=== PATIENT | female | born 1985 | race Caucasian/White ===

== ENCOUNTER 2016-09-14 08:56 | Emergency (ER) | payer MEDICAID, OTHER ==
[2016-09-14 09:07] VITALS: BP 114/68
--- NOTE | 2016-09-14 09:59 | ED ---
Throat Pain/Nasal Congestion - HPI Summary HPI Summary: 31yo female presents with left lower dental pain and facial swelling that started a few days ago. About a week ago her tooth broke, and the pain and swelling started after that. No fever or chills. + nausea and vomited twice yesterday. Able to take and retain fluids now without difficulty. Patient took ibuprofen 800mg at 0400. LMP last week, not sexually active. - History of Current Complaint Chief Complaint: EDDentalPain - Allergies/Home Medications Allergies/Adverse Reactions: Allergies Allergy/AdvReac Type Severity Reaction Status Date / Time No Known Allergies Allergy Verified 05/01/15 19:44 PMH/Surg Hx/FS Hx/Imm Hx Endocrine/Hematology History: Denies: Hx Diabetes Cardiovascular History: Denies: Hx Congestive Heart Failure, Hx Hypertension GI History: Reports: Other GI Disorders - dysphagia occasional History: Denies: Hx Dialysis, Hx Renal Disease - Surgical History Surgery Procedure, Year, and Place: [facility]/APPY/RT OVARY AND RT F[place] TUBE REMOVED/TUBAL LIGATION Infectious Disease History: No Infectious Disease History: Denies: Traveled Outside the [place] in Last 30 Days - Family History Known Family History: Positive: Diabetes - Social History Lives: Alone Alcohol Use: Rare Hx Substance Use: Yes Substance Use Type: Reports: Marijuana Hx Tobacco Use: Yes Smoking Status (MU): Heavy Every Day Tobacco Smoker Review of Systems Positive: Dental Pain All Other Systems Reviewed And Are Negative: Yes Physical Exam - Summary Physical Exam Summary: GENERAL: Well appearing, Moderate acute pain distress, well nourished. HEENT: Head atraumatic/normocephalic, EOMI/RENO, conjunctiva clear, TMs appear without erythema/bulging, Nose appears without congestion or drainage, Throat uvula midline without exudates, erythema, or tonsillar edema. Some left lower facial edema. No sub mental edema or tenderness. No sublingual tenderness/firmness. Multiple decayed teeth with fracture of 20, tenderness and surrounding gingival edema and erythema. No fluctuant pocket. No active drainage. No trismus. NECK: Supple with normal range of motion during conversation. No lymphadenopathy. CARDIAC: RRR without murmur, rub or gallop LUNGS: Clear to auscultation without wheezing, rales or rhonchi. Normal respiratory effort. Breath sounds are symmetrical and equal. MUSCULOSKELETAL: Moves all extremities well. There is no peripheral edema. SKIN: Warm and dry, skin color reflects adequate perfusion. NEUROLOGICAL: Patient is alert and appropriate. Cranial nerves are grossly intact. PSYCHIATRIC: Appropriate affect. Vital Signs On Initial Exam: Initial Vitals Temp Pulse Resp BP Pulse Ox 97.8 F 78 15 114/68 100 09/14/16 09:02 09/14/16 09:02 09/14/16 09:02 09/14/16 09:02 09/14/16 09:02 Diagnostics - Vital Signs Vital Signs Temp Pulse Resp BP Pulse Ox 09/14/16 09:02 97.8 F 78 15 114/68 100 - Laboratory Lab Statement: Any lab studies that have been ordered have been reviewed, and results considered in the medical decision making process. EENT Course/Dx - Course Assessment/Plan: 31yo female presents with left lower dental pain that started a few days after her tooth broke. Multiple sites of dental decay. No fever/ chills. No fluctuant mass. Will treat with antibiotics and pain medication. Warm compresses recommended. Discussed the importance of dental care, as this is only a temporary treatment. Discussed risk/benefit of narcotic pain medication. Patient to return with any problems, concerns, new/worsening symptoms. Patient voiced understanding. - Diagnoses Provider Diagnoses: CLINDAMYCIN,DENTAL ABSCESS Discharge - Discharge Plan Condition: Good Disposition: HOME Prescriptions: Clindamycin Cap(NF) [Cleocin 300 mg Cap(NF)] 300 mg PO QID #40 cap HYDROcodone/ACETAMIN 5-325 MG* [Schleswig 5-325 TAB*] 1 tab PO Q6H PRN #18 tab MDD 4 PRN Reason: Pain Patient Education Materials: Clindamycin (By mouth), Hydrocodone/Acetaminophen (By mouth), Ibuprofen (By mouth), Dental Abscess (ED) Referrals: [facility]ERR[facility] [Outside] Additional Instructions: Please see your dentist as discussed. You need to see a dentist for definitive care. Narcotics were prescribed for pain. As discussed there are risks for GI upset, addiction and constipation to name some of the adverse reactions. Please take ibuprofen primarily and the narcotic for break through pain. Please return if you have fever, chills, worsening swelling or with any problems/ concerns.
[2016-09-14] MEDS ORDERED: Clindamycin CAP* 150 MG PO ONE ×2 (10:00)
[2016-09-14] MEDS ORDERED: HYDROcodone/ACETAMIN 5-325 MG* 1 TAB PO ONE ×2 (10:00)
== END 2016-09-14 10:39 | disposition home or self-care (01) ==
LOC: ED 08:56
DX: K08.89 Other specified disorders of teeth and supporting structures (principal); Z72.0 Tobacco use
CPT/HCPCS: 99283; A9270-GY

== ENCOUNTER 2016-11-24 10:53 | Inpatient (IN) | payer MEDICAID ==
[2016-11-24] MEDS ORDERED: LORazepam TAB(*) 1 MG PO ONE (11:58)
--- NOTE | 2016-11-24 12:08 | ED ---
Psychiatric Complaint - HPI Summary HPI Summary: Patient presents with "hearing voices" that have increased over the last few weeks. She stopped taking her usual medications approximately 3 weeks ago, and since then she has not been functioning as well. She has not showered in 7 weeks , hasn't gone to work or school. She has not slept in 4 days. The voices have been telling her to harm herself by hanging herself. She denies HI. She has several counselors she has been in touch with but has not confessed that the voices are getting worse. She has prior attempts. - History Of Current Complaint Chief Complaint: EDMentalHealth Time Seen by Provider: 11/24/16 11:00 Hx Obtained From: Patient ?: No Onset/Duration: Gradual Onset Timing: Constant Severity Initially: Mild Severity Currently: Severe Character: Manic Aggravating Factor(s): Medication Non-compliance Alleviating Factor(s): Nothing Associated Signs And Symptoms: Positive: Hallucinating, Sleep Disturbance, Appetite Change Related History: Positive For: Prior Psychiatric Issues Has Suicidal: Reports: Thoughts, With A Plan, Demonstrates Gesture, Has Prior Attempt(s) - Allergies/Home Medications Allergies/Adverse Reactions: Allergies Allergy/AdvReac Type Severity Reaction Status Date / Time No Known Allergies Allergy Verified 11/24/16 17:59 Home Medications: Home Medications NK [No Home Medications Reported] 11/24/16 [History Confirmed 11/24/16] PMH/Surg Hx/FS Hx/Imm Hx Endocrine/Hematology History: Denies: Hx Diabetes Cardiovascular History: Denies: Hx Congestive Heart Failure, Hx Hypertension GI History: Reports: Other GI Disorders - dysphagia occasional History: Denies: Hx Dialysis, Hx Renal Disease Psychiatric History: Reports: Hx Post Traumatic Stress Disorder, Hx Bipolar Disorder - Surgical History Surgery Procedure, Year, and Place: [facility]/APPY/RT OVARY AND RT [place] TUBE REMOVED/TUBAL LIGATION Infectious Disease History: No Infectious Disease History: Denies: Traveled Outside the [place] in Last 30 Days - Family History Known Family History: Positive: Diabetes - Social History Occupation: Employed Part-time Lives: With Family Alcohol Use: Rare Hx Substance Use: Yes Substance Use Type: Reports: Marijuana Hx Tobacco Use: Yes Smoking Status (MU): Heavy Every Day Tobacco Smoker Cessation Counseling: Patient Advised to Stop Review of Systems Positive: Anxious All Other Systems Reviewed And Are Negative: Yes Physical Exam Triage Information Reviewed: Yes Vital Signs On Initial Exam: Initial Vitals Temp Pulse Resp BP Pulse Ox 98.0 F 81 16 103/69 98 11/24/16 10:55 11/24/16 10:55 11/24/16 10:55 11/24/16 10:55 11/24/16 10:55 Vital Signs Reviewed: Yes Appearance: Positive: Well-Appearing, No Pain Distress, Obese Skin: Positive: Warm, Skin Color Reflects Adequate Perfusion, Dry, Soft Head/Face: Positive: Normal Head/Face Inspection Eyes: Positive: EOMI, ÓSCAR, Conjunctiva Clear ENT: Positive: Hearing grossly normal Neck: Positive: Supple, Nontender Respiratory/Lung Sounds: Positive: Clear to Auscultation, Breath Sounds Present Cardiovascular: Positive: RRR Abdomen Description: Positive: Nontender, Soft Bowel Sounds: Positive: Present Musculoskeletal: Negative: Edema Left, Edema Right Neurological: Positive: Sensory/Motor Intact, Alert, Oriented to Person Place, Time, NV Bundle Intact Distally, Normal Gait Psychiatric: Positive: Anxious AVPU Assessment: Alert Diagnostics - Vital Signs Vital Signs Temp Pulse Resp BP Pulse Ox 11/24/16 10:55 98.0 F 81 16 103/69 98 - Laboratory Result Diagrams: 11/24/16 11:55 11/24/16 11:55 Lab Statement: Any lab studies that have been ordered have been reviewed, and results considered in the medical decision making process. Course/Dx - Differential Dx/Clinical Impression Differential Diagnosis/HQI/PQRI: Positive: Acute Psychosis, Anxiety, Depression Provider Diagnosis: Persistent mood [affective] disorder, unspecified - Physician Notifications Patient Is Medically Stable For: Psych Evaluation Discharge - Discharge Plan Condition: Stable Disposition: ADMITTED TO [facility]
[2016-11-24 12:13] LABS: Hematocrit 40 % (35-47); Hemoglobin 13.3 g/dl (12.0-16.0); Mean Corpuscular HGB Conc 33 g/dl (31-36); Mean Corpuscular Hemoglobin 29 pg (27-31); Mean Corpuscular Volume 88 fL (80-97); Red Blood Count 4.56 10^6/ul (4.0-5.4); Red Cell Distribution Width 14 % (10.5-15); White Blood Count 9.2 10^3/ul (3.5-10.8)
[2016-11-24 12:14] LABS: Add Diff/Slide Review? Slide Review Added; Comments Flag Yes
[2016-11-24 12:21] LABS: ALT 19 U/L (7-52); Albumin 3.9 g/dL (3.2-5.2); Alkaline Phosphatase 52 U/L (34-104); BUN/Creatinine Ratio 15.6 (8-20); Blood Urea Nitrogen 12 mg/dL (6-24); CO2 Carbon Dioxide 26 mmol/L (22-32); Calcium 9.2 mg/dL (8.6-10.3); Chloride 103 mmol/L (101-111); EGFR Non-African American 88.6 (>60); Globulin 3.2 g/dL (2-4); Glucose 73 mg/dL (70-100); Sodium 134 mmol/L (133-145); Total Protein 7.1 g/dL (6.4-8.9)
[2016-11-24 13:16] LABS: Acetaminophen < 15 mcg/mL; Alcohol < 10 mg/dL (<10); Salicylate < 2.50 mg/dL (<30)
[2016-11-24 13:19] LABS: TSH (Thyroid Stimulating Horm) 1.66 mcIU/mL (0.34-5.60)
[2016-11-24 13:30] LABS: AST 16 U/L (13-39); Anion Gap 5 mmol/L (2-11); Potassium 4.3 mmol/L (3.5-5.0)
[2016-11-24] MEDS ORDERED: Acetaminophen TAB* 325 MG PO PRN (14:32)
[2016-11-24] MEDS ORDERED: Al Hydrox/Mg Hydrox/Simet LIQ* 30 ML UDC PO PRN (14:32)
[2016-11-24] MEDS ORDERED: hydrOXYzine HCL TAB* 25 MG PO PRN (14:38)
[2016-11-24] MEDS ORDERED: Mouth Piece, Nicotine* 1 EACH CARTRIDGE INH ONE (15:00)
[2016-11-24] MEDS: Nicotine Inhaler* 10 MG AMP INH PRN (16:56)
[2016-11-24] MEDS ORDERED: Gabapentin CAP(*) 100 MG PO ONE (19:00)
[2016-11-24] MEDS: hydrOXYzine HCL TAB* 25 MG PO PRN (19:47)
[2016-11-24] MEDS ORDERED: OLANzapine TAB*ODT* 10 MG TAB PO SCH (21:00)
[2016-11-24] MEDS: Gabapentin CAP(*) 100 MG PO SCH (21:26)
[2016-11-25] MEDS: Gabapentin CAP(*) 100 MG PO SCH ×3 (07:59→21:08)
[2016-11-25] MEDS: Vitamin THERAPEUTIC TAB PO SCH (07:59)
[2016-11-25] MEDS: hydrOXYzine HCL TAB* 25 MG PO PRN (08:00)
[2016-11-25] MEDS: Nicotine Inhaler* 10 MG AMP INH PRN ×2 (08:01→17:47)
[2016-11-25] MEDS: QUEtiapine TAB* 25 MG PO PRN ×2 (13:09→17:38)
[2016-11-25 13:57] LABS: Urine Bilirubin Negative (Negative); Urine Glucose Negative (Negative); Urine Nitrite Negative (Negative)
[2016-11-25 14:18] LABS: Benzodiazepine Urine Screen None Detected (None Detect)
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
[2016-11-25] MEDS: OLANzapine TAB*ODT* 5 MG PO SCH (21:07)
[2016-11-26] MEDS: Vitamin THERAPEUTIC TAB PO SCH (08:24)
[2016-11-26] MEDS: Gabapentin CAP(*) 100 MG PO SCH ×3 (08:25→20:43)
[2016-11-26] MEDS: Nicotine Inhaler* 10 MG AMP INH PRN ×2 (08:26→14:50)
--- NOTE | 2016-11-26 11:16 | PN ---
[facility]: Group Therapy Note - Service Type Service Type: 13245 Group Psychotherapy - Cognitive Behavioral Group Therapy ( CBT):Patient was attentive and participatory in CBT programming this morning, and remained in good behavioral control. Patient expressed positive insights regarding relevant treatment interventions and goals.
[2016-11-26] MEDS: QUEtiapine TAB* 25 MG PO PRN ×4 (11:53→20:44)
--- NOTE | 2016-11-26 13:45 | PN ---
Subjective - Subjective Service Type: 97249 Hosp care 15 min low complexity Subjective: Kvng reports her mood as 'still anxious', with continued paranoia that staff are laughing at her for example. She reports some benefit against the anxiety from 25 mg Seroquel prn doses. AH of the male voice she reports is continuing, though less of it, and VH of menacing sheep/lambs with big dark eyes she reports has remitted. She reports still feeling hopeless/worthless, but without thoughts to hang herself now, nor any other specific plan to kill herself. She reports stress of her mother being released from [facility]16 and concern that she will essentially 'kidnap' her if she agrees to help her move. She is concerned about having missed an appointment on Thursday morning with social media project manager. She agrees to allow us to get a discharge summary from [facility] psychiatric unit in [place]. She requests medication in AM to help her with anxiety, mood. Requested Abilify, Topamax or Prozac, then suggested Wellbutrin. Objective - Appearance Appearance: Obese Dysmorphic Features: No Hygiene: Normal Grooming: Fairly Well Kept - Behavior Psychomotor Activities: Normal Exhibits Abnormal Movement: No - Attitude and Relatedness Attitude and Relatedness: Cooperative Eye Contact: Good - Speech Quality: Unpressured Latencies: Normal Quantity: Appropriate - Mood Patient's Decription of Mood: "Anxious" - Affect Observed Affect: Good Affect Consistent with: Euthymia - Thought Process Patient's Thought Process: Coherent, Goal Directed Thought Content: Yes Passive Wish, Yes Paranoid Ideation, No Suicidal Planning, No Homicidal Ideation - Sensorium Experiencing Hallucinations: Yes Type of Hallucinations: Visual: No, Auditory: Yes, Command: No - Level of Consciousness Level of Consciousness: Alert Orientation: Yes Intact, Yes Orientated to Time, Yes Orientated to Place, Yes Orientated to Person - Impulse Control Impulse Control: Intact - Insight and Judgement Insight and Judgement: Poor - Group Participation Particating in Group Activities: Yes - Medication Management Medication Management Adherence: Yes Assessment - Assessment Merits Inpatient Hospitalization: For Immediate Safety, For Stabilization, To Initiate Treatment, For Ongoing Evaluation, For Discharge Planning, Pending Safe DC Plan Inpatient DSM-IV Dx: Schizoaffective Disorder, Bipolar Type. Alcohol use disorder reported in [facility]. Cannabis use disorder. Rule out Borderline Personality Disorder Clinical Impression: Admission note A/P 11.25.16: Ms. Ryan is a 31-year-old woman who comes to us with report of onset of auditory and visual hallucinations about 6 months ago, worsened of late with lapse from medications. She reports poor followup with outpatient care since 2012 when she was in outpatient care with [facility], filling the gap with prescriptions received while inpatient at [facility] in [place] for the most part. She is seeking care for resolution of her psychosis and suicidality. She does require locked inpatient setting for this given her report of thoughts to harm herself or others due to these command auditory hallucinations of a male voice. We have started Zyprexa 10 mg last night, 15 mg to be given tonight, against these hallucinations as primary target symptoms. Also with suicidality as a primary symptom, it will be with remission of these symptoms that she will be considered to be ready for discharge. She has been encouraged to make use of the therapeutic milieu and groups. We have instead of giving Klonopin as requested offered a Seroquel 25 mg dosage every two hours as needed for agitation/anxiety. Aftercare is likely to be continued intake into the [facility]. Day 2, 11.26.16: Kvng reports some improvements, with remitted VH, but continued AH/PI, reports benefit from prn Seroquel, likely benefit from Zyprexa in remission of VH. She agrees to addition of 75 mg Wellbutrin in the AM to promote improved mood. No physical complaint. Asking about rescheduling for interview at social media project manager for food stamps and other aid after missing Thursday appointment, also asked me about signing form supporting disability, to which I suggested this might be better managed by outpatient providers after she has reestablished care at [facility]. Some concern here for possible indications of malingering, but impossible to ascertain either way. Plan - Plan Treatment Plan: Name: KVNG RYAN Birthdate: 1985 [id number] Add Wellbutrin 75 mg daily against depressive symptoms. Continue Zyprexa 15 mg nightly against psychotic symptoms, gabapentin 200 mg tid against anxiety, Seroquel 25 mg q2H prn agitation/anxiety. Ms Aguilar has stepped in to help obtain d/c summary from last Dr Valdez hospitalization at [facility] in [place]. Monitor MS toward discharge criteria of remitted report of YANG RICHARDS, PI. Plan toward resumed intake into [facility]. Continued Medication Management: Different Medication Medications: Current Medications Acetaminophen (Tylenol Tab*) 650 mg PO Q4H PRN PRN Reason: for pain; or Temp >101 F Al Hydrox/Mg Hydrox/Simethicone (Maalox Plus*) 30 ml PO Q4H PRN PRN Reason: INDIGESTION Gabapentin (Neurontin Cap(*)) 200 mg PO TID [facility] Last Admin: 11/26/16 08:25 Dose: 200 mg Multivitamins (Theragran Tab*) 1 tab PO DAILY [facility] Last Admin: 11/26/16 08:24 Dose: 1 tab Nicotine (Nicotine Inhaler*) 10 mg INH Q2H PRN PRN Reason: CRAVING Last Admin: 11/26/16 08:26 Dose: 10 mg Olanzapine (Zyprexa * Tab Odt) 15 mg PO BEDTIME [facility] Last Admin: 11/25/16 21:07 Dose: 15 mg Quetiapine Fumarate (Seroquel Tab*) 25 mg PO Q2H PRN PRN Reason: AGITATION/ANXIETY Last Admin: 11/26/16 11:53 Dose: 25 mg - Discharge Plan Discharge Plan: Outpatient Follow Up Outpatient Program: [facility]
[2016-11-26] MEDS: OLANzapine TAB*ODT* 5 MG PO SCH (20:45)
[2016-11-27] MEDS: Gabapentin CAP(*) 100 MG PO SCH (08:44)
[2016-11-27] MEDS: Nicotine Inhaler* 10 MG AMP INH PRN ×3 (08:44→21:26)
[2016-11-27] MEDS: Vitamin THERAPEUTIC TAB PO SCH (08:45)
[2016-11-27] MEDS ORDERED: BuPROPion XL* 150 MG TAB.XL PO SCH (12:00)
--- NOTE | 2016-11-27 12:05 | PN ---
Subjective - Subjective Service Type: 19918 Hosp care 15 min low complexity Subjective: The patient is seen today in coverage for Dr. Jasso. She continues to endorse AH and VH and inquires how soon the olanzapine might be expected to improve these symptoms. The patient is requesting initiation of bupropion therapy and would also like her gabapentin increased. She voices no other acute complaints and denies SI. Objective - Appearance Appearance: Well Developed/Nourished Dysmorphic Features: No Hygiene: Normal Grooming: Well Kept - Behavior Psychomotor Activities: Normal Exhibits Abnormal Movement: No - Attitude and Relatedness Attitude and Relatedness: Cooperative Eye Contact: Good - Speech Quality: Unpressured Latencies: Normal Quantity: Appropriate - Mood Patient's Decription of Mood: "Anxious" - Affect Observed Affect: Fair Affect Consistent with: Euthymia - Thought Process Patient's Thought Process: Coherent Thought Content: No Passive Wish, No Suicidal Planning, No Homicidal Ideation, No Paranoid Ideation - Sensorium Experiencing Hallucinations: Yes Type of Hallucinations: Visual: Yes, Auditory: Yes, Command: No - Level of Consciousness Level of Consciousness: Alert Orientation: Yes Intact, Yes Orientated to Time, Yes Orientated to Place, Yes Orientated to Person - Impulse Control Impulse Control: Tenuous - Insight and Judgement Insight and Judgement: Fair - Group Participation Particating in Group Activities: Yes - Medication Management Medication Management Adherence: Yes Assessment - Assessment Merits Inpatient Hospitalization: For Immediate Safety, For Stabilization Inpatient DSM-IV Dx: Schizoaffective Disorder, Bipolar Type. 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 Cannabis use disorder. Rule out Borderline Personality Disorder Clinical Impression: 31 y.o. white female with a history of putative bipolar disorder arrived at the hospital seeking voluntary admission due to AH, VH and SI. Plan - Plan Treatment Plan: Name: KVNG RYAN Birthdate: 1985 [id number] The patient is on olanzapine 15mg PO qhs and we await efficacy. As per patient' s request we will initiate bupropion XL 150mg PO qday and increase gabapentin to 300mg PO TID. Patient will resume care with Dr. Jasso, effective November 29. Continued Medication Management: Start Medication Medications: Current Medications Acetaminophen (Tylenol Tab*) 650 mg PO Q4H PRN PRN Reason: for pain; or Temp >101 F Al Hydrox/Mg Hydrox/Simethicone (Maalox Plus*) 30 ml PO Q4H PRN PRN Reason: INDIGESTION Bupropion HCl (Wellbutrin Xl *) 150 mg PO DAILY [facility] PRN Reason: Protocol Gabapentin (Neurontin Cap(*)) 300 mg PO TID [facility] Multivitamins (Theragran Tab*) 1 tab PO DAILY [facility] Last Admin: 11/27/16 08:45 Dose: 1 tab Nicotine (Nicotine Inhaler*) 10 mg INH Q2H PRN PRN Reason: CRAVING Last Admin: 11/27/16 08:44 Dose: 10 mg Olanzapine (Zyprexa * Tab Odt) 15 mg PO BEDTIME [facility] Last Admin: 11/26/16 20:45 Dose: 15 mg Quetiapine Fumarate (Seroquel Tab*) 25 mg PO Q2H PRN PRN Reason: AGITATION/ANXIETY Last Admin: 11/26/16 20:44 Dose: 25 mg - Discharge Plan Discharge Plan: Inpatient Hospitalization
[2016-11-27] MEDS: QUEtiapine TAB* 25 MG PO PRN ×4 (12:08→21:19)
[2016-11-27] MEDS: BuPROPion XL* 150 MG TAB.XL PO SCH (12:11)
[2016-11-27] MEDS: Gabapentin CAP(*) 300 MG PO SCH ×2 (15:53→20:33)
[2016-11-27] MEDS: OLANzapine TAB*ODT* 5 MG PO SCH (21:26)
[2016-11-28] MEDS: QUEtiapine TAB* 25 MG PO PRN ×3 (07:30→16:00)
[2016-11-28] MEDS: BuPROPion XL* 150 MG TAB.XL PO SCH (09:25)
[2016-11-28] MEDS: Nicotine Inhaler* 10 MG AMP INH PRN ×3 (09:25→20:41)
[2016-11-28] MEDS: Vitamin THERAPEUTIC TAB PO SCH (09:25)
[2016-11-28] MEDS: Gabapentin CAP(*) 300 MG PO SCH ×2 (09:25→12:55)
--- NOTE | 2016-11-28 14:23 | PN ---
Subjective - Subjective Service Type: 17096 Hosp care 15 min low complexity Subjective: The patient states that she's feeling better and would like to discuss being discharged on Thursday or Thursday with Dr. Jasos. She complained about command AH to staff but denies this currently. She is requesting an increase in gabapentin in order to help her manage anxiety better. She denies SI or HI. Objective - Appearance Appearance: Well Developed/Nourished, Obese Dysmorphic Features: No Hygiene: Normal Grooming: Well Kept - Behavior Psychomotor Activities: Normal Exhibits Abnormal Movement: No - Attitude and Relatedness Attitude and Relatedness: Cooperative Eye Contact: Good - Speech Quality: Unpressured Latencies: Normal Quantity: Appropriate - Mood Patient's Decription of Mood: "Okay" - Affect Observed Affect: Fair Affect Consistent with: Euthymia - Thought Process Patient's Thought Process: Coherent Thought Content: No Passive Wish, No Suicidal Planning, No Homicidal Ideation, No Paranoid Ideation - Sensorium Experiencing Hallucinations: No, Sensorium is Clear Type of Hallucinations: Visual: No, Auditory: No, Command: No - Level of Consciousness Level of Consciousness: Alert Orientation: Yes Intact, Yes Orientated to Time, Yes Orientated to Place, Yes Orientated to Person - Impulse Control Impulse Control: Tenuous - Insight and Judgement Insight and Judgement: Fair - Group Participation Particating in Group Activities: Yes - Medication Management Medication Management Adherence: Yes Assessment - Assessment Merits Inpatient Hospitalization: For Immediate Safety, For Stabilization Inpatient DSM-IV Dx: Schizoaffective Disorder, Bipolar Type. 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 Cannabis use disorder. Rule out Borderline Personality Disorder Clinical Impression: 31 y.o. white female with a history of putative bipolar disorder arrived at the hospital seeking voluntary admission due to AH, VH and SI. Plan - Plan Treatment Plan: Name: KVNG RYAN Birthdate: 1985 [id number] The patient is on olanzapine 15mg PO qhs, bupropion XL 150mg PO qday and gabapentin 300mg PO TID. We will increase gabapentin to 400mg PO TID per her request. Patient will resume care with Dr. Jasso, effective November 29. Continued Medication Management: Different Medication Medications: Current Medications Acetaminophen (Tylenol Tab*) 650 mg PO Q4H PRN PRN Reason: for pain; or Temp >101 F Al Hydrox/Mg Hydrox/Simethicone (Maalox Plus*) 30 ml PO Q4H PRN PRN Reason: INDIGESTION Bupropion HCl (Wellbutrin Xl *) 150 mg PO 0900 IRINA PRN Reason: Protocol Last Admin: 11/28/16 09:25 Dose: 150 mg Gabapentin (Neurontin Cap(*)) 300 mg PO TID [facility] Last Admin: 11/28/16 12:55 Dose: 300 mg Multivitamins (Theragran Tab*) 1 tab PO DAILY [facility] Last Admin: 11/28/16 09:25 Dose: 1 tab Nicotine (Nicotine Inhaler*) 10 mg INH Q2H PRN PRN Reason: CRAVING Last Admin: 11/28/16 09:25 Dose: 10 mg Olanzapine (Zyprexa * Tab Odt) 15 mg PO BEDTIME [facility] Last Admin: 11/27/16 21:26 Dose: 15 mg Quetiapine Fumarate (Seroquel Tab*) 25 mg PO Q2H PRN PRN Reason: AGITATION/ANXIETY Last Admin: 11/28/16 12:55 Dose: 25 mg - Discharge Plan Discharge Plan: Inpatient Hospitalization
[2016-11-28] MEDS ORDERED: QUEtiapine TAB* 25 MG ONE (18:23)
[2016-11-28] MEDS: Gabapentin CAP(*) 400 MG PO SCH (20:41)
[2016-11-28] MEDS: OLANzapine TAB*ODT* 5 MG PO SCH (20:42)
[2016-11-29] MEDS: Vitamin THERAPEUTIC TAB PO SCH (08:51)
[2016-11-29] MEDS: Gabapentin CAP(*) 400 MG PO SCH ×3 (08:51→20:47)
[2016-11-29] MEDS: Nicotine Inhaler* 10 MG AMP INH PRN ×3 (08:51→20:48)
[2016-11-29] MEDS: BuPROPion XL* 150 MG TAB.XL PO SCH (08:51)
[2016-11-29] MEDS ORDERED: chlorproMAZINE TAB* 50 MG PO ONE (16:49)
--- NOTE | 2016-11-29 16:51 | PN ---
Subjective - Subjective Service Type: 78935 Hosp care 15 min low complexity Subjective: Kvng reports remission of hallucinations, but continued paranoia that others are laughing at her. vKng asked for Klonopin 0.5 mg bid for anxiety, but ultimately agreed with my thought to avoid benzodiazepines due to her history of alcohol use disorder and her plan to enter care with [facility], agreeing instead to a switch to chlorpromazine from quetiapine as a prn against agitation/anxiety. Objective - Appearance Appearance: Obese Dysmorphic Features: No Hygiene: Normal Grooming: Fairly Well Kept - Behavior Psychomotor Activities: Normal Exhibits Abnormal Movement: No - Attitude and Relatedness Attitude and Relatedness: Cooperative Eye Contact: Good - Speech Quality: Unpressured Latencies: Normal Quantity: Appropriate - Mood Patient's Decription of Mood: "Not good: I have terrible anxiety." - Affect Observed Affect: Tense Affect Consistent with: Dysphoria - Thought Process Patient's Thought Process: Coherent, Goal Directed Thought Content: Yes Paranoid Ideation, No Passive Wish, No Suicidal Planning, No Homicidal Ideation - Sensorium Experiencing Hallucinations: No, Sensorium is Clear Type of Hallucinations: Visual: No, Auditory: No, Command: No - Level of Consciousness Level of Consciousness: Alert Orientation: Yes Intact, Yes Orientated to Time, Yes Orientated to Place, Yes Orientated to Person - Impulse Control Impulse Control: Intact - Insight and Judgement Insight and Judgement: Poor - Group Participation Particating in Group Activities: Yes - Medication Management Medication Management Adherence: Yes Assessment - Assessment Merits Inpatient Hospitalization: For Stabilization, Consolidate Improvements, For Discharge Planning Inpatient DSM-IV Dx: Schizoaffective Disorder, Bipolar Type. Alcohol use disorder reported in [facility] remission. Cannabis use disorder. Rule out Borderline Personality Disorder Clinical Impression: Admission note A/P 3.14.17: Ms. Ryan is a 31-year-old woman who comes to us with report of onset of auditory and visual hallucinations about 6 months ago, worsened of late with lapse from medications. She reports poor followup with outpatient care since 2012 when she was in outpatient care with [facility], filling the gap with prescriptions received while inpatient at [facility] in [place] for the most part. She is seeking care for resolution of her psychosis and suicidality. She does require locked inpatient setting for this given her report of thoughts to harm herself or others due to these command auditory hallucinations of a male voice. We have started Zyprexa 10 mg last night, 15 mg to be given tonight, against these hallucinations as primary target symptoms. Also with suicidality as a primary symptom, it will be with remission of these symptoms that she will be considered to be ready for discharge. She has been encouraged to make use of the therapeutic milieu and groups. We have instead of giving Klonopin as requested offered a Seroquel 25 mg dosage every two hours as needed for agitation/anxiety. Aftercare is likely to be continued intake into the [facility]. Day 2, 15.17: Kvng reports some improvements, with remitted VH, but continued AH/PI, reports benefit from prn Seroquel, likely benefit from Zyprexa in remission of VH. She agrees to addition of 75 mg Wellbutrin in the AM to promote improved mood. No physical complaint. Asking about rescheduling for interview at social science teacher for food stamps and other aid after missing Thursday appointment, also asked me about signing form supporting disability, to which I suggested this might be better managed by outpatient providers after she has reestablished care at [facility]. Some concern here for possible indications of malingering, but impossible to ascertain either way. Day 11.29.17: Kvng today reports sustained remission of dangerous intent or plan and of hallucinations, but with persistent paranoia. She reports anxiety contributing to irritable and low mood. She agrees to trial of alternative to initially requested benzodiazepines. She reports having from Ms Yfn that she is likely to discharge Thursday, and is agreeable to that plan. Plan - Plan Treatment Plan: Name: KVNG RYAN Birthdate: 1985 [id number] Continue Zyprexa 15 mg nightly against psychotic symptoms, gabapentin 400 mg tid against anxiety, Wellbutrin XL 150 mg daily against depressive symptoms; replace Seroquel with low dose (25 mg to start) Thorazine against agitation/ anxiety, avoiding benzodiazepines. Monitor MS toward discharge criteria, with report of established remission of SI/HI/AH, only remaining symptom reported as PI. Plan toward resumed intake into [facility]. Medications: Current Medications Acetaminophen (Tylenol Tab*) 650 mg PO Q4H PRN PRN Reason: for pain; or Temp >101 F Al Hydrox/Mg Hydrox/Simethicone (Maalox Plus*) 30 ml PO Q4H PRN PRN Reason: INDIGESTION Bupropion HCl (Wellbutrin Xl *) 150 mg PO 0900 IRINA PRN Reason: Protocol Last Admin: 11/29/16 08:51 Dose: 150 mg Gabapentin (Neurontin Cap(*)) 400 mg PO TID [facility] Last Admin: 11/29/16 14:31 Dose: 400 mg Multivitamins (Theragran Tab*) 1 tab PO DAILY [facility] Last Admin: 11/29/16 08:51 Dose: 1 tab Nicotine (Nicotine Inhaler*) 10 mg INH Q2H PRN PRN Reason: CRAVING Last Admin: 11/29/16 08:51 Dose: 10 mg Olanzapine (Zyprexa * Tab Odt) 15 mg PO BEDTIME [facility] Last Admin: 11/28/16 20:42 Dose: 15 mg Quetiapine Fumarate (Seroquel Tab*) 25 mg PO Q2H PRN PRN Reason: AGITATION/ANXIETY Last Admin: 11/28/16 16:00 Dose: 25 mg - Discharge Plan Discharge Plan: Outpatient Follow Up Outpatient Program: [facility]
[2016-11-29] MEDS: chlorproMAZINE TAB* 25 MG PO PRN (20:47)
[2016-11-29] MEDS: OLANzapine TAB*ODT* 5 MG PO SCH (20:48)
[2016-11-30] MEDS: Nicotine Inhaler* 10 MG AMP INH PRN ×3 (08:33→20:29)
[2016-11-30] MEDS: chlorproMAZINE TAB* 25 MG PO PRN ×4 (08:33→22:11)
[2016-11-30] MEDS: Vitamin THERAPEUTIC TAB PO SCH (08:34)
[2016-11-30] MEDS: BuPROPion XL* 150 MG TAB.XL PO SCH (08:34)
[2016-11-30] MEDS: Gabapentin CAP(*) 400 MG PO SCH ×3 (08:34→20:29)
[2016-11-30] MEDS: OLANzapine TAB*ODT* 5 MG PO SCH (20:29)
[2016-12-01] MEDS: BuPROPion XL* 150 MG TAB.XL PO SCH (08:19)
[2016-12-01] MEDS: Nicotine Inhaler* 10 MG AMP INH PRN (08:19)
[2016-12-01] MEDS: chlorproMAZINE TAB* 25 MG PO PRN ×2 (08:19→12:19)
[2016-12-01] MEDS: Vitamin THERAPEUTIC TAB PO SCH (08:20)
[2016-12-01] MEDS: Gabapentin CAP(*) 400 MG PO SCH (08:20)
--- NOTE | 2016-12-01 11:07 | DS ---
Subjective - Subjective Service Types: [id number] [facility] Day Mgmt simple under 30 min Discharge Date: 12/01/16 Subjective: Sejal requests discharge today. She denies any voices, visions, or dangerous intent or plan of any sort. She reports only "very, very, very small paranoia", but with improved coping strategy with asking staff if they were laughing at her yesterday, and accepting their answer when they said no they weren't. Objective - Appearance Appearance: Obese Dysmorphic Features: No Hygiene: Normal Grooming: Fairly Well Kept - Behavior Psychomotor Activities: Normal Exhibits Abnormal Movement: No - Attitude and Relatedness Attitude and Relatedness: Well Related Eye Contact: Good - Speech Quality: Unpressured Latencies: Normal Quantity: Appropriate - Mood Patient's Decription of Mood: "Good" - Affect Observed Affect: Good Affect Consistent with: Euthymia - Thought Process Patient's Thought Process: Coherent, Goal Directed Thought Content: Yes Paranoid Ideation - "very very very small", No Passive Wish, No Suicidal Planning, No Homicidal Ideation - Sensorium Experiencing Hallucinations: No, Sensorium is Clear Type of Hallucinations: Visual: No, Auditory: No, Command: No - Level of Consciousness Level of Consciousness: Alert Orientation: Yes Intact, Yes Orientated to Time, Yes Orientated to Place, Yes Orientated to Person - Impulse Control Impulse Control: Intact - Insight and Judgement Insight and Judgement: Fair - Group Participation Particating in Group Activities: Yes - Medication Management Medication Management Adherence: Yes Treatment Course & Assessment Clinical Course & Impression: Admission note A/P 3.14.17: Ms. Maharaj is a 31-year-old woman who comes to us with report of onset of auditory and visual hallucinations about 6 months ago, worsened of late with lapse from medications. She reports poor followup with outpatient care since 2012 when she was in outpatient care with [facility], filling the gap with prescriptions received while inpatient at [facility] in [place] for the most part. She is seeking care for resolution of her psychosis and suicidality. She does require locked inpatient setting for this given her report of thoughts to harm herself or others due to these command auditory hallucinations of a male voice. We have started Zyprexa 10 mg last night, 15 mg to be given tonight, against these hallucinations as primary target symptoms. Also with suicidality as a primary symptom, it will be with remission of these symptoms that she will be considered to be ready for discharge. She has been encouraged to make use of the therapeutic milieu and groups. We have instead of giving Klonopin as requested offered a Seroquel 25 mg dosage every two hours as needed for agitation/anxiety. Aftercare is likely to be continued intake into the [facility]. Day 2, 15.17: Sejal reports some improvements, with remitted VH, but continued AH/PI, reports benefit from prn Seroquel, likely benefit from Zyprexa in remission of VH. She agrees to addition of 75 mg Wellbutrin in the AM to promote improved mood. No physical complaint. Asking about rescheduling for interview at social studies department chair for food stamps and other aid after missing Thursday appointment, also asked me about signing form supporting disability, to which I suggested this might be better managed by outpatient providers after she has reestablished care at [facility]. Some concern here for possible indications of malingering, but impossible to ascertain either way. Day 5, 18.17: Sejal today reports sustained remission of dangerous intent or plan and of hallucinations, but with persistent paranoia. She reports anxiety contributing to irritable and low mood. She agrees to trial of alternative to initially requested benzodiazepines. She reports having from Ms Yfn that she is likely to discharge Thursday, and is agreeable to that plan. Discharge on day 7, 20.17: Sejal continues to report sustained remission of dangerous intent or plan and remission of hallucinations, with markedly reduced paranoia. She requests discharged. She is cleared for discharge. She is assessed as at no acutely increased risk of harm to self or others, and capable of adequate self-care to avoid harm. Sejal has made good use of group programming resources. She has been med compliant. She has been in good behavioral control. She voices firm commitment to arranged aftercare at [facility] and [facility]. She remains at elevated chronic risks due to her history of mental illness and substance abuse. Through adherence to aftercare, she can reduce these chronic risks. Merits Inpatient Hospitalization: No Clear for Discharge: Adequate Clinical Respons, Acceptable Safety Profile, Low Utility of Inpt Care Inpatient DSM-IV Dx: Schizoaffective Disorder, Bipolar Type. Alcohol use disorder reported in senior care remission. Cannabis use disorder. 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: Borderline traits - [place]wood III Medical Illness: No active issues - [place] IV Stressors: finances, transportation, substance abuse Family: not close Primary Support Group: Boyfriend Jenaro - [place] V PUG-[id number]-Aworn: 65 Estimate of Highest-Past Year: 65 Discharge Planning - Discharge Planning Discharge Plan: Outpatient Follow Up Outpatient Program: [facility] with [facility] Recommendations for Continuing Care: Medication Management, Psychotherapy, Substance Abuse Counseling Medications: Bupropion HCl (Wellbutrin Xl *) 150 mg PO 0900 IRINA PRN Reason: Protocol Last Admin: 12/01/16 08:19 Dose: 150 mg Chlorpromazine HCl (Thorazine Tab*) 25 mg PO Q4H PRN PRN Reason: AGITATION/ANXIETY Last Admin: 12/01/16 08:19 Dose: 25 mg Gabapentin (Neurontin Cap(*)) 400 mg PO TID IRINA Last Admin: 12/01/16 08:20 Dose: 400 mg Multivitamins (Theragran Tab*) 1 tab PO DAILY IRINA Last Admin: 12/01/16 08:20 Dose: 1 tab Nicotine 21 mg/24 hrs patch New at discharge Olanzapine (Zyprexa * Tab Odt) 15 mg PO BEDTIME IRINA Last Admin: 11/30/16 20:29 Dose: 15 mg, Replace with non-ODT form at discharge. Discharge Planning: Prescriptions provided for discharge [x] Yes [] No Follow up care details as per social work arrangements. Patient response to discharge plan: [x] eager for discharge [x] agreeable with discharge plan [] ambivalent about discharge [] disagrees with discharge today
[2016-12-01 11:08] VITALS: BP 114/53
== END 2016-12-01 13:00 | disposition home or self-care (01) | DRG 750 ==
LOC: ED 10:53 → BSU 16:00
PROVIDERS: ADMIT Psychiatry & Neurology Psychiatry; ATTEND Psychiatry & Neurology Psychiatry
PROC: GZHZZZZ Group Psychotherapy (ICD-10-PCS; principal; 2016-11-26)
DX: F25.0 Schizoaffective disorder, bipolar type (principal); Z68.41 Body mass index [BMI] 40.0-44.9, adult; F12.90 Cannabis use, unspecified, uncomplicated; F60.3 Borderline personality disorder; E66.9 Obesity, unspecified; F31.9 Bipolar disorder, unspecified; F43.10 Post-traumatic stress disorder, unspecified; F17.210 Nicotine dependence, cigarettes, uncomplicated; D71 Functional disorders of polymorphonuclear neutrophils; F41.9 Anxiety disorder, unspecified; R13.10 Dysphagia, unspecified; Z90.49 Acquired absence of other specified parts of digestive tract; Z72.89 Other problems related to lifestyle; Z91.5 Personal history of self-harm; Z88.8 Allergy status to other drugs, medicaments and biological substances; Z81.8 Family history of other mental and behavioral disorders; Z98.51 Tubal ligation status; Z90.721 Acquired absence of ovaries, unilateral; Z83.3 Family history of diabetes mellitus
CPT/HCPCS: 36415; 80053; 80307; 80320; 80329; 81003; 84443; 84702; 85025; 90853; 99222; 99231; 99238; A9270-GY; G0480

== ENCOUNTER 2017-01-23 16:40 | Emergency (ER) | payer MEDICAID ==
[2017-01-23 16:59] VITALS: BP 105/63
[2017-01-23] MEDS ORDERED: NS 0.9% 1000 ML* 1,000 ML IV ONE (19:32)
[2017-01-23] MEDS ORDERED: Ketorolac INJ* 30 MG/ML 1 ML VIAL IV ONE (19:32)
[2017-01-23 20:09] LABS: Urine Bacteria Absent (Absent); Urine Bilirubin Negative (Negative); Urine Glucose Negative (Negative); Urine Nitrite Negative (Negative)
[2017-01-23 20:09] LABS: Hematocrit 40 % (35-47); Hemoglobin 13.1 g/dl (12.0-16.0); Mean Corpuscular HGB Conc 33 g/dl (31-36); Mean Corpuscular Hemoglobin 29 pg (27-31); Mean Corpuscular Volume 88 fL (80-97); Mean Platelet Volume 9 um3 (7.4-10.4); Red Cell Distribution Width 14 % (10.5-15); White Blood Count 7.1 10^3/ul (3.5-10.8)
[2017-01-23 20:30] LABS: Albumin 4.1 g/dL (3.2-5.2); C Reactive Protein 2.31 mg/L (< 5.00); Calcium 9.3 mg/dL (8.6-10.3); EGFR African American 77.4 (>60); EGFR Non-African American 60.2 (>60); Globulin 3.1 g/dL (2-4); Magnesium 2.1 mg/dL (1.9-2.7); Potassium 3.7 mmol/L (3.5-5.0); Total Bilirubin 0.3 mg/dL (0.2-1.0); Total Protein 7.2 g/dL (6.4-8.9)
--- NOTE | 2017-01-23 21:21 | ED ---
Farhad Arce Billy, scribed for Gen Irby MD on 01/23/17 at 1932 . GI/ HPI - HPI Summary HPI Summary: Patient is a 32 year-old female coming to [facility] for evaluation of several days of lower abdominal/pelvic pain. She states that the last time she had a similar episode of this pain, she had a partial salpingo-oopherectomy. She describes "razor blades" burning with urination and throbbing pain for the last 2-3 days. She also feels lightheaded, dizzy, and nauseated, and she had vomited yesterday (none today). She denies any fever. Her symptoms began gradually. Took ibuprofen without improvement. - History of Current Complaint Chief Complaint: EDUrogenitalProblems Time Seen by Provider: 01/23/17 19:21 Stated Complaint: VOMITING,PELVIC PAIN,DIZZINESS Hx Obtained From: Patient Onset/Duration: Started Days Ago Timing: Constant Severity: Moderate Current Severity: Moderate Pain Intensity: 7 Location of Pain: Suprapubic Pain Characteristics: Burning Associated Signs and Symptoms: Positive: Dizziness, Nausea, Dysuria. Negative: Vomiting - None today, Fever - Additional Pertinent History Primary Care Physician: [id number] - Allergy/Home Medications Allergies/Adverse Reactions: Allergies Allergy/AdvReac Type Severity Reaction Status Date / Time No Known Allergies Allergy Verified 01/23/17 19:03 PMH/Surg Hx/FS Hx/Imm Hx Endocrine/Hematology History: Reports: Hx Unexplained Bleeding - reports uncontrollable bleeding one month ago and taking "orange" pill Denies: Hx Diabetes Cardiovascular History: Denies: Hx Congestive Heart Failure, Hx Deep Vein Thrombosis, Hx Embolism, Hx Hypotension, Hx Hypertension, Hx Pacemaker/ICD Respiratory History: Denies: Hx Asthma, Hx Chronic Bronchitis, Hx Pneumonia GI History: Reports: Hx Gall Bladder Disease - Gall bladder removed "couple of years ago", Other GI Disorders - dysphagia occasional Denies: Hx Crohn's Disease, Hx Gastroesophageal Reflux Disease, Hx Irritable Bowel, Hx Ulcer History: Denies: Hx Acute Renal Failure, Hx Dialysis, Hx Kidney Stones, Hx Renal Disease Musculoskeletal History: Denies: Hx Arthritis, Hx Fibromyalgia, Hx Orthopedic Injury Sensory History: Denies: Hx Contacts or Glasses, Hx Vision Problem, Hx Hearing Aid Opthamlomology History: Denies: Hx Contacts or Glasses, Hx Vision Problem Neurological History: Reports: Hx Headaches Denies: Hx Migraine, Hx Seizures Psychiatric History: Reports: Hx Anxiety, Hx Post Traumatic Stress Disorder, Hx Bipolar Disorder Denies: Hx Eating Disorder, Hx of Violent Episodes Against Others - Surgical History Surgery Procedure, Year, and Place: [facility]/APPY/RT OVARY AND RT [place] TUBE REMOVED/TUBAL LIGATION Infectious Disease History: No Infectious Disease History: Denies: Traveled Outside the [place] in Last 30 Days - Family History Known Family History: Positive: Diabetes - Social History Alcohol Use: Rare Hx Substance Use: Yes Substance Use Type: Reports: Marijuana Hx Tobacco Use: Yes Smoking Status (MU): Light Every Day Tobacco Smoker Type: Cigarettes Length of Time of Smoking/Using Tobacco: 2 years Have You Smoked in the Last Year: Yes Review of Systems Negative: Fever Positive: Abdominal Pain, Nausea. Negative: Vomiting Positive: dysuria Neurological: Other - Lightheaded and dizzy All Other Systems Reviewed And Are Negative: Yes Physical Exam Triage Information Reviewed: Yes Vital Signs On Initial Exam: Initial Vitals Temp Pulse Resp BP Pulse Ox 97.9 F 61 18 105/63 99 01/23/17 16:57 01/23/17 16:57 01/23/17 16:57 01/23/17 16:57 01/23/17 16:57 Vital Signs Reviewed: Yes Appearance: Positive: Well-Appearing, No Pain Distress Skin: Positive: Warm Head/Face: Positive: Normal Head/Face Inspection Eyes: Positive: ÓSCAR ENT: Positive: Hearing grossly normal Neck: Positive: Supple Respiratory/Lung Sounds: Positive: Clear to Auscultation, Breath Sounds Present Cardiovascular: Positive: RRR Abdomen Description: Positive: Nontender, No Organomegaly, Soft. Negative: CVA Tenderness (R), CVA Tenderness (L), Distended Bowel Sounds: Positive: Present Musculoskeletal: Positive: Strength/ROM Intact Neurological: Positive: Alert, Oriented to Person Place, Time, Normal Gait Psychiatric: Positive: Affect/Mood Appropriate Diagnostics - Vital Signs Vital Signs Temp Pulse Resp BP Pulse Ox 01/23/17 18:37 97.9 F 61 18 105/63 100 01/23/17 16:57 97.9 F 61 18 105/63 99 - Laboratory Lab Results: Lab Results 01/23/17 01/23/17 01/23/17 Range/Units 18:15 20:01 20:01 WBC 7.1 (3.5-10.8) 10^3/ul RBC 4.50 (4.0-5.4) 10^6/ul Hgb 13.1 (12.0-16.0) g/dl Hct 40 (35-47) % MCV 88 (80-97) fL MCH 29 (27-31) pg MCHC 33 (31-36) g/dl RDW 14 (10.5-15) % Plt Count 171 (150-450) 10^3/ul MPV 9 (7.4-10.4) um3 Neut % (Auto) 52.7 (38-83) % Lymph % (Auto) 35.1 (25-47) % Eagle % (Auto) 6.9 (1-9) % Eos % (Auto) 4.4 (0-6) % Baso % (Auto) 0.9 (0-2) % Absolute Neuts (auto) 3.7 (1.5-7.7) 10^3/ul Absolute Lymphs (auto) 2.5 (1.0-4.8) 10^3/ul Absolute Monos (auto) 0.5 (0-0.8) 10^3/ul Absolute Eos (auto) 0.3 (0-0.6) 10^3/ul Absolute Basos (auto) 0.1 (0-0.2) 10^3/ul Absolute Nucleated RBC 0 10^3/ul Nucleated RBC % 0.1 Sodium 134 (133-145) mmol/L Potassium 3.7 (3.5-5.0) mmol/L Chloride 107 (101-111) mmol/L Carbon Dioxide 22 (22-32) mmol/L Anion Gap 5 (2-11) mmol/L BUN 16 (6-24) mg/dL Creatinine 1.07 H (0.51-0.95) mg/dL Est GFR ( Amer) 77.4 (>60) Est GFR (Non-Af Amer) 60.2 (>60) BUN/Creatinine Ratio 15.0 (8-20) Glucose 75 (70-100) mg/dL Calcium 9.3 (8.6-10.3) mg/dL Magnesium 2.1 (1.9-2.7) mg/dL Total Bilirubin 0.30 (0.2-1.0) mg/dL AST 16 (13-39) U/L ALT 14 (7-52) U/L Alkaline Phosphatase 63 (34-104) U/L C-Reactive Protein 2.31 (< 5.00) mg/L Total Protein 7.2 (6.4-8.9) g/dL Albumin 4.1 (3.2-5.2) g/dL Globulin 3.1 (2-4) g/dL Albumin/Globulin Ratio 1.3 (1-3) Lipase 17 (11.0-82.0) U/L Beta HCG, Quant 0.93 mIU/mL Urine Color Yellow Urine Appearance Clear Urine pH 7.0 (5-9) Ur Specific [place] 1.012 (1.010-1.030) Urine Protein Negative (Negative) Urine Ketones Negative (Negative) Urine Blood Negative (Negative) Urine Nitrate Negative (Negative) Urine Bilirubin Negative (Negative) Urine Urobilinogen Negative (Negative) Ur Leukocyte Esterase Trace H (Negative) Urine WBC (Auto) Trace(0-5/hpf) (Absent) Urine RBC (Auto) Trace(0-2/hpf) (Absent) Ur Squamous Epith Cells Present H (Absent) Urine Bacteria Absent (Absent) Urine Glucose Negative (Negative) Result Diagrams: 01/23/17 20:01 01/23/17 20:01 Lab Statement: Any lab studies that have been ordered have been reviewed, and results considered in the medical decision making process. - Ultrasound No standard instances Ultrasound Interpretation Completed By: Radiologist - Pelvic ultrasound: 1. Limited conspicuity of the uterus due to incomplete bladder distention without gross abnormality. 2. Unremarkable bilateral ovaries and adnexal regions. Re-Evaluation - Re-Evaluation First Eval Change: Improved - results d/w pt GIGU Course/Dx - Diagnoses Provider Diagnoses: Pelvic pain Discharge - Discharge Plan Condition: Stable Disposition: HOME Prescriptions: Naproxen TAB* [Naprosyn 250 mg TAB*] 500 mg PO BID #20 tab Patient Education Materials: Pelvic Pain in Women (ED) Referrals: Efrain Jimenez MD [Primary Care Provider] - The documentation as recorded by the Farhad candelaria Billy accurately reflects the service I personally performed and the decisions made by me, Gen Irby MD.
--- NOTE | 2017-01-23 21:49 | RAD ---
Indication: LEFT lower quadrant pain. History of RIGHT ovary and fallopian tube resection and tubal ligation. Comparison: May 02, 2015 CT scan. Technique: Transabdominal pelvic ultrasound. Report: Incomplete distention of the urinary bladder limits acoustic window. Anteverted uterus measures 6.3 cm in length. Conspicuity of the uterus is limited due to incomplete bladder distention. The endometrium is not well visualized however there is no suggestion of thickening of the endometrium. 3.8 x 2.4 x 2.8 cm RIGHT ovary with documented vascular flow is remarkable for small follicles only. The identified RIGHT ovary corresponds in size with the May 02, 2015 CT. 3.7 x 2.7 x 3.6 cm LEFT ovary with documented vascular flow is remarkable for small follicles only. No extra ovarian adnexal region lesions or free fluid evident. IMPRESSION: 1. Limited conspicuity of the uterus due to incomplete bladder distention without gross abnormality. 2. Unremarkable bilateral ovaries and adnexal regions.
== END 2017-01-23 23:07 | disposition home or self-care (01) ==
LOC: ED 16:40
DX: R10.2 Pelvic and perineal pain (principal); F17.210 Nicotine dependence, cigarettes, uncomplicated
CPT/HCPCS: 36415; 76856; 80053; 81003; 81015; 83690; 83735; 84702; 85025; 86140; 87086; 96360; 96374; 99283; J1885

== ENCOUNTER 2017-01-29 09:32 | Emergency (ER) | payer MEDICAID ==
[2017-01-29 09:45] VITALS: BP 145/91
[2017-01-29] MEDS ORDERED: HYDROcodone/ACETAMIN 5-325 MG* 1 TAB PO ONE ×2 (10:09→12:50)
--- NOTE | 2017-01-29 11:21 | RAD ---
INDICATION: Left knee injury. TECHNIQUE: 4 views of the left knee were obtained. FINDINGS: The bones are normal alignment. There is a small joint effusion present. In addition there is a small bony density and area of irregularity present in the medial tibial plateau suspicious for a nondisplaced fracture. No other fractures are seen. Joint spaces appear maintained. IMPRESSION: PROBABLE NONDISPLACED FRACTURE OF THE MEDIAL TIBIAL PLATEAU THIS CAN BE FURTHER EVALUATED WITH A CT STUDY OF THE KNEE IF CLINICALLY NEEDED.
--- NOTE | 2017-01-29 11:22 | RAD ---
Indication: Lateral and medial malleolus pain post fall one day ago. Swelling. Unable to bear weight. Comparison: No relevant prior exams available on the [facility] for comparison. Technique: AP, mortise, and lateral views LEFT ankle. REPORT AND IMPRESSION: No cortical disruption or suspicious trabecular irregularity to suggest fracture. Congruent ankle mortise. No suggestion of talocrural joint effusion. Mild soft tissue swelling about the ankle without focality.
--- NOTE | 2017-01-29 13:23 | RAD ---
EDITED FOR CHARGES Indication: Pain post fall with osseous irregularity at the medial margin of the tibial plateau on radiographs. Comparison: January 29, 2017 radiographs. Technique: Noncontrast CT LEFT knee. Multiplanar reformation. Report: Normal articular alignment. Small osteochondral fracture at the medial margin of the tibial plateau without significant displacement. Overlying soft tissue edema. Negative for additional fracture. Normal articular alignment. Small joint effusion. IMPRESSION: Reverse Segond fracture at the medial margin of the tibial plateau likely secondary to avulsion of the deep capsular component of the medial collateral ligament. Small joint effusion MTDD
== END 2017-01-29 13:28 | disposition home or self-care (01) ==
LOC: UCEAST 09:32
DX: S82.145A Nondisplaced bicondylar fracture of left tibia, initial encounter for closed fracture (principal); W10.9XXA Fall (on) (from) unspecified stairs and steps, initial encounter; Y93.9 Activity, unspecified; Y92.9 Unspecified place or not applicable; Z90.49 Acquired absence of other specified parts of digestive tract; Z87.891 Personal history of nicotine dependence
CPT/HCPCS: 99213; G0463

== ENCOUNTER 2017-01-31 17:40 | Emergency (ER) | payer MEDICAID ==
--- NOTE | 2017-01-31 19:12 | ED ---
Lower Extremity - HPI Summary HPI Summary: Patient presents with uncontrolled pain from a tibial plateau fracture she sustained 2 days ago. She was evaluated at [facility] and sent home with four 5 mg oxycodone daily. She is wearing her knee immobilizer but is struggling with the crutches and is not elevating much. She denies new pain, calf swelling, redness or SOB. She has an appointment with orthopedics in 5 days. - History of Current Complaint Chief Complaint: EDExtremityLower Stated Complaint: DX LEFT LEG FX/FOOT AND ANKLE SWELLING Time Seen by Provider: 01/31/17 18:05 Hx Obtained From: Patient Hx Last Menstrual Period: 01/16/17 Mechanism Of Injury: Fall From A Standing Position Onset of Pain: Immediate Onset/Duration: Worse Since - two days ago Severity Initially: Severe Severity Currently: Severe Pain Intensity: 8 Timing: Constant Location: Is Discrete @ - left lower extremity- knee, calf and ankle Character Of Pain: Sharp, Aching Associated Signs And Symptoms: Positive: Swelling, Knee Pain Aggravating Factor(s): Movement Alleviating Factor(s): Nothing Able to Bear Weight: Yes - Allergies/Home Medications Allergies/Adverse Reactions: Allergies Allergy/AdvReac Type Severity Reaction Status Date / Time No Known Allergies Allergy Verified 01/29/17 09:45 PMH/Surg Hx/FS Hx/Imm Hx Endocrine/Hematology History: Reports: Hx Unexplained Bleeding - reports uncontrollable bleeding one month ago and taking "orange" pill Denies: Hx Diabetes Cardiovascular History: Denies: Hx Congestive Heart Failure, Hx Deep Vein Thrombosis, Hx Embolism, Hx Hypotension, Hx Hypertension, Hx Pacemaker/ICD Respiratory History: Denies: Hx Asthma, Hx Chronic Bronchitis, Hx Pneumonia GI History: Reports: Hx Gall Bladder Disease - Gall bladder removed "couple of years ago", Other GI Disorders - dysphagia occasional Denies: Hx Crohn's Disease, Hx Gastroesophageal Reflux Disease, Hx Irritable Bowel, Hx Ulcer History: Denies: Hx Acute Renal Failure, Hx Dialysis, Hx Kidney Stones, Hx Renal Disease Musculoskeletal History: Denies: Hx Arthritis, Hx Fibromyalgia, Hx Orthopedic Injury Sensory History: Denies: Hx Contacts or Glasses, Hx Vision Problem, Hx Hearing Aid Opthamlomology History: Denies: Hx Contacts or Glasses, Hx Vision Problem Neurological History: Reports: Hx Headaches Denies: Hx Migraine, Hx Seizures Psychiatric History: Reports: Hx Anxiety, Hx Post Traumatic Stress Disorder, Hx Bipolar Disorder Denies: Hx Eating Disorder, Hx of Violent Episodes Against Others - Surgical History Surgery Procedure, Year, and Place: [facility]/APPY/RT OVARY AND RT [place] TUBE REMOVED/TUBAL LIGATION Infectious Disease History: No Infectious Disease History: Denies: Traveled Outside the [place] in Last 30 Days - Family History Known Family History: Positive: Diabetes - Social History Occupation: Employed Full-time Lives: Alone Alcohol Use: None Hx Substance Use: Yes Substance Use Type: Reports: Marijuana Substance Use Comment - Amount & Last Used: Last time 11/2016 Hx Tobacco Use: Yes Smoking Status (MU): Current Some Day Smoker Type: Cigarettes Length of Time of Smoking/Using Tobacco: 2 years Have You Smoked in the Last Year: Yes Cessation Counseling: Patient Advised to Stop Review of Systems Negative: Fever, Chills Positive: Arthralgia, Myalgia, Decreased ROM, Edema All Other Systems Reviewed And Are Negative: Yes Physical Exam Triage Information Reviewed: Yes Vital Signs On Initial Exam: Initial Vitals Temp Pulse Resp BP Pulse Ox 98.3 F 123 20 119/68 98 01/31/17 17:44 01/31/17 17:44 01/31/17 17:44 01/31/17 17:44 01/31/17 17:44 Vital Signs Reviewed: Yes Appearance: Positive: Well-Appearing, Pain Distress, Obese Skin: Positive: Warm, Skin Color Reflects Adequate Perfusion, Dry, Soft Head/Face: Positive: Normal Head/Face Inspection Eyes: Positive: EOMI, ÓSCAR, Conjunctiva Clear ENT: Positive: Hearing grossly normal Respiratory/Lung Sounds: Positive: Clear to Auscultation, Breath Sounds Present Cardiovascular: Positive: RRR Musculoskeletal: Positive: Limited @ - any movement in the knee is limited by pain, Pain @ - TTP left knee and calf, Edema Left - LE Neurological: Positive: Sensory/Motor Intact, Alert, Oriented to Person Place, Time, NV Bundle Intact Distally, Unable to Assess Gait Psychiatric: Positive: Affect/Mood Appropriate AVPU Assessment: Alert - Darin Coma Scale Coma Scale Total: 15 Diagnostics - Vital Signs Vital Signs Temp Pulse Resp BP Pulse Ox 01/31/17 17:44 98.3 F 123 20 119/68 98 - Laboratory Lab Statement: Any lab studies that have been ordered have been reviewed, and results considered in the medical decision making process. - Ultrasound No standard instances Ultrasound Interpretation: No Acute Changes Ultrasound Interpretation Completed By: Radiologist Lower Extremity Course/Dx - Course Course Of Treatment: Patient has social needs. She is unable to get to a pharmacy until Thursday since she does not have a car and does not have social support in this area. Her mother lives in [place] and can not drive. She can not use the crutches and does not know how to bath with this injury. I called the [facility] pharmacy and they are able to dispense medication for the patient with a written prescription that I will provide. I will give her a walker instead of crutches. She has a shower chair, so I recommended using this for the shower to support her weight. We will arrange for a medicaid cab to get her home. - Diagnoses Differential Diagnosis/HQI/PQRI: Positive: Arthritis, Bursitis, Cellulitis, Contusion, DVT, Fracture (Closed), Infection, Sprain, Strain Provider Diagnoses: Fracture of left tibial plateau Discharge - Discharge Plan Condition: Stable Disposition: HOME Patient Education Materials: Leg Fracture (ED) Referrals: Junior Page MD [Medical Doctor] - Efrain Jimenez MD [Primary Care Provider] - Additional Instructions: Please begin using 600mg of ibuprofen three times daily with meals. Take a pain pill for uncontrolled pain. Elevate your foot above your heart and wear your immobilizer at all times, except to shower. Follow-up with orthopedics as scheduled on . 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 Return to the emergency department if symptoms worsen.
[2017-01-31] MEDS ORDERED: oxyCODONE/Acetamin 5/325 MG* TAB PO ONE (19:46)
--- NOTE | 2017-01-31 20:27 | RAD ---
HISTORY: Left calf pain and swelling COMPARISONS: None relevant TECHNIQUE: Multiple transverse and longitudinal ultrasound images were obtained of the left lower extremity from the level of the common femoral vein inferiorly through to the infrapopliteal veins using grayscale, color Doppler, and spectral Doppler imaging with and without compression and with augmentation. Comparison images were obtained of the contralateral common femoral vein. FINDINGS: VEINS: The venous system of the left lower extremity is compressible throughout its course, with normal flow on color Doppler imaging and normal response to augmentation on spectral Doppler imaging. SOFT TISSUES: Unremarkable. OTHER FINDINGS: None. IMPRESSION: NO LEFT LOWER EXTREMITY DEEP VEIN THROMBOSIS
[2017-01-31 21:10] VITALS: BP 115/93
== END 2017-01-31 21:09 | disposition home or self-care (01) ==
LOC: ED 17:40
DX: S82.142D Displaced bicondylar fracture of left tibia, subsequent encounter for closed fracture with routine healing (principal); F17.210 Nicotine dependence, cigarettes, uncomplicated
CPT/HCPCS: 99283; A9270-GY

== ENCOUNTER 2017-02-16 10:57 | Inpatient (IN) | payer MEDICAID ==
[2017-02-16] MEDS ORDERED: diPHENhydraMINE PO* 25 MG PO ONE (12:06)
[2017-02-16] MEDS ORDERED: LORazepam TAB(*) 1 MG PO ONE (13:10)
[2017-02-16] MEDS ORDERED: Ibuprofen TAB* 800 MG PO ONE (13:10)
[2017-02-16 13:25] LABS: Urine Bacteria Absent (Absent); Urine Bilirubin Negative (Negative); Urine Glucose Negative (Negative); Urine Nitrite Negative (Negative)
[2017-02-16 13:28] LABS: Benzodiazepine Urine Screen None Detected (None Detect)
[2017-02-16 13:51] LABS: Hematocrit 43 % (35-47); Hemoglobin 14.3 g/dl (12.0-16.0); Mean Corpuscular HGB Conc 33 g/dl (31-36); Mean Corpuscular Hemoglobin 29 pg (27-31); Mean Corpuscular Volume 88 fL (80-97); Mean Platelet Volume 10 um3 (7.4-10.4); Red Blood Count 4.87 10^6/ul (4.0-5.4); Red Cell Distribution Width 15 % (10.5-15); White Blood Count 8.5 10^3/ul (3.5-10.8)
[2017-02-16 14:15] LABS: ALT 21 U/L (7-52); AST 17 U/L (13-39); Albumin 4.3 g/dL (3.2-5.2); Alkaline Phosphatase 60 U/L (34-104); Anion Gap 8 mmol/L (2-11); Blood Urea Nitrogen 8 mg/dL (6-24); CO2 Carbon Dioxide 25 mmol/L (22-32); Calcium 9.6 mg/dL (8.6-10.3); Chloride 102 mmol/L (101-111); EGFR African American 108.3 (>60); EGFR Non-African American 84.2 (>60); Globulin 3.1 g/dL (2-4); Glucose 82 mg/dL (70-100); Potassium 3.7 mmol/L (3.5-5.0); Sodium 135 mmol/L (133-145); Total Protein 7.4 g/dL (6.4-8.9)
[2017-02-16 14:31] LABS: Acetaminophen < 15 mcg/mL; Alcohol < 10 mg/dL (<10); Salicylate < 2.50 mg/dL (<30)
[2017-02-16 14:38] LABS: TSH (Thyroid Stimulating Horm) 0.73 mcIU/mL (0.34-5.60)
[2017-02-16] MEDS ORDERED: HYDROcodone/ACETAMIN 5-325 MG* 1 TAB PO ONE (16:04)
[2017-02-16] MEDS ORDERED: Al Hydrox/Mg Hydrox/Simet LIQ* 30 ML UDC PO PRN (18:26)
--- NOTE | 2017-02-16 18:30 | ED ---
Psychiatric Complaint - HPI Summary HPI Summary: 32 yo female presenting to [facility] with SI since 02/15/17 and for MHE. She is in 5 pain due to her recent left knee injury. States she tore her MCL. In room Pt states she is suicidal and has been having severe anxiety over the past couple of days. She had a plan to overdose on her medication this morning however she instead went to talk to her field nurse case manager, who told her to come to the ED. She admits to sometimes hearing voices however is not at this time. Denies any other complaints or injuries. Has no attempt at self harm and denies homicidal ideations at this time. States she stopped taking her [place] about 5 days ago because she did not want to have her blood tested any longer. She also has been dealing with increased amounts of stress with home life and really would like to talk to someone. Her PMHx includes cholecystectomy, PTSD, bipolar disorder, anxiety, substance use, tobacco use. - History Of Current Complaint Chief Complaint: EDMentalHealth Time Seen by Provider: 02/16/17 11:32 Hx Obtained From: Patient Hx Last Menstrual Period: 01/16/17 ?: No Onset/Duration: Sudden Onset, Gradual Onset, Lasting Days Timing: Constant Severity Initially: Mild Severity Currently: Moderate Character: Depressed, Anxious Aggravating Factor(s): Recent Stress, Medication Non-compliance Alleviating Factor(s): Counseling Associated Signs And Symptoms: Positive: Negative Related History: Positive For: Prior Psychiatric Issues Has Suicidal: Reports: Thoughts, With A Plan. Denies: Demonstrates Gesture Has Homicidal: Denies: Thoughts Recent Stressor(s): relationships, family, job related - Allergies/Home Medications Allergies/Adverse Reactions: Allergies Allergy/AdvReac Type Severity Reaction Status Date / Time No Known Allergies Allergy Verified 02/16/17 21:55 PMH/Surg Hx/FS Hx/Imm Hx Endocrine/Hematology History: Reports: Hx Unexplained Bleeding - reports uncontrollable bleeding one month ago and taking "orange" pill Denies: Hx Diabetes Cardiovascular History: Denies: Hx Congestive Heart Failure, Hx Deep Vein Thrombosis, Hx Embolism, Hx Hypotension, Hx Hypertension, Hx Pacemaker/ICD Respiratory History: Denies: Hx Asthma, Hx Chronic Bronchitis, Hx Pneumonia GI History: Reports: Hx Gall Bladder Disease - Gall bladder removed "couple of years ago", Other GI Disorders - dysphagia occasional Denies: Hx Crohn's Disease, Hx Gastroesophageal Reflux Disease, Hx Irritable Bowel, Hx Ulcer History: Denies: Hx Acute Renal Failure, Hx Dialysis, Hx Kidney Stones, Hx Renal Disease Musculoskeletal History: Denies: Hx Arthritis, Hx Fibromyalgia, Hx Orthopedic Injury Sensory History: Denies: Hx Contacts or Glasses, Hx Vision Problem, Hx Hearing Aid Opthamlomology History: Denies: Hx Contacts or Glasses, Hx Vision Problem Neurological History: Reports: Hx Headaches Denies: Hx Migraine, Hx Seizures Psychiatric History: Reports: Hx Anxiety, Hx Post Traumatic Stress Disorder, Hx Bipolar Disorder Denies: Hx Eating Disorder, Hx of Violent Episodes Against Others - Surgical History Surgery Procedure, Year, and Place: [facility]/APPY/RT OVARY AND RT [place] TUBE REMOVED/TUBAL LIGATION - Immunization History Immunizations Up to Date: Yes Infectious Disease History: Yes Infectious Disease History: Denies: Traveled Outside the [place] in Last 30 Days - Family History Known Family History: Positive: Diabetes - Social History Alcohol Use: None Hx Substance Use: Yes Substance Use Type: Reports: Marijuana Substance Use Comment - Amount & Last Used: Last time 11/2016 Hx Tobacco Use: Yes Smoking Status (MU): Current Some Day Smoker Type: Cigarettes Length of Time of Smoking/Using Tobacco: 2 years Have You Smoked in the Last Year: Yes Review of Systems Constitutional: Negative Cardiovascular: Negative Respiratory: Negative Positive: Arthralgia, Myalgia - left knee due to recent injury previously diagnosed Positive: Anxious All Other Systems Reviewed And Are Negative: Yes Physical Exam - Summary Physical Exam Summary: Constitutional: Well-developed, Well-nourished, Alert. (-) Distressed Skin: Warm, Dry HENT: Normocephalic; Atraumatic Eyes: Conjunctiva normal Neck: Musculoskeletal ROM normal neck. (-) JVD, (-) Stridor, (-) Tracheal deviation Cardio: Rhythm regular, rate normal, Heart sounds normal; Intact distal pulses; The pedal pulses are 2+ and symmetric. Radial pulses are 2+ and symmetric. (-) Murmur Pulmonary/Chest wall: Effort normal. (-) Respiratory distress, (-) Wheezes, (-) Rales Abd: Soft, (-) Tenderness, (-) Distension, (-) Guarding, (-) Rebound Musculoskeletal: (-) Edema Lymph: (-) Cervical adenopathy Neuro: Alert, Oriented x3 Psych: Pt is depressed. Triage Information Reviewed: Yes Vital Signs On Initial Exam: Initial Vitals Temp Pulse Resp BP Pulse Ox 98.2 F 95 16 133/69 100 02/16/17 10:59 02/16/17 10:59 02/16/17 10:59 02/16/17 10:59 02/16/17 10:59 Vital Signs Reviewed: Yes Appearance: Positive: Well-Appearing - appears depressed and very anxious, Well- Nourished, Pain Distress - mild, complaining about her left knee pain Skin: Positive: Warm, Skin Color Reflects Adequate Perfusion, Dry Head/Face: Positive: Normal Head/Face Inspection Eyes: Positive: Normal, EOMI, ÓSCAR, Conjunctiva Clear ENT: Positive: Normal ENT inspection, Hearing grossly normal Neck: Positive: Supple, Nontender Respiratory/Lung Sounds: Positive: Clear to Auscultation, Breath Sounds Present. Negative: Rales, Rhonchi, Wheezes Cardiovascular: Positive: Normal, RRR, Pulses are Symmetrical in both Upper and Lower Extremities - 2+. Negative: Murmur, Rub Abdomen Description: Positive: Nontender, Soft Bowel Sounds: Positive: Present Musculoskeletal: Positive: Normal, Limited @ - at left knee due to recent injury , previously diagnosed as what patient states "MCL tear" in knee immobilzer brace. Neurological: Positive: Normal, Sensory/Motor Intact, Alert, Oriented to Person Place, Time, CN Intact II-III, Normal Gait Psychiatric: Positive: Anxious AVPU Assessment: Alert - [place] Coma Scale Coma Scale Total: 15 Diagnostics - Vital Signs Vital Signs Temp Pulse Resp BP Pulse Ox 02/16/17 14:39 99.6 F 91 16 123/69 99 02/16/17 13:21 16 02/16/17 11:38 98.4 F 88 16 103/61 98 02/16/17 10:59 98.2 F 95 16 133/69 100 - Laboratory Lab Results: Lab Results 02/16/17 02/16/17 02/16/17 Range/Units 12:57 12:57 13:40 WBC 8.5 (3.5-10.8) 10^3/ul RBC 4.87 (4.0-5.4) 10^6/ul Hgb 14.3 (12.0-16.0) g/dl Hct 43 (35-47) % MCV 88 (80-97) fL MCH 29 (27-31) pg MCHC 33 (31-36) g/dl RDW 15 (10.5-15) % Plt Count 158 (150-450) 10^3/ul MPV 10 (7.4-10.4) um3 Neut % (Auto) 75.2 (38-83) % Lymph % (Auto) 15.5 L (25-47) % [place] % (Auto) 7.0 (1-9) % Eos % (Auto) 1.7 (0-6) % Baso % (Auto) 0.6 (0-2) % Absolute Neuts (auto) 6.4 (1.5-7.7) 10^3/ul Absolute Lymphs (auto) 1.3 (1.0-4.8) 10^3/ul Absolute Monos (auto) 0.6 (0-0.8) 10^3/ul Absolute Eos (auto) 0.1 (0-0.6) 10^3/ul Absolute Basos (auto) 0.1 (0-0.2) 10^3/ul Absolute Nucleated RBC 0 10^3/ul Nucleated RBC % 0 Sodium (133-145) mmol/L Potassium (3.5-5.0) mmol/L Chloride (101-111) mmol/L Carbon Dioxide (22-32) mmol/L Anion Gap (2-11) mmol/L BUN (6-24) mg/dL Creatinine (0.51-0.95) mg/dL Est GFR ( Amer) (>60) Est GFR (Non-Af Amer) (>60) BUN/Creatinine Ratio (8-20) Glucose (70-100) mg/dL Calcium (8.6-10.3) mg/dL Total Bilirubin (0.2-1.0) mg/dL AST (13-39) U/L ALT (7-52) U/L Alkaline Phosphatase (34-104) U/L Total Protein (6.4-8.9) g/dL Albumin (3.2-5.2) g/dL Globulin (2-4) g/dL Albumin/Globulin Ratio (1-3) TSH (0.34-5.60) mcIU/mL Urine Color Yellow Urine Appearance Clear Urine pH 6.0 (5-9) Ur Specific [place] 1.013 (1.010-1.030) Urine Protein Negative (Negative) Urine Ketones Trace H (Negative) Urine Blood Negative (Negative) Urine Nitrate Negative (Negative) Urine Bilirubin Negative (Negative) Urine Urobilinogen Negative (Negative) Ur Leukocyte Esterase Trace H (Negative) Urine WBC (Auto) Trace(0-5/hpf) (Absent) Urine RBC (Auto) Absent (Absent) Ur Squamous Epith Cells Present H (Absent) Urine Bacteria Absent (Absent) Urine Glucose Negative (Negative) Salicylates (<30) mg/dL Urine Opiates Screen None detected (None Detect) Acetaminophen mcg/mL Ur Barbiturates Screen None detected (None Detect) Ur Phencyclidine Scrn None detected (None Detect) Ur Amphetamines Screen None detected (None Detect) U Benzodiazepines Scrn None detected (None Detect) Urine Cocaine Screen Presumptive positive H (None Detect) U Cannabinoids Screen Presumptive positive H (None Detect) Serum Alcohol (<10) mg/dL 02/16/17 Range/Units 13:40 WBC (3.5-10.8) 10^3/ul RBC (4.0-5.4) 10^6/ul Hgb (12.0-16.0) g/dl Hct (35-47) % MCV (80-97) fL MCH (27-31) pg MCHC (31-36) g/dl RDW (10.5-15) % Plt Count (150-450) 10^3/ul MPV (7.4-10.4) um3 Neut % (Auto) (38-83) % Lymph % (Auto) (25-47) % [place] % (Auto) (1-9) % Eos % (Auto) (0-6) % Baso % (Auto) (0-2) % Absolute Neuts (auto) (1.5-7.7) 10^3/ul Absolute Lymphs (auto) (1.0-4.8) 10^3/ul Absolute Monos (auto) (0-0.8) 10^3/ul Absolute Eos (auto) (0-0.6) 10^3/ul Absolute Basos (auto) (0-0.2) 10^3/ul Absolute Nucleated RBC 10^3/ul Nucleated RBC % Sodium 135 (133-145) mmol/L Potassium 3.7 (3.5-5.0) mmol/L Chloride 102 (101-111) mmol/L Carbon Dioxide 25 (22-32) mmol/L Anion Gap 8 (2-11) mmol/L BUN 8 (6-24) mg/dL Creatinine 0.80 (0.51-0.95) mg/dL Est GFR ( Amer) 108.3 (>60) Est GFR (Non-Af Amer) 84.2 (>60) BUN/Creatinine Ratio 10.0 (8-20) Glucose 82 (70-100) mg/dL Calcium 9.6 (8.6-10.3) mg/dL Total Bilirubin 0.40 (0.2-1.0) mg/dL AST 17 (13-39) U/L ALT 21 (7-52) U/L Alkaline Phosphatase 60 (34-104) U/L Total Protein 7.4 (6.4-8.9) g/dL Albumin 4.3 (3.2-5.2) g/dL Globulin 3.1 (2-4) g/dL Albumin/Globulin Ratio 1.4 (1-3) TSH 0.73 (0.34-5.60) mcIU/mL Urine Color Urine Appearance Urine pH (5-9) Ur Specific [place] (1.010-1.030) Urine Protein (Negative) Urine Ketones (Negative) Urine Blood (Negative) Urine Nitrate (Negative) Urine Bilirubin (Negative) Urine Urobilinogen (Negative) Ur Leukocyte Esterase (Negative) Urine WBC (Auto) (Absent) Urine RBC (Auto) (Absent) Ur Squamous Epith Cells (Absent) Urine Bacteria (Absent) Urine Glucose (Negative) Salicylates < 2.50 (<30) mg/dL Urine Opiates Screen (None Detect) Acetaminophen < 15 mcg/mL Ur Barbiturates Screen (None Detect) Ur Phencyclidine Scrn (None Detect) Ur Amphetamines Screen (None Detect) U Benzodiazepines Scrn (None Detect) Urine Cocaine Screen (None Detect) U Cannabinoids Screen (None Detect) Serum Alcohol < 10 (<10) mg/dL Result Diagrams: 02/16/17 13:40 02/16/17 13:40 Lab Statement: Any lab studies that have been ordered have been reviewed, and results considered in the medical decision making process. Course/Dx - Course Course Of Treatment: patient was medically cleared for MHE. given ativan for anxiety and ibuprofen for knee pain. after MHE, was decided patient will be admitted due to her strong SI, which was also strongly encouraged by me. - Differential Dx/Clinical Impression Differential Diagnosis/HQI/PQRI: Positive: Acute Psychosis, Anxiety, Depression , Suicidal Ideation Provider Diagnosis: Suicidal ideation, Anxiety - Physician Notifications Discussed Care Of Patient With: MHE Instructed by Provider To: Admit As Inpatient Patient Is Medically Stable For: Psych Evaluation Discharge - Discharge Plan Condition: Stable Disposition: PSYCHIATRIC FACILITY-[facility]
[2017-02-16] MEDS ORDERED: oxyCODONE/Acetamin 5/325 MG* TAB PO PRN (18:31)
[2017-02-16] MEDS: Lithium Carbonate TAB* 300 MG PO SCH (20:14)
[2017-02-16] MEDS: Nicotine Patch Removal NOTE PATCH OFF SCH (20:15)
[2017-02-16] MEDS: Propranolol TAB* 10 MG PO SCH (20:15)
[2017-02-16] MEDS: Naproxen TAB* 250 MG PO SCH (20:15)
[2017-02-16] MEDS ORDERED: Mouth Piece, Nicotine* 1 EACH CARTRIDGE ONE (21:05)
[2017-02-16] MEDS ORDERED: Nicotine Inhaler* 10 MG AMP ONE (21:05)
[2017-02-16] MEDS: Nicotine Inhaler* 10 MG AMP Q2H PRN CRAVING INH (21:06)
[2017-02-16] MEDS: Gabapentin CAP(*) 300 MG PO SCH (21:07)
[2017-02-16] MEDS: OLANzapine TAB* 5 MG PO SCH (21:08)
[2017-02-16] MEDS: Acetaminophen TAB* 325 MG PO PRN (21:08)
[2017-02-16] MEDS: Prazosin CAP* 1 MG PO SCH (21:08)
[2017-02-16 21:33] LABS: Lithium < 0.10 mmol/L (0.6-1.2)
[2017-02-16] MEDS ORDERED: Mouth Piece, Nicotine* 1 EACH CARTRIDGE INH ONE (22:00)
[2017-02-17] MEDS: Nicotine PATCH 21 MG/24 HR* PATCH TRANSDERM SCH (08:22)
[2017-02-17] MEDS: Gabapentin CAP(*) 300 MG PO SCH ×3 (08:23→21:04)
[2017-02-17] MEDS: Naproxen TAB* 250 MG PO SCH ×2 (08:24→21:05)
[2017-02-17] MEDS: Lithium Carbonate TAB* 300 MG PO SCH ×3 (08:24→21:06)
[2017-02-17] MEDS: Nicotine Inhaler* 10 MG AMP Q2H PRN CRAVING INH ×2 (08:25→14:02)
[2017-02-17] MEDS: Propranolol TAB* 10 MG PO SCH ×3 (08:25→21:06)
[2017-02-17] MEDS: Vitamin THERAPEUTIC TAB PO SCH (08:25)
--- NOTE | 2017-02-17 10:22 | ED ---
tomi Arce Timothy, scribed for Mohit Beard MD on 02/16/17 at 1136 . Psychiatric Complaint - HPI Summary HPI Summary: Sejal Maharaj is a 32 yo female presenting to [facility] with SI since 02/15/17 for MHUE. She is in 5/10 pain. In room Pt states she is suicidal and would prefer a female provider. Her MHx includes cholecystectomy, PTSD, bipolar disorder, anxiety, substance use, tobacco use. - History Of Current Complaint Chief Complaint: EDMentalHealth Time Seen by Provider: 02/16/17 11:32 Hx Obtained From: Patient Hx Last Menstrual Period: 01/16/17 Onset/Duration: Sudden Onset, Lasting Hours, Still Present Timing: Constant Severity Initially: Moderate Severity Currently: Moderate Character: Depressed Has Suicidal: Reports: Thoughts - Allergies/Home Medications Allergies/Adverse Reactions: Allergies Allergy/AdvReac Type Severity Reaction Status Date / Time No Known Allergies Allergy Verified 02/16/17 21:55 PMH/Surg Hx/FS Hx/Imm Hx Endocrine/Hematology History: Reports: Hx Unexplained Bleeding - reports uncontrollable bleeding one month ago and taking "orange" pill Denies: Hx Diabetes Cardiovascular History: Denies: Hx Congestive Heart Failure, Hx Deep Vein Thrombosis, Hx Embolism, Hx Hypotension, Hx Hypertension, Hx Pacemaker/ICD Respiratory History: Denies: Hx Asthma, Hx Chronic Bronchitis, Hx Pneumonia GI History: Reports: Hx Gall Bladder Disease - Gall bladder removed "couple of years ago", Other GI Disorders - dysphagia occasional Denies: Hx Crohn's Disease, Hx Gastroesophageal Reflux Disease, Hx Irritable Bowel, Hx Ulcer History: Denies: Hx Acute Renal Failure, Hx Dialysis, Hx Kidney Stones, Hx Renal Disease Musculoskeletal History: Denies: Hx Arthritis, Hx Fibromyalgia, Hx Orthopedic Injury Sensory History: Denies: Hx Contacts or Glasses, Hx Vision Problem, Hx Hearing Aid Opthamlomology History: Denies: Hx Contacts or Glasses, Hx Vision Problem Neurological History: Reports: Hx Headaches Denies: Hx Migraine, Hx Seizures Psychiatric History: Reports: Hx Anxiety, Hx Post Traumatic Stress Disorder, Hx Bipolar Disorder Denies: Hx Eating Disorder, Hx of Violent Episodes Against Others - Surgical History Surgery Procedure, Year, and Place: [facility]/APPY/RT OVARY AND RT [place] TUBE REMOVED/TUBAL LIGATION Infectious Disease History: Denies: Traveled Outside the [place] in Last 30 Days - Family History Known Family History: Positive: Diabetes, Other - scizophrenia, anxiety, alcohol abuse - Social History Alcohol Use: None Hx Substance Use: Yes Substance Use Type: Reports: Marijuana Substance Use Comment - Amount & Last Used: Last time 11/2016 Hx Tobacco Use: Yes Smoking Status (MU): Current Some Day Smoker Type: Cigarettes Length of Time of Smoking/Using Tobacco: 2 years Have You Smoked in the Last Year: Yes Review of Systems Constitutional: Negative Negative: Fever, Chills Eyes: Negative Negative: Erythema ENT: Negative Negative: Sore Throat Cardiovascular: Negative Negative: Chest Pain Respiratory: Negative Negative: Shortness Of Breath, Cough Gastrointestinal: Negative Negative: Abdominal Pain, Vomiting, Nausea Genitourinary: Negative Negative: dysuria, hematuria Musculoskeletal: Negative Negative: Myalgia, Edema - legs Skin: Negative Negative: Rash Neurological: Negative - no dizzinesss Positive: Depressed All Other Systems Reviewed And Are Negative: Yes Physical Exam - Summary Physical Exam Summary: Constitutional: Well-developed, Well-nourished, Alert. (-) Distressed Skin: Warm, Dry HENT: Normocephalic; Atraumatic Eyes: Conjunctiva normal Neck: Musculoskeletal ROM normal neck. (-) JVD, (-) Stridor, (-) Tracheal deviation Cardio: Rhythm regular, rate normal, Heart sounds normal; Intact distal pulses; The pedal pulses are 2+ and symmetric. Radial pulses are 2+ and symmetric. (-) Murmur Pulmonary/Chest wall: Effort normal. (-) Respiratory distress, (-) Wheezes, (-) Rales Abd: Soft, (-) Tenderness, (-) Distension, (-) Guarding, (-) Rebound Musculoskeletal: (-) Edema Lymph: (-) Cervical adenopathy Neuro: Alert, Oriented x3 Psych: Pt is depressed. Triage Information Reviewed: Yes Vital Signs On Initial Exam: Initial Vitals Temp Pulse Resp BP Pulse Ox 98.2 F 95 16 133/69 100 02/16/17 10:59 02/16/17 10:59 02/16/17 10:59 02/16/17 10:59 02/16/17 10:59 Vital Signs Reviewed: Yes Diagnostics - Vital Signs Vital Signs Temp Pulse Resp BP Pulse Ox 02/16/17 10:59 98.2 F 95 16 133/69 100 - Laboratory Lab Results: Lab Results 02/16/17 02/16/17 02/16/17 Range/Units 12:57 12:57 13:40 WBC 8.5 (3.5-10.8) 10^3/ul RBC 4.87 (4.0-5.4) 10^6/ul Hgb 14.3 (12.0-16.0) g/dl Hct 43 (35-47) % MCV 88 (80-97) fL MCH 29 (27-31) pg MCHC 33 (31-36) g/dl RDW 15 (10.5-15) % Plt Count 158 (150-450) 10^3/ul MPV 10 (7.4-10.4) um3 Neut % (Auto) 75.2 (38-83) % Lymph % (Auto) 15.5 L (25-47) % [place] % (Auto) 7.0 (1-9) % Eos % (Auto) 1.7 (0-6) % Baso % (Auto) 0.6 (0-2) % Absolute Neuts (auto) 6.4 (1.5-7.7) 10^3/ul Absolute Lymphs (auto) 1.3 (1.0-4.8) 10^3/ul Absolute Monos (auto) 0.6 (0-0.8) 10^3/ul Absolute Eos (auto) 0.1 (0-0.6) 10^3/ul Absolute Basos (auto) 0.1 (0-0.2) 10^3/ul Absolute Nucleated RBC 0 10^3/ul Nucleated RBC % 0 Sodium (133-145) mmol/L Potassium (3.5-5.0) mmol/L Chloride (101-111) mmol/L Carbon Dioxide (22-32) mmol/L Anion Gap (2-11) mmol/L BUN (6-24) mg/dL Creatinine (0.51-0.95) mg/dL Est GFR ( Amer) (>60) Est GFR (Non-Af Amer) (>60) BUN/Creatinine Ratio (8-20) Glucose (70-100) mg/dL Calcium (8.6-10.3) mg/dL Total Bilirubin (0.2-1.0) mg/dL AST (13-39) U/L ALT (7-52) U/L Alkaline Phosphatase (34-104) U/L Total Protein (6.4-8.9) g/dL Albumin (3.2-5.2) g/dL Globulin (2-4) g/dL Albumin/Globulin Ratio (1-3) TSH (0.34-5.60) mcIU/mL Urine Color Yellow Urine Appearance Clear Urine pH 6.0 (5-9) Ur Specific [place] 1.013 (1.010-1.030) Urine Protein Negative (Negative) Urine Ketones Trace H (Negative) Urine Blood Negative (Negative) Urine Nitrate Negative (Negative) Urine Bilirubin Negative (Negative) Urine Urobilinogen Negative (Negative) Ur Leukocyte Esterase Trace H (Negative) Urine WBC (Auto) Trace(0-5/hpf) (Absent) Urine RBC (Auto) Absent (Absent) Ur Squamous Epith Cells Present H (Absent) Urine Bacteria Absent (Absent) Urine Glucose Negative (Negative) Salicylates (<30) mg/dL Urine Opiates Screen None detected (None Detect) Acetaminophen mcg/mL Ur Barbiturates Screen None detected (None Detect) Ur Phencyclidine Scrn None detected (None Detect) Ur Amphetamines Screen None detected (None Detect) U Benzodiazepines Scrn None detected (None Detect) [place] (0.6-1.2) mmol/L Urine Cocaine Screen Presumptive positive H (None Detect) U Cannabinoids Screen Presumptive positive H (None Detect) Serum Alcohol (<10) mg/dL 02/16/17 Range/Units 13:40 WBC (3.5-10.8) 10^3/ul RBC (4.0-5.4) 10^6/ul Hgb (12.0-16.0) g/dl Hct (35-47) % MCV (80-97) fL MCH (27-31) pg MCHC (31-36) g/dl RDW (10.5-15) % Plt Count (150-450) 10^3/ul MPV (7.4-10.4) um3 Neut % (Auto) (38-83) % Lymph % (Auto) (25-47) % [place] % (Auto) (1-9) % Eos % (Auto) (0-6) % Baso % (Auto) (0-2) % Absolute Neuts (auto) (1.5-7.7) 10^3/ul Absolute Lymphs (auto) (1.0-4.8) 10^3/ul Absolute Monos (auto) (0-0.8) 10^3/ul Absolute Eos (auto) (0-0.6) 10^3/ul Absolute Basos (auto) (0-0.2) 10^3/ul Absolute Nucleated RBC 10^3/ul Nucleated RBC % Sodium 135 (133-145) mmol/L Potassium 3.7 (3.5-5.0) mmol/L Chloride 102 (101-111) mmol/L Carbon Dioxide 25 (22-32) mmol/L Anion Gap 8 (2-11) mmol/L BUN 8 (6-24) mg/dL Creatinine 0.80 (0.51-0.95) mg/dL Est GFR ( Amer) 108.3 (>60) Est GFR (Non-Af Amer) 84.2 (>60) BUN/Creatinine Ratio 10.0 (8-20) Glucose 82 (70-100) mg/dL Calcium 9.6 (8.6-10.3) mg/dL Total Bilirubin 0.40 (0.2-1.0) mg/dL AST 17 (13-39) U/L ALT 21 (7-52) U/L Alkaline Phosphatase 60 (34-104) U/L Total Protein 7.4 (6.4-8.9) g/dL Albumin 4.3 (3.2-5.2) g/dL Globulin 3.1 (2-4) g/dL Albumin/Globulin Ratio 1.4 (1-3) TSH 0.73 (0.34-5.60) mcIU/mL Urine Color Urine Appearance Urine pH (5-9) Ur Specific [place] (1.010-1.030) Urine Protein (Negative) Urine Ketones (Negative) Urine Blood (Negative) Urine Nitrate (Negative) Urine Bilirubin (Negative) Urine Urobilinogen (Negative) Ur Leukocyte Esterase (Negative) Urine WBC (Auto) (Absent) Urine RBC (Auto) (Absent) Ur Squamous Epith Cells (Absent) Urine Bacteria (Absent) Urine Glucose (Negative) Salicylates < 2.50 (<30) mg/dL Urine Opiates Screen (None Detect) Acetaminophen < 15 mcg/mL Ur Barbiturates Screen (None Detect) Ur Phencyclidine Scrn (None Detect) Ur Amphetamines Screen (None Detect) U Benzodiazepines Scrn (None Detect) [place] < 0.10 L (0.6-1.2) mmol/L Urine Cocaine Screen (None Detect) U Cannabinoids Screen (None Detect) Serum Alcohol < 10 (<10) mg/dL Result Diagrams: 02/16/17 13:40 02/16/17 13:40 Lab Statement: Any lab studies that have been ordered have been reviewed, and results considered in the medical decision making process. Course/Dx - Course Assessment/Plan: Sejal Maharaj is a 32 yo female presenting to [facility] with SI since 02/15/17 for MHUE. In room she expresses a desire to be seen by a female provider. She will be signed out to Kelle Jeong due to her preference of gender of provider. - Differential Dx/Clinical Impression Differential Diagnosis/HQI/PQRI: Positive: Suicidal Ideation Provider Diagnosis: Suicidal ideation Discharge - Discharge Plan Condition: Stable Disposition: OTHER Discharge Disposition Comment: signed out to Adenike PICKENS due to Pt preference The documentation as recorded by the tomi candelaria Timothy accurately reflects the service I personally performed and the decisions made by me, Mohit Beard MD.
--- NOTE | 2017-02-17 11:41 | PN ---
[facility]: Group Therapy Note - Service Type Service Type: 61261 Group Psychotherapy - Cognitive Behavioral Group Therapy ( CBT):Patient was attentive and participatory in CBT programming this morning, and remained in good behavioral control. Patient expressed positive insights regarding relevant treatment interventions and goals.
[2017-02-17] MEDS: HYDROcodone/ACETAMIN 5-325 MG* 1 TAB PO PRN ×2 (15:31→19:36)
--- NOTE | 2017-02-17 15:34 | ADMNOTE ---
Identification - Identify Employment Status: Unemployed Hx Psychiatric Hospitalization: Yes - Last admitted to [facility] [place] 12/29/16 Schizoaffectived/o Bipolar type MRE depressed Prior Psychiatric Diagnosis: Schizoaffective d/o Bipolar type, PTSD Arrived to Hospital Via: Car History - Objective HPI: PSYCHIATRIC HISTORY HPI: ----- 32yo female with PPHx significant for Schizoaffective d/o, bipolar type and PTSD presented, driven by her director of casework Judy to the ED for psych. eval. Patient reported approx 5 days of worsening depressive symptoms and recurrence of AHs commanding her to cut herself. Patient described these AHs as 2 male voices which sound evil/demonic. Patient reports these voices make derogatory comments and command her to cut herself. Patient also reports SI with plan to overdose on her medications. Patient identifies her stopping her Severy 5 days ago as triggering her decompensation. Today patient reports awareness of importance of med compliance, but reports last week reading on the internet that Severy causes kidney damage with chronic use and reports she stopped the med due to learning this and due to no longer wanting to have blood draws for Severy levels. Patient also reports stressors including recent arguments with her live in boyfriend over his hoarding behaviors. Patient reports their apartment is filled from floor to ceiling with what she feels is trash. Patient reports any attempt to throw things out triggers a verbal altercation. Patient reports poor sleep, she denies NMs. She reports med compliance with Prazosin and Zyprexa, only stopping Severy. Patient reports fair appetite. Patient reports getting some good news since admission. She called to view an apartment at the [facility]. She reported being on the section 8 waiting list for 4 years. Patient reports she expects to move within a month. Patient is future oriented to live alone in her own environment. Patient reports the stress of her relationship will end as she will end the relationship once her apartment is ready. Patient also reports having a good relationship with her director of casework, who patient reports is currently looking for furniture for patient's new apartment. Patient reports she has been compliant with Severy and her home psychotropic regimen since admission. She denies med s/e's. Patient reports ongoing SI and AHs, but reports they are less intense. Patient educated on the need to be compliant with Severy and blood draws as it is these blood draws which allow the physician to monitor her kidney function and look for issues which may prompt d/c. Patient amenable to being med and compliant. Patient denies HI and VH. Of note, patient had UDS (+) for cocaine and cannabis. Patient has had recent knee damage and is in a brace. She reports Ortho prescribed percocet yet UDS is not (+) for opiates. To maintain public assistance, patient must enroll in outpt alcohol and drug rehab. PPHX: ------ Inpt - >11 psych hospitalizations([facility] 8-9 times / [facility] x1) Outpt - [facility] Psychotropic med hx - Depakote(wt gain), Abilify(rash), Severy, Topamax, Propranolol, Klonopin, Zyprexa Suicide Attempt Hx: Attempts x 4 all by hanging(2002, 2010, and twice in 2013) Substance Hx: Patient reports cannabis use d/o, cocaine use d/o, and alcohol use d/o hx. UDS on admission (+) cocaine and cannabis Patient reports to be Rx'd Percocet, yet UDS (-) opioids Family Hx: mom with dx of schizophrenia Soc Hx: ------- -Recently granted section 8 housing -Expects to move in 30days -Currently living with BF, but reports the relationship will be ending once she moves -Reports being 30 credits short of a Bachelors degree PHYSICAL EXAM Patient declines physical exam reporting she had a physical exam done 24hrs ago in the ED. Please see the ED Provider Note signed on 02/16/17. Past Medical History: 1. knee arthalgia 2/2 ligament tear Lab Results: Sodium 135 mmol/L (133-145) 02/16/17 13:40 Potassium 3.7 mmol/L (3.5-5.0) 02/16/17 13:40 BUN 8 mg/dL (6-24) 02/16/17 13:40 Creatinine 0.80 mg/dL (0.51-0.95) 02/16/17 13:40 Calcium 9.6 mg/dL (8.6-10.3) 02/16/17 13:40 AST 17 U/L (13-39) 02/16/17 13:40 ALT 21 U/L (7-52) 02/16/17 13:40 Laboratory Tests 02/16/17 02/16/17 02/16/17 12:57 12:57 13:40 WBC 8.5 RBC 4.87 Hgb 14.3 Hct 43 MCV 88 MCH 29 MCHC 33 RDW 15 Plt Count 158 MPV 10 Neut % (Auto) 75.2 Lymph % (Auto) 15.5 L [place] % (Auto) 7.0 Eos % (Auto) 1.7 Baso % (Auto) 0.6 Absolute Neuts (auto) 6.4 Absolute Lymphs (auto) 1.3 Absolute Monos (auto) 0.6 Absolute Eos (auto) 0.1 Absolute Basos (auto) 0.1 Absolute Nucleated RBC 0 Nucleated RBC % 0 Sodium Potassium Chloride Carbon Dioxide Anion Gap BUN Creatinine Est GFR ( Amer) Est GFR (Non-Af Amer) BUN/Creatinine Ratio Glucose Calcium Total Bilirubin AST ALT Alkaline Phosphatase Total Protein Albumin Globulin Albumin/Globulin Ratio TSH Urine Color Yellow Urine Appearance Clear Urine pH 6.0 Ur Specific [place] 1.013 Urine Protein Negative Urine Ketones Trace H Urine Blood Negative Urine Nitrate Negative Urine Bilirubin Negative Urine Urobilinogen Negative Ur Leukocyte Esterase Trace H Urine WBC (Auto) Trace(0-5/hpf) Urine RBC (Auto) Absent Ur Squamous Epith Cells Present H Urine Bacteria Absent Urine Glucose Negative Salicylates Urine Opiates Screen None detected Acetaminophen Ur Barbiturates Screen None detected Ur Phencyclidine Scrn None detected Ur Amphetamines Screen None detected U Benzodiazepines Scrn None detected Severy Urine Cocaine Screen Presumptive positive H U Cannabinoids Screen Presumptive positive H Serum Alcohol 02/16/17 13:40 WBC RBC Hgb Hct MCV MCH MCHC RDW Plt Count MPV Neut % (Auto) Lymph % (Auto) [place] % (Auto) Eos % (Auto) Baso % (Auto) Absolute Neuts (auto) Absolute Lymphs (auto) Absolute Monos (auto) Absolute Eos (auto) Absolute Basos (auto) Absolute Nucleated RBC Nucleated RBC % Sodium 135 Potassium 3.7 Chloride 102 Carbon Dioxide 25 Anion Gap 8 BUN 8 Creatinine 0.80 Est GFR ( Amer) 108.3 Est GFR (Non-Af Amer) 84.2 BUN/Creatinine Ratio 10.0 Glucose 82 Calcium 9.6 Total Bilirubin 0.40 AST 17 ALT 21 Alkaline Phosphatase 60 Total Protein 7.4 Albumin 4.3 Globulin 3.1 Albumin/Globulin Ratio 1.4 TSH 0.73 Urine Color Urine Appearance Urine pH Ur Specific [place] Urine Protein Urine Ketones Urine Blood Urine Nitrate Urine Bilirubin Urine Urobilinogen Ur Leukocyte Esterase Urine WBC (Auto) Urine RBC (Auto) Ur Squamous Epith Cells Urine Bacteria Urine Glucose Salicylates < 2.50 Urine Opiates Screen Acetaminophen < 15 Ur Barbiturates Screen Ur Phencyclidine Scrn Ur Amphetamines Screen U Benzodiazepines Scrn Severy < 0.10 L Urine Cocaine Screen U Cannabinoids Screen Serum Alcohol < 10 Exam Appearance: Well Developed/Nourished Grooming: Well Kept Psychomotor Activities: Normal Exhibits Abnormal Movement: No Attitude and Relatedness: Cooperative Eye Contact: Good - Speech Quality: Unpressured Latencies: Normal Quantity: Appropriate Patient's Decription of Mood: "depressed" Observed Affect: Constricted Affect Consistent with: Dysphoria Patient's Thought Process: Coherent Thought Content: Yes Passive Wish, Yes Suicidal Planning - plan to OD on meds, Yes Paranoid Ideation - mild-mod intensity thoughts of being experimented on, No Homicidal Ideation Experiencing Hallucinations: Yes Type of Hallucinations: Visual: No, Auditory: Yes - demonic voices which are derrogatory and commanding of her to cut herself Level of Consciousness: Alert Orientation: Yes Intact, Yes Orientated to Time, Yes Orientated to Place, Yes Orientated to Person Impulse Control: Intact Insight and Judgement: Fair Impression - Impression Clinical Impression: 32yo female with hx of Schizoaffective d/o, Bipolar type brought in for psych eval by her director of casework for worsening depressive symptoms, a recurrence of AHs, and SI with plan. Patient able to identify her stopping Severy 5 days ago as the ppt'ing event. Patient continues to be symptomatic, but reports improvement since being med compliant from admission. Pt. reporting new positives in her life and is future oriented. Inpatient DSM-IV Dx: 1. Schizoaffective d/o, Bipolar type MRE depressed. 2. PTSD Merits Inpatient Hospitalization: Yes Plan - Treatment Plan Treatment Plan: 1. Re-start outpt regimen which had been beneficial in maintaining symptoms. 2. Medication compliance encouraged as well as compliance with outpt f/u appts and labs. 3. D/W director of casework patient's outpt. alcohol and drug rehab program options. Continued Medication Management: Continue Outpt Medication Medications: Current Medications Acetaminophen (Tylenol Tab*) 650 mg PO Q4H PRN PRN Reason: PAIN or TEMP > 101 F Last Admin: 02/16/17 21:08 Dose: 650 mg Hydrocodone Bitart/Acetaminophen ([place] 5-325 Tab*) 1 tab PO Q4H PRN PRN Reason: PAIN Al Hydrox/Mg Hydrox/Simethicone (Maalox Plus*) 30 ml PO Q4H PRN PRN Reason: INDIGESTION Gabapentin (Neurontin Cap(*)) 600 mg PO TID [facility] Last Admin: 02/17/17 14:01 Dose: 600 mg Hydroxyzine HCl (Atarax Tab*) 50 mg PO Q4H PRN PRN Reason: ANXIETY Severy Carbonate (Severy Carbonate Tab*) 300 mg PO TID [facility] Last Admin: 02/17/17 14:01 Dose: 300 mg Multivitamins (Theragran Tab*) 1 tab PO DAILY [facility] Last Admin: 02/17/17 08:25 Dose: 1 tab Naproxen (Naprosyn Tab*) 500 mg PO BID [facility] Last Admin: 02/17/17 08:24 Dose: 500 mg Nicotine (Nicotine Patch 21 Mg/24 Hr*) 1 patch TRANSDERM DAILY [facility] Last Admin: 02/17/17 08:22 Dose: Not Given Nicotine (Nicotine Inhaler*) 10 mg INH Q2H PRN PRN Reason: CRAVING Last Admin: 02/17/17 14:02 Dose: 10 mg Olanzapine (Zyprexa Tab*) 15 mg PO BEDTIME [facility] Last Admin: 02/16/17 21:08 Dose: 15 mg Pharmacy Profile Note (Nicotine Patch Removal Note*) 1 note PATCH OFF 2100 [facility] Last Admin: 02/16/17 20:15 Dose: Not Given Prazosin HCl (Minipress Cap*) 2 mg PO BEDTIME [facility] Last Admin: 02/16/17 21:08 Dose: 2 mg Propranolol HCl (Inderal Tab*) 10 mg PO TID [facility] Last Admin: 02/17/17 14:01 Dose: 10 mg - Discharge Plan Discharge Plan: Drug/Alcohol Rehab
[2017-02-17] MEDS: Prazosin CAP* 1 MG PO SCH (21:05)
[2017-02-17] MEDS: OLANzapine TAB* 5 MG PO SCH (21:06)
[2017-02-17] MEDS: Nicotine Patch Removal NOTE PATCH OFF SCH (21:39)
[2017-02-18] MEDS: HYDROcodone/ACETAMIN 5-325 MG* 1 TAB PO PRN ×4 (06:35→20:17)
[2017-02-18] MEDS: Propranolol TAB* 10 MG PO SCH ×3 (08:26→20:17)
[2017-02-18] MEDS: Gabapentin CAP(*) 300 MG PO SCH ×3 (08:27→20:15)
[2017-02-18] MEDS: Vitamin THERAPEUTIC TAB PO SCH (08:27)
[2017-02-18] MEDS: Naproxen TAB* 250 MG PO SCH ×2 (08:28→20:16)
[2017-02-18] MEDS: Lithium Carbonate TAB* 300 MG PO SCH ×3 (08:28→20:16)
[2017-02-18] MEDS: Nicotine Inhaler* 10 MG AMP Q2H PRN CRAVING INH (08:28)
[2017-02-18] MEDS: Nicotine PATCH 21 MG/24 HR* PATCH TRANSDERM SCH (10:15)
--- NOTE | 2017-02-18 14:20 | PN ---
Subjective - Subjective Service Type: 92993 Hosp care 15 min low complexity Subjective: Patient reports ongoing depressed mood but reports her depression intensity has decreased. Patient also reports a decrease in the intensity of AHs she's experiencing. Patient reports the voices continue to make derrogatory comments and command her to cut herself. Patient expresses ongoing SI but reports she feels safe on the unit and has no plans to hurt herself. Patient reports med compliance and denies med s/e's. Patient reports sleep and appetite are wnl. Patient reports her primary worry is discharging back to her apartment and getting into another verbal altercation with her boyfriend over the mess he's made of their home. Patient again reports she is not continuing their relationship once she is able to move into her apartment. Patient reports all her family is in [place]. She last visited them last month. She reports she will continue to talk to her boyfriend, but as a friend. She reports being involved in AA and reports many friends from AA and social outings. Patient reports she is agreeable with this provider calling Dr. Smith, her psychiatrist at [facility]. Objective - Appearance Appearance: Obese Dysmorphic Features: No Hygiene: Normal Grooming: Fairly Well Kept - Behavior Psychomotor Activities: Normal Exhibits Abnormal Movement: No - Attitude and Relatedness Attitude and Relatedness: Cooperative Eye Contact: Good - Speech Quality: Unpressured Latencies: Normal Quantity: Appropriate - Mood Patient's Decription of Mood: "improved" - Affect Observed Affect: Depressed Affect Consistent with: Dysphoria - Thought Process Patient's Thought Process: Coherent Thought Content: Yes Passive Wish, No Suicidal Planning, No Homicidal Ideation, No Paranoid Ideation - Sensorium Experiencing Hallucinations: Yes Type of Hallucinations: Visual: No, Auditory: Yes, Command: Yes - Level of Consciousness Level of Consciousness: Alert Orientation: Yes Intact, Yes Orientated to Time, Yes Orientated to Place, Yes Orientated to Person - Impulse Control Impulse Control: Intact - Insight and Judgement Insight and Judgement: Impaired - Group Participation Particating in Group Activities: Yes - Medication Management Medication Management Adherence: Yes Assessment - Assessment Inpatient DSM-IV Dx: 1. Schizoaffective d/o, Bipolar type MRE depressed. 2. PTSD Clinical Impression: 32yo female with hx of Schizoaffective d/o, Bipolar type brought in for psych eval by her case work aide for worsening depressive symptoms, a recurrence of AHs, and SI with plan. Patient able to identify her stopping [place] 5 days ago as the ppt'ing event. Patient continues to be symptomatic, but reports improvement since being med compliant from admission. Pt. reporting new positives in her life and is future oriented. Plan - Plan Treatment Plan: 1. Continue current psychotropic regimen. Monitor symptoms. 2. Awaiting input from patient's case work aide. 2. Medication compliance encouraged as well as compliance with outpt f/u appts and labs. 3. Patient currently enrolled in an alcohol and drug rehab program and has f/ u services set. Medications: Current Medications Acetaminophen (Tylenol Tab*) 650 mg PO Q4H PRN PRN Reason: PAIN or TEMP > 101 F Last Admin: 02/16/17 21:08 Dose: 650 mg Hydrocodone Bitart/Acetaminophen ([place] 5-325 Tab*) 1 tab PO Q4H PRN PRN Reason: PAIN Last Admin: 02/18/17 10:28 Dose: 1 tab Al Hydrox/Mg Hydrox/Simethicone (Maalox Plus*) 30 ml PO Q4H PRN PRN Reason: INDIGESTION Gabapentin (Neurontin Cap(*)) 600 mg PO TID [facility] Last Admin: 02/18/17 13:57 Dose: 600 mg Hydroxyzine HCl (Atarax Tab*) 50 mg PO Q4H PRN PRN Reason: ANXIETY [place] Carbonate ([place] Carbonate Tab*) 300 mg PO TID [facility] Last Admin: 02/18/17 13:57 Dose: 300 mg Multivitamins (Theragran Tab*) 1 tab PO DAILY [facility] Last Admin: 02/18/17 08:27 Dose: 1 tab Naproxen (Naprosyn Tab*) 500 mg PO BID [facility] Last Admin: 02/18/17 08:28 Dose: 500 mg Nicotine (Nicotine Patch 21 Mg/24 Hr*) 1 patch TRANSDERM DAILY [facility] Last Admin: 02/18/17 10:15 Dose: Not Given Nicotine (Nicotine Inhaler*) 10 mg INH Q2H PRN PRN Reason: CRAVING Last Admin: 02/18/17 08:28 Dose: 10 mg Olanzapine (Zyprexa Tab*) 15 mg PO BEDTIME [facility] Last Admin: 02/17/17 21:06 Dose: 15 mg Pharmacy Profile Note (Nicotine Patch Removal Note*) 1 note PATCH OFF 2100 [facility] Last Admin: 02/17/17 21:39 Dose: Not Given Prazosin HCl (Minipress Cap*) 2 mg PO BEDTIME [facility] Last Admin: 02/17/17 21:05 Dose: 2 mg Propranolol HCl (Inderal Tab*) 10 mg PO TID [facility] Last Admin: 02/18/17 13:56 Dose: 10 mg - Discharge Plan Discharge Plan: Outpatient Follow Up Outpatient Program: Patient currently enrolled in an outpatient [facility] (substance abuse treatment program)
[2017-02-18] MEDS: Prazosin CAP* 1 MG PO SCH (20:16)
[2017-02-18] MEDS: OLANzapine TAB* 5 MG PO SCH (20:16)
[2017-02-18] MEDS: Nicotine Patch Removal NOTE PATCH OFF SCH (20:34)
[2017-02-19] MEDS: Nicotine Inhaler* 10 MG AMP Q2H PRN CRAVING INH (08:09)
[2017-02-19] MEDS: Vitamin THERAPEUTIC TAB PO SCH (08:09)
[2017-02-19] MEDS: Naproxen TAB* 250 MG PO SCH ×2 (08:09→20:12)
[2017-02-19] MEDS: HYDROcodone/ACETAMIN 5-325 MG* 1 TAB PO PRN ×4 (08:10→20:11)
[2017-02-19] MEDS: Gabapentin CAP(*) 300 MG PO SCH ×3 (08:10→20:12)
[2017-02-19] MEDS: Lithium Carbonate TAB* 300 MG PO SCH ×3 (08:10→20:12)
[2017-02-19] MEDS: Propranolol TAB* 10 MG PO SCH ×3 (08:10→20:13)
[2017-02-19] MEDS: Nicotine PATCH 21 MG/24 HR* PATCH TRANSDERM SCH (08:11)
[2017-02-19] MEDS: Acetaminophen TAB* 325 MG PO PRN (10:47)
[2017-02-19] MEDS ORDERED: Magnesium Hydroxide LIQ* 30 ML UDC PO PRN (11:35)
[2017-02-19] MEDS ORDERED: Docusate CAP* 100 MG PO PRN (11:35)
--- NOTE | 2017-02-19 12:24 | PN ---
Subjective - Subjective Service Type: [id number] Hosp care 15 min low complexity Subjective: Patient brighter in affect this afternoon. Patient is more visible in the dayroom, and initiates today's interview. Patient reports her mood has continued to improve since yesterday. She describes ongoing AH's but reports they are less distressing. They continue to make derogatory comments but are no longer commanding her to kill herself. Patient reports SI last night. Patient is med compliant, reporting no med s/e's. She does express interest in when her Strang level will be drawn. Sleep and appetite are wnl. Patient has reported no BM x 72hrs. PRN Colace and MOM have been ordered. Objective - Appearance Appearance: Obese Dysmorphic Features: No Grooming: Fairly Well Kept - Behavior Psychomotor Activities: Normal Exhibits Abnormal Movement: No - Attitude and Relatedness Attitude and Relatedness: Cooperative Eye Contact: Good - Speech Quality: Unpressured Latencies: Normal Quantity: Appropriate - Mood Patient's Decription of Mood: "better" - Affect Observed Affect: Fair Affect Consistent with: Euthymia - Thought Process Patient's Thought Process: Coherent Thought Content: Yes Passive Wish, No Suicidal Planning, No Homicidal Ideation, No Paranoid Ideation - Sensorium Experiencing Hallucinations: Yes Type of Hallucinations: Visual: No, Auditory: Yes, Command: No - Level of Consciousness Level of Consciousness: Alert Orientation: Yes Intact, Yes Orientated to Time, Yes Orientated to Place, Yes Orientated to Person - Insight and Judgement Insight and Judgement: Fair - Group Participation Particating in Group Activities: Yes - Medication Management Medication Management Adherence: Yes Assessment - Assessment Inpatient DSM-IV Dx: 1. Schizoaffective d/o, Bipolar type MRE depressed. 2. PTSD Clinical Impression: 32yo female with hx of Schizoaffective d/o, Bipolar type brought in for psych eval by her director of casework department for worsening depressive symptoms, a recurrence of AHs, and SI with plan. Patient able to identify her stopping Strang 5 days ago as the ppt'ing event. Patient continues to be symptomatic, but reports improvement since being med compliant from admission. Pt. reporting new positives in her life and is future oriented. Plan - Plan Treatment Plan: 1. Continue current psychotropic regimen. 2. Monitor symptoms over weekend, looking for ongoing mood improvement and a period of no SI. 3. Patient Strang Level to be drawn Thursday morning, 02/23/17 prior to am dose. 4. Patient has reported no BM x 72hrs. PRN Colace and MOM have been ordered 5. Awaiting input from patient's director of casework department. 6. Medication compliance encouraged as well as compliance with outpt f/u appts and labs. 7. Patient currently enrolled in an alcohol and drug rehab program and has f/ u services set. Medications: Current Medications Acetaminophen (Tylenol Tab*) 650 mg PO Q4H PRN PRN Reason: PAIN or TEMP > 101 F Last Admin: 02/19/17 10:47 Dose: 650 mg Hydrocodone Bitart/Acetaminophen ([place] 5-325 Tab*) 1 tab PO Q4H PRN PRN Reason: PAIN Last Admin: 02/19/17 12:15 Dose: 1 tab Al Hydrox/Mg Hydrox/Simethicone (Maalox Plus*) 30 ml PO Q4H PRN PRN Reason: INDIGESTION Docusate Sodium (Colace Cap*) 100 mg PO BID PRN PRN Reason: CONSTIPATION Last Admin: 02/19/17 11:50 Dose: 100 mg Gabapentin (Neurontin Cap(*)) 600 mg PO TID [facility] Last Admin: 02/19/17 08:10 Dose: 600 mg Hydroxyzine HCl (Atarax Tab*) 50 mg PO Q4H PRN PRN Reason: ANXIETY Strang Carbonate (Strang Carbonate Tab*) 300 mg PO TID [facility] Last Admin: 02/19/17 08:10 Dose: 300 mg Magnesium Hydroxide (Milk Of Magnesia Liq*) 30 ml PO DAILY PRN PRN Reason: CONSTIPATION Multivitamins (Theragran Tab*) 1 tab PO DAILY [facility] Last Admin: 02/19/17 08:09 Dose: 1 tab Naproxen (Naprosyn Tab*) 500 mg PO BID [facility] Last Admin: 02/19/17 08:09 Dose: 500 mg Nicotine (Nicotine Patch 21 Mg/24 Hr*) 1 patch TRANSDERM DAILY [facility] Last Admin: 02/19/17 08:11 Dose: Not Given Nicotine (Nicotine Inhaler*) 10 mg INH Q2H PRN PRN Reason: CRAVING Last Admin: 02/19/17 08:09 Dose: 10 mg Olanzapine (Zyprexa Tab*) 15 mg PO BEDTIME [facility] Last Admin: 02/18/17 20:16 Dose: 15 mg Pharmacy Profile Note (Nicotine Patch Removal Note*) 1 note PATCH OFF 2100 [facility] Last Admin: 02/18/17 20:34 Dose: Not Given Prazosin HCl (Minipress Cap*) 2 mg PO BEDTIME [facility] Last Admin: 02/18/17 20:16 Dose: 2 mg Propranolol HCl (Inderal Tab*) 10 mg PO TID [facility] Last Admin: 02/19/17 08:10 Dose: 10 mg
[2017-02-19] MEDS: Nicotine Patch Removal NOTE PATCH OFF SCH (20:12)
[2017-02-19] MEDS: OLANzapine TAB* 5 MG PO SCH (20:13)
[2017-02-19] MEDS: Prazosin CAP* 1 MG PO SCH (20:13)
[2017-02-20] MEDS: HYDROcodone/ACETAMIN 5-325 MG* 1 TAB PO PRN ×4 (08:05→21:42)
[2017-02-20] MEDS: Vitamin THERAPEUTIC TAB PO SCH (08:06)
[2017-02-20] MEDS: Gabapentin CAP(*) 300 MG PO SCH ×3 (08:06→21:46)
[2017-02-20] MEDS: Propranolol TAB* 10 MG PO SCH ×3 (08:06→21:46)
[2017-02-20] MEDS: Naproxen TAB* 250 MG PO SCH ×2 (08:06→21:46)
[2017-02-20] MEDS: Lithium Carbonate TAB* 300 MG PO SCH ×3 (08:06→21:47)
[2017-02-20] MEDS: Nicotine PATCH 21 MG/24 HR* PATCH TRANSDERM SCH (09:39)
[2017-02-20] MEDS: Acetaminophen TAB* 325 MG PO PRN ×3 (10:40→18:51)
[2017-02-20] MEDS: Nicotine Inhaler* 10 MG AMP Q2H PRN CRAVING INH (13:50)
--- NOTE | 2017-02-20 15:12 | PN ---
Subjective - Subjective Service Type: [id number] Hosp care 15 min low complexity Subjective: Patient reporting stable mood today. Patient is more aloof and isolated. She is seen in the milieu. Patient reports increased anxiety and "zoning out" due to her roommate. Patient reports she is a former cutter, she says she hasn't cut in over a year. Patient reports her roommate's frequent episodes of cutting and destructive behaviors are triggering her. She reports intensifying AHs commanding her to cut herself. She reports ongoing SI with no plan and denies VHs and paranoia. Patient informed this provider would ask staff to switch her roommate. Objective - Appearance Appearance: Obese Dysmorphic Features: No Hygiene: Normal Grooming: Fairly Well Kept - Behavior Psychomotor Activities: Normal Exhibits Abnormal Movement: No - Attitude and Relatedness Attitude and Relatedness: Cooperative Eye Contact: Fair - Speech Latencies: Normal Quantity: Appropriate - Mood Patient's Decription of Mood: "Anxious" - Affect Observed Affect: Depressed Affect Consistent with: Dysphoria - Thought Process Patient's Thought Process: Coherent Thought Content: Yes Passive Wish, No Suicidal Planning, No Homicidal Ideation, No Paranoid Ideation - Sensorium Experiencing Hallucinations: Yes Type of Hallucinations: Visual: No, Auditory: Yes, Command: Yes - Level of Consciousness Level of Consciousness: Alert Orientation: Yes Intact, Yes Orientated to Time, Yes Orientated to Place, Yes Orientated to Person - Impulse Control Impulse Control: Intact - Insight and Judgement Insight and Judgement: Fair - Group Participation Particating in Group Activities: Yes - Medication Management Medication Management Adherence: Yes Assessment - Assessment Inpatient DSM-IV Dx: 1. Schizoaffective d/o, Bipolar type MRE depressed. 2. PTSD Clinical Impression: 32yo female with hx of Schizoaffective d/o, Bipolar type brought in for psych eval by her watch caser for worsening depressive symptoms, a recurrence of AHs, and SI with plan. Patient able to identify her stopping [place] 5 days prior to admission as the ppt'ing event for her decompensation. Patient continues to be symptomatic, but reports improvement since being med compliant from admission. Pt.reporting new positives in her life and is future oriented. Plan - Plan Treatment Plan: 1. Continue current psychotropic regimen. 2. Staff able to switch patient's roommate. 3. Monitor symptoms over weekend, looking for ongoing mood improvement and a period of no SI. 4. Patient [place] Level to be drawn Thursday morning, 02/23/17 prior to am dose. 5. PRN Colace and MOM have been ordered for constipation. 6. Appreciate input from patient's watch caser. 7. Medication compliance encouraged as well as compliance with outpt f/u appts and labs. 8. Patient currently enrolled in an alcohol and drug rehab program and has f/ u services set. Medications: Current Medications Acetaminophen (Tylenol Tab*) 650 mg PO Q4H PRN PRN Reason: PAIN or TEMP > 101 F Last Admin: 02/20/17 10:40 Dose: 650 mg Hydrocodone Bitart/Acetaminophen ([place] 5-325 Tab*) 1 tab PO Q4H PRN PRN Reason: PAIN Last Admin: 02/20/17 12:15 Dose: 1 tab Al Hydrox/Mg Hydrox/Simethicone (Maalox Plus*) 30 ml PO Q4H PRN PRN Reason: INDIGESTION Docusate Sodium (Colace Cap*) 100 mg PO BID PRN PRN Reason: CONSTIPATION Last Admin: 02/19/17 11:50 Dose: 100 mg Gabapentin (Neurontin Cap(*)) 600 mg PO TID [facility] Last Admin: 02/20/17 13:51 Dose: 600 mg Hydroxyzine HCl (Atarax Tab*) 50 mg PO Q4H PRN PRN Reason: ANXIETY [place] Carbonate ([place] Carbonate Tab*) 300 mg PO TID [facility] Last Admin: 02/20/17 13:50 Dose: 300 mg Magnesium Hydroxide (Milk Of Magnesia Liq*) 30 ml PO DAILY PRN PRN Reason: CONSTIPATION Multivitamins (Theragran Tab*) 1 tab PO DAILY [facility] Last Admin: 02/20/17 08:06 Dose: 1 tab Naproxen (Naprosyn Tab*) 500 mg PO BID [facility] Last Admin: 02/20/17 08:06 Dose: 500 mg Nicotine (Nicotine Patch 21 Mg/24 Hr*) 1 patch TRANSDERM DAILY [facility] Last Admin: 02/20/17 09:39 Dose: Not Given Nicotine (Nicotine Inhaler*) 10 mg INH Q2H PRN PRN Reason: CRAVING Last Admin: 02/20/17 13:50 Dose: 10 mg Olanzapine (Zyprexa Tab*) 15 mg PO BEDTIME [facility] Last Admin: 02/19/17 20:13 Dose: 15 mg Pharmacy Profile Note (Nicotine Patch Removal Note*) 1 note PATCH OFF 2100 [facility] Last Admin: 02/19/17 20:12 Dose: Not Given Prazosin HCl (Minipress Cap*) 2 mg PO BEDTIME [facility] Last Admin: 02/19/17 20:13 Dose: 2 mg Propranolol HCl (Inderal Tab*) 10 mg PO TID [facility] Last Admin: 02/20/17 13:50 Dose: 10 mg - Discharge Plan Discharge Plan: Drug/Alcohol Rehab Outpatient Program: [facility]
[2017-02-20] MEDS: OLANzapine TAB* 5 MG PO SCH (21:45)
[2017-02-20] MEDS: Prazosin CAP* 1 MG PO SCH (21:46)
[2017-02-20] MEDS: Nicotine Patch Removal NOTE PATCH OFF SCH (23:34)
[2017-02-21] MEDS: Propranolol TAB* 10 MG PO SCH ×3 (07:47→21:23)
[2017-02-21] MEDS: Gabapentin CAP(*) 300 MG PO SCH ×3 (07:47→21:24)
[2017-02-21] MEDS: Lithium Carbonate TAB* 300 MG PO SCH ×3 (07:48→21:24)
[2017-02-21] MEDS: Naproxen TAB* 250 MG PO SCH ×2 (07:48→21:23)
[2017-02-21] MEDS: Nicotine Inhaler* 10 MG AMP Q2H PRN CRAVING INH (07:49)
[2017-02-21] MEDS: HYDROcodone/ACETAMIN 5-325 MG* 1 TAB PO PRN ×4 (07:49→21:24)
[2017-02-21] MEDS: Vitamin THERAPEUTIC TAB PO SCH (07:51)
[2017-02-21] MEDS: Nicotine PATCH 21 MG/24 HR* PATCH TRANSDERM SCH (07:51)
[2017-02-21] MEDS: Acetaminophen TAB* 325 MG PO PRN ×2 (11:02→15:26)
[2017-02-21] MEDS: OLANzapine TAB* 5 MG PO SCH (21:23)
[2017-02-21] MEDS: Prazosin CAP* 1 MG PO SCH (21:24)
[2017-02-21] MEDS: Nicotine Patch Removal NOTE PATCH OFF SCH (21:39)
[2017-02-22] MEDS: Lithium Carbonate TAB* 300 MG PO SCH ×3 (08:25→20:22)
[2017-02-22] MEDS: HYDROcodone/ACETAMIN 5-325 MG* 1 TAB PO PRN ×4 (08:25→21:10)
[2017-02-22] MEDS: Propranolol TAB* 10 MG PO SCH ×3 (08:25→20:21)
[2017-02-22] MEDS: Naproxen TAB* 250 MG PO SCH ×2 (08:25→20:21)
[2017-02-22] MEDS: Gabapentin CAP(*) 300 MG PO SCH ×3 (08:26→20:22)
[2017-02-22] MEDS: Vitamin THERAPEUTIC TAB PO SCH (08:26)
[2017-02-22] MEDS: Nicotine PATCH 21 MG/24 HR* PATCH TRANSDERM SCH (08:28)
[2017-02-22] MEDS: Acetaminophen TAB* 325 MG PO PRN ×2 (10:58→15:37)
--- NOTE | 2017-02-22 15:31 | PN ---
Subjective - Subjective Service Type: 59515 Hosp care 15 min low complexity Subjective: Kina reports that her anxiety and command auditory hallucinations has worsened. She feels suicidal but safe here. No active plans. Nursing was made aware to keep q15 mins check. Objective - Appearance Appearance: Obese Dysmorphic Features: No Hygiene: Normal Grooming: Fairly Well Kept - Behavior Psychomotor Activities: Normal Exhibits Abnormal Movement: No - Attitude and Relatedness Attitude and Relatedness: Appropriate Eye Contact: Good - Speech Quality: Unpressured Latencies: Normal Quantity: Appropriate - Mood Patient's Decription of Mood: "Anxious" - Affect Observed Affect: Constricted Affect Consistent with: Dysphoria - Thought Process Patient's Thought Process: Coherent, Goal Directed Thought Content: Yes Passive Wish, No Suicidal Planning, No Homicidal Ideation, No Paranoid Ideation - Sensorium Type of Hallucinations: Visual: No, Auditory: Yes, Command: Yes - To harm self - Level of Consciousness Level of Consciousness: Alert Orientation: Yes Intact, Yes Orientated to Time, Yes Orientated to Place, Yes Orientated to Person - Impulse Control Impulse Control: Tenuous - Insight and Judgement Insight and Judgement: Fair - Group Participation Particating in Group Activities: Yes - Medication Management Medication Management Adherence: Yes Assessment - Assessment Merits Inpatient Hospitalization: For Stabilization, Pending Safe DC Plan Inpatient DSM-IV Dx: 1. Schizoaffective d/o, Bipolar type MRE depressed. 2. PTSD Plan - Plan Treatment Plan: Name: KVNG RYAN Birthdate: 1985 [id number] Continued Medication Management: Continue Outpt Medication Medications: Current Medications Acetaminophen (Tylenol Tab*) 650 mg PO Q4H PRN PRN Reason: PAIN or TEMP > 101 F Last Admin: 02/22/17 10:58 Dose: 650 mg Hydrocodone Bitart/Acetaminophen ([place] 5-325 Tab*) 1 tab PO Q4H PRN PRN Reason: PAIN Last Admin: 02/22/17 12:46 Dose: 1 tab Al Hydrox/Mg Hydrox/Simethicone (Maalox Plus*) 30 ml PO Q4H PRN PRN Reason: INDIGESTION Docusate Sodium (Colace Cap*) 100 mg PO BID PRN PRN Reason: CONSTIPATION Last Admin: 02/19/17 11:50 Dose: 100 mg Gabapentin (Neurontin Cap(*)) 600 mg PO TID [facility] Last Admin: 02/22/17 13:39 Dose: 600 mg Hydroxyzine HCl (Atarax Tab*) 50 mg PO Q4H PRN PRN Reason: ANXIETY [place] Carbonate ([place] Carbonate Tab*) 300 mg PO TID [facility] Last Admin: 02/22/17 13:39 Dose: 300 mg Magnesium Hydroxide (Milk Of Magnesia Liq*) 30 ml PO DAILY PRN PRN Reason: CONSTIPATION Multivitamins (Theragran Tab*) 1 tab PO DAILY [facility] Last Admin: 02/22/17 08:26 Dose: 1 tab Naproxen (Naprosyn Tab*) 500 mg PO BID [facility] Last Admin: 02/22/17 08:25 Dose: 500 mg Nicotine (Nicotine Patch 21 Mg/24 Hr*) 1 patch TRANSDERM DAILY [facility] Last Admin: 02/22/17 08:28 Dose: 1 patch Nicotine (Nicotine Inhaler*) 10 mg INH Q2H PRN PRN Reason: CRAVING Last Admin: 02/21/17 07:49 Dose: 10 mg Olanzapine (Zyprexa Tab*) 15 mg PO BEDTIME [facility] Last Admin: 02/21/17 21:23 Dose: 15 mg Pharmacy Profile Note (Nicotine Patch Removal Note*) 1 note PATCH OFF 2100 [facility] Last Admin: 02/21/17 21:39 Dose: Not Given Prazosin HCl (Minipress Cap*) 2 mg PO BEDTIME [facility] Last Admin: 02/21/17 21:24 Dose: 2 mg Propranolol HCl (Inderal Tab*) 10 mg PO TID [facility] Last Admin: 02/22/17 13:39 Dose: 10 mg - Discharge Plan Discharge Plan: Outpatient Follow Up Outpatient Program: [facility]
[2017-02-22] MEDS: hydrOXYzine HCL TAB* 50 MG PO PRN ×2 (15:37→20:24)
[2017-02-22] MEDS: OLANzapine TAB* 10 MG PO SCH (20:22)
[2017-02-22] MEDS: Prazosin CAP* 1 MG PO SCH (20:22)
[2017-02-22] MEDS: Nicotine Patch Removal NOTE PATCH OFF SCH (22:06)
[2017-02-23 07:44] VITALS: BP 123/69
[2017-02-23] MEDS: HYDROcodone/ACETAMIN 5-325 MG* 1 TAB PO PRN ×4 (08:18→21:17)
[2017-02-23] MEDS: Propranolol TAB* 10 MG PO SCH ×3 (08:18→21:17)
[2017-02-23] MEDS: Naproxen TAB* 250 MG PO SCH ×2 (08:19→21:16)
[2017-02-23] MEDS: Gabapentin CAP(*) 300 MG PO SCH ×3 (08:19→21:16)
[2017-02-23] MEDS: Vitamin THERAPEUTIC TAB PO SCH (08:20)
[2017-02-23] MEDS: Lithium Carbonate TAB* 300 MG PO SCH ×3 (08:20→22:11)
[2017-02-23] MEDS: Nicotine PATCH 21 MG/24 HR* PATCH TRANSDERM SCH (08:34)
[2017-02-23] MEDS: hydrOXYzine HCL TAB* 50 MG PO PRN ×2 (10:42→14:57)
--- NOTE | 2017-02-23 13:10 | PN ---
MHU: Group Therapy Note - Service Type Service Type: [id number] Group Psychotherapy - Cognitive Behavioral Group Therapy ( CBT):Patient was attentive and participatory in CBT programming this morning, and remained in good behavioral control. Patient expressed positive insights regarding relevant treatment interventions and goals.
--- NOTE | 2017-02-23 16:01 | PN ---
Subjective - Subjective Service Type: 89103 Hosp care 15 min low complexity Subjective: Patient reports increased stress from triggers to self-injure over the weekend. Patient reports ongoing distress from witnessing the SIB of a peer this weekend. She also reports having an upsetting conversation with her mother. She reports her mother is controlling and has recently been more of a trigger for patient's SIB. Patient reports mother after years of criticizing her teeth recently offered to pay for patient to have decayed teeth pulled and dentures made. Patient reported mother withdrew this offer after patient refused to severe ties with her current BF. She reports mother has attempted multiple times to sabotage this relationship. Yesterday, patient made multiple superficial cuts to her left forearm. She was ordered Vistaril PRN by covering physician. Zyprexa increased from 15mg to 20mg po qhs over the weekend. Patient reports no thoughts to self-injure this morning. She has been med compliant and reports no med s/e's. Patient's [place] level was not drawn by the lab prior to patient's am dose, but will be drawn this evening prior to her 9pm dose administration. Patient continues to participate in groups and is visible in the milieu. Patient is social and pleasant. Patient reports ongoing SI today, but denies plan. Patient with hx of chronic SI. Patient reports continued derogatory AHs, but reports the voices have been non-commmanding x4 days. She feels safe to discharge home as she has multiple MH appts this week at [facility] and is focused on the work to be done to secure an apartment with her recently received Section 8 voucher. Patient tentatively scheduled for discharge tomorrow morning at 10am. She will be transported by taxi to the [facility] where she has an 11am Drug counseling appt. Patient also has M,W,F Alcohol and Drug [place] meetings. Patient has T,R DBT sessions, and will be starting PROS appts soon. Patient has good community support. Patient herself identifies her BF as a trigger as well as their home which he keeps in intolerable disarray due to his hoarding behaviors. Patient though focused on the work she needs to do to find an apartment in the 60 window given for her Section 8 voucher. She is also focused on her MH appts. She was encouraged to again talk with her community case manager, [facility] providers or to present to the ED if AHs or SIs intensify to the point she feels unsafe. Patient acknowledged understanding. Objective - Appearance Appearance: Obese Dysmorphic Features: No Hygiene: Normal Grooming: Fairly Well Kept - Behavior Psychomotor Activities: Normal Exhibits Abnormal Movement: No - Attitude and Relatedness Attitude and Relatedness: Cooperative Eye Contact: Good - Speech Quality: Unpressured Latencies: Normal Quantity: Appropriate - Mood Patient's Decription of Mood: "Okay" - Affect Observed Affect: Constricted Affect Consistent with: Dysphoria - Thought Process Patient's Thought Process: Coherent Thought Content: No Passive Wish, No Suicidal Planning, No Homicidal Ideation, No Paranoid Ideation - Sensorium Experiencing Hallucinations: Yes Type of Hallucinations: Visual: No, Auditory: Yes, Command: No - Level of Consciousness Level of Consciousness: Alert Orientation: Yes Intact, Yes Orientated to Time, Yes Orientated to Place, Yes Orientated to Person - Impulse Control Impulse Control: Intact - Insight and Judgement Insight and Judgement: Fair - Group Participation Particating in Group Activities: Yes - Medication Management Medication Management Adherence: Yes Assessment - Assessment Inpatient DSM-IV Dx: 1. Schizoaffective d/o, Bipolar type MRE depressed. 2. PTSD Clinical Impression: 32yo female with hx of Schizoaffective d/o, Bipolar type brought in for psych eval by her community case manager for worsening depressive symptoms, a recurrence of AHs, and SI with plan. Patient able to identify her stopping [place] 5 days prior to admission as the ppt'ing event for her decompensation. Patient continues to be symptomatic, but reports on going symptomatic improvement. AHs continue to decrease in intensity and are no longer commanding. Patient with fleeting SI, but no plan. Plan - Plan Treatment Plan: 1. Continue current psychotropic regimen. Zyprexa increased from 15mg to 20mg po qhs over the weekend. 2. Pending [place] Level, to be drawn this evening, 02/23/17 prior to 9pm dose. 3. PRN Colace and MOM have been ordered for constipation. 4. Appreciate input from patient's community case manager. 5. Medication compliance encouraged as well as compliance with outpt f/u appts and labs. 6. Patient currently enrolled in an alcohol and drug rehab program and has [facility] f/u services set including: 11am Drug counseling appt., patient also has M,W,F Alcohol and Drug [place] meetings. Patient has T,R DBT sessions, and will be starting PROS appts soon. Medications: Current Medications Acetaminophen (Tylenol Tab*) 650 mg PO Q4H PRN PRN Reason: PAIN or TEMP > 101 F Last Admin: 02/22/17 15:37 Dose: 650 mg Hydrocodone Bitart/Acetaminophen ([place] 5-325 Tab*) 1 tab PO Q4H PRN PRN Reason: PAIN Last Admin: 02/23/17 12:19 Dose: 1 tab Al Hydrox/Mg Hydrox/Simethicone (Maalox Plus*) 30 ml PO Q4H PRN PRN Reason: INDIGESTION Docusate Sodium (Colace Cap*) 100 mg PO BID PRN PRN Reason: CONSTIPATION Last Admin: 02/19/17 11:50 Dose: 100 mg Gabapentin (Neurontin Cap(*)) 600 mg PO TID [facility] Last Admin: 02/23/17 14:57 Dose: 600 mg Hydroxyzine HCl (Atarax Tab*) 50 mg PO Q4H PRN PRN Reason: ANXIETY Last Admin: 02/23/17 14:57 Dose: 50 mg [place] Carbonate ([place] Carbonate Tab*) 300 mg PO TID [facility] Last Admin: 02/23/17 14:57 Dose: 300 mg Magnesium Hydroxide (Milk Of Magnesia Liq*) 30 ml PO DAILY PRN PRN Reason: CONSTIPATION Multivitamins (Theragran Tab*) 1 tab PO DAILY [facility] Last Admin: 02/23/17 08:20 Dose: 1 tab Naproxen (Naprosyn Tab*) 500 mg PO BID [facility] Last Admin: 02/23/17 08:19 Dose: 500 mg Nicotine (Nicotine Patch 21 Mg/24 Hr*) 1 patch TRANSDERM DAILY [facility] Last Admin: 02/23/17 08:34 Dose: Not Given Nicotine (Nicotine Inhaler*) 10 mg INH Q2H PRN PRN Reason: CRAVING Last Admin: 02/21/17 07:49 Dose: 10 mg Olanzapine (Zyprexa Tab*) 20 mg PO BEDTIME [facility] Last Admin: 02/22/17 20:22 Dose: 20 mg Pharmacy Profile Note (Nicotine Patch Removal Note*) 1 note PATCH OFF 2100 [facility] Last Admin: 02/22/17 22:06 Dose: 1 note Prazosin HCl (Minipress Cap*) 2 mg PO BEDTIME [facility] Last Admin: 02/22/17 20:22 Dose: 2 mg Propranolol HCl (Inderal Tab*) 10 mg PO TID [facility] Last Admin: 02/23/17 14:57 Dose: 10 mg - Discharge Plan Discharge Plan: Drug/Alcohol Rehab Outpatient Program: [facility]
[2017-02-23] MEDS: Nicotine Inhaler* 10 MG AMP Q2H PRN CRAVING INH (16:57)
[2017-02-23] MEDS: Acetaminophen TAB* 325 MG PO PRN (19:48)
[2017-02-23] MEDS: OLANzapine TAB* 10 MG PO SCH (21:17)
[2017-02-23] MEDS: Nicotine Patch Removal NOTE PATCH OFF SCH (21:17)
[2017-02-23] MEDS: Prazosin CAP* 1 MG PO SCH (21:17)
[2017-02-24] MEDS: HYDROcodone/ACETAMIN 5-325 MG* 1 TAB PO PRN (08:16)
[2017-02-24] MEDS: Naproxen TAB* 250 MG PO SCH (08:17)
[2017-02-24] MEDS: Gabapentin CAP(*) 300 MG PO SCH (08:17)
[2017-02-24] MEDS: Propranolol TAB* 10 MG PO SCH (08:17)
[2017-02-24] MEDS: Vitamin THERAPEUTIC TAB PO SCH (08:17)
[2017-02-24] MEDS: Lithium Carbonate TAB* 300 MG PO SCH (08:17)
[2017-02-24] MEDS: Nicotine PATCH 21 MG/24 HR* PATCH TRANSDERM SCH (08:20)
--- NOTE | 2017-02-24 20:01 | DCNOTE ---
Subjective - Subjective Service Types: 71934 Hosp DC Day Mgmt simple under 30 min Subjective: Hospital Course: 32yo female with PPHx significant for Schizoaffective d/o, bipolar type and PTSD presented, driven by her egg caser Judy to the ED for psych. eval. Patient reported approx 5 days of worsening depressive symptoms and recurrence of AHs commanding her to cut herself. Patient described these AHs as 2 male voices which sound evil/demonic. Patient reports these voices make derogatory comments and command her to cut herself. Patient also reports SI with plan to overdose on her medications. Patient identified her stopping her [place] 5 days ago as triggering her decompensation. Patient reported reading on the internet that [place] causes kidney damage with chronic use and reports she stopped the med due to learning this and due to no longer wanting to have blood draws for [place] levels. Patient also reports stressors including recent arguments with her live in boyfriend over his hoarding behaviors. Patient reports their apartment is filled from floor to ceiling with what she feels is trash. Patient reports any attempt to throw things out triggers a verbal altercation. Patient re-started on home psychotropic regimen and patient was med compliant throughout admission. Patient improved symptomatically and reported daily diminished intensity and distress from AHs. Patient with hx of chronic SI. Patient reported SI persisted through admission but planning resolved. Patient experienced an episode of SIB, triggered by peers on the unit who acted out with aggressive, destructive, and SIBs(cutting). Patient was reported on this day increased intensity of AHs. Patient amenable to increasing Zyprexa from 15mg to 20mg po qhs. Patient noted decreased intensity of voices and noted they were no longer commanding. On day of discharge patient was med compliant and reported no med s/e's. She reported fleeting SI, but no planning, no desire or intent to hurt herself. Patient was future oriented to get home to work on moving into her new apartment as patient had recently been granted Section 8 housing and has 60days to complete the process of moving in. Patient reported decreased intensity AHs, and again reported they were no longer commanding her to hurt herself. Patient felt safe to discharge. Patient was discharged to home, transported by taxi to [facility] where she will first go to rock picker Rx's at [facility] pharmacy, then present to her 11am Drug counseling appt. Patient also has M,W,F Alcohol and Drug [place] meetings. Patient has T,R DBT sessions, and will be starting PROS appts soon. Objective - Appearance Appearance: Obese Dysmorphic Features: No Hygiene: Normal Grooming: Fairly Well Kept - Behavior Psychomotor Activities: Normal Exhibits Abnormal Movement: No - Attitude and Relatedness Attitude and Relatedness: Cooperative Eye Contact: Good - Speech Quality: Unpressured Latencies: Normal Quantity: Appropriate - Mood Patient's Decription of Mood: "Good" - Affect Observed Affect: Fair Affect Consistent with: Euthymia - Thought Process Patient's Thought Process: Coherent Thought Content: Yes Passive Wish, No Suicidal Planning, No Homicidal Ideation, No Paranoid Ideation - Sensorium Experiencing Hallucinations: Yes Type of Hallucinations: Visual: No, Auditory: Yes - derogatory comments, Command : No - Level of Consciousness Level of Consciousness: Alert Orientation: Yes Intact, Yes Orientated to Time, Yes Orientated to Place, Yes Orientated to Person - Impulse Control Impulse Control: Intact - Insight and Judgement Insight and Judgement: Fair - Group Participation Particating in Group Activities: Yes - Medication Management Medication Management Adherence: Yes DC Assessment - Assessment Clinical Impression: 32yo female with hx of Schizoaffective d/o, Bipolar type brought in for psych eval by her egg caser for worsening depressive symptoms, a recurrence of AHs, and SI with plan. Patient able to identify her stopping [place] 5 days prior to admission as the ppt'ing event for her decompensation. Patient continues to be symptomatic, but reports on going symptomatic improvement. AHs continue to decrease in intensity and are no longer commanding. Patient with fleeting SI, but no plan and no desire of intent to hurt herself. Inpatient DSM-IV Dx: 1. Schizoaffective d/o, Bipolar type MRE depressed. 2. PTSD Discharge Planning - Discharge Planning Discharge Plan: Outpatient Follow Up Outpatient Program: [facility] Recommendations for Continuing Care: Substance Abuse Counseling Discharge Planning: Prescriptions provided for discharge [x] Yes [] No Follow up care details as per social work arrangements. Patient response to discharge plan: [] eager for discharge [x] agreeable with discharge plan [] ambivalent about discharge [] disagrees with discharge today
== END 2017-02-24 11:40 | disposition home or self-care (01) | DRG 750 ==
LOC: ED 10:57 → BSU 19:54
PROVIDERS: ADMIT Psychiatry & Neurology Psychiatry; ATTEND Psychiatry & Neurology Psychiatry
DX: F25.0 Schizoaffective disorder, bipolar type (principal); R45.851 Suicidal ideations; E66.01 Morbid (severe) obesity due to excess calories; F43.10 Post-traumatic stress disorder, unspecified; F14.10 Cocaine abuse, uncomplicated; F12.10 Cannabis abuse, uncomplicated; Z68.39 Body mass index [BMI] 39.0-39.9, adult; Z79.899 Other long term (current) drug therapy; Z81.8 Family history of other mental and behavioral disorders
CPT/HCPCS: 36415; 80053; 80178; 80307; 80320; 80329; 81003; 81015; 84443; 85025; 87086; 90853; 99222; 99231; 99238; A9270-GY; G0480

== ENCOUNTER 2017-03-17 17:37 | Inpatient (IN) | payer MEDICAID ==
[2017-03-17] MEDS ORDERED: LORazepam TAB(*) 1 MG PO ONE (18:11)
[2017-03-17 18:55] LABS: Hematocrit 37 % (35-47); Hemoglobin 12.3 g/dl (12.0-16.0); Mean Corpuscular HGB Conc 33 g/dl (31-36); Mean Corpuscular Hemoglobin 30 pg (27-31); Mean Corpuscular Volume 90 fL (80-97); Mean Platelet Volume 10 um3 (7.4-10.4); Red Blood Count 4.13 10^6/ul (4.0-5.4); Red Cell Distribution Width 15 % (10.5-15); White Blood Count 5.4 10^3/ul (3.5-10.8)
[2017-03-17 19:09] LABS: ALT 25 U/L (7-52); AST 21 U/L (13-39); Alkaline Phosphatase 61 U/L (34-104); Anion Gap 7 mmol/L (2-11); Blood Urea Nitrogen 5 mg/dL (6-24); CO2 Carbon Dioxide 22 mmol/L (22-32); Calcium 9.1 mg/dL (8.6-10.3); Chloride 108 mmol/L (101-111); Creatine Kinase 82 U/L (10-223); EGFR African American 82.8 (>60); EGFR Non-African American 64.4 (>60); Glucose 80 mg/dL (70-100); Potassium 3.1 mmol/L (3.5-5.0); Sodium 137 mmol/L (133-145)
[2017-03-17 19:26] LABS: Acetaminophen < 15 mcg/mL; Alcohol < 10 mg/dL (<10); Salicylate < 2.50 mg/dL (<30)
[2017-03-17 19:30] LABS: Urine Bilirubin Negative (Negative); Urine Glucose Negative (Negative); Urine Nitrite Negative (Negative)
[2017-03-17 19:37] LABS: TSH (Thyroid Stimulating Horm) 0.75 mcIU/mL (0.34-5.60)
[2017-03-17 19:45] LABS: Benzodiazepine Urine Screen None Detected (None Detect)
--- NOTE | 2017-03-17 19:58 | ED ---
Psychiatric Complaint - HPI Summary HPI Summary: PATIENT PRESENTS TO ED WITH CC OF SUICIDAL IDEATION AND COCAINE INGESTION 1 HOUR AGO. SHE STATES SHE WAS RECENTLY DISCHARGED FROM [place] AND GIVEN 2 DAYS OF ATIVAN FOR HER SEVERE ANXIETY. TODAY SHE STATES HER ANXIETY IS SO SEVERE SHE SAYS HER THROAT IS CLOSING. SHE ADMITS TO TAKING 1G COCAINE NASALLY AND INHALATION 1 HOUR AGO IN ATTEMPT TO COMMIT SUICIDE. SHE CALLED A FRIEND SOON AFTER WHO BROUGHT HER TO THE ED. SX INCLUDES PREVIOUS ATTEMPTS OF SUICIDE INCLUDING HANGING, AND PRESCRIPTION OD. SHE IS SEEN BY A PSYCHIATRIST AND A THERAPIST. DR. CASTILLO IS PSYCHIATRIST. SHE STATES SHE IS NOT PRESCRIBED MEDICATION FOR HER ANXIETY, BUT IS REQUESTING A RX. SHE IS STABLE ON ARRIVAL. PUPILS WITHOUT MYDRIASIS. NON-DIAPHORETIC AND HR AND RR ALL WNL. PMH INCLUDES : R Ovary/Fallopian Tube Removed; Cholecystectomy; Appendectomy, bipolar with schizoaffective disorder. SHE TAKES LITHIUM DAILY BUT DID NOT TAKE THE MEDICATION THIS MORNING. SHE REMAINS DEPRESSED WITH SUICIDAL IDEATIONS BUT DENIES HOMICIDAL IDEATIONS. - History Of Current Complaint Chief Complaint: [facility]entalHealth Time Seen by Provider: 03/17/17 17:53 Hx Obtained From: Patient Hx Last Menstrual Period: 01/16/17 ?: No Onset/Duration: Gradual Onset Timing: Constant Severity Initially: Severe Severity Currently: Moderate Character: Depressed, Anxious, Frustrated Aggravating Factor(s): Medication Non-compliance, Drug Use Alleviating Factor(s): Nothing Associated Signs And Symptoms: Positive: Negative Related History: Positive For: Prior Psychiatric Issues, Drug Abuse Counseling Has Suicidal: Reports: Thoughts, With A Plan, Demonstrates Gesture, Has Prior Attempt(s) Ingestion History: Type/Name Of Drug - COCAINE - 1 GRAM THIS AFTERNOON, Amount Ingested - 1GRAM - Risk Factor(s) Completed Suicide Risk Factors: [place] - Allergies/Home Medications Allergies/Adverse Reactions: Allergies Allergy/AdvReac Type Severity Reaction Status Date / Time No Known Allergies Allergy Verified 03/18/17 07:39 PMH/Surg Hx/FS Hx/Imm Hx Previously Healthy: Yes Endocrine/Hematology History: Reports: Hx Unexplained Bleeding - reports uncontrollable bleeding one month ago and taking "orange" pill Denies: Hx Diabetes Cardiovascular History: Denies: Hx Congestive Heart Failure, Hx Deep Vein Thrombosis, Hx Embolism, Hx Hypotension, Hx Hypertension, Hx Pacemaker/ICD Respiratory History: Denies: Hx Asthma, Hx Chronic Bronchitis, Hx Pneumonia GI History: Reports: Hx Gall Bladder Disease - Gall bladder removed "couple of years ago", Other GI Disorders - dysphagia occasional Denies: Hx Crohn's Disease, Hx Gastroesophageal Reflux Disease, Hx Irritable Bowel, Hx Ulcer History: Denies: Hx Acute Renal Failure, Hx Dialysis, Hx Kidney Stones, Hx Renal Disease Musculoskeletal History: Denies: Hx Arthritis, Hx Fibromyalgia, Hx Orthopedic Injury Sensory History: Denies: Hx Contacts or Glasses, Hx Vision Problem, Hx Hearing Aid Opthamlomology History: Denies: Hx Contacts or Glasses, Hx Vision Problem Neurological History: Reports: Hx Headaches Denies: Hx Migraine, Hx Seizures Psychiatric History: Reports: Hx Anxiety, Hx Post Traumatic Stress Disorder, Hx Bipolar Disorder Denies: Hx Eating Disorder, Hx of Violent Episodes Against Others - Surgical History Surgery Procedure, Year, and Place: [facility]/APPY/RT OVARY AND RT FALLOPIAN TUBE REMOVED/TUBAL LIGATION - Immunization History Hx Pertussis Vaccination: No Immunizations Up to Date: Unable to Obtain/Confirm Infectious Disease History: No Infectious Disease History: Denies: Traveled Outside the [place] in Last 30 Days - Family History Known Family History: Positive: Diabetes, Other - scizophrenia, anxiety, alcohol abuse - Social History Occupation: Unemployed Lives: With Family Alcohol Use: None Hx Substance Use: Yes Substance Use Type: Reports: Marijuana Substance Use Comment - Amount & Last Used: Last time 11/2016 Hx Tobacco Use: Yes Smoking Status (MU): Current Some Day Smoker Type: Cigarettes Amount Used/How Often: 1 PPD Length of Time of Smoking/Using Tobacco: 2 years Have You Smoked in the Last Year: Yes Review of Systems Constitutional: Negative Eyes: Negative Positive: Sore Throat - THROAT CLOSING SXS D/T ANXIETY Cardiovascular: Negative Gastrointestinal: Negative Positive: no symptoms reported, see HPI Musculoskeletal: Negative Positive: Anxious All Other Systems Reviewed And Are Negative: Yes Physical Exam Triage Information Reviewed: Yes Vital Signs On Initial Exam: Initial Vitals Temp Pulse Resp BP Pulse Ox 97.8 F 90 16 119/71 96 03/17/17 17:41 03/17/17 17:41 03/17/17 17:41 03/17/17 17:41 03/17/17 17:41 Completion Of Physical Exam Limited Due To: Dementia Appearance: Positive: Well-Appearing, Well-Nourished Skin: Positive: Warm, Skin Color Reflects Adequate Perfusion Head/Face: Positive: Normal Head/Face Inspection Eyes: Positive: EOMI, ÓSCAR, Conjunctiva Clear ENT: Positive: Pharynx normal Neck: Positive: Supple, No Lymphadenopathy Respiratory/Lung Sounds: Positive: Clear to Auscultation, Breath Sounds Present Cardiovascular: Positive: Normal, RRR Musculoskeletal: Positive: Normal, Limited @ Neurological: Positive: Sensory/Motor Intact, Alert, Oriented to Person Place, Time, Speech Normal Psychiatric: Positive: Anxious, Depressed AVPU Assessment: Alert Diagnostics - Vital Signs Vital Signs Temp Pulse Resp BP Pulse Ox 03/17/17 18:57 20 03/17/17 18:08 67 9 97 03/17/17 18:06 119/81 03/17/17 17:41 97.8 F 90 16 119/71 96 - Laboratory Lab Results: Lab Results 03/17/17 03/17/17 03/17/17 Range/Units 18:46 18:46 18:46 WBC 5.4 (3.5-10.8) 10^3/ul RBC 4.13 (4.0-5.4) 10^6/ul Hgb 12.3 (12.0-16.0) g/dl Hct 37 (35-47) % MCV 90 (80-97) fL MCH 30 (27-31) pg MCHC 33 (31-36) g/dl RDW 15 (10.5-15) % Plt Count 146 L (150-450) 10^3/ul MPV 10 (7.4-10.4) um3 Neut % (Auto) 65.8 (38-83) % Lymph % (Auto) 21.9 L (25-47) % [place] % (Auto) 10.1 H (1-9) % Eos % (Auto) 1.9 (0-6) % Baso % (Auto) 0.3 (0-2) % Absolute Neuts (auto) 3.6 (1.5-7.7) 10^3/ul Absolute Lymphs (auto) 1.2 (1.0-4.8) 10^3/ul Absolute Monos (auto) 0.5 (0-0.8) 10^3/ul Absolute Eos (auto) 0.1 (0-0.6) 10^3/ul Absolute Basos (auto) 0 (0-0.2) 10^3/ul Absolute Nucleated RBC 0 10^3/ul Nucleated RBC % 0 Sodium 137 (133-145) mmol/L Potassium 3.1 L (3.5-5.0) mmol/L Chloride 108 (101-111) mmol/L Carbon Dioxide 22 (22-32) mmol/L Anion Gap 7 (2-11) mmol/L BUN 5 L (6-24) mg/dL Creatinine 1.01 H (0.51-0.95) mg/dL Est GFR ( Amer) 82.8 (>60) Est GFR (Non-Af Amer) 64.4 (>60) BUN/Creatinine Ratio 5.0 L (8-20) Glucose 80 (70-100) mg/dL Lactic Acid 0.4 L (0.5-2.0) mmol/L Calcium 9.1 (8.6-10.3) mg/dL Total Bilirubin 0.50 (0.2-1.0) mg/dL AST 21 (13-39) U/L ALT 25 (7-52) U/L Alkaline Phosphatase 61 (34-104) U/L Total Creatine Kinase 82 (10-223) U/L Troponin I 0.00 (<0.04) ng/mL Total Protein 7.0 (6.4-8.9) g/dL Albumin 4.0 (3.2-5.2) g/dL Globulin 3.0 (2-4) g/dL Albumin/Globulin Ratio 1.3 (1-3) TSH 0.75 (0.34-5.60) mcIU/mL Urine Color Urine Appearance Urine pH (5-9) Ur Specific [place] (1.010-1.030) Urine Protein (Negative) Urine Ketones (Negative) Urine Blood (Negative) Urine Nitrate (Negative) Urine Bilirubin (Negative) Urine Urobilinogen (Negative) Ur Leukocyte Esterase (Negative) Urine Glucose (Negative) Salicylates < 2.50 (<30) mg/dL Urine Opiates Screen (None Detect) Acetaminophen < 15 mcg/mL Ur Barbiturates Screen (None Detect) Ur Phencyclidine Scrn (None Detect) Ur Amphetamines Screen (None Detect) U Benzodiazepines Scrn (None Detect) Urine Cocaine Screen (None Detect) U Cannabinoids Screen (None Detect) Serum Alcohol < 10 (<10) mg/dL 03/17/17 03/17/17 Range/Units 19:21 19:21 WBC (3.5-10.8) 10^3/ul RBC (4.0-5.4) 10^6/ul Hgb (12.0-16.0) g/dl Hct (35-47) % MCV (80-97) fL MCH (27-31) pg MCHC (31-36) g/dl RDW (10.5-15) % Plt Count (150-450) 10^3/ul MPV (7.4-10.4) um3 Neut % (Auto) (38-83) % Lymph % (Auto) (25-47) % [place] % (Auto) (1-9) % Eos % (Auto) (0-6) % Baso % (Auto) (0-2) % Absolute Neuts (auto) (1.5-7.7) 10^3/ul Absolute Lymphs (auto) (1.0-4.8) 10^3/ul Absolute Monos (auto) (0-0.8) 10^3/ul Absolute Eos (auto) (0-0.6) 10^3/ul Absolute Basos (auto) (0-0.2) 10^3/ul Absolute Nucleated RBC 10^3/ul Nucleated RBC % Sodium (133-145) mmol/L Potassium (3.5-5.0) mmol/L Chloride (101-111) mmol/L Carbon Dioxide (22-32) mmol/L Anion Gap (2-11) mmol/L BUN (6-24) mg/dL Creatinine (0.51-0.95) mg/dL Est GFR ( Amer) (>60) Est GFR (Non-Af Amer) (>60) BUN/Creatinine Ratio (8-20) Glucose (70-100) mg/dL Lactic Acid (0.5-2.0) mmol/L Calcium (8.6-10.3) mg/dL Total Bilirubin (0.2-1.0) mg/dL AST (13-39) U/L ALT (7-52) U/L Alkaline Phosphatase (34-104) U/L Total Creatine Kinase (10-223) U/L Troponin I (<0.04) ng/mL Total Protein (6.4-8.9) g/dL Albumin (3.2-5.2) g/dL Globulin (2-4) g/dL Albumin/Globulin Ratio (1-3) TSH (0.34-5.60) mcIU/mL Urine Color Yellow Urine Appearance Cloudy Urine pH 5.0 (5-9) Ur Specific [place] 1.005 L (1.010-1.030) Urine Protein Negative (Negative) Urine Ketones 1+ H (Negative) Urine Blood Negative (Negative) Urine Nitrate Negative (Negative) Urine Bilirubin Negative (Negative) Urine Urobilinogen Negative (Negative) Ur Leukocyte Esterase Negative (Negative) Urine Glucose Negative (Negative) Salicylates (<30) mg/dL Urine Opiates Screen None detected (None Detect) Acetaminophen mcg/mL Ur Barbiturates Screen None detected (None Detect) Ur Phencyclidine Scrn None detected (None Detect) Ur Amphetamines Screen None detected (None Detect) U Benzodiazepines Scrn None detected (None Detect) Urine Cocaine Screen Presumptive positive H (None Detect) U Cannabinoids Screen Presumptive positive H (None Detect) Serum Alcohol (<10) mg/dL Result Diagrams: 03/17/17 18:46 03/17/17 18:46 Lab Statement: Any lab studies that have been ordered have been reviewed, and results considered in the medical decision making process. Course/Dx - Course Course Of Treatment: PATIENT ARRIVES AFTER 1G COCAINE OD IN ATTEMPT TO COMMIT SUICIDE. DENIES HI. STATES SHE IS SEVERELY ANXIOUS AND RAN OUT OF ATIVAN TODAY. DENIES OTHER SXS. SHE REMAINS SUICIDAL WITH A PLAN. ADVISED TO ADMIT [place] [facility] [place] [facility] [place]. CLEARED FOR MHU AT 8PM. COCAINE AND CANNIBUS IN SYSTEM. ATIVAN 1G GIVEN ON ARRIVAL. - Differential Dx/Clinical Impression Differential Diagnosis/HQI/PQRI: Positive: Suicide Attempt, Suicidal Ideation, Suicidal Gesture Provider Diagnosis: Suicide attempt, Schizoaffective disorder, bipolar type Discharge - Discharge Plan Condition: Stable Disposition: OTHER Discharge Disposition Comment: CLEARED FOR MHU
[2017-03-17] MEDS ORDERED: Al Hydrox/Mg Hydrox/Simet LIQ* 30 ML UDC PO PRN (21:24)
[2017-03-17] MEDS ORDERED: chlorproMAZINE TAB* 50 MG Q6H PRN AGITATION PO (21:24)
[2017-03-17] MEDS ORDERED: Acetaminophen TAB* 325 MG PO PRN (21:24)
[2017-03-17] MEDS ORDERED: Mouth Piece, Nicotine* 1 EACH CARTRIDGE INH SCH (21:24)
[2017-03-17] MEDS ORDERED: Nicotine GUM* 2 MG PO PRN (21:24)
[2017-03-17] MEDS: Nicotine Inhaler* 10 MG AMP INH PRN (22:43)
[2017-03-18] MEDS: Vitamin THERAPEUTIC TAB PO SCH (09:20)
--- NOTE | 2017-03-18 14:10 | HP ---
H&P (Free Text) History and Physical: HPI: ----- 32yo female with PPHx significant for Schizoaffective d/o, bipolar type and PTSD presents to [facility] [place] ED, brought in by her friend after reporting to the friend her worsening depressive symptoms and recurrence of AHs commanding of a male voice telling her to cut herself. Patient recently admitted to [facility] [place] [facility] with a similar presentation. Patient reports these voices make derogatory comments and command her to cut herself. Patient also reports SI with plan to overdose on powder cocaine. Patient reported having purchased a gram of cocaine with plans to sniff it all at once. Patient identifies her recent breakup with her BF, who she is living with, as the trigger to her decompensation. Patient has also had a recent psychotropic medication modification. Patient recently has had Prazosin, [place] and Zyprexa discontinued and was started on Rexulti. Patient reports s/e on Rexulti and declines restarting this med. Patient reports poor sleep, she denies NMs. Patient also reports a decreased appetite, but reports this issue is due to difficulty swallowing which started 1 month ago, about the time of her med change, and initiation of Rexulti. Patient is amenable to med modification. Patient denies HI and VH. Of note, patient had UDS (+) for cocaine and cannabis. In the ED, she is documented to have "PUPILS WITHOUT MYDRIASIS. NON-DIAPHORETIC AND HR AND RR ALL WNL." PPHX: ------ Inpt - >11 psych hospitalizations([facility] 8-9 times / [facility] x1) Outpt - [facility] Psychotropic med hx - Depakote(wt gain), Abilify(rash), [place], Topamax, Propranolol, Klonopin, Zyprexa, Seroquel Suicide Attempt Hx: Attempts x 4 all by hanging(2002, 2010, and twice in 2013) Substance Hx: Patient reports cannabis use d/o, cocaine use d/o, and alcohol use d/o hx. UDS on admission (+) cocaine and cannabis Family Hx: mom with dx of schizophrenia Soc Hx: ------- -Recently granted section 8 housing -Expects to move in 30days -Currently living with BF -Reports being 30 credits short of a Bachelors degree VITALS: -------- Vital Signs (72 hours) 03/17/17 03/17/17 03/17/17 17:41 18:06 18:08 Temperature 97.8 F Pulse Rate 90 67 Respiratory 16 9 Rate Blood Pressure 119/71 119/81 (mmHg) O2 Sat by Pulse 96 97 Oximetry 03/17/17 03/17/17 03/17/17 18:57 22:40 22:44 Temperature Pulse Rate Respiratory 20 16 16 Rate Blood Pressure (mmHg) O2 Sat by Pulse Oximetry 03/17/17 03/18/17 03/18/17 22:45 00:44 00:45 Temperature Pulse Rate Respiratory 16 18 18 Rate Blood Pressure (mmHg) O2 Sat by Pulse Oximetry 03/18/17 03/18/17 03/18/17 07:46 11:36 11:38 Temperature 98.4 F Pulse Rate 58 Respiratory 16 16 18 Rate Blood Pressure 106/58 (mmHg) O2 Sat by Pulse 100 Oximetry 03/18/17 03/19/17 03/19/17 13:36 00:04 07:21 Temperature 97.9 F Pulse Rate 56 Respiratory 16 16 16 Rate Blood Pressure 98/53 (mmHg) O2 Sat by Pulse 98 Oximetry 03/19/17 03/19/17 07:23 09:39 Temperature 97.9 F Pulse Rate 61 Respiratory 16 16 Rate Blood Pressure 109/58 (mmHg) O2 Sat by Pulse Oximetry LABS: ------ Laboratory Tests 03/17/17 03/17/17 03/17/17 18:46 18:46 18:46 WBC 5.4 RBC 4.13 Hgb 12.3 Hct 37 MCV 90 MCH 30 MCHC 33 RDW 15 Plt Count 146 L MPV 10 Neut % (Auto) 65.8 Lymph % (Auto) 21.9 L [place] % (Auto) 10.1 H Eos % (Auto) 1.9 Baso % (Auto) 0.3 Absolute Neuts (auto) 3.6 Absolute Lymphs (auto) 1.2 Absolute Monos (auto) 0.5 Absolute Eos (auto) 0.1 Absolute Basos (auto) 0 Absolute Nucleated RBC 0 Nucleated RBC % 0 Sodium 137 Potassium 3.1 L Chloride 108 Carbon Dioxide 22 Anion Gap 7 BUN 5 L Creatinine 1.01 H Est GFR ( Amer) 82.8 Est GFR (Non-Af Amer) 64.4 BUN/Creatinine Ratio 5.0 L Glucose 80 Lactic Acid 0.4 L Calcium 9.1 Total Bilirubin 0.50 AST 21 ALT 25 Alkaline Phosphatase 61 Total Creatine Kinase 82 Troponin I 0.00 Total Protein 7.0 Albumin 4.0 Globulin 3.0 Albumin/Globulin Ratio 1.3 TSH 0.75 Urine Color Urine Appearance Urine pH Ur Specific [place] Urine Protein Urine Ketones Urine Blood Urine Nitrate Urine Bilirubin Urine Urobilinogen Ur Leukocyte Esterase Urine Glucose Salicylates < 2.50 Urine Opiates Screen Acetaminophen < 15 Ur Barbiturates Screen Ur Phencyclidine Scrn Ur Amphetamines Screen U Benzodiazepines Scrn Urine Cocaine Screen U Cannabinoids Screen Serum Alcohol < 10 03/17/17 03/17/17 19:21 19:21 WBC RBC Hgb Hct MCV MCH MCHC RDW Plt Count MPV Neut % (Auto) Lymph % (Auto) [place] % (Auto) Eos % (Auto) Baso % (Auto) Absolute Neuts (auto) Absolute Lymphs (auto) Absolute Monos (auto) Absolute Eos (auto) Absolute Basos (auto) Absolute Nucleated RBC Nucleated RBC % Sodium Potassium Chloride Carbon Dioxide Anion Gap BUN Creatinine Est GFR ( Amer) Est GFR (Non-Af Amer) BUN/Creatinine Ratio Glucose Lactic Acid Calcium Total Bilirubin AST ALT Alkaline Phosphatase Total Creatine Kinase Troponin I Total Protein Albumin Globulin Albumin/Globulin Ratio TSH Urine Color Yellow Urine Appearance Cloudy Urine pH 5.0 Ur Specific [place] 1.005 L Urine Protein Negative Urine Ketones 1+ H Urine Blood Negative Urine Nitrate Negative Urine Bilirubin Negative Urine Urobilinogen Negative Ur Leukocyte Esterase Negative Urine Glucose Negative Salicylates Urine Opiates Screen None detected Acetaminophen Ur Barbiturates Screen None detected Ur Phencyclidine Scrn None detected Ur Amphetamines Screen None detected U Benzodiazepines Scrn None detected Urine Cocaine Screen Presumptive positive H U Cannabinoids Screen Presumptive positive H Serum Alcohol PHYSICAL EXAM Patient declines physical exam reporting she had a physical exam done 24hrs ago in the ED. Please see the [facility] [place]-ED:Psychiatric Complaint note signed on 03/17/17. MSE: ----- Appearance - obese build, fair hygeine, in NAD Behavior - irritated, cooperative Speech - RRR, prosody wnl Eye Contact - good Mood - "upset" Affect - depressed TP - linear and GD TC - concerned with pain on swallowing, ongoing x 1 month Perception - AHs of a male voice commanding her to cut herself Orientation - A&Ox3 Cognition - intact Insight - poor Judgement - poor SI / HI - SI with plan continues, no HI ASSESSMENT: 1. Schizoaffective d/o, Bipolar Type, MRE depressed 2. Cocaine use d/o, severe 3. Unspecified Personality d/o, B-traits 4. Cannabis use d/o, severe PLAN: ------ 1. Continue admission to [facility] [place] [facility] for safety and symptom mx. 2. Patient gives informed consent for Benztropine Mesylate (Cogentin Inj*) 2 mg IM ONCE for r/o EPS etiology for current dysphagia. 3. Continue Gabapentin (Neurontin Cap) 600 mg PO TID for anxiety. 4. Continue Propranolol HCl (Inderal Tab*) 10 mg PO TID for anxiety. 5. Continue Hydroxyzine HCl (Atarax Tab*) 50 mg PO Q6H PRN breakthrough anxiety. 6. Patient recently has had Prazosing, [place] and Zyprexa discontinued and was started on Rexulti. Patient reports s/e on Rexulti and declines restarting this med. 7. Patient gives informed consent to start Quetiapine Fumarate 100 mg PO q1200 and Quetiapine Fumarate 200 mg PO BEDTIME for psychosis/mood stabilization. 8. Patient to participate in milieu activities and groups.
[2017-03-18] MEDS ORDERED: hydrOXYzine HCL TAB* 50 MG PO PRN (15:08)
[2017-03-18] MEDS ORDERED: hydrOXYzine HCL TAB* 50 MG PO ONE (15:09)
[2017-03-18] MEDS ORDERED: QUEtiapine TAB* 100 MG PO ONE (15:15)
[2017-03-18] MEDS: QUEtiapine TAB* 100 MG PO SCH (22:01)
[2017-03-19] MEDS: Gabapentin CAP(*) 300 MG PO SCH ×4 (00:04→20:49)
[2017-03-19] MEDS: Vitamin THERAPEUTIC TAB PO SCH (09:39)
[2017-03-19] MEDS: Propranolol TAB* 10 MG PO SCH ×3 (09:39→20:49)
[2017-03-19] MEDS: QUEtiapine TAB* 100 MG PO SCH ×2 (13:24→20:49)
--- NOTE | 2017-03-19 14:15 | PN ---
Subjective - Subjective Service Type: 93959 Hosp care 15 min low complexity Subjective: Patient reports ongoing but less intense AHs. She has been socially withdrawn in her bedroom since admission. She is med compliant and denies med s/e on Seroquel. Patient reports improved sleep last night. She denied NMs. Patient reports decreased appetite due to ongoing dysphagia, which started 1 month ago around the time of her psychotropic med changes and the start of Rexult. Patient educated on neuroleptic induced dysphagia. She is amenable to 1x IM injection of Cogentin for r/o EPS. Patient reports ongoing SI, now with no planning. She denies HI and VH. Objective - Appearance Appearance: Well Developed/Nourished Dysmorphic Features: No Hygiene: Normal Grooming: Fairly Well Kept - Behavior Psychomotor Activities: Normal Exhibits Abnormal Movement: No - Attitude and Relatedness Attitude and Relatedness: Cooperative Eye Contact: Fair - Speech Quality: Unpressured Latencies: Short Quantity: Terse - Mood Patient's Decription of Mood: "Irritable" - Affect Observed Affect: Depressed Affect Consistent with: Dysphoria - Thought Process Patient's Thought Process: Coherent Thought Content: Yes Passive Wish, No Suicidal Planning, No Homicidal Ideation, No Paranoid Ideation - Sensorium Experiencing Hallucinations: Yes Type of Hallucinations: Visual: No, Auditory: Yes, Command: Yes - Level of Consciousness Level of Consciousness: Alert Orientation: Yes Intact, Yes Orientated to Time, Yes Orientated to Place, Yes Orientated to Person - Impulse Control Impulse Control: Impaired - Insight and Judgement Insight and Judgement: Impaired - Group Participation Particating in Group Activities: Yes - Medication Management Medication Management Adherence: Yes Assessment - Assessment Merits Inpatient Hospitalization: For Immediate Safety, For Stabilization Inpatient DSM-IV Dx: 1. Schizoaffective d/o, Bipolar Type, MRE depressed. 2. Cannabis use d/o, severe. 3. Cocaine use d/o, severe Clinical Impression: 32yo female with hx of Schizoaffective d/o, Bipolar type brought in for psych eval by her friend after reporting worsening depressive symptoms, a recurrence of commanding AHs, and SI with plan to OD on powder cocaine. Patient able to identify her BF breaking up with her as the ppt'ing event. Patient continues to be symptomatic. Patient is amenable to med modification. She is UDS(+) for cocaine and cannabis. Plan - Plan Treatment Plan: Name: KVNG RYAN Birthdate: 1985 [id number] PLAN: ------ 1. Continue admission to [facility] for safety and symptom mx. 2. Patient gives informed consent for Benztropine Mesylate (Cogentin Inj*) 2 mg IM ONCE for r/o EPS etiology for current dysphagia. 3. Continue Gabapentin (Neurontin Cap) 600 mg PO TID for anxiety. 4. Continue Propranolol HCl (Inderal Tab*) 10 mg PO TID for anxiety. 5. Continue Hydroxyzine HCl (Atarax Tab*) 50 mg PO Q6H PRN breakthrough anxiety. 6. Patient recently has had Prazosin, [place] and Zyprexa discontinued and was started on Rexulti. Patient reports s/e on Rexulti and declines restarting this med. 7. Continue Quetiapine Fumarate 100 mg PO q1200 and Quetiapine Fumarate 200 mg PO BEDTIME for psychosis/mood stabilization. 8. Patient to participate in milieu activities and groups. Continued Medication Management: Different Medication Medications: Current Medications Acetaminophen (Tylenol Tab*) 650 mg PO Q4H PRN PRN Reason: PAIN or TEMP > 101 F Al Hydrox/Mg Hydrox/Simethicone (Maalox Plus*) 30 ml PO Q4H PRN PRN Reason: INDIGESTION Device (Nicotine Mouth Piece*) 1 each INH .[facility] Last Admin: 03/17/17 22:43 Dose: 1 each Diphenhydramine HCl (Benadryl Po*) 50 mg PO Q6H PRN PRN Reason: AGITATION/INSOMNIA Last Admin: 03/18/17 11:36 Dose: 50 mg Gabapentin (Neurontin Cap(*)) 600 mg PO TID [facility] Last Admin: 03/19/17 13:30 Dose: Not Given Hydroxyzine HCl (Atarax Tab*) 50 mg PO Q6H PRN PRN Reason: ANXIETY Multivitamins (Theragran Tab*) 1 tab PO DAILY [facility] Last Admin: 03/19/17 09:39 Dose: Not Given Nicotine (Nicotine Inhaler*) 10 mg INH Q2H PRN PRN Reason: CRAVING Last Admin: 03/17/17 22:43 Dose: 10 mg Nicotine Polacrilex (Nicotine Gum*) 2 mg PO Q2H PRN PRN Reason: CRAVING Propranolol HCl (Inderal Tab*) 10 mg PO TID [facility] Last Admin: 03/19/17 13:30 Dose: Not Given Quetiapine Fumarate (Seroquel Tab*) 100 mg PO 1200 [place] Last Admin: 03/19/17 13:24 Dose: 100 mg Quetiapine Fumarate (Seroquel Tab*) 200 mg PO BEDTIME [facility] Last Admin: 03/18/17 22:01 Dose: 200 mg - Discharge Plan Discharge Plan: Outpatient Follow Up Outpatient Program: [facility]
[2017-03-19] MEDS ORDERED: Benztropine INJ* 1 MG/ML 2 ML AMP IM ONE (14:55)
[2017-03-20] MEDS: Gabapentin CAP(*) 300 MG PO SCH ×3 (10:31→20:10)
[2017-03-20] MEDS: Propranolol TAB* 10 MG PO SCH ×3 (10:31→20:10)
[2017-03-20] MEDS: Vitamin THERAPEUTIC TAB PO SCH (10:31)
--- NOTE | 2017-03-20 11:34 | PN ---
MHU: Group Therapy Note - Service Type Service Type: [id number] Group Psychotherapy - Cognitive Behavioral Group Therapy ( CBT):Patient was attentive and participatory in CBT programming this morning, and remained in good behavioral control. Patient expressed positive insights regarding relevant treatment interventions and goals.
[2017-03-20] MEDS: QUEtiapine TAB* 100 MG PO SCH ×2 (12:10→20:05)
--- NOTE | 2017-03-20 16:40 | PN ---
Subjective - Subjective Service Type: 90077 Hosp care 15 min low complexity Subjective: Patient has isolated in her room most of the day. She reports attending a group meeting today. She has been noted to be dysphoric in affect and withdrawn. Patient reports her mood as "depressed". She reports still being upset with her BF and concerned with her housing situation. Patient informed SW did speak with her BF and he is willing to have patient return home. Patient reports she is hoping to be in a section 8 appt soon. Patient reports AHs of derogatory and commanding voices have continued to decrease in intensity. She reports no SI/HI today and she denies VH. Patient is med compliant and denies med s/e. Sleep and appetite are wnl. Objective - Appearance Appearance: Well Developed/Nourished Dysmorphic Features: No Hygiene: Normal Grooming: Fairly Well Kept - Behavior Psychomotor Activities: Normal Exhibits Abnormal Movement: No - Attitude and Relatedness Attitude and Relatedness: Cooperative Eye Contact: Fair - Speech Quality: Unpressured Latencies: Normal Quantity: Terse - Mood Patient's Decription of Mood: "depressed" - Affect Observed Affect: Constricted Affect Consistent with: Dysphoria - Thought Process Patient's Thought Process: Coherent Thought Content: Yes Passive Wish, No Suicidal Planning, No Homicidal Ideation, No Paranoid Ideation - Sensorium Experiencing Hallucinations: No, Sensorium is Clear Type of Hallucinations: Visual: No, Auditory: No, Command: No - Level of Consciousness Level of Consciousness: Alert Orientation: Yes Intact, Yes Orientated to Time, Yes Orientated to Place, Yes Orientated to Person - Impulse Control Impulse Control: Intact - Insight and Judgement Insight and Judgement: Fair - Group Participation Particating in Group Activities: Yes - Medication Management Medication Management Adherence: Yes Assessment - Assessment Merits Inpatient Hospitalization: For Immediate Safety, For Stabilization Inpatient DSM-IV Dx: 1. Schizoaffective d/o, Bipolar Type, MRE depressed. 2. Cannabis use d/o, severe. 3. Cocaine use d/o, severe Clinical Impression: 32yo female with hx of Schizoaffective d/o, Bipolar type brought in for psych eval by her friend after reporting worsening depressive symptoms, a recurrence of commanding AHs, and SI with plan to OD on powder cocaine. Patient able to identify her BF breaking up with her as the ppt'ing event. Patient continues to be symptomatic. Patient is amenable to med modification. She is UDS(+) for cocaine and cannabis. Plan - Plan Treatment Plan: Name: KVNG RYAN Birthdate: 1985 [id number] PLAN: ------ 1. Continue admission to [facility] for safety and symptom mx. 2. Patient gives informed consent for Benztropine Mesylate (Cogentin Inj*) 2 mg IM ONCE for r/o EPS etiology for current dysphagia. 3. Continue Gabapentin (Neurontin Cap) 600 mg PO TID for anxiety. 4. Continue Propranolol HCl (Inderal Tab*) 10 mg PO TID for anxiety. 5. Continue Hydroxyzine HCl (Atarax Tab*) 50 mg PO Q6H PRN breakthrough anxiety. 6. Patient recently has had Prazosin, [place] and Zyprexa discontinued and was started on Rexulti. Patient reports s/e on Rexulti and declines restarting this med. 7. Continue Quetiapine Fumarate 100 mg PO q1200 and Quetiapine Fumarate 200 mg PO BEDTIME for psychosis/mood stabilization. 8. Patient to participate in milieu activities and groups. Continued Medication Management: Different Medication Medications: Current Medications Acetaminophen (Tylenol Tab*) 650 mg PO Q4H PRN PRN Reason: PAIN or TEMP > 101 F Al Hydrox/Mg Hydrox/Simethicone (Maalox Plus*) 30 ml PO Q4H PRN PRN Reason: INDIGESTION Device (Nicotine Mouth Piece*) 1 each INH .CARTRIDGE [facility] Last Admin: 03/17/17 22:43 Dose: 1 each Diphenhydramine HCl (Benadryl Po*) 50 mg PO Q6H PRN PRN Reason: AGITATION/INSOMNIA Last Admin: 03/18/17 11:36 Dose: 50 mg Gabapentin (Neurontin Cap(*)) 600 mg PO TID [facility] Last Admin: 03/20/17 13:52 Dose: Not Given Hydroxyzine HCl (Atarax Tab*) 50 mg PO Q6H PRN PRN Reason: ANXIETY Multivitamins (Theragran Tab*) 1 tab PO DAILY [facility] Last Admin: 03/20/17 10:31 Dose: Not Given Nicotine (Nicotine Inhaler*) 10 mg INH Q2H PRN PRN Reason: CRAVING Last Admin: 03/17/17 22:43 Dose: 10 mg Nicotine Polacrilex (Nicotine Gum*) 2 mg PO Q2H PRN PRN Reason: CRAVING Propranolol HCl (Inderal Tab*) 10 mg PO TID [facility] Last Admin: 03/20/17 13:52 Dose: Not Given Quetiapine Fumarate (Seroquel Tab*) 100 mg PO 1200 [facility] Last Admin: 03/20/17 12:10 Dose: 100 mg Quetiapine Fumarate (Seroquel Tab*) 200 mg PO BEDTIME [facility] Last Admin: 03/19/17 20:49 Dose: 200 mg - Discharge Plan Discharge Plan: Drug/Alcohol Rehab Outpatient Program: [facility]
[2017-03-21] MEDS: Propranolol TAB* 10 MG PO SCH ×3 (09:45→20:12)
[2017-03-21] MEDS: Vitamin THERAPEUTIC TAB PO SCH (09:45)
[2017-03-21] MEDS: Gabapentin CAP(*) 300 MG PO SCH ×3 (09:45→20:11)
[2017-03-21] MEDS: QUEtiapine TAB* 100 MG PO SCH ×2 (12:05→20:12)
[2017-03-21] MEDS ORDERED: diPHENhydraMINE PO* 25 MG ONE (12:50)
[2017-03-21] MEDS ORDERED: diPHENhydraMINE PO* 25 MG PO SCH (13:00)
[2017-03-21] MEDS: diPHENhydraMINE LIQ* 12.5 MG/5 ML UDC PO PRN (17:53)
[2017-03-21] MEDS: diPHENhydraMINE LIQ* 12.5 MG/5 ML UDC PO SCH ×2 (18:39→20:11)
[2017-03-22] MEDS: diPHENhydraMINE LIQ* 12.5 MG/5 ML UDC PO SCH ×3 (08:08→20:05)
[2017-03-22] MEDS: Propranolol TAB* 10 MG PO SCH ×3 (08:57→20:13)
[2017-03-22] MEDS: Gabapentin CAP(*) 300 MG PO SCH ×3 (08:57→20:05)
[2017-03-22] MEDS: Vitamin THERAPEUTIC TAB PO SCH (08:58)
[2017-03-22] MEDS: QUEtiapine TAB* 100 MG PO SCH ×2 (12:43→20:06)
--- NOTE | 2017-03-22 16:35 | PN ---
Subjective - Subjective Service Type: [id number] Hosp care 15 min low complexity Subjective: Sejal is complaining of sore throat from the Cocain use and command auditory hallucinations. The voices continues to tell her to harm self. Taking meds as prescribed. Denies side effects from meds. Says her boyfriend left her because of her drug use. Objective - Appearance Appearance: Obese Dysmorphic Features: No Hygiene: Normal Grooming: Fairly Well Kept - Behavior Psychomotor Activities: Normal Exhibits Abnormal Movement: No - Attitude and Relatedness Attitude and Relatedness: Appropriate Eye Contact: Good - Speech Quality: Unpressured Latencies: Normal Quantity: Appropriate - Mood Patient's Decription of Mood: "Okay" - Affect Observed Affect: Non-labile - Thought Process Patient's Thought Process: Coherent, Goal Directed Thought Content: No Passive Wish, No Suicidal Planning, No Homicidal Ideation, No Paranoid Ideation - Sensorium Experiencing Hallucinations: No, Sensorium is Clear Type of Hallucinations: Visual: No, Auditory: Yes, Command: Yes - Level of Consciousness Level of Consciousness: Alert Orientation: Yes Intact, Yes Orientated to Time, Yes Orientated to Place, Yes Orientated to Person - Impulse Control Impulse Control: Tenuous - Insight and Judgement Insight and Judgement: Poor - Group Participation Particating in Group Activities: Yes - Medication Management Medication Management Adherence: Yes Assessment - Assessment Merits Inpatient Hospitalization: For Immediate Safety, For Stabilization, For Discharge Planning Inpatient DSM-IV Dx: 1. Schizoaffective d/o, Bipolar Type, MRE depressed. 2. Cannabis use d/o, severe. 3. Cocaine use d/o, severe Plan - Plan Treatment Plan: Name: SEJAL RYAN Birthdate: 1985 [id number] Continued Medication Management: Continue Outpt Medication Medications: Current Medications Acetaminophen (Tylenol Tab*) 650 mg PO Q4H PRN PRN Reason: PAIN or TEMP > 101 F Al Hydrox/Mg Hydrox/Simethicone (Maalox Plus*) 30 ml PO Q4H PRN PRN Reason: INDIGESTION Device (Nicotine Mouth Piece*) 1 each INH .CARTRIDGE [facility] Last Admin: 03/17/17 22:43 Dose: 1 each Diphenhydramine HCl (Benadryl Liq*) 25 mg PO TID [facility] Last Admin: 03/22/17 13:05 Dose: 25 mg Diphenhydramine HCl (Benadryl Liq*) 50 mg PO Q6H PRN PRN Reason: AGITATION/INSOMNIA Last Admin: 03/21/17 17:53 Dose: 50 mg Gabapentin (Neurontin Cap(*)) 600 mg PO TID [facility] Last Admin: 03/22/17 13:05 Dose: Not Given Hydroxyzine HCl (Atarax Tab*) 50 mg PO Q6H PRN PRN Reason: ANXIETY Multivitamins (Theragran Tab*) 1 tab PO DAILY [facility] Last Admin: 03/22/17 08:58 Dose: Not Given Nicotine (Nicotine Inhaler*) 10 mg INH Q2H PRN PRN Reason: CRAVING Last Admin: 03/17/17 22:43 Dose: 10 mg Nicotine Polacrilex (Nicotine Gum*) 2 mg PO Q2H PRN PRN Reason: CRAVING Propranolol HCl (Inderal Tab*) 10 mg PO TID [facility] Last Admin: 03/22/17 13:06 Dose: Not Given Quetiapine Fumarate (Seroquel Tab*) 100 mg PO 1200 [facility] Last Admin: 03/22/17 12:43 Dose: 100 mg Quetiapine Fumarate (Seroquel Tab*) 200 mg PO BEDTIME [facility] Last Admin: 03/21/17 20:12 Dose: 200 mg - Discharge Plan Discharge Plan: Drug/Alcohol Rehab
[2017-03-22] MEDS: diPHENhydraMINE LIQ* 12.5 MG/5 ML UDC PO PRN (21:06)
[2017-03-23] MEDS: diPHENhydraMINE LIQ* 12.5 MG/5 ML UDC PO SCH ×3 (08:30→20:04)
[2017-03-23] MEDS: Propranolol TAB* 10 MG PO SCH ×3 (08:52→20:04)
[2017-03-23] MEDS: Vitamin THERAPEUTIC TAB PO SCH (08:53)
[2017-03-23] MEDS: Gabapentin CAP(*) 300 MG PO SCH ×3 (08:53→20:03)
--- NOTE | 2017-03-23 11:27 | PN ---
MHU: Group Therapy Note - Service Type Service Type: [id number] Group Psychotherapy - Cognitive Behavioral Group Therapy ( CBT):Patient was attentive and participatory in CBT programming this morning, and remained in good behavioral control. Patient expressed positive insights regarding relevant treatment interventions and goals.
[2017-03-23] MEDS: QUEtiapine TAB* 100 MG PO SCH ×2 (11:57→20:04)
[2017-03-23] MEDS: buPROPion TAB* 100 MG PO SCH (11:57)
--- NOTE | 2017-03-23 12:12 | PN ---
Subjective - Subjective Service Type: [id number] Hosp care 25 min moderate complexity Subjective: Patient attending group on my approach. She is calm, cooperative, and engages the interview. Patient in the same PJ set since admission. Patient reports she did not shower over the weekend. She reports poor energy and motivation. She is med compliant and denies med s/ e. Patient reports her sleep is improving. Mood continues to be depressed. She reports ongoing AHs of male voices telling her to hurt herself, but patient reports they are not intrusive or distressing. Patient reports today is her anniversary with her BF. She reports she's called and he hasn't picked up the phone. Patient also reports concern about missing her appt with her DSS worker for her food stamp re-certification. Patient reports still experiencing severe dysphagia since snorting what she believes was tainted powder cocaine. She reports constant burning in her throat. She reports poor po intake of food and drink. She reports she's had to have pills crushed. Patient denies YAÑEZ, sinus pain, CP, Abd pain, N/V/C/D. She reports ongoing SI, no HI or VH. Objective - Appearance Appearance: Well Developed/Nourished, Obese Dysmorphic Features: No Hygiene: Dirty Grooming: Disheveled - Behavior Psychomotor Activities: Normal Exhibits Abnormal Movement: No - Attitude and Relatedness Attitude and Relatedness: Cooperative Eye Contact: Fair - Speech Quality: Unpressured Latencies: Normal Quantity: Appropriate - Mood Patient's Decription of Mood: Depressed - Affect Observed Affect: Fair Affect Consistent with: Euthymia - Thought Process Patient's Thought Process: Coherent Thought Content: Yes Passive Wish, No Suicidal Planning, No Homicidal Ideation, No Paranoid Ideation - Sensorium Experiencing Hallucinations: Yes Type of Hallucinations: Visual: No, Auditory: Yes, Command: Yes - Level of Consciousness Level of Consciousness: Alert Orientation: Yes Intact, Yes Orientated to Time, Yes Orientated to Place, Yes Orientated to Person - Impulse Control Impulse Control: Intact - Insight and Judgement Insight and Judgement: Poor - Group Participation Particating in Group Activities: Yes - Medication Management Medication Management Adherence: Yes Assessment - Assessment Merits Inpatient Hospitalization: For Immediate Safety, For Stabilization Inpatient DSM-IV Dx: 1. Schizoaffective d/o, Bipolar Type, MRE depressed. 2. Cannabis use d/o, severe. 3. Cocaine use d/o, severe Clinical Impression: 32yo female with hx of Schizoaffective d/o, Bipolar type brought in for psych eval by her friend after reporting worsening depressive symptoms, a recurrence of commanding AHs, and SI with plan to OD on powder cocaine. Patient able to identify her BF breaking up with her as the ppt'ing event. Patient continues to be symptomatic. Patient is amenable to med modification. She is UDS(+) for cocaine and cannabis. Plan - Plan Treatment Plan: Name: KVNG RYAN Birthdate: 1985 [id number] PLAN: ------ 1. Continue admission to [facility] for safety and symptom mx. 2. Patient given Benztropine Mesylate 2 mg IM ONCE for dysphagia, r/o EPS etiology. No benefit from Cogentin. 3. Patient gives informed consent to start Wellbutrin 100mg po qam for depressive symptoms. 4. Continue Gabapentin (Neurontin Cap) 600 mg PO TID for anxiety. 5. Continue Propranolol HCl (Inderal Tab*) 10 mg PO TID for anxiety. 6. Continue Hydroxyzine HCl (Atarax Tab*) 50 mg PO Q6H PRN breakthrough anxiety. 7. Patient recently has had Prazosin, [place] and Zyprexa discontinued and was started on Rexulti. Patient reports s/e on Rexulti and declines restarting this med. 8. Continue Quetiapine Fumarate 100 mg PO q1200 and Quetiapine Fumarate 200 mg PO BEDTIME for psychosis/mood stabilization. 9. Patient to participate in milieu activities and groups. Medications: Current Medications Acetaminophen (Tylenol Tab*) 650 mg PO Q4H PRN PRN Reason: PAIN or TEMP > 101 F Al Hydrox/Mg Hydrox/Simethicone (Maalox Plus*) 30 ml PO Q4H PRN PRN Reason: INDIGESTION Bupropion HCl (Wellbutrin Tab*) 100 mg PO DAILY [facility] Device (Nicotine Mouth Piece*) 1 each INH .CARTRIDGE [facility] Last Admin: 03/17/17 22:43 Dose: 1 each Diphenhydramine HCl (Benadryl Liq*) 25 mg PO TID [facility] Last Admin: 03/23/17 08:30 Dose: 25 mg Diphenhydramine HCl (Benadryl Liq*) 50 mg PO Q6H PRN PRN Reason: AGITATION/INSOMNIA Last Admin: 03/22/17 21:06 Dose: 50 mg Gabapentin (Neurontin Cap(*)) 600 mg PO TID [facility] Last Admin: 03/23/17 08:53 Dose: Not Given Hydroxyzine HCl (Atarax Tab*) 50 mg PO Q6H PRN PRN Reason: ANXIETY Multivitamins (Theragran Tab*) 1 tab PO DAILY [facility] Last Admin: 03/23/17 08:53 Dose: Not Given Nicotine (Nicotine Inhaler*) 10 mg INH Q2H PRN PRN Reason: CRAVING Last Admin: 03/17/17 22:43 Dose: 10 mg Nicotine Polacrilex (Nicotine Gum*) 2 mg PO Q2H PRN PRN Reason: CRAVING Propranolol HCl (Inderal Tab*) 10 mg PO TID [facility] Last Admin: 03/23/17 08:52 Dose: Not Given Quetiapine Fumarate (Seroquel Tab*) 100 mg PO 1200 [facility] Last Admin: 03/22/17 12:43 Dose: 100 mg Quetiapine Fumarate (Seroquel Tab*) 200 mg PO BEDTIME [facility] Last Admin: 03/22/17 20:06 Dose: 200 mg - Discharge Plan Discharge Plan: Drug/Alcohol Rehab [facility]patient [facility]
[2017-03-23] MEDS: diPHENhydraMINE LIQ* 12.5 MG/5 ML UDC PO PRN (16:54)
[2017-03-24] MEDS: Propranolol TAB* 10 MG PO SCH ×2 (08:13→12:51)
[2017-03-24] MEDS: Nicotine Inhaler* 10 MG AMP INH PRN (08:57)
[2017-03-24] MEDS: Gabapentin CAP(*) 300 MG PO SCH ×2 (08:57→12:57)
[2017-03-24] MEDS: buPROPion TAB* 100 MG PO SCH (08:58)
[2017-03-24] MEDS: diPHENhydraMINE LIQ* 12.5 MG/5 ML UDC PO SCH ×2 (08:58→12:54)
[2017-03-24] MEDS: Vitamin THERAPEUTIC TAB PO SCH (09:00)
--- NOTE | 2017-03-24 11:21 | PN ---
MHU: Group Therapy Note - Service Type Service Type: [id number] Group Psychotherapy - Cognitive Behavioral Group Therapy ( CBT):Patient was attentive and participatory in CBT programming this morning, and remained in good behavioral control. Patient expressed positive insights regarding relevant treatment interventions and goals.
[2017-03-24 12:26] VITALS: BP 100/57
[2017-03-24] MEDS: QUEtiapine TAB* 100 MG PO SCH (12:50)
--- NOTE | 2017-03-24 13:58 | RAD ---
CPT II Codes: 6045F INDICATION: Aspiration. Approximately 0.9 minutes of fluoroscopy time was used. Fluoroscopic examination of the oral and pharyngeal phases of deglutition was performed. This was performed utilizing thin and thickened liquids. No aspiration was noted. Please see speech pathology results for further recommendations. IMPRESSION: Swallowing function study was performed under fluoroscopy.
--- NOTE | 2017-03-24 14:46 | DS ---
Subjective - Subjective Service Types: [id number] [facility] Day Mgmt simple under 30 min Subjective: Patient reports improving throat pain and pain on swallowing. Patient visible in milieu and attended some groups today. She reports her mood is improved and she is happy to know her throat is ok. She reports med compliance and reports resolution of AHs. She denies SI/HI and AH/VH. Patient reports she feels ready for discharge. Patient asked to present to her local ED if SI recurs. She was amenable and acknowledged understanding of her family and community supports. Objective - Appearance Appearance: Obese Dysmorphic Features: No Hygiene: Normal Grooming: Fairly Well Kept - Behavior Psychomotor Activities: Normal Exhibits Abnormal Movement: No - Attitude and Relatedness Attitude and Relatedness: Cooperative Eye Contact: Fair - Speech Quality: Unpressured Latencies: Normal Quantity: Terse - Mood Patient's Decription of Mood: "Okay" - Affect Observed Affect: Fair Affect Consistent with: Dysphoria - Thought Process Patient's Thought Process: Coherent Thought Content: No Passive Wish, No Suicidal Planning, No Homicidal Ideation, No Paranoid Ideation - Sensorium Experiencing Hallucinations: No, Sensorium is Clear Type of Hallucinations: Visual: No, Auditory: No, Command: No - Level of Consciousness Level of Consciousness: Alert Orientation: Yes Intact, Yes Orientated to Time, Yes Orientated to Place, Yes Orientated to Person - Impulse Control Impulse Control: Intact - Insight and Judgement Insight and Judgement: Fair - Group Participation Particating in Group Activities: Yes - Medication Management Medication Management Adherence: Yes Treatment Course & Assessment Clinical Course & Impression: HOSPITAL COURSE: Patient admitted after report to police from patient's that she made suicidal statement and has been displaying worsening depressive symptoms. Patient has significant stressor in that the she has lost custody of her 9yo due to CPS/DSS error. She reports her work to have the case re-evaluated with the information she now has has not been undertaken. She reports the DSS "hoops" have become a burden and CPS has recently decrease patient's visitation with her 9yo because of her not getting proof of counseling in as required. Patient reported again on day of discharge that her statement was made in anger. She has reported no SI/HI since admission Thursday. Patient was med compliant, requesting her home med regimen be continued,which had been beneficial, reporting she wants to discuss recommended modification with her [facility] psychiatrist. On day of discharge patient calm and cooperative. She is psychiatrically stable and future oriented. She is amenable to discharge f/u plan. Patient is future oriented, now re-enrolled for next semester and has set goals to restore her finances and get back into her own apartment. Patient's immediate suicide risk profile has been significantly reduced. While acute risk is low now, patient's overall risk profile is fluid. A new stressor could trigger a suicide attempt at any time. Patient's modifiable symptoms at admission have resolved, AHs, SI with plan. Patient is requesting discharge, and as the therapeutic yield from this admission is notably been maxed, patient's request will be respected. Pateint's acute risk has been reduced significantly. Patient is amenable to f/u and will be discharge home to mother's care. PERTINENT LABS: Discharge Meds: Consultants: none Follow-Up: Appts for within the next 2 weeks scheduled by for PCP and [facility](psychiatry and counseling). 32yo female with hx of Schizoaffective d/o, Bipolar type brought in for psych eval by her friend after reporting worsening depressive symptoms, a recurrence of commanding AHs, and SI with plan to OD on powder cocaine. Patient able to identify her BF breaking up with her as the ppt'ing event. Patient continues to be symptomatic. Patient is amenable to med modification. She is UDS(+) for cocaine and cannabis. Clear for Discharge: Adequate Clinical Respons, Acceptable Safety Profile Inpatient DSM-IV Dx: 1. Schizoaffective d/o, Bipolar Type, MRE depressed. 2. Cannabis use d/o, severe. 3. Cocaine use d/o, severe Discharge Planning - Discharge Planning Discharge Plan: Outpatient Follow Up Outpatient [facility] Recommendations for Continuing Care: Substance Abuse Counseling Medications: Current Medications Acetaminophen (Tylenol Tab*) 650 mg PO Q4H PRN PRN Reason: PAIN or TEMP > 101 F Last Admin: 03/23/17 20:18 Dose: 650 mg Al Hydrox/Mg Hydrox/Simethicone (Maalox Plus*) 30 ml PO Q4H PRN PRN Reason: INDIGESTION Bupropion HCl (Wellbutrin Tab*) 100 mg PO DAILY [facility] Last Admin: 03/24/17 08:58 Dose: 100 mg Device (Nicotine Mouth Piece*) 1 each INH .CARTRIDGE [facility] Last Admin: 03/17/17 22:43 Dose: 1 each Diphenhydramine HCl (Benadryl Liq*) 25 mg PO TID [facility] Last Admin: 03/24/17 12:54 Dose: 25 mg Diphenhydramine HCl (Benadryl Liq*) 50 mg PO Q6H PRN PRN Reason: AGITATION/INSOMNIA Last Admin: 03/23/17 16:54 Dose: 50 mg Gabapentin (Neurontin Cap(*)) 600 mg PO TID [facility] Last Admin: 03/24/17 12:57 Dose: Not Given Hydroxyzine HCl (Atarax Tab*) 50 mg PO Q6H PRN PRN Reason: ANXIETY Multivitamins (Theragran Tab*) 1 tab PO DAILY [facility] Last Admin: 03/24/17 09:00 Dose: Not Given Nicotine (Nicotine Inhaler*) 10 mg INH Q2H PRN PRN Reason: CRAVING Last Admin: 03/24/17 08:57 Dose: 10 mg Nicotine Polacrilex (Nicotine Gum*) 2 mg PO Q2H PRN PRN Reason: CRAVING Propranolol HCl (Inderal Tab*) 10 mg PO TID [facility] Last Admin: 03/24/17 12:51 Dose: 10 mg Quetiapine Fumarate (Seroquel Tab*) 100 mg PO 1200 [facility] Last Admin: 03/24/17 12:50 Dose: 100 mg Quetiapine Fumarate (Seroquel Tab*) 200 mg PO BEDTIME [facility] Last Admin: 03/23/17 20:04 Dose: 200 mg Discharge Planning: Prescriptions provided for discharge [x] Yes [] No Follow up care details as per social work arrangements. Patient response to discharge plan: [] eager for discharge [x] agreeable with discharge plan [] ambivalent about discharge [] disagrees with discharge today
== END 2017-03-24 14:35 | disposition home or self-care (01) | DRG 750 ==
LOC: ED 17:37 → BSU 22:10
PROVIDERS: ADMIT Psychiatry & Neurology Psychiatry; ATTEND Psychiatry & Neurology Psychiatry
DX: F25.0 Schizoaffective disorder, bipolar type (principal); F33.2 Major depressive disorder, recurrent severe without psychotic features; R45.851 Suicidal ideations; F12.10 Cannabis abuse, uncomplicated; F14.10 Cocaine abuse, uncomplicated; F43.10 Post-traumatic stress disorder, unspecified; Z79.899 Other long term (current) drug therapy; Z81.8 Family history of other mental and behavioral disorders
CPT/HCPCS: 36415; 74230; 80053; 80307; 80320; 80329; 81003; 82550; 83605; 84443; 84484; 85025; 90853; 93005; 99222; 99231; 99232; 99406; A9270-GY; G0480; G8996-GN-CK; G8997-GN-CK; G8998-GN-CK; J0515

== ENCOUNTER 2017-03-26 10:37 | Emergency (ER) | payer MEDICAID ==
[2017-03-26] MEDS ORDERED: NS 0.9% 1000 ML* 1,000 ML IV ONE (12:11)
[2017-03-26 12:56] LABS: Hematocrit 38 % (35-47); Hemoglobin 12.3 g/dl (12.0-16.0); Mean Corpuscular HGB Conc 32 g/dl (31-36); Mean Corpuscular Hemoglobin 29 pg (27-31); Mean Corpuscular Volume 91 fL (80-97); Mean Platelet Volume 11 um3 (7.4-10.4); Red Cell Distribution Width 15 % (10.5-15); White Blood Count 5.6 10^3/ul (3.5-10.8)
[2017-03-26 13:12] LABS: Albumin 3.9 g/dL (3.2-5.2); C Reactive Protein 3.19 mg/L (< 5.00); Calcium 9.1 mg/dL (8.6-10.3); EGFR African American 108.3 (>60); EGFR Non-African American 84.2 (>60); Globulin 2.6 g/dL (2-4); Potassium 3.8 mmol/L (3.5-5.0); Total Bilirubin 0.3 mg/dL (0.2-1.0); Total Protein 6.5 g/dL (6.4-8.9)
[2017-03-26 13:29] LABS: Mono Internal Control QC Line Present
[2017-03-26 14:23] VITALS: BP 122/77
--- NOTE | 2017-03-27 09:00 | ED ---
Dinorah Arce Alfonso, scribed for Agusto Martinez MD on 03/26/17 at 1214 . Complex/Multi-Sys Presentation - HPI Summary HPI Summary: This patient is a 32 year old F BIBA to [facility] with a chief complaint of throat tightness since 4 days ago. The CC is described as comparable to an allergic reaction. Pt rates the pain 0/10 in severity. Symptoms aggravated and alleviated by nothing. Pt reports diaphoresis, dry mouth, throat spasms, SOB, lightheaded, dizziness, and near syncope. Pt denies fever and chills. PMHx of asthma. - History Of Current Complaint Chief Complaint: EDShortnessOfBreath Time Seen by Provider: 03/26/17 11:51 Hx Obtained From: Patient Onset/Duration: Sudden Onset, Lasting Days - 4, Still Present Timing: Constant Severity Currently: Moderate Severity Initially: Moderate Aggravating Factor(s): Nothing Alleviating Factor(s): Nothing Associated Signs And Symptoms: Positive: Other - Positive throat tightness, diaphoresis, dry mouth, throat spasms, SOB, lightheaded, dizziness, near syncope , and throat spasms; Negative fever and chills. - Allergies/Home Medications Allergies/Adverse Reactions: Allergies Allergy/AdvReac Type Severity Reaction Status Date / Time No Known Allergies Allergy Verified 03/18/17 07:39 PMH/Surg Hx/FS Hx/Imm Hx Endocrine/Hematology History: Reports: Hx Unexplained Bleeding - reports uncontrollable bleeding one month ago and taking "orange" pill Denies: Hx Diabetes Cardiovascular History: Denies: Hx Congestive Heart Failure, Hx Deep Vein Thrombosis, Hx Embolism, Hx Hypotension, Hx Hypertension, Hx Pacemaker/ICD Respiratory History: Denies: Hx Asthma, Hx Chronic Bronchitis, Hx Pneumonia GI History: Reports: Hx Gall Bladder Disease - Gall bladder removed "couple of years ago", Other GI Disorders - dysphagia occasional Denies: Hx Crohn's Disease, Hx Gastroesophageal Reflux Disease, Hx Irritable Bowel, Hx Ulcer History: Denies: Hx Acute Renal Failure, Hx Dialysis, Hx Kidney Stones, Hx Renal Disease Musculoskeletal History: Reports: Other Musculoskeletal History - fracture in left knee Denies: Hx Arthritis, Hx Fibromyalgia, Hx Orthopedic Injury Sensory History: Denies: Hx Contacts or Glasses, Hx Vision Problem, Hx Hearing Aid Opthamlomology History: Denies: Hx Contacts or Glasses, Hx Vision Problem Neurological History: Reports: Hx Headaches Denies: Hx Migraine, Hx Seizures Psychiatric History: Reports: Hx Anxiety, Hx Post Traumatic Stress Disorder, Hx Bipolar Disorder Denies: Hx Eating Disorder, Hx of Violent Episodes Against Others - Surgical History Surgery Procedure, Year, and Place: [facility]/APPY/RT OVARY AND RT FALLOPIAN TUBE REMOVED/TUBAL LIGATION Infectious Disease History: No Infectious Disease History: Denies: Traveled Outside the [place] in Last 30 Days - Family History Known Family History: Positive: Diabetes, Other - scizophrenia, anxiety, alcohol abuse - Social History Alcohol Use: None Hx Substance Use: Yes Substance Use Type: Reports: Marijuana Substance Use Comment - Amount & Last Used: Last time 11/2016 Hx Tobacco Use: Yes Smoking Status (MU): Current Every Day Smoker Type: Cigarettes Amount Used/How Often: 1 PPD Length of Time of Smoking/Using Tobacco: 2 years Have You Smoked in the Last Year: Yes Review of Systems Positive: Skin Diaphoresis. Negative: Fever, Chills Positive: Other - Positive "throat tightness", throat spasms, dry mouth, Positive: Shortness Of Breath Neurological: Other - Positive lightheaded, dizziness, and near syncope All Other Systems Reviewed And Are Negative: Yes Physical Exam - Summary Physical Exam Summary: VITAL SIGNS: Reviewed. GENERAL: Patient is an obese female who is lying comfortable in the stretcher. Patient is not in any acute respiratory distress. HEAD AND FACE: Normocephalic EYES: PERRLA, EOMI x 2. EARS: Hearing grossly intact. MOUTH: Oropharynx within normal limits. NECK: Supple, trachea is midline, no adenopathy, no JVD, no carotid bruit. CHEST: Symmetric, no tenderness at palpation LUNGS: Clear to auscultation bilaterally. No wheezing or crackles. CVS: Regular rate and rhythm, S1 and S2 present, no murmurs or gallops appreciated. ABDOMEN: Soft, non-tender. Bowel sounds are normal. No abdominal abnormal pulsations. EXTREMITIES: Full ROM in all major joints, no edema, no cyanosis or clubbing. NEURO: Alert and oriented x 3. No acute neurological deficits. Speech is normal and follows commands. SKIN: Dry and warm Triage Information Reviewed: Yes Vital Signs On Initial Exam: Initial Vitals Temp Pulse Resp BP Pulse Ox 98.9 F 114 18 95/80 100 03/26/17 10:51 07/13/17 10:51 03/26/17 10:51 03/26/17 10:51 03/26/17 10:51 Vital Signs Reviewed: Yes - [place] Coma Scale Coma Scale Total: 15 Diagnostics - Vital Signs Vital Signs Temp Pulse Resp BP Pulse Ox 03/26/17 10:51 98.9 F 114 18 95/80 100 - Laboratory Lab Results: Lab Results 03/26/17 03/26/17 03/26/17 Range/Units 12:36 12:36 12:36 WBC 5.6 (3.5-10.8) 10^3/ul RBC 4.20 (4.0-5.4) 10^6/ul Hgb 12.3 (12.0-16.0) g/dl Hct 38 (35-47) % MCV 91 (80-97) fL MCH 29 (27-31) pg MCHC 32 (31-36) g/dl RDW 15 (10.5-15) % Plt Count 119 L (150-450) 10^3/ul MPV 11 H (7.4-10.4) um3 Neut % (Auto) 67.2 (38-83) % Lymph % (Auto) 22.2 L (25-47) % Kimble % (Auto) 8.5 (1-9) % Eos % (Auto) 1.6 (0-6) % Baso % (Auto) 0.5 (0-2) % Absolute Neuts (auto) 3.8 (1.5-7.7) 10^3/ul Absolute Lymphs (auto) 1.2 (1.0-4.8) 10^3/ul Absolute Monos (auto) 0.5 (0-0.8) 10^3/ul Absolute Eos (auto) 0.1 (0-0.6) 10^3/ul Absolute Basos (auto) 0 (0-0.2) 10^3/ul Absolute Nucleated RBC 0 10^3/ul Nucleated RBC % 0 Sodium 136 (133-145) mmol/L Potassium 3.8 (3.5-5.0) mmol/L Chloride 107 (101-111) mmol/L Carbon Dioxide 24 (22-32) mmol/L Anion Gap 5 (2-11) mmol/L BUN 8 (6-24) mg/dL Creatinine 0.80 (0.51-0.95) mg/dL Est GFR ( Amer) 108.3 (>60) Est GFR (Non-Af Amer) 84.2 (>60) BUN/Creatinine Ratio 10.0 (8-20) Glucose 95 (70-100) mg/dL Lactic Acid 1.3 (0.5-2.0) mmol/L Calcium 9.1 (8.6-10.3) mg/dL Total Bilirubin 0.30 (0.2-1.0) mg/dL AST 19 (13-39) U/L ALT 36 (7-52) U/L Alkaline Phosphatase 57 (34-104) U/L C-Reactive Protein 3.19 (< 5.00) mg/L Total Protein 6.5 (6.4-8.9) g/dL Albumin 3.9 (3.2-5.2) g/dL Globulin 2.6 (2-4) g/dL Albumin/Globulin Ratio 1.5 (1-3) Monoscreen Negative (Negative) Group A Strep Rapid (Negative) 03/26/17 Range/Units 12:36 WBC (3.5-10.8) 10^3/ul RBC (4.0-5.4) 10^6/ul Hgb (12.0-16.0) g/dl Hct (35-47) % MCV (80-97) fL MCH (27-31) pg MCHC (31-36) g/dl RDW (10.5-15) % Plt Count (150-450) 10^3/ul MPV (7.4-10.4) um3 Neut % (Auto) (38-83) % Lymph % (Auto) (25-47) % Kimble % (Auto) (1-9) % Eos % (Auto) (0-6) % Baso % (Auto) (0-2) % Absolute Neuts (auto) (1.5-7.7) 10^3/ul Absolute Lymphs (auto) (1.0-4.8) 10^3/ul Absolute Monos (auto) (0-0.8) 10^3/ul Absolute Eos (auto) (0-0.6) 10^3/ul Absolute Basos (auto) (0-0.2) 10^3/ul Absolute Nucleated RBC 10^3/ul Nucleated RBC % Sodium (133-145) mmol/L Potassium (3.5-5.0) mmol/L Chloride (101-111) mmol/L Carbon Dioxide (22-32) mmol/L Anion Gap (2-11) mmol/L BUN (6-24) mg/dL Creatinine (0.51-0.95) mg/dL Est GFR ( Amer) (>60) Est GFR (Non-Af Amer) (>60) BUN/Creatinine Ratio (8-20) Glucose (70-100) mg/dL Lactic Acid (0.5-2.0) mmol/L Calcium (8.6-10.3) mg/dL Total Bilirubin (0.2-1.0) mg/dL AST (13-39) U/L ALT (7-52) U/L Alkaline Phosphatase (34-104) U/L C-Reactive Protein (< 5.00) mg/L Total Protein (6.4-8.9) g/dL Albumin (3.2-5.2) g/dL Globulin (2-4) g/dL Albumin/Globulin Ratio (1-3) Monoscreen (Negative) Group A Strep Rapid Negative (Negative) Result Diagrams: 03/26/17 12:36 03/26/17 12:36 Lab Statement: Any lab studies that have been ordered have been reviewed, and results considered in the medical decision making process. Complex Multi-Symp Course/Dx Course Of Treatment: This patient is a 32 year old F BIBA to [facility] with a chief complaint of throat tightness since 4 days ago. The CC is described as comparable to an allergic reaction. Pt rates the pain 0/10 in severity. Symptoms aggravated and alleviated by nothing. Pt reports diaphoresis, dry mouth , throat spasms, SOB, lightheaded, dizziness, and near syncope. Pt denies fever and chills. PMHx of asthma. Assessment/Plan: Test results WNL. Rapid strep negative. Patient was observed for approximately 4 hours in the ED with no new symptoms. Therefore, patient will be discharged home with PCP follow up. Pt is A&Ox3 with no FND. I discussed all the findings and test results with the patient. Patient was instructed to return to the emergency room immediately if any of the symptoms return or worsens. Plan of care was discussed with the patient and understands and agrees. All questions were answered at patient satisfaction. There were no further complaints or concerns. Lung exam before discharge: CTA B/L. Good air exchange. No wheezing or crackles heard. CVS: S1 and S2 present. No murmurs appreciated. Patient is alert and oriented x 3. Patient is hemodynamically stable. Patient will be discharged home with follow up PCP in the next 2-3 days - Diagnoses Provider Diagnoses: Dysphagia, Anxiety Discharge - Discharge Plan Condition: Stable Disposition: HOME Patient Education Materials: Dysphagia (ED) Referrals: Efrain Jimenez MD [Primary Care Provider] - 2 Days The documentation as recorded by the Dinorah candelaria Alfonso accurately reflects the service I personally performed and the decisions made by , Agusto Martinez MD.
== END 2017-03-26 15:10 | disposition home or self-care (01) ==
LOC: ED 10:37
DX: R13.10 Dysphagia, unspecified (principal); R06.02 Shortness of breath; R55 Syncope and collapse; R42 Dizziness and giddiness; F41.9 Anxiety disorder, unspecified
CPT/HCPCS: 36415; 80053; 83605; 85025; 86140; 86308; 87651; 99283

== ENCOUNTER 2017-03-27 10:41 | Emergency (ER) | payer MEDICAID ==
[2017-03-27 12:51] LABS: Hematocrit 39 % (35-47); Hemoglobin 12.7 g/dl (12.0-16.0); Mean Corpuscular HGB Conc 33 g/dl (31-36); Mean Corpuscular Hemoglobin 29 pg (27-31); Mean Corpuscular Volume 90 fL (80-97); Mean Platelet Volume 10 um3 (7.4-10.4); Red Blood Count 4.35 10^6/ul (4.0-5.4); Red Cell Distribution Width 15 % (10.5-15)
[2017-03-27 13:03] LABS: Urine Bilirubin Negative (Negative); Urine Glucose Negative (Negative); Urine Nitrite Negative (Negative)
--- NOTE | 2017-03-27 13:14 | RAD ---
HISTORY: Syncope COMPARISONS: May 01, 2015 TECHNIQUE: Multiple contiguous axial CT scans were obtained of the head without intravenous contrast. FINDINGS: HEMORRHAGE/INFARCT: There is no hemorrhage or acute infarct. MASSES/SHIFT: There is no mass or shift. EXTRA-AXIAL SPACES: There are no extra-axial fluid collections. SULCI AND VENTRICLES: The sulci and ventricles are normal in size and position for the patient's stated age. CEREBRUM: There are no focal parenchymal abnormalities. BRAINSTEM: There are no focal parenchymal abnormalities. CEREBELLUM: There are no focal parenchymal abnormalities. VESSELS: The vessels are grossly normal. PARANASAL SINUSES: The paranasal sinuses are clear. ORBITS: The orbits are unremarkable. BONES AND SOFT TISSUE: No bone or soft tissue abnormalities are noted. OTHER: None IMPRESSION: NO ACUTE INTRACRANIAL PATHOLOGY.
[2017-03-27 13:15] LABS: ALT 30 U/L (7-52); AST 16 U/L (13-39); Albumin 3.9 g/dL (3.2-5.2); Alkaline Phosphatase 61 U/L (34-104); Anion Gap 4 mmol/L (2-11); BUN/Creatinine Ratio 10.8 (8-20); Blood Urea Nitrogen 9 mg/dL (6-24); CO2 Carbon Dioxide 23 mmol/L (22-32); Calcium 9.1 mg/dL (8.6-10.3); Chloride 109 mmol/L (101-111); EGFR African American 103.8 (>60); EGFR Non-African American 80.7 (>60); Globulin 2.8 g/dL (2-4); Glucose 90 mg/dL (70-100); Magnesium 2.1 mg/dL (1.9-2.7); Sodium 136 mmol/L (133-145); Total Protein 6.7 g/dL (6.4-8.9)
[2017-03-27 13:21] LABS: Benzodiazepine Urine Screen None Detected (None Detect)
[2017-03-27] MEDS ORDERED: NS 0.9% 1000 ML* 1,000 ML IV ONE (13:25)
[2017-03-27 13:30] LABS: TSH (Thyroid Stimulating Horm) 0.39 mcIU/mL (0.34-5.60)
[2017-03-27] MEDS ORDERED: Iohexol 350* (CONTRAST) 500 ML MDV IV ONE (14:33)
--- NOTE | 2017-03-27 15:30 | RAD ---
INDICATION: Chest pain. Short of breath. Evaluate for pulmonary embolus. COMPARISON: None TECHNIQUE: Axial source images were obtained from the thoracic inlet to the hemidiaphragms following administration of [address] angiographic technique was utilized. Coronal and sagittal reconstructed images were acquired. CHEST FINDINGS: Neck/thyroid: The visualized neck to include the thyroid appear normal. Chest wall: There are no acute abnormalities of the bony thorax or chest wall. There is no supraclavicular, infraclavicular, or axillary lymphadenopathy. Lungs : There are no pulmonary parenchymal masses or infiltrates. The pulmonary interstitium appears normal. There are no endobronchial lesions. Cardiomediastinal structures: There is no CT evidence of acute pulmonary embolic disease. The heart is normal in size. There is no pericardial effusion. There is no evidence of aortic aneurysm or dissection. There is no mediastinal or hilar adenopathy. The esophagus appears normal. Pleura : There are no pleural-based masses or effusions. Other: None. IMPRESSION: NO CT EVIDENCE OF ACUTE PULMONARY EMBOLIC DISEASE. LUNGS CLEAR.
[2017-03-27 16:24] VITALS: BP 106/60
--- NOTE | 2017-03-27 17:25 | ED ---
Zahra Arce Auryana, scribed for Agusto Martinez MD on 03/27/17 at 1230 . Neurological HPI - HPI Summary HPI Summary: 32 year old female presents with seizure-like symptoms starting this morning. Patient reports that while up doing dishes this morning, she felt her throat tightening, was unable to breath for 2-3 seconds, and then "collapsed, legs gave out". She reports that during this episode she did not have control of her extremities. Patient reports second episode with the same symptoms and urinary incontinence. She denies any LOC. Patient states that she did take her medications this morning- recent medication change - now on Gabapentin, Wellbutrin, and Seroquel. She reports that she did make an appointment with her PCP for Thursday03/31/17 but believes that "something is wrong". PMHx is significant for bipolar disorder, depression, and anxiety. Dr. Maharaj is her psychiatrist. - History of Current Complaint Chief Complaint: EDSeizure Stated Complaint: SOB/CHEST PAINS Time Seen by Provider: 03/27/17 10:50 Hx Obtained From: Patient Hx Last Menstrual Period: 01/16/17 Onset/Duration: Sudden Onset, Resolved Timing: Constant Onset Severity: Mild Current Severity: Mild Seizure Severity: Self Limited Number of Seizures: 2 - reports inability to control extremities Neurological Deficit Location: Generalized Pain Intensity: 0 Pain Scale Used: 0-10 Numeric Syncope Context: Unwitnessed, Loss of Consciousness: No, Activity - see HPI Frequency: Episodes x___ - 2 Seizure Character: Generalized - LOST CONTROL OF EXTREMITIES - LEGS GAVE OUT Alleviating: Spontanious Resolution Associated Signs and Symptoms: Positive: Weakness - LOST CONTROL OF EXTREMITIES , Incontinent Bladder/Bowel - URINARY, Change in Medication. Negative: Loss of Consciousness Related Hx: Medication Comliant - Additional Pertinent History Primary Care Physician: [id number] - Allergy/Home Medications Allergies/Adverse Reactions: Allergies Allergy/AdvReac Type Severity Reaction Status Date / Time No Known Allergies Allergy Verified 03/18/17 07:39 PMH/Surg Hx/FS Hx/Imm Hx Endocrine/Hematology History: Reports: Hx Unexplained Bleeding - reports uncontrollable bleeding one month ago and taking "orange" pill Denies: Hx Diabetes Cardiovascular History: Denies: Hx Congestive Heart Failure, Hx Deep Vein Thrombosis, Hx Embolism, Hx Hypotension, Hx Hypertension, Hx Pacemaker/ICD Respiratory History: Denies: Hx Asthma, Hx Chronic Bronchitis, Hx Pneumonia GI History: Reports: Hx Gall Bladder Disease - Gall bladder removed "couple of years ago", Other GI Disorders - dysphagia occasional Denies: Hx Crohn's Disease, Hx Gastroesophageal Reflux Disease, Hx Irritable Bowel, Hx Ulcer History: Denies: Hx Acute Renal Failure, Hx Dialysis, Hx Kidney Stones, Hx Renal Disease Musculoskeletal History: Reports: Other Musculoskeletal History - fracture in left knee Denies: Hx Arthritis, Hx Fibromyalgia, Hx Orthopedic Injury Sensory History: Denies: Hx Contacts or Glasses, Hx Vision Problem, Hx Hearing Aid Opthamlomology History: Denies: Hx Contacts or Glasses, Hx Vision Problem Neurological History: Reports: Hx Headaches Denies: Hx Migraine, Hx Seizures Psychiatric History: Reports: Hx Anxiety, Hx Post Traumatic Stress Disorder, Hx Bipolar Disorder Denies: Hx Eating Disorder, Hx of Violent Episodes Against Others - Surgical History Surgery Procedure, Year, and Place: [facility]/APPY/RT [place] AND RT [place] TUBE REMOVED/TUBAL LIGATION Infectious Disease History: No Infectious Disease History: Denies: Traveled Outside the [place] in Last 30 Days - Family History Known Family History: Positive: Diabetes, Other - scizophrenia, anxiety, alcohol abuse - Social History Alcohol Use: None Hx Substance Use: Yes Substance Use Type: Reports: Marijuana Substance Use Comment - Amount & Last Used: Last time 11/2016 Hx Tobacco Use: Yes Smoking Status (MU): Current Every Day Smoker Type: Cigarettes Amount Used/How Often: 1 PPD Length of Time of Smoking/Using Tobacco: 2 years Have You Smoked in the Last Year: Yes Review of Systems Constitutional: Negative Negative: Fever Eyes: Negative Positive: Other - reports throat tightening Cardiovascular: Negative Respiratory: Negative Gastrointestinal: Negative Positive: incontinence - urinary Musculoskeletal: Negative Skin: Negative Neurological: Other - reprots no control over extremities and legs gave out Psychological: Normal All Other Systems Reviewed And Are Negative: Yes Physical Exam - Summary Physical Exam Summary: VITAL SIGNS: Reviewed. GENERAL: ~Patient is a well-developed and nourished female who is lying comfortable in the stretcher. ~Patient is not in any acute respiratory distress. HEAD AND FACE: No signs of trauma. ~No ecchymosis, hematomas or skull depressions. No sinus tenderness. EYES: PERRLA, EOMI x 2, No injected conjunctiva, no nystagmus. No photophobia. EARS: Hearing grossly intact. Ear canals and tympanic membranes are within normal limits. MOUTH: Oropharynx within normal limits. NECK: Supple, trachea is midline, no adenopathy, no JVD, no carotid bruit, no c- spine tenderness, neck with full ROM. No meningeal signs, no Kernig's or brudzinskis signs. CHEST: Symmetric, no tenderness at palpation LUNGS: Clear to auscultation bilaterally. No wheezing or crackles. CVS: Regular rate and rhythm, S1 and S2 present, no murmurs or gallops appreciated. ABDOMEN: Soft, non-tender. No signs of distention. No rebound no guarding, and no masses palpated. Bowel sounds are normal. EXTREMITIES: FROM in all major joints, no edema, no cyanosis or clubbing. NEURO: Alert and oriented x 3. No acute neurological deficits. Speech is normal and follows commands. SKIN: Dry and warm Triage Information Reviewed: Yes Vital Signs On Initial Exam: Initial Vitals Temp Pulse Resp BP Pulse Ox 97.7 F 86 20 106/75 97 03/27/17 10:43 03/27/17 10:43 03/27/17 10:43 03/27/17 10:43 03/27/17 10:43 Vital Signs Reviewed: Yes - Darin Coma Scale Coma Scale Total: 15 Diagnostics - Vital Signs Vital Signs Temp Pulse Resp BP Pulse Ox 03/27/17 11:12 98.9 F 73 20 103/68 96 03/27/17 10:43 97.7 F 86 20 106/75 97 - Laboratory Lab Results: Lab Results 03/27/17 03/27/17 03/27/17 Range/Units 12:30 12:30 12:30 WBC 6.0 (3.5-10.8) 10^3/ul RBC 4.35 (4.0-5.4) 10^6/ul Hgb 12.7 (12.0-16.0) g/dl Hct 39 (35-47) % MCV 90 (80-97) fL MCH 29 (27-31) pg MCHC 33 (31-36) g/dl RDW 15 (10.5-15) % Plt Count 140 L (150-450) 10^3/ul MPV 10 (7.4-10.4) um3 Neut % (Auto) 64.5 (38-83) % Lymph % (Auto) 25.5 (25-47) % [place] % (Auto) 8.1 (1-9) % Eos % (Auto) 1.7 (0-6) % Baso % (Auto) 0.2 (0-2) % Absolute Neuts (auto) 3.9 (1.5-7.7) 10^3/ul Absolute Lymphs (auto) 1.5 (1.0-4.8) 10^3/ul Absolute Monos (auto) 0.5 (0-0.8) 10^3/ul Absolute Eos (auto) 0.1 (0-0.6) 10^3/ul Absolute Basos (auto) 0 (0-0.2) 10^3/ul Absolute Nucleated RBC 0 10^3/ul Nucleated RBC % 0 D-Dimer, Quantitative (Less Than 230) ng/mL Sodium 136 (133-145) mmol/L Potassium 4.0 (3.5-5.0) mmol/L Chloride 109 (101-111) mmol/L Carbon Dioxide 23 (22-32) mmol/L Anion Gap 4 (2-11) mmol/L BUN 9 (6-24) mg/dL Creatinine 0.83 (0.51-0.95) mg/dL Est GFR ( Amer) 103.8 (>60) Est GFR (Non-Af Amer) 80.7 (>60) BUN/Creatinine Ratio 10.8 (8-20) Glucose 90 (70-100) mg/dL Lactic Acid (0.5-2.0) mmol/L Calcium 9.1 (8.6-10.3) mg/dL Magnesium 2.1 (1.9-2.7) mg/dL Total Bilirubin 0.30 (0.2-1.0) mg/dL AST 16 (13-39) U/L ALT 30 (7-52) U/L Alkaline Phosphatase 61 (34-104) U/L Troponin I 0.00 (<0.04) ng/mL Total Protein 6.7 (6.4-8.9) g/dL Albumin 3.9 (3.2-5.2) g/dL Globulin 2.8 (2-4) g/dL Albumin/Globulin Ratio 1.4 (1-3) TSH 0.39 (0.34-5.60) mcIU/mL Beta HCG, Quant < 0.60 mIU/mL Urine Color Straw Urine Appearance Clear Urine pH 8.0 (5-9) Ur Specific [place] 1.004 L (1.010-1.030) Urine Protein Negative (Negative) Urine Ketones Negative (Negative) Urine Blood Negative (Negative) Urine Nitrate Negative (Negative) Urine Bilirubin Negative (Negative) Urine Urobilinogen Negative (Negative) Ur Leukocyte Esterase Negative (Negative) Urine Glucose Negative (Negative) Urine Opiates Screen (None Detect) Ur Barbiturates Screen (None Detect) Ur Phencyclidine Scrn (None Detect) Ur Amphetamines Screen (None Detect) U Benzodiazepines Scrn (None Detect) Urine Cocaine Screen (None Detect) U Cannabinoids Screen (None Detect) 03/27/17 03/27/17 03/27/17 Range/Units 12:30 12:30 12:30 WBC (3.5-10.8) 10^3/ul RBC (4.0-5.4) 10^6/ul Hgb (12.0-16.0) g/dl Hct (35-47) % MCV (80-97) fL MCH (27-31) pg MCHC (31-36) g/dl RDW (10.5-15) % Plt Count (150-450) 10^3/ul MPV (7.4-10.4) um3 Neut % (Auto) (38-83) % Lymph % (Auto) (25-47) % [place] % (Auto) (1-9) % Eos % (Auto) (0-6) % Baso % (Auto) (0-2) % Absolute Neuts (auto) (1.5-7.7) 10^3/ul Absolute Lymphs (auto) (1.0-4.8) 10^3/ul Absolute Monos (auto) (0-0.8) 10^3/ul Absolute Eos (auto) (0-0.6) 10^3/ul Absolute Basos (auto) (0-0.2) 10^3/ul Absolute Nucleated RBC 10^3/ul Nucleated RBC % D-Dimer, Quantitative 243 H (Less Than 230) ng/mL Sodium (133-145) mmol/L Potassium (3.5-5.0) mmol/L Chloride (101-111) mmol/L Carbon Dioxide (22-32) mmol/L Anion Gap (2-11) mmol/L BUN (6-24) mg/dL Creatinine (0.51-0.95) mg/dL Est GFR ( Amer) (>60) Est GFR (Non-Af Amer) (>60) BUN/Creatinine Ratio (8-20) Glucose (70-100) mg/dL Lactic Acid 0.6 (0.5-2.0) mmol/L Calcium (8.6-10.3) mg/dL Magnesium (1.9-2.7) mg/dL Total Bilirubin (0.2-1.0) mg/dL AST (13-39) U/L ALT (7-52) U/L Alkaline Phosphatase (34-104) U/L Troponin I (<0.04) ng/mL Total Protein (6.4-8.9) g/dL Albumin (3.2-5.2) g/dL Globulin (2-4) g/dL Albumin/Globulin Ratio (1-3) TSH (0.34-5.60) mcIU/mL Beta HCG, Quant mIU/mL Urine Color Urine Appearance Urine pH (5-9) Ur Specific [place] (1.010-1.030) Urine Protein (Negative) Urine Ketones (Negative) Urine Blood (Negative) Urine Nitrate (Negative) Urine Bilirubin (Negative) Urine Urobilinogen (Negative) Ur Leukocyte Esterase (Negative) Urine Glucose (Negative) Urine Opiates Screen None detected (None Detect) Ur Barbiturates Screen None detected (None Detect) Ur Phencyclidine Scrn None detected (None Detect) Ur Amphetamines Screen None detected (None Detect) U Benzodiazepines Scrn None detected (None Detect) Urine Cocaine Screen None detected (None Detect) U Cannabinoids Screen None detected (None Detect) Result Diagrams: 03/27/17 12:30 03/27/17 12:30 Lab Statement: Any lab studies that have been ordered have been reviewed, and results considered in the medical decision making process. - CT BRAIN CT Interpretation: No Acute Changes CT Interpretation Completed By: Radiologist Chest/Thorax CTA CT Interpretation: No Acute Changes CT Interpretation Completed By: Radiologist - EKG 12:48 EKG Interpretation: SINUS RHYTHM AT 60 bpm, no ST elevation Re-Evaluation - Re-Evaluation First Eval Re-Evaluation Time: 15:54 - discussed discharge Course/Dx - Course Assessment/Plan: 32 year old female presents with seizure-like symptoms starting this morning. Patient reports that while up doing dishes this morning, she felt her throat tightening, was unable to breath for 2-3 seconds, and then "collapsed, legs gave out". She reports that during this episode she did not have control of her extremities. Patient reports second episode with the same symptoms and urinary incontinence. She denies any LOC. Patient states that she did take her medications this morning- recent medication change - now on Gabapentin, Wellbutrin, and Seroquel. She reports that she did make an appointment with her PCP for Thursday03/31/17 but believes that "something is wrong". PMHx is significant for bipolar disorder, depression, and anxiety. Dr. Maharaj is her psychiatrist. In the ED course she was IV fluids since she was slightly orthostatic hypotensive. CT BRAIN - NAD. EKG - SINUS RHYTHM AT 60 bpm , no ST elevation. Test results WNL except D-dimer of 243. The reason I did a D -dimer was because of questionable syncopal episode. UA negative. UA toxicology screen negative. CTA negative for acute pulmonary embolism. Patient was observed in the ED for 5 hours and she continues to be asymptomatic. Since all of the test results were negative and patient is asymptomatic, she will be discharged home with PCP follow up. Patient is A&O x3 and is hemodynamically stable. I discussed all the findings and test results with the patient. Patient was instructed to return to the emergency room immediately if any of the symptoms return or worsens. Patient understands and agrees. Plan of care was discussed with the patient and patient understands and agrees with the plan of care. All questions were answered at patient satisfaction. There were no further complaints or concerns. Patient is alert and oriented x 3. Patient vital signs are stable. Patient is to follow up with primary care physician in the next 2 to 3 days. Patient understands and agrees. - Differential Dx Differential Diagnoses Neuro: Positive: Cerebrovascular Accident, Seizure Disorder, Transient Ischemic Attack - Diagnoses Provider Diagnoses: Near syncope Discharge - Discharge Plan Condition: Stable Disposition: HOME Patient Education Materials: Near Syncope (ED) Referrals: Efrain Jimenez MD [Primary Care Provider] - 3 Days The documentation as recorded by the Zahra candelaria Auryana accurately reflects the service I personally performed and the decisions made by me, Agusto Martinez MD.
== END 2017-03-27 16:21 | disposition home or self-care (01) ==
LOC: ED 10:41
DX: R55 Syncope and collapse (principal); F17.210 Nicotine dependence, cigarettes, uncomplicated
CPT/HCPCS: 36415; 70450; 71275; 80053; 80307; 81003; 83605; 83735; 84443; 84484; 84702; 85025; 85379; 93005; 99283; Q9967

== ENCOUNTER 2017-04-15 11:44 | Inpatient (IN) | payer MEDICAID ==
[2017-04-15] MEDS ORDERED: LORazepam TAB(*) 1 MG PO ONE (12:15)
[2017-04-15 12:40] LABS: Urine Bilirubin Negative (Negative); Urine Glucose Negative (Negative); Urine Nitrite Negative (Negative)
[2017-04-15 13:15] LABS: Benzodiazepine Urine Screen None Detected (None Detect)
[2017-04-15 13:44] LABS: Hematocrit 38 % (35-47); Hemoglobin 12.5 g/dl (12.0-16.0); Mean Corpuscular HGB Conc 33 g/dl (31-36); Mean Corpuscular Hemoglobin 30 pg (27-31); Mean Corpuscular Volume 90 fL (80-97); Mean Platelet Volume 11 um3 (7.4-10.4); Red Blood Count 4.23 10^6/ul (4.0-5.4); Red Cell Distribution Width 15 % (10.5-15); White Blood Count 4.3 10^3/ul (3.5-10.8)
[2017-04-15 14:07] LABS: ALT 19 U/L (7-52); AST 13 U/L (13-39); Albumin 3.6 g/dL (3.2-5.2); Alkaline Phosphatase 61 U/L (34-104); Anion Gap 5 mmol/L (2-11); BUN/Creatinine Ratio 2.9 (8-20); Blood Urea Nitrogen 2 mg/dL (6-24); CO2 Carbon Dioxide 27 mmol/L (22-32); Calcium 9.1 mg/dL (8.6-10.3); Chloride 108 mmol/L (101-111); EGFR African American 130.7 (>60); EGFR Non-African American 101.6 (>60); Globulin 2.6 g/dL (2-4); Glucose 76 mg/dL (70-100); Potassium 3.7 mmol/L (3.5-5.0); Sodium 140 mmol/L (133-145); Total Protein 6.2 g/dL (6.4-8.9)
[2017-04-15 14:15] LABS: Acetaminophen < 15 mcg/mL; Alcohol < 10 mg/dL (<10); Salicylate < 2.50 mg/dL (<30)
[2017-04-15 14:25] LABS: TSH (Thyroid Stimulating Horm) 0.32 mcIU/mL (0.34-5.60)
[2017-04-15 15:52] LABS: Free T4 1.03 ng/dL (0.61-1.12)
--- NOTE | 2017-04-15 16:41 | ED ---
Anant Arce Benjamin, scribed for Lyubov Peña MD on 04/15/17 at 1252 . Psychiatric Complaint - HPI Summary HPI Summary: 32yo female [facility] [place] for mental health evaluation. Pt also having some throat tightening that is giving her difficulty breathing intermittently for several seconds. Pt states that she is very anxious at the time. Pt is still able to swallow water and denies any CP. - History Of Current Complaint Chief Complaint: EDMentalHealth Time Seen by Provider: 04/15/17 11:53 Hx Obtained From: Family/[employer] Hx Last Menstrual Period: 01/16/17 Onset/Duration: Sudden Onset, Lasting Hours, Still Present Timing: Seconds Severity Initially: Mild Severity Currently: Mild Character: Anxious Aggravating Factor(s): Nothing Alleviating Factor(s): Nothing Associated Signs And Symptoms: Positive: Negative Has Suicidal: Denies: Thoughts, With A Plan - Allergies/Home Medications Allergies/Adverse Reactions: Allergies Allergy/AdvReac Type Severity Reaction Status Date / Time No Known Allergies Allergy Verified 03/18/17 07:39 PMH/Surg Hx/FS Hx/Imm Hx Endocrine/Hematology History: Reports: Hx Unexplained Bleeding - reports uncontrollable bleeding one month ago and taking "orange" pill Denies: Hx Diabetes Cardiovascular History: Denies: Hx Congestive Heart Failure, Hx Deep Vein Thrombosis, Hx Embolism, Hx Hypotension, Hx Hypertension, Hx Pacemaker/ICD Respiratory History: Denies: Hx Asthma, Hx Chronic Bronchitis, Hx Pneumonia GI History: Reports: Hx Gall Bladder Disease - Gall bladder removed "couple of years ago", Other GI Disorders - dysphagia occasional Denies: Hx Crohn's Disease, Hx Gastroesophageal Reflux Disease, Hx Irritable Bowel, Hx Ulcer History: Denies: Hx Acute Renal Failure, Hx Dialysis, Hx Kidney Stones, Hx Renal Disease Musculoskeletal History: Reports: Other Musculoskeletal History - fracture in left knee Denies: Hx Arthritis, Hx Fibromyalgia, Hx Orthopedic Injury Sensory History: Denies: Hx Contacts or Glasses, Hx Vision Problem, Hx Hearing Aid Opthamlomology History: Denies: Hx Contacts or Glasses, Hx Vision Problem Neurological History: Reports: Hx Headaches Denies: Hx Migraine, Hx Seizures Psychiatric History: Reports: Hx Anxiety, Hx Depression, Hx Post Traumatic Stress Disorder, Hx Bipolar Disorder, Other Psychiatric Issues/Disorders - borderline personality disorder Denies: Hx Eating Disorder, Hx of Violent Episodes Against Others - Surgical History Surgery Procedure, Year, and Place: [facility]/APPY/RT OVARY AND RT [place] TUBE REMOVED/TUBAL LIGATION Infectious Disease History: No Infectious Disease History: Denies: Traveled Outside the [place] in Last 30 Days - Family History Known Family History: Positive: Diabetes, Other - scizophrenia, anxiety, alcohol abuse - Social History Occupation: Unemployed Lives: Alone Alcohol Use: None Hx Substance Use: Yes Substance Use Type: Reports: Marijuana Substance Use Comment - Amount & Last Used: Last time 11/2016 Hx Tobacco Use: Yes Smoking Status (MU): Current Every Day Smoker Type: Cigarettes Amount Used/How Often: 1 PPD Length of Time of Smoking/Using Tobacco: 2 years Have You Smoked in the Last Year: Yes Review of Systems Constitutional: Negative Eyes: Negative ENT: Other - throat tightening Cardiovascular: Negative Positive: Other - dyspnea. Negative: Shortness Of Breath Gastrointestinal: Negative Genitourinary: Negative Musculoskeletal: Negative Skin: Negative Neurological: Negative Psychological: Normal All Other Systems Reviewed And Are Negative: Yes Physical Exam Triage Information Reviewed: Yes Vital Signs On Initial Exam: Initial Vitals Temp Pulse Resp BP Pulse Ox 98.7 F 75 18 111/72 97 04/15/17 11:57 04/15/17 11:57 04/15/17 11:57 04/15/17 11:57 04/15/17 11:57 Vital Signs Reviewed: Yes Appearance: Positive: Well-Appearing, No Pain Distress, Well-Nourished Skin: Positive: Warm, Skin Color Reflects Adequate Perfusion, Dry Head/Face: Positive: Normal Head/Face Inspection Eyes: Positive: EOMI, ÓSCAR ENT: Positive: Normal ENT inspection Neck: Positive: Supple, Nontender Respiratory/Lung Sounds: Positive: Clear to Auscultation, Breath Sounds Present Cardiovascular: Positive: RRR Abdomen Description: Positive: Nontender, Soft Bowel Sounds: Positive: Present Musculoskeletal: Positive: Strength/ROM Intact Neurological: Positive: Sensory/Motor Intact, Alert, Oriented to Person Place, Time, CN Intact II-III Psychiatric: Positive: Anxious Diagnostics - Vital Signs Vital Signs Temp Pulse Resp BP Pulse Ox 04/15/17 12:24 16 04/15/17 11:57 98.7 F 75 18 111/72 97 - Laboratory Lab Results: Lab Results 04/15/17 Range/Units 12:13 Urine Color Straw Urine Appearance Clear Urine pH 6.0 (5-9) Ur Specific [place] 1.001 L (1.010-1.030) Urine Protein Negative (Negative) Urine Ketones Negative (Negative) Urine Blood Negative (Negative) Urine Nitrate Negative (Negative) Urine Bilirubin Negative (Negative) Urine Urobilinogen Negative (Negative) Ur Leukocyte Esterase Negative (Negative) Urine Glucose Negative (Negative) Result Diagrams: 04/15/17 13:30 04/15/17 13:30 Lab Statement: Any lab studies that have been ordered have been reviewed, and results considered in the medical decision making process. Course/Dx - Course Course Of Treatment: Reviewed pt's medications list and allergies. Blood pressure noted. Medically cleared for mental health evaluation at 1330. 32 yo female admitted for anxiety and depression - Differential Dx/Clinical Impression Provider Diagnosis: Schizoaffective disorder, bipolar type Discharge - Discharge Plan Condition: Stable Disposition: HOME Referrals: Efrain Jimenez MD [Primary Care Provider] - The documentation as recorded by the Anant candelaria Benjamin accurately reflects the service I personally performed and the decisions made by , Lybuov Peña MD.
[2017-04-16] MEDS: hydrOXYzine HCL TAB* 25 MG PO PRN (11:43)
[2017-04-16] MEDS: Gabapentin CAP(*) 300 MG PO SCH ×3 (11:45→21:57)
[2017-04-16] MEDS ORDERED: QUEtiapine TAB* 100 MG PO SCH ×2 (12:00→21:00)
[2017-04-16] MEDS: Nicotine Inhaler* 10 MG AMP INH PRN (12:22)
[2017-04-16] MEDS ORDERED: Mouth Piece, Nicotine* 1 EACH CARTRIDGE INH ONE (13:00)
[2017-04-16] MEDS ORDERED: diPHENhydraMINE LIQ* 12.5 MG/5 ML UDC PO ONE (13:00)
--- NOTE | 2017-04-16 13:27 | HP ---
H&P (Free Text) History and Physical: HPI: ----- Patient is a 32yo female with PPHx significant for Schizoaffective d/o, bipolar type, PTSD, Alcohol use d/o, Cocaine use d/o, and Cannabis use d/o who presents to [facility] ED, by [id number] from her [facility] provider after reports of increased anxiety and panic attacks associated with closing of her airway and dysphagia. Patient has identified anxiety as the trigger for these issues. Per review of record, patient has been evaluated for these symptoms by [facility] providers on 03/26/17 and 03/27/17. Patient's last psychiatric hospitalization was 03/24/17, for SI and commanding AHs. On this admission patient reported dysphagia which was worked up via swallow eval and fluoroscopic barium swallow with no findings of pathology. Patient at that time had recently been discontinued from Zyprexa and [place] and had been started on Rexulti days prior to the admission. Thought was the dysphagia may be EPS in etiology, but Cogentin did not resolve the issue. Rexulti was discontinued and patient was started on Seroquel. Patient also started on Wellbutrin. Patient reports since discharge anxiety and episodes of panic attacks have increased. She reports being homebound due to fears she will have a panic attack in public. Patient also reports hypersomnolence and intolerable daytime sedation since being home on Seroquel. Patient reports 4 days prior to this admission her Wellbutrin dose was increased. Patient reports this further increased anxiety and frequency of panic attacks. Patient reports SI with plan to cut herself began soon after, as she felt helpless that her anxiety and throat swelling/dysphagia would not be addressed. Patient reports her stressors are unchanged. She reports she is required to do a lot of programs at [facility] which is at times overwhelming. She reports she and her BF continue to have issues and she plans to breakup with him once her apartment is approved. She reports she was scheduled to view an apartment yesterday, but anxiety of being around people led to throat swelling and her presenting to the ED. Patient also reports the of her granddad in 12/2016 continues to contribute to her depressed mood. Patient reports ongoing significant anxiety. She continues to reports episodes of throat swelling which affects her breathing and causes dysphagia. Patient reports ongoing AHs. They are not commanding her to hurt herself, but are of a male voice telling her disparaging comments. Patient reports she has not been compliant with Seroquel. She endorses ongoing Cocaine use d/o symptoms. She denies abuse of alcohol and cannabis. Patient reports sleep has worsened since stopping Seroquel and NMs have recurred. Patient also reports a decreased appetite, but reports this issue is due to difficulty swallowing. She reports she juices when hungry. Patient is amenable to med modification. Currently patient denies SI/HI and VH. PPHX: ------ Inpt - >13 psych hospitalizations([facility] 8-9 times / [place] [id number]/ [facility] 4 times) - Last at [facility] 03/2017, Dx- s/p suicide attempt, Schizoaffective d/o, Bipolar type Outpt - [facility], sees Dr. Meng Psychotropic med hx - Depakote(wt gain), Rexulti, Abilify(rash), [place], Topamax, Propranolol, Klonopin, Zyprexa, Seroquel Suicide Attempt Hx: Attempts x 4 all by hanging(2002, 2010, and twice in 2013) Substance Hx: Patient currently attending ADC meetings at [facility]. Patient has no hx of alcohol w /d symptoms, alcohol w/d seizure, or DTs. Patient reports recent cannabis use d/o, cocaine use d/o, and alcohol use d/o symptom hx. UDS on admission (+) cocaine Family Hx: mom with dx of schizophrenia Soc Hx: ------- -Recently granted section 8 housing -Expects to move in 30days -Currently living with BF -Reports being 30 credits short of a Bachelors degree -Unemployed HOME MEDS: Home Medications Medication Instructions Recorded Confirmed Type Gabapentin CAP(*) [Neurontin 300 600 mg PO TID #42 cap 02/24/17 04/15/17 Rx CAP(*)] QUEtiapine TAB* [Seroquel TAB*] 100 mg PO 1200 #30 tab 03/24/17 04/15/17 Rx QUEtiapine TAB* [Seroquel TAB*] 200 mg PO BEDTIME #60 tab 03/24/17 04/15/17 Rx buPROPion TAB* [Wellbutrin TAB*] 100 mg PO DAILY #30 tab 03/24/17 04/15/17 Rx hydrOXYzine HCL TAB* [Atarax TAB 25 mg PO BID PRN #30 tab 03/24/17 04/15/17 Rx 50 MG *] VITALS: -------- Vital Signs (72 hours) 04/15/17 04/15/17 04/15/17 11:57 12:24 14:07 Temperature 98.7 F 98.3 F Pulse Rate 75 68 Respiratory 18 16 16 Rate Blood Pressure 111/72 102/57 (mmHg) O2 Sat by Pulse 97 98 Oximetry 04/15/17 04/15/17 04/16/17 18:34 18:39 07:50 Temperature 97.5 F 97.5 F 99.2 F Pulse Rate 80 80 55 Respiratory 16 Rate Blood Pressure 106/58 106/58 115/68 (mmHg) O2 Sat by Pulse 98 98 98 Oximetry 04/16/17 04/16/17 04/16/17 11:45 12:38 13:00 Temperature Pulse Rate 94 Respiratory 16 16 16 Rate Blood Pressure 114/68 (mmHg) O2 Sat by Pulse 99 Oximetry 04/16/17 13:11 Temperature Pulse Rate Respiratory 16 Rate Blood Pressure (mmHg) O2 Sat by Pulse Oximetry LABS: ------ Laboratory Tests 04/15/17 04/15/17 04/15/17 12:13 12:13 13:30 WBC 4.3 RBC 4.23 Hgb 12.5 Hct 38 MCV 90 MCH 30 MCHC 33 RDW 15 Plt Count 136 L MPV 11 H Neut % (Auto) 56.8 Lymph % (Auto) 30.3 [place] % (Auto) 10.0 H Eos % (Auto) 2.1 Baso % (Auto) 0.8 Absolute Neuts (auto) 2.4 Absolute Lymphs (auto) 1.3 Absolute Monos (auto) 0.4 Absolute Eos (auto) 0.1 Absolute Basos (auto) 0 Absolute Nucleated RBC 0 Nucleated RBC % 0.1 Sodium Potassium Chloride Carbon Dioxide Anion Gap BUN Creatinine Est GFR ( Amer) Est GFR (Non-Af Amer) BUN/Creatinine Ratio Glucose Calcium Total Bilirubin AST ALT Alkaline Phosphatase Total Protein Albumin Globulin Albumin/Globulin Ratio TSH Free T4 Urine Color Straw Urine Appearance Clear Urine pH 6.0 Ur Specific [place] 1.001 L Urine Protein Negative Urine Ketones Negative Urine Blood Negative Urine Nitrate Negative Urine Bilirubin Negative Urine Urobilinogen Negative Ur Leukocyte Esterase Negative Urine Glucose Negative Salicylates Urine Opiates Screen None detected Acetaminophen Ur Barbiturates Screen None detected Ur Phencyclidine Scrn None detected Ur Amphetamines Screen None detected U Benzodiazepines Scrn None detected Urine Cocaine Screen Presumptive positive H U Cannabinoids Screen None detected Serum Alcohol 04/15/17 13:30 WBC RBC Hgb Hct MCV MCH MCHC RDW Plt Count MPV Neut % (Auto) Lymph % (Auto) [place] % (Auto) Eos % (Auto) Baso % (Auto) Absolute Neuts (auto) Absolute Lymphs (auto) Absolute Monos (auto) Absolute Eos (auto) Absolute Basos (auto) Absolute Nucleated RBC Nucleated RBC % Sodium 140 Potassium 3.7 Chloride 108 Carbon Dioxide 27 Anion Gap 5 BUN 2 L Creatinine 0.68 Est GFR ( Amer) 130.7 Est GFR (Non-Af Amer) 101.6 BUN/Creatinine Ratio 2.9 L Glucose 76 Calcium 9.1 Total Bilirubin 0.30 AST 13 ALT 19 Alkaline Phosphatase 61 Total Protein 6.2 L Albumin 3.6 Globulin 2.6 Albumin/Globulin Ratio 1.4 TSH 0.32 L Free T4 1.03 Urine Color Urine Appearance Urine pH Ur Specific [place] Urine Protein Urine Ketones Urine Blood Urine Nitrate Urine Bilirubin Urine Urobilinogen Ur Leukocyte Esterase Urine Glucose Salicylates < 2.50 Urine Opiates Screen Acetaminophen < 15 Ur Barbiturates Screen Ur Phencyclidine Scrn Ur Amphetamines Screen U Benzodiazepines Scrn Urine Cocaine Screen U Cannabinoids Screen Serum Alcohol < 10 PHYSICAL EXAM Patient declines physical exam reporting she had a physical exam done 24hrs ago in the ED. Please see the [facility]:Psychiatric Complaint note signed on 04/15/17. MSE: ----- Appearance - obese build, looks stated age, fair hygiene, in NAD Behavior - calm, cooperative Speech - RRR, prosody wnl Eye Contact - good Mood - "worried" Affect - depressed TP - linear and GD TC - concerned with pain on swallowing that patient has associated with anxiety Perception - AHs of a male voice making disparaging comments about her Orientation - A&Ox3 Cognition - intact Insight - poor Judgement - poor SI / HI - SI with plan to cut herself on admission, she denies both currently ASSESSMENT: 1. Schizoaffective d/o, Bipolar Type, MRE mixed 2. Cocaine use d/o, severe with panic attacks 3. Unspecified Personality d/o, B-traits 4. Cannabis use d/o, severe PLAN: ------ 1. Continue admission to [facility] for safety and symptom mx. 2. Continue home dose Gabapentin (Neurontin Cap) 600 mg PO TID for anxiety. 4. Continue home dose Propranolol HCl (Inderal Tab*) 10 mg PO TID for anxiety. 5. Continue home Hydroxyzine HCl (Atarax Tab*) at 25 mg PO BID PRN breakthrough anxiety. 6. Continue home Prazosin at 1mg po QHS for NMs. 7. Will D/C Seroquel 2/2 patient report of intolerable sedation s/e. 8. Patient gives informed consent to start re-trial on Risperdal at 2mg po qhs for psychosis/ mood stabilization, with plan to uptitrate. 9. Patient to participate in milieu activities and groups.
[2017-04-16] MEDS ORDERED: LORazepam TAB(*) 1 MG PO ONE (13:50)
[2017-04-16] MEDS: Propranolol TAB* 10 MG PO SCH ×2 (14:10→21:58)
[2017-04-16] MEDS: LORazepam TAB(*) 1 MG PO PRN (17:11)
[2017-04-16] MEDS ORDERED: ARIPiprazole TAB* 5 MG PO SCH (21:00)
[2017-04-16] MEDS: Prazosin CAP* 1 MG PO SCH (21:58)
[2017-04-16] MEDS: risperiDONE TAB* 2 MG PO SCH (21:58)
[2017-04-17] MEDS: hydrOXYzine HCL TAB* 25 MG PO PRN ×2 (00:01→13:45)
[2017-04-17] MEDS: Gabapentin CAP(*) 300 MG PO SCH ×3 (07:28→20:29)
[2017-04-17] MEDS: Propranolol TAB* 10 MG PO SCH ×2 (07:44→13:47)
[2017-04-17] MEDS: Nicotine Inhaler* 10 MG AMP INH PRN ×2 (08:05→14:55)
[2017-04-17] MEDS: LORazepam TAB(*) 1 MG PO PRN ×2 (08:13→15:28)
--- NOTE | 2017-04-17 11:30 | PN ---
Subjective - Subjective Service Type: 16089 Hosp care 15 min low complexity Subjective: Patient calm, cooperative, and engages the interview. She is more full in affect and reports decreased anxiety this morning. Patient reports no noted s/e on Risperdal started last night. She reports no daytime sedation. Patient reports anxiety and throat swelling last night, but none so far today. Patient still only eats soft/liquids foods for fear of recurrent dysphagia, but reports she did eat some last night and this morning. Patient reports ongoing but non-distressing AHs as characterized on admission. She denies VH and she denies SI/HI. Patient has experienced asymptomatic hypotension since admission. She is amenable to change propranolol from 10mg TID to BID(9am and 1pm) as propranolol + PM meds contribute to her drop in BP. Objective - Appearance Appearance: Obese Dysmorphic Features: No Hygiene: Normal Grooming: Fairly Well Kept - Behavior Psychomotor Activities: Normal Exhibits Abnormal Movement: No - Attitude and Relatedness Attitude and Relatedness: Cooperative Eye Contact: Fair - Speech Quality: Unpressured Latencies: Normal Quantity: Appropriate - Mood Patient's Decription of Mood: "Okay" - Affect Observed Affect: Depressed Affect Consistent with: Dysphoria - Thought Process Patient's Thought Process: Coherent Thought Content: No Passive Wish, No Suicidal Planning, No Homicidal Ideation, No Paranoid Ideation - Sensorium Experiencing Hallucinations: No, Sensorium is Clear Type of Hallucinations: Visual: No, Auditory: Yes, Command: No - Level of Consciousness Level of Consciousness: Alert Orientation: No Intact, No Orientated to Time, No Orientated to Place, No Orientated to Person - Impulse Control Impulse Control: Intact - Insight and Judgement Insight and Judgement: Fair - Group Participation Particating in Group Activities: Yes - Medication Management Medication Management Adherence: Yes Assessment - Assessment Merits Inpatient Hospitalization: For Immediate Safety, For Stabilization Inpatient DSM-IV Dx: 1. Schizoaffective d/o, Bipolar Type, MRE mixed. 2. Cocaine use d/o, severe with panic attacks. 3. Unspecified Personality d/o, B- traits. 4. Cannabis use d/o Plan - Plan Treatment Plan: Name: KVNG RYAN Birthdate: 1985 [id number] PLAN: ------ 1. Continue admission to [facility] for safety and symptom mx. 2. Continue home dose Gabapentin (Neurontin Cap) 600 mg PO TID for anxiety. 3. Continue PRN Ativan 1mg po BID PRN anxiety induced pharyngeal spasm. 4. Decrease Propranolol HCl (Inderal Tab*) due to low BP on admission from 10 mg PO TID to 10mg po BID(9am and 1pm) for anxiety. 5. Continue home Hydroxyzine HCl (Atarax Tab*) at 25 mg PO BID PRN breakthrough anxiety. 6. Continue home Prazosin at 1mg po QHS for NMs. 7. Will D/C Seroquel 2/2 patient report of intolerable sedation s/e. 8. Continue Risperdal 2mg po qhs for psychosis/ mood stabilization, with plan to uptitrate to and anti-psychotic dose per outpt MH provider. 9. Patient to participate in milieu activities and groups. Continued Medication Management: Different Medication Medications: Current Medications Gabapentin (Neurontin Cap(*)) 600 mg PO TID [facility] Last Admin: 04/17/17 07:28 Dose: 600 mg Hydroxyzine HCl (Atarax Tab*) 25 mg PO BID PRN PRN Reason: ANXIETY Last Admin: 04/17/17 00:01 Dose: 25 mg Lorazepam (Ativan Tab(*)) 1 mg PO BID PRN PRN Reason: ANXIETY Last Admin: 04/17/17 08:13 Dose: 1 mg Nicotine (Nicotine Inhaler*) 10 mg INH Q2H PRN PRN Reason: CRAVING Last Admin: 04/17/17 08:05 Dose: 10 mg Prazosin HCl (Minipress Cap*) 1 mg PO BEDTIME [facility] Last Admin: 04/16/17 21:58 Dose: 1 mg Propranolol HCl (Inderal Tab*) 10 mg PO TID [facility] Last Admin: 04/17/17 07:44 Dose: Not Given Risperidone (Risperdal*) 2 mg PO BEDTIME [facility] Last Admin: 04/16/17 21:58 Dose: 2 mg - Discharge Plan Discharge Plan: Drug/Alcohol Rehab Outpatient Program: [facility]
[2017-04-17] MEDS: risperiDONE TAB* 2 MG PO SCH (20:29)
[2017-04-17] MEDS: Prazosin CAP* 1 MG PO SCH (22:09)
[2017-04-18] MEDS: LORazepam TAB(*) 1 MG PO PRN ×2 (07:30→19:25)
[2017-04-18] MEDS: Gabapentin CAP(*) 300 MG PO SCH ×3 (09:05→20:22)
[2017-04-18] MEDS: Propranolol TAB* 10 MG PO SCH ×2 (09:06→13:42)
[2017-04-18] MEDS: hydrOXYzine HCL TAB* 25 MG PO PRN (12:14)
[2017-04-18] MEDS: Nicotine Inhaler* 10 MG AMP INH PRN (13:42)
[2017-04-18] MEDS ORDERED: Acetaminophen TAB* 325 MG ONE (18:04)
[2017-04-18] MEDS: Acetaminophen TAB* 325 MG PO PRN (18:05)
[2017-04-18] MEDS: risperiDONE TAB* 2 MG PO SCH (20:22)
[2017-04-18] MEDS: Prazosin CAP* 1 MG PO SCH (20:22)
[2017-04-19] MEDS: LORazepam TAB(*) 1 MG PO PRN (08:27)
[2017-04-19] MEDS: Propranolol TAB* 10 MG PO SCH ×2 (08:27→14:05)
[2017-04-19] MEDS: Gabapentin CAP(*) 300 MG PO SCH ×3 (08:27→20:15)
[2017-04-19] MEDS: Acetaminophen TAB* 325 MG PO PRN ×2 (11:47→18:23)
[2017-04-19] MEDS: hydrOXYzine HCL TAB* 25 MG PO PRN (14:04)
--- NOTE | 2017-04-19 14:06 | PN ---
Subjective - Subjective Service Type: 11635 Hosp care 15 min low complexity Subjective: Sejal reports of significant reduction of anxiety on current meds. Taking and tolerating rest of her meds. Resting and eating well. Objective - Appearance Appearance: Obese Dysmorphic Features: No Hygiene: Normal Grooming: Fairly Well Kept - Behavior Psychomotor Activities: Normal Exhibits Abnormal Movement: No - Attitude and Relatedness Attitude and Relatedness: Appropriate Eye Contact: Good - Speech Quality: Unpressured Latencies: Normal Quantity: Appropriate - Mood Patient's Decription of Mood: "Good" - Affect Observed Affect: Non-labile - Thought Process Patient's Thought Process: Coherent, Goal Directed Thought Content: No Passive Wish, No Suicidal Planning, No Homicidal Ideation, No Paranoid Ideation - Sensorium Experiencing Hallucinations: No, Sensorium is Clear Type of Hallucinations: Visual: No, Auditory: No, Command: No - Level of Consciousness Level of Consciousness: Alert Orientation: Yes Intact, Yes Orientated to Time, Yes Orientated to Place, Yes Orientated to Person - Impulse Control Impulse Control: Intact - Insight and Judgement Insight and Judgement: Good - Group Participation Particating in Group Activities: Yes - Medication Management Medication Management Adherence: Yes Assessment - Assessment Merits Inpatient Hospitalization: [facility]olid[facility] Improvements, For Discharge Planning Inpatient DSM-IV Dx: 1. Schizoaffective d/o, Bipolar Type, MRE mixed. 2. Cocaine use d/o, severe with panic attacks. 3. Unspecified Personality d/o, B- traits. 4. Cannabis use d/o Plan - Plan Treatment Plan: Name: SEJAL RYAN Birthdate: 1985 [id number] Continued Medication Management: Continue Outpt Medication Medications: Current Medications Acetaminophen (Tylenol Tab*) 650 mg PO Q6H PRN PRN Reason: PAIN Last Admin: 04/19/17 11:47 Dose: 650 mg Gabapentin (Neurontin Cap(*)) 600 mg PO TID [facility] Last Admin: 04/19/17 08:27 Dose: 600 mg Hydroxyzine HCl (Atarax Tab*) 25 mg PO BID PRN PRN Reason: ANXIETY Last Admin: 04/18/17 12:14 Dose: 25 mg Lorazepam (Ativan Tab(*)) 1 mg PO BID PRN PRN Reason: ANXIETY Last Admin: 04/19/17 08:27 Dose: 1 mg Nicotine (Nicotine Inhaler*) 10 mg INH Q2H PRN PRN Reason: CRAVING Last Admin: 04/18/17 13:42 Dose: 10 mg Prazosin HCl (Minipress Cap*) 1 mg PO BEDTIME [facility] Last Admin: 04/18/17 20:22 Dose: 1 mg Propranolol HCl (Inderal Tab*) 10 mg PO 0900,1300 [facility] Last Admin: 04/19/17 08:27 Dose: 10 mg Risperidone (Risperdal*) 2 mg PO BEDTIME [facility] Last Admin: 04/18/17 20:22 Dose: 2 mg - Discharge Plan Discharge Plan: Outpatient Follow Up Outpatient Program: [facility]
[2017-04-19] MEDS ORDERED: diPHENhydraMINE PO* 50 MG PO PRN (20:05)
[2017-04-19] MEDS ORDERED: diPHENhydraMINE PO* 50 MG ONE (20:15)
[2017-04-19] MEDS: Prazosin CAP* 1 MG PO SCH (20:16)
[2017-04-19] MEDS: risperiDONE TAB* 2 MG PO SCH (20:16)
[2017-04-20] MEDS: LORazepam TAB(*) 1 MG PO PRN ×2 (08:08→13:55)
[2017-04-20] MEDS: Gabapentin CAP(*) 300 MG PO SCH ×2 (08:08→13:55)
[2017-04-20] MEDS: Propranolol TAB* 10 MG PO SCH ×4 (08:09→14:04)
[2017-04-20 08:32] VITALS: BP 107/72
[2017-04-20] MEDS: Nicotine Inhaler* 10 MG AMP INH PRN (09:00)
[2017-04-20] MEDS: Acetaminophen TAB* 325 MG PO PRN (11:51)
--- NOTE | 2017-04-20 14:19 | DS ---
Subjective - Subjective Service Types: 01902 Hosp DC Day Mgmt simple under 30 min Treatment Course & Assessment Inpatient DSM-IV Dx: 1. Schizoaffective d/o, Bipolar Type, MRE mixed. 2. Cocaine use d/o, severe with panic attacks. 3. Unspecified Personality d/o, B- traits. 4. Cannabis use d/o Discharge Planning - Discharge Planning Medications: Current Medications Acetaminophen (Tylenol Tab*) 650 mg PO Q6H PRN PRN Reason: PAIN Last Admin: 04/20/17 11:51 Dose: 650 mg Diphenhydramine HCl (Benadryl Po*) 50 mg PO Q6H PRN PRN Reason: ANXIETY/AGITATION Gabapentin (Neurontin Cap(*)) 600 mg PO TID [facility] Last Admin: 04/20/17 13:55 Dose: 600 mg Hydroxyzine HCl (Atarax Tab*) 25 mg PO BID PRN PRN Reason: ANXIETY Last Admin: 04/19/17 14:04 Dose: 25 mg Lorazepam (Ativan Tab(*)) 1 mg PO BID PRN PRN Reason: ANXIETY Last Admin: 04/20/17 13:55 Dose: 1 mg Nicotine (Nicotine Inhaler*) 10 mg INH Q2H PRN PRN Reason: CRAVING Last Admin: 04/20/17 09:00 Dose: 10 mg Prazosin HCl (Minipress Cap*) 1 mg PO BEDTIME [facility] Last Admin: 04/19/17 20:16 Dose: 1 mg Propranolol HCl (Inderal Tab*) 10 mg PO 0900,1300 [facility] Last Admin: 04/20/17 14:04 Dose: Not Given Risperidone (Risperdal*) 2 mg PO BEDTIME [facility] Last Admin: 04/19/17 20:16 Dose: 2 mg Discharge Planning: Prescriptions provided for discharge [] Yes [] No Follow up care details as per social work arrangements. Patient response to discharge plan: [] eager for discharge [] agreeable with discharge plan [] ambivalent about discharge [] disagrees with discharge today
== END 2017-04-20 14:25 | disposition home or self-care (01) | DRG 750 ==
LOC: ED 11:44 → BSU 18:03
PROVIDERS: ADMIT Psychiatry & Neurology Psychiatry; ATTEND Psychiatry & Neurology Psychiatry
DX: F25.0 Schizoaffective disorder, bipolar type (principal); F14.10 Cocaine abuse, uncomplicated; F41.0 Panic disorder [episodic paroxysmal anxiety]; F60.9 Personality disorder, unspecified; F12.10 Cannabis abuse, uncomplicated; F43.10 Post-traumatic stress disorder, unspecified; Z81.8 Family history of other mental and behavioral disorders
CPT/HCPCS: 36415; 80053; 80307; 80320; 80329; 81003; 84439; 84443; 85025; 99222; 99231; A9270-GY; G0480

== ENCOUNTER 2017-07-06 09:32 | Inpatient (IN) | payer MEDICAID, OTHER ==
[2017-07-06 10:15] LABS: Hematocrit 39 % (35-47); Hemoglobin 12.8 g/dl (12.0-16.0); Mean Corpuscular HGB Conc 33 g/dl (31-36); Mean Corpuscular Hemoglobin 29 pg (27-31); Mean Corpuscular Volume 89 fL (80-97); Mean Platelet Volume 10 um3 (7.4-10.4); Red Blood Count 4.36 10^6/ul (4.0-5.4); Red Cell Distribution Width 15 % (10.5-15); White Blood Count 5.8 10^3/ul (3.5-10.8)
[2017-07-06 10:25] LABS: Urine Bacteria Absent (Absent); Urine Bilirubin Negative (Negative); Urine Glucose Negative (Negative); Urine Nitrite Negative (Negative)
[2017-07-06 10:31] LABS: ALT 18 U/L (7-52); AST 17 U/L (13-39); Albumin 4.1 g/dL (3.2-5.2); Alkaline Phosphatase 67 U/L (34-104); Anion Gap 7 mmol/L (2-11); BUN/Creatinine Ratio 8.5 (8-20); Blood Urea Nitrogen 7 mg/dL (6-24); CO2 Carbon Dioxide 24 mmol/L (22-32); Calcium 9.5 mg/dL (8.6-10.3); Chloride 107 mmol/L (101-111); EGFR African American 105.3 (>60); EGFR Non-African American 81.9 (>60); Globulin 2.9 g/dL (2-4); Glucose 107 mg/dL (70-100); Potassium 3.9 mmol/L (3.5-5.0); Sodium 138 mmol/L (133-145)
[2017-07-06 10:36] LABS: Benzodiazepine Urine Screen None Detected (None Detect)
[2017-07-06 10:51] LABS: Acetaminophen < 15 mcg/mL; Alcohol < 10 mg/dL (<10); Salicylate < 2.50 mg/dL (<30)
[2017-07-06] MEDS ORDERED: clonazePAM TAB(*) 0.5 MG PO ONE (10:59)
[2017-07-06 11:01] LABS: TSH (Thyroid Stimulating Horm) 0.78 mcIU/mL (0.34-5.60)
[2017-07-06] MEDS ORDERED: traZODone TAB* 50 MG TAB PO ONE (11:03)
[2017-07-06] MEDS ORDERED: Al Hydrox/Mg Hydrox/Simet LIQ* 30 ML UDC PO PRN (16:28)
[2017-07-06] MEDS ORDERED: Nicotine GUM* 2 MG PO PRN (16:28)
[2017-07-06] MEDS ORDERED: Acetaminophen TAB* 325 MG PO PRN (16:28)
[2017-07-06] MEDS: Gabapentin CAP(*) 300 MG PO SCH ×2 (17:20→20:09)
[2017-07-06] MEDS: busPIRone TAB* 10 MG PO SCH ×2 (17:20→21:43)
[2017-07-06] MEDS ORDERED: Mouth Piece, Nicotine* 1 EACH CARTRIDGE ONE (17:22)
[2017-07-06] MEDS: Nicotine Inhaler* 10 MG AMP INH PRN (17:22)
[2017-07-06] MEDS: clonazePAM TAB(*) 0.5 MG PO SCH (20:10)
[2017-07-06] MEDS: QUEtiapine XR TAB* 200 MG PO SCH (20:10)
[2017-07-06] MEDS: risperiDONE TAB* 2 MG PO SCH (20:13)
--- NOTE | 2017-07-06 20:32 | ED ---
Psychiatric Complaint - HPI Summary HPI Summary: 32 female presents to ED as a 947 with complaints of insomnia for the past 4 days due to increased anxiety/stress. Patient states her anxiety has been under control with medications, that she has been taking however she had increased stress and has been unable to sleep for the past 4 days. Told psychiatrist that she tried hanging her self a few days ago but her boyfriend stopped her. Does not have homicidal ideations. States she has been hearing voices and seeing hallucinations, however thinks it is because she has not slept. Denies any alcohol or drug use. No other complaints at this time. does have psychiatric history. Did take her gabapentin and buspar today, however has not taken her klonapin. - History Of Current Complaint Chief Complaint: EDMentalHealth Time Seen by Provider: 07/06/17 09:48 Hx Obtained From: Patient Hx Last Menstrual Period: 01/16/17 Onset/Duration: Gradual Onset, Lasting Days, Worse Since Timing: Constant Severity Initially: Mild Severity Currently: Moderate Character: Anxious, Frustrated Aggravating Factor(s): Recent Stress Alleviating Factor(s): Medication - typically, Counseling Related History: Positive For: Prior Psychiatric Issues Has Suicidal: Reports: Thoughts, With A Plan, Demonstrates Gesture Has Homicidal: Denies: Thoughts, With A Plan Recent Stressor(s): "mom's birthday, relationship stuff" - Allergies/Home Medications Allergies/Adverse Reactions: Allergies Allergy/AdvReac Type Severity Reaction Status Date / Time No Known Allergies Allergy Verified 07/06/17 10:15 Home Medications: Home Medications Gabapentin CAP(*) [Neurontin 300 CAP(*)] 300 mg PO TID 07/06/17 [History Confirmed 07/06/17] busPIRone TAB* [Buspar TAB *] 10 mg PO TID 07/06/17 [History Confirmed 07/06/17] clonazePAM TAB(*) [KlonoPIN TAB(*)] 0.5 mg PO BID 07/06/17 [History Confirmed ] PMH/Surg Hx/FS Hx/Imm Hx Endocrine/Hematology History: Reports: Hx Unexplained Bleeding - reports uncontrollable bleeding one month ago and taking "orange" pill Denies: Hx Diabetes Cardiovascular History: Denies: Hx Congestive Heart Failure, Hx Deep Vein Thrombosis, Hx Embolism, Hx Hypotension, Hx Hypertension, Hx Pacemaker/ICD Respiratory History: Denies: Hx Asthma, Hx Chronic Bronchitis, Hx Pneumonia GI History: Reports: Hx Gall Bladder Disease - Gall bladder removed "couple of years ago", Other GI Disorders - dysphagia occasional Denies: Hx Crohn's Disease, Hx Gastroesophageal Reflux Disease, Hx Irritable Bowel, Hx Ulcer History: Denies: Hx Acute Renal Failure, Hx Dialysis, Hx Kidney Stones, Hx Renal Disease Musculoskeletal History: Reports: Other Musculoskeletal History - fracture in left knee Denies: Hx Arthritis, Hx Fibromyalgia, Hx Orthopedic Injury Sensory History: Denies: Hx Contacts or Glasses, Hx Vision Problem, Hx Hearing Aid Opthamlomology History: Denies: Hx Contacts or Glasses, Hx Vision Problem Neurological History: Reports: Hx Headaches Denies: Hx Migraine, Hx Seizures Psychiatric History: Reports: Hx Anxiety, Hx Depression, Hx Post Traumatic Stress Disorder, Hx Bipolar Disorder, Other Psychiatric Issues/Disorders - borderline personality disorder Denies: Hx Eating Disorder, Hx of Violent Episodes Against Others - Surgical History Surgery Procedure, Year, and Place: [facility]/APPY/RT OVARY AND RT FALLOPIAN TUBE REMOVED/TUBAL LIGATION - Immunization History Immunizations Up to Date: Yes Infectious Disease History: No Infectious Disease History: Denies: Traveled Outside the [place] in Last 30 Days - Family History Known Family History: Positive: Diabetes, Other - scizophrenia, anxiety, alcohol abuse - Social History Alcohol Use: None Hx Substance Use: Yes Substance Use Type: Reports: Marijuana Substance Use Comment - Amount & Last Used: Last time 11/2016 Hx Tobacco Use: Yes Smoking Status (MU): Current Every Day Smoker Type: Cigarettes Amount Used/How Often: 1 PPD Length of Time of Smoking/Using Tobacco: 2 years Have You Smoked in the Last Year: Yes Review of Systems Positive: Fatigue Cardiovascular: Negative Respiratory: Negative Musculoskeletal: Negative Positive: Anxious, Other - insomnia All Other Systems Reviewed And Are Negative: Yes Physical Exam Triage Information Reviewed: Yes Vital Signs On Initial Exam: Initial Vitals Temp Pulse Resp BP Pulse Ox 98.6 F 112 20 147/84 98 07/06/17 09:57 07/06/17 09:57 07/06/17 09:57 07/06/17 09:57 07/06/17 09:57 tachycardia noted Vital Signs Reviewed: Yes Appearance: Positive: Well-Appearing, No Pain Distress, Well-Nourished Skin: Positive: Warm, Skin Color Reflects Adequate Perfusion, Dry. Negative: Cyanosis @, Pale, Erythema @ Head/Face: Positive: Normal Head/Face Inspection Eyes: Positive: Conjunctiva Clear ENT: Positive: Hearing grossly normal, Pharynx normal, TMs normal Respiratory/Lung Sounds: Positive: Clear to Auscultation, Breath Sounds Present. Negative: Decreased Breath Sounds, Rales, Rhonchi, Wheezes Cardiovascular: Positive: Normal, RRR, Pulses are Symmetrical in both Upper and Lower Extremities. Negative: Murmur, Rub Abdomen Description: Positive: Nontender, Soft Bowel Sounds: Positive: Present Musculoskeletal: Positive: Normal, Strength/ROM Intact Neurological: Positive: Normal, Sensory/Motor Intact, Alert, Oriented to Person Place, Time, CN Intact II-III, Reflexes Intact, NV Bundle Intact Distally, Normal Gait Psychiatric: Positive: Other - frustrated that she has been unable to sleep - Darin Coma Scale Best Eye Response: 4 - Spontaneous Best Motor Response: 6 - Obeys Commands Best Verbal Response: 5 - Oriented Diagnostics - Vital Signs Vital Signs Temp Pulse Resp BP Pulse Ox 07/06/17 09:57 98.6 F 112 20 147/84 98 - Laboratory Lab Results: Lab Results 07/06/17 07/06/17 07/06/17 Range/Units 10:00 10:00 10:00 WBC 5.8 (3.5-10.8) 10^3/ul RBC 4.36 (4.0-5.4) 10^6/ul Hgb 12.8 (12.0-16.0) g/dl Hct 39 (35-47) % MCV 89 (80-97) fL MCH 29 (27-31) pg MCHC 33 (31-36) g/dl RDW 15 (10.5-15) % Plt Count 129 L (150-450) 10^3/ul MPV 10 (7.4-10.4) um3 Neut % (Auto) 62.9 (38-83) % Lymph % (Auto) 24.4 L (25-47) % [place] % (Auto) 8.9 (1-9) % Eos % (Auto) 3.2 (0-6) % Baso % (Auto) 0.6 (0-2) % Absolute Neuts (auto) 3.7 (1.5-7.7) 10^3/ul Absolute Lymphs (auto) 1.4 (1.0-4.8) 10^3/ul Absolute Monos (auto) 0.5 (0-0.8) 10^3/ul Absolute Eos (auto) 0.2 (0-0.6) 10^3/ul Absolute Basos (auto) 0 (0-0.2) 10^3/ul Absolute Nucleated RBC 0 10^3/ul Nucleated RBC % 0 Sodium 138 (133-145) mmol/L Potassium 3.9 (3.5-5.0) mmol/L Chloride 107 (101-111) mmol/L Carbon Dioxide 24 (22-32) mmol/L Anion Gap 7 (2-11) mmol/L BUN 7 (6-24) mg/dL Creatinine 0.82 (0.51-0.95) mg/dL Est GFR ( Amer) 105.3 (>60) Est GFR (Non-Af Amer) 81.9 (>60) BUN/Creatinine Ratio 8.5 (8-20) Glucose 107 H (70-100) mg/dL Calcium 9.5 (8.6-10.3) mg/dL Total Bilirubin 0.20 (0.2-1.0) mg/dL AST 17 (13-39) U/L ALT 18 (7-52) U/L Alkaline Phosphatase 67 (34-104) U/L Total Protein 7.0 (6.4-8.9) g/dL Albumin 4.1 (3.2-5.2) g/dL Globulin 2.9 (2-4) g/dL Albumin/Globulin Ratio 1.4 (1-3) TSH 0.78 (0.34-5.60) mcIU/mL Urine Color Urine Appearance Urine pH (5-9) Ur Specific [place] (1.010-1.030) Urine Protein (Negative) Urine Ketones (Negative) Urine Blood (Negative) Urine Nitrate (Negative) Urine Bilirubin (Negative) Urine Urobilinogen (Negative) Ur Leukocyte Esterase (Negative) Urine WBC (Auto) (Absent) Urine RBC (Auto) (Absent) Ur Squamous Epith Cells (Absent) Urine Bacteria (Absent) Urine Glucose (Negative) Salicylates < 2.50 (<30) mg/dL Urine Opiates Screen None detected (None Detect) Acetaminophen < 15 mcg/mL Ur Barbiturates Screen None detected (None Detect) Ur Phencyclidine Scrn None detected (None Detect) Ur Amphetamines Screen None detected (None Detect) U Benzodiazepines Scrn None detected (None Detect) Urine Cocaine Screen None detected (None Detect) U Cannabinoids Screen None detected (None Detect) Serum Alcohol < 10 (<10) mg/dL 07/06/17 Range/Units 10:00 WBC (3.5-10.8) 10^3/ul RBC (4.0-5.4) 10^6/ul Hgb (12.0-16.0) g/dl Hct (35-47) % MCV (80-97) fL MCH (27-31) pg MCHC (31-36) g/dl RDW (10.5-15) % Plt Count (150-450) 10^3/ul MPV (7.4-10.4) um3 Neut % (Auto) (38-83) % Lymph % (Auto) (25-47) % [place] % (Auto) (1-9) % Eos % (Auto) (0-6) % Baso % (Auto) (0-2) % Absolute Neuts (auto) (1.5-7.7) 10^3/ul Absolute Lymphs (auto) (1.0-4.8) 10^3/ul Absolute Monos (auto) (0-0.8) 10^3/ul Absolute Eos (auto) (0-0.6) 10^3/ul Absolute Basos (auto) (0-0.2) 10^3/ul Absolute Nucleated RBC 10^3/ul Nucleated RBC % Sodium (133-145) mmol/L Potassium (3.5-5.0) mmol/L Chloride (101-111) mmol/L Carbon Dioxide (22-32) mmol/L Anion Gap (2-11) mmol/L BUN (6-24) mg/dL Creatinine (0.51-0.95) mg/dL Est GFR ( Amer) (>60) Est GFR (Non-Af Amer) (>60) BUN/Creatinine Ratio (8-20) Glucose (70-100) mg/dL Calcium (8.6-10.3) mg/dL Total Bilirubin (0.2-1.0) mg/dL AST (13-39) U/L ALT (7-52) U/L Alkaline Phosphatase (34-104) U/L Total Protein (6.4-8.9) g/dL Albumin (3.2-5.2) g/dL Globulin (2-4) g/dL Albumin/Globulin Ratio (1-3) TSH (0.34-5.60) mcIU/mL Urine Color Yellow Urine Appearance Clear Urine pH 7.0 (5-9) Ur Specific [place] 1.008 L (1.010-1.030) Urine Protein Negative (Negative) Urine Ketones Negative (Negative) Urine Blood Negative (Negative) Urine Nitrate Negative (Negative) Urine Bilirubin Negative (Negative) Urine Urobilinogen Negative (Negative) Ur Leukocyte Esterase Trace H (Negative) Urine WBC (Auto) Trace(0-5/hpf) (Absent) Urine RBC (Auto) Absent (Absent) Ur Squamous Epith Cells Present H (Absent) Urine Bacteria Absent (Absent) Urine Glucose Negative (Negative) Salicylates (<30) mg/dL Urine Opiates Screen (None Detect) Acetaminophen mcg/mL Ur Barbiturates Screen (None Detect) Ur Phencyclidine Scrn (None Detect) Ur Amphetamines Screen (None Detect) U Benzodiazepines Scrn (None Detect) Urine Cocaine Screen (None Detect) U Cannabinoids Screen (None Detect) Serum Alcohol (<10) mg/dL Result Diagrams: 07/06/17 10:00 07/06/17 10:00 Lab Statement: Any lab studies that have been ordered have been reviewed, and results considered in the medical decision making process. Course/Dx - Course Course Of Treatment: given klonapin and trazadone while in ED. labs obtained. was medically cleared and awaiting mental health evaluation in [place]. patient was later determined to be [place] [facility] no other complaints or concerns. agree with this plan. - Differential Dx/Clinical Impression Differential Diagnosis/HQI/PQRI: Positive: Acute Psychosis, Anxiety, Depression , Suicide Attempt, Suicidal Ideation, Suicidal Gesture, Other - insmonia Provider Diagnosis: Insomnia, Suicidal ideations - Physician Notifications Discussed Care Of Patient With: Dr becky WYATT Instructed by Provider To: Admit As Inpatient Patient Is Medically Stable For: Psych Evaluation Discharge - Discharge Plan Condition: Stable Disposition: PSYCHIATRIC FACILITY[place]
[2017-07-07] MEDS: Gabapentin CAP(*) 300 MG PO SCH ×3 (09:05→20:09)
[2017-07-07] MEDS: Nicotine Inhaler* 10 MG AMP INH PRN (09:05)
[2017-07-07] MEDS: clonazePAM TAB(*) 0.5 MG PO SCH ×2 (09:05→20:11)
[2017-07-07] MEDS: busPIRone TAB* 10 MG PO SCH ×3 (09:06→20:10)
[2017-07-07] MEDS: Vitamin THERAPEUTIC TAB PO SCH (09:06)
--- NOTE | 2017-07-07 10:08 | HP ---
H&P (Free Text) History and Physical: HPI: ---- Patient is a 32yo female with PPHx significant for Schizoaffective d/o, bipolar type, PTSD, Alcohol use d/o, Cocaine use d/o, and Cannabis use d/o who presents [place] [facility], BIBA on 9.45 status, from her [facility] provider after reporting a recent suicide attempt, this past weekend, by means of attempting to hang herself with a belt. Patient reports the attempt was interrupted when her BF came into the room. Patient reported also that the day of her attempt was her mother's B-day, another reason she stopped with the attempt. Pateint reports also increased anxiety and stress associated with worsening insomnia, reporting she's not slept the last 4 days. Patient last admitted to [facility] 04/16/2017, Dx- SI w/plan, commanding AHs telling her to kill herself, cocaine use, and panic attacks. Patient reports she has recently "run out of my sleeping meds". Patient reports being recently re-started on Klonopin by her [facility] provider BID for anxiety and insomnia. Patient reports being compliant with her entire psychotropic med regimen. She does not endorse using more of her Klonopin than Rx'd. Patient reports having a counseling appt today, but not having an appt with Dr. Meng until 07/22/17. Patient also report increased recent stress of recently moving into a new apartment. She now though she's all moved in and now feels settled. Patient reports increased stress coming from her mom who lives in [place] and is recently post-op. She reports demands to travel back and forth to [place] to help with her care are overwhelming. Patient reports over the last few days, due to insomnia, she'd experiencing worsening AHs commanding her to hang herself. She reports also VHs which she also attributes to her sleep deprivation. Patient reports alcohol abuse nor use of illicit substances played a role her symptom decompensation. She reports being sober of cocaine, cannabis and alcohol since 05/15/17. PPHX: ------ Inpt - >14 psych hospitalizations([facility] 8-9 times / [place] [id number]/ [facility] 5 times) - Last at [facility] 04/16/2017, Dx- SI w/plan, cocaine use d/o, panic attack , Schizoaffective d/o, Bipolar type Outpt - [facility], sees Dr. Meng Psychotropic med hx - Depakote(wt gain), RajultiRavinder(rash), [place], Topamax, Propranolol, Klonopin, Zyprexa, Seroquel Suicide Attempt Hx: Prior Attempts - 4 all by hanging(2002, 2010, and twice in 2013) Substance Hx: -Patient currently attending ADC meetings at [facility] for cannabis use d/o, cocaine use d/o, and alcohol use d/o issues. -Patient has no hx of alcohol w/d symptoms, alcohol w/d seizure, or DTs. -Patient reports no recent cannabis use, cocaine use or alcohol use. -UDS on admission - NEG for all tested substances. Family Hx: mom with dx of schizophrenia Soc Hx: ------- -[facility] [place] [id number] [facility] -She reports she's all moved in and now feels settled. -Reports her BF is supportive. -She is traveled recently back and forth to [place] to care for mother who is recently post-op. -Reports being 30 credits short of a Bachelors degree. -Unemployed. -Living on Disability and Public assistance. -Patient reports no access to firearms. -Patient reports she has multiple bottles of Rx pills at home. HOME MEDS: Home Medications Medication Instructions Recorded Confirmed Type risperiDONE TAB* [Risperdal*] 2 mg PO BEDTIME #30 tab 04/20/17 07/06/17 Rx Gabapentin CAP(*) [Neurontin 300 300 mg PO TID 07/06/17 07/06/17 History CAP(*)] busPIRone TAB* [Buspar TAB *] 10 mg PO TID 07/06/17 07/06/17 History clonazePAM TAB(*) [KlonoPIN TAB(*)] 0.5 mg PO BID 07/06/17 07/06/17 History VITALS: -------- Vital Signs (72 hours) 10/23/17 10/23/17 10/23/17 09:57 15:25 16:21 Temperature 98.6 F 97.7 F 97.7 F Pulse Rate 112 96 96 Respiratory 20 14 Rate Blood Pressure 147/84 116/81 116/81 (mmHg) O2 Sat by Pulse 98 99 99 Oximetry 07/06/17 07/06/17 07/06/17 16:29 17:20 19:20 Temperature 97.7 F Pulse Rate 96 Respiratory 14 16 18 Rate Blood Pressure 116/81 (mmHg) O2 Sat by Pulse 99 Oximetry 07/06/17 07/06/17 07/06/17 20:06 20:09 20:10 Temperature Pulse Rate 142 Respiratory 18 18 Rate Blood Pressure 128/88 (mmHg) O2 Sat by Pulse 99 Oximetry 07/06/17 07/06/17 07/07/17 22:09 23:05 07:24 Temperature 97.9 F Pulse Rate 84 Respiratory 16 16 16 Rate Blood Pressure 92/52 (mmHg) O2 Sat by Pulse 98 Oximetry 07/07/17 09:05 Temperature Pulse Rate Respiratory 16 Rate Blood Pressure (mmHg) O2 Sat by Pulse Oximetry LABS: ------ Laboratory Tests 07/06/17 07/06/17 07/06/17 10:00 10:00 10:00 WBC 5.8 RBC 4.36 Hgb 12.8 Hct 39 MCV 89 MCH 29 MCHC 33 RDW 15 Plt Count 129 L MPV 10 Neut % (Auto) 62.9 Lymph % (Auto) 24.4 L [place] % (Auto) 8.9 Eos % (Auto) 3.2 Baso % (Auto) 0.6 Absolute Neuts (auto) 3.7 Absolute Lymphs (auto) 1.4 Absolute Monos (auto) 0.5 Absolute Eos (auto) 0.2 Absolute Basos (auto) 0 Absolute Nucleated RBC 0 Nucleated RBC % 0 Sodium 138 Potassium 3.9 Chloride 107 Carbon Dioxide 24 Anion Gap 7 BUN 7 Creatinine 0.82 Est GFR ( Amer) 105.3 Est GFR (Non-Af Amer) 81.9 BUN/Creatinine Ratio 8.5 Glucose 107 H Calcium 9.5 Total Bilirubin 0.20 AST 17 ALT 18 Alkaline Phosphatase 67 Total Protein 7.0 Albumin 4.1 Globulin 2.9 Albumin/Globulin Ratio 1.4 TSH 0.78 Urine Color Urine Appearance Urine pH Ur Specific [place] Urine Protein Urine Ketones Urine Blood Urine Nitrate Urine Bilirubin Urine Urobilinogen Ur Leukocyte Esterase Urine WBC (Auto) Urine RBC (Auto) Ur Squamous Epith Cells Urine Bacteria Urine Glucose Salicylates < 2.50 Urine Opiates Screen None detected Acetaminophen < 15 Ur Barbiturates Screen None detected Ur Phencyclidine Scrn None detected Ur Amphetamines Screen None detected U Benzodiazepines Scrn None detected Urine Cocaine Screen None detected U Cannabinoids Screen None detected Serum Alcohol < 10 07/06/17 10:00 WBC RBC Hgb Hct MCV MCH MCHC RDW Plt Count MPV Neut % (Auto) Lymph % (Auto) [place] % (Auto) Eos % (Auto) Baso % (Auto) Absolute Neuts (auto) Absolute Lymphs (auto) Absolute Monos (auto) Absolute Eos (auto) Absolute Basos (auto) Absolute Nucleated RBC Nucleated RBC % Sodium Potassium Chloride Carbon Dioxide Anion Gap BUN Creatinine Est GFR ( Amer) Est GFR (Non-Af Amer) BUN/Creatinine Ratio Glucose Calcium Total Bilirubin AST ALT Alkaline Phosphatase Total Protein Albumin Globulin Albumin/Globulin Ratio TSH Urine Color Yellow Urine Appearance Clear Urine pH 7.0 Ur Specific [place] 1.008 L Urine Protein Negative Urine Ketones Negative Urine Blood Negative Urine Nitrate Negative Urine Bilirubin Negative Urine Urobilinogen Negative Ur Leukocyte Esterase Trace H Urine WBC (Auto) Trace(0-5/hpf) Urine RBC (Auto) Absent Ur Squamous Epith Cells Present H Urine Bacteria Absent Urine Glucose Negative Salicylates Urine Opiates Screen Acetaminophen Ur Barbiturates Screen Ur Phencyclidine Scrn Ur Amphetamines Screen U Benzodiazepines Scrn Urine Cocaine Screen U Cannabinoids Screen Serum Alcohol PHYSICAL EXAM Patient declines physical exam reporting she had a physical exam done 24hrs ago in the ED. Please see the [facility]:Psychiatric Complaint note signed on 07/06/17. MSE: ----- Appearance - obese build, looks stated age, fair hygiene, in NAD Behavior - calm, cooperative Speech - RRR, prosody wnl Eye Contact - good Mood - "stressed" Affect - depressed TP - linear and GD TC - concerned with recent insomnia which she feels is contributing to her worsening AHs and SI Perception - AHs of a male voice commanding her to hang herself Orientation - A&Ox3 Cognition - intact Insight - poor Judgement - poor SI / HI - SI with plan to hang herself on admission, she denies both currently ASSESSMENT: 1. Schizoaffective d/o, Bipolar Type, MRE mixed 2. Unspecified Personality d/o, B-traits 3. Cocaine use d/o 4. Cannabis use d/o PLAN: ------ 1. Continue admission to [facility] for safety and symptom mx. 2. Re-start Gabapentin (Neurontin Cap) 600 mg PO TID for anxiety. 3. Re-start Buspar 10 mg PO TID for anxiety. 4. Re-start Risperidal at 2mg po qhs for psychosis and mood stabilization. 5. Re-start Clonazepam 0.5mg po BID for anxiety. 6. Patient gave informed consent to start Seroquel at 200mg po qhs for insomnia. 7. Continue obtaining collateral information from outpt providers. 8. Patient to participate in milieu activities and groups.
[2017-07-07 19:24] LABS: Cholesterol 155 mg/dL; HDL Cholesterol 38.7 mg/dL; LDL Cholesterol 64 mg/dL; Triglycerides 264 mg/dL
[2017-07-07] MEDS: QUEtiapine XR TAB* 200 MG PO SCH (20:09)
[2017-07-07] MEDS: risperiDONE TAB* 2 MG PO SCH (20:11)
[2017-07-08 07:53] VITALS: BP 86/46
[2017-07-08] MEDS: Vitamin THERAPEUTIC TAB PO SCH ×2 (08:17→09:04)
[2017-07-08] MEDS: Gabapentin CAP(*) 300 MG PO SCH (08:17)
[2017-07-08] MEDS: clonazePAM TAB(*) 0.5 MG PO SCH (08:17)
[2017-07-08] MEDS: busPIRone TAB* 10 MG PO SCH (08:18)
[2017-07-08] MEDS: Nicotine Inhaler* 10 MG AMP INH PRN (08:18)
--- NOTE | 2017-07-08 11:28 | DS ---
Subjective - Subjective Service Types: 88815 Hosp DC Day Mgmt simple under 30 min Subjective: Patient noted to be visible most of the day in the milieu, pleasant, social with peers and attending groups. Patient reported good benefit to insomnia on Seroquel 200mg po qhs. Patient denies med s/e's. Patient reports AHs and SI have resolved. Again she attributed the worsening of her symptoms to the 4 days prior to admission she went w/o sleep. Patient reports feeling ready for discharge. Patient is A&Ox4, linear and GD in TP, and future oriented in TC. Patient reports interest in getting to her therapy appts scheduled for . Patient again denied HI and VH. Patient is psychiatrically stable. Discharge plan has been discussed and patient is amenable and acknowledges understanding. Patient instructed to call the crisis hotline, 911, or self present to a local ED if SI recurs. Patient was amenable and acknowledged understanding of community supports. Patient will be discharged by bus to home. Objective - Appearance Appearance: Well Developed/Nourished, Obese Dysmorphic Features: No Hygiene: Normal Grooming: Well Kept - Behavior Psychomotor Activities: Normal Exhibits Abnormal Movement: No - Attitude and Relatedness Attitude and Relatedness: Cooperative Eye Contact: Good - Speech Quality: Unpressured Latencies: Normal Quantity: Appropriate - Mood Patient's Decription of Mood: "Good" - Affect Observed Affect: Good Affect Consistent with: Euthymia - Thought Process Patient's Thought Process: Coherent Thought Content: No Passive Wish, No Suicidal Planning, No Homicidal Ideation, No Paranoid Ideation - Sensorium Experiencing Hallucinations: No, Sensorium is Clear Type of Hallucinations: Visual: No, Auditory: No, Command: No - Level of Consciousness Level of Consciousness: Alert Orientation: Yes Intact, Yes Orientated to Time, Yes Orientated to Place, Yes Orientated to Person - Impulse Control Impulse Control: Intact - Insight and Judgement Insight and Judgement: Fair - Group Participation Particating in Group Activities: Yes - Medication Management Medication Management Adherence: Yes Treatment Course & Assessment Clinical Course & Impression: DISCHARGE DIAGNOSIS: 1. Schizoaffective d/o, Bipolar Type, MRE mixed 2. Unspecified Personality d/o, B-traits 3. Cocaine use d/o 4. Cannabis use d/o HOSPITAL COURSE: Patient is a 32yo female with PPHx significant for Schizoaffective d/o, bipolar type, PTSD, Alcohol use d/o, Cocaine use d/o, and Cannabis use d/o who presents to [facility] ED, BIBA on 9.45 status, from her [facility] provider after reporting a recent suicide attempt, this past weekend, by means of attempting to hang herself with a belt. Patient reports the attempt was interrupted when her BF came into the room. Patient reported also that the day of her attempt was her mother's B-day, another reason she stopped with the attempt. Pateint reports also increased anxiety and stress associated with worsening insomnia, reporting she's not slept the last 4 days. Patient last admitted to [facility] 04/16/2017, Dx- SI w/plan, commanding AHs telling her to kill herself, cocaine use, and panic attacks. Patient reports she has recently "run out of my sleeping meds". Patient reports being recently re-started on Klonopin by her [facility] provider BID for anxiety and insomnia. Patient reports being compliant with her entire psychotropic med regimen. She does not endorse using more of her Klonopin than Rx'd. Patient reports having a counseling appt today, but not having an appt with Dr. Meng until 07/22/17. Patient also report increased recent stress of recently moving into a new apartment. She now though she's all moved in and now feels settled. Patient reports increased stress coming from her mom who lives in [place] and is recently post-op. She reports demands to travel back and forth to [place] to help with her care are overwhelming. Patient reports over the last few days, due to insomnia, she'd experiencing worsening AHs commanding her to hang herself. She reports also VHs which she also attributes to her sleep deprivation. Patient reports alcohol abuse nor use of illicit substances played a role her symptom decompensation. She reports being sober of cocaine, cannabis and alcohol since 05/15/17. On admission, re-started Gabapentin (Neurontin Cap) 600 mg PO TID for anxiety, Buspar 10 mg PO TID for anxiety, Risperidal at 2mg po qhs for psychosis and mood stabilization, and Clonazepam 0.5mg po BID for anxiety. Patient gave informed consent to start Seroquel at 200mg po qhs for insomnia. On admission day #1, day of discharge, patient noted to be visible most of the day in the milieu, pleasant, social with peers and attending groups. Patient reported good benefit to insomnia on Seroquel 200mg po qhs. Patient denies med s/e's. Patient reports AHs and SI have resolved. Again she attributed the worsening of her symptoms to the 4 days prior to admission she went w/o sleep. Patient reports feeling ready for discharge. Patient is A&Ox4, linear and GD in TP, and future oriented in TC. Patient reports interest in getting to her therapy appts scheduled for . Patient again denied HI and VH. Patient is psychiatrically stable. Discharge plan has been discussed and patient is amenable and acknowledges understanding. Patient instructed to call the crisis hotline, 911, or self present to a local ED if SI recurs. Patient was amenable and acknowledged understanding of community supports. Patient will be discharged by bus to home. PERTINENT LABS: Laboratory Tests 07/06/17 07/06/17 07/06/17 10:00 10:00 10:00 WBC 5.8 RBC 4.36 Hgb 12.8 Hct 39 MCV 89 MCH 29 MCHC 33 RDW 15 Plt Count 129 L MPV 10 Neut % (Auto) 62.9 Lymph % (Auto) 24.4 L [place] % (Auto) 8.9 Eos % (Auto) 3.2 Baso % (Auto) 0.6 Absolute Neuts (auto) 3.7 Absolute Lymphs (auto) 1.4 Absolute Monos (auto) 0.5 Absolute Eos (auto) 0.2 Absolute Basos (auto) 0 Absolute Nucleated RBC 0 Nucleated RBC % 0 Sodium 138 Potassium 3.9 Chloride 107 Carbon Dioxide 24 Anion Gap 7 BUN 7 Creatinine 0.82 Est GFR ( Amer) 105.3 Est GFR (Non-Af Amer) 81.9 BUN/Creatinine Ratio 8.5 Glucose 107 H Hemoglobin A1c Calcium 9.5 Total Bilirubin 0.20 AST 17 ALT 18 Alkaline Phosphatase 67 Total Protein 7.0 Albumin 4.1 Globulin 2.9 Albumin/Globulin Ratio 1.4 Triglycerides 264 Cholesterol 155 LDL Cholesterol 64 HDL Cholesterol 38.7 TSH 0.78 Beta HCG, Quant < 0.60 Urine Color Urine Appearance Urine pH Ur Specific [place] Urine Protein Urine Ketones Urine Blood Urine Nitrate Urine Bilirubin Urine Urobilinogen Ur Leukocyte Esterase Urine WBC (Auto) Urine RBC (Auto) Ur Squamous Epith Cells Urine Bacteria Urine Glucose Salicylates < 2.50 Urine Opiates Screen None detected Acetaminophen < 15 Ur Barbiturates Screen None detected Ur Phencyclidine Scrn None detected Ur Amphetamines Screen None detected U Benzodiazepines Scrn None detected Urine Cocaine Screen None detected U Cannabinoids Screen None detected Serum Alcohol < 10 07/06/17 07/07/17 10:00 16:00 WBC RBC Hgb Hct MCV MCH MCHC RDW Plt Count MPV Neut % (Auto) Lymph % (Auto) [place] % (Auto) Eos % (Auto) Baso % (Auto) Absolute Neuts (auto) Absolute Lymphs (auto) Absolute Monos (auto) Absolute Eos (auto) Absolute Basos (auto) Absolute Nucleated RBC Nucleated RBC % Sodium Potassium Chloride Carbon Dioxide Anion Gap BUN Creatinine Est GFR ( Amer) Est GFR (Non-Af Amer) BUN/Creatinine Ratio Glucose Hemoglobin A1c 5.4 Calcium Total Bilirubin AST ALT Alkaline Phosphatase Total Protein Albumin Globulin Albumin/Globulin Ratio Triglycerides Cholesterol LDL Cholesterol HDL Cholesterol TSH Beta HCG, Quant Urine Color Yellow Urine Appearance Clear Urine pH 7.0 Ur Specific [place] 1.008 L Urine Protein Negative Urine Ketones Negative Urine Blood Negative Urine Nitrate Negative Urine Bilirubin Negative Urine Urobilinogen Negative Ur Leukocyte Esterase Trace H Urine WBC (Auto) Trace(0-5/hpf) Urine RBC (Auto) Absent Ur Squamous Epith Cells Present H Urine Bacteria Absent Urine Glucose Negative Salicylates Urine Opiates Screen Acetaminophen Ur Barbiturates Screen Ur Phencyclidine Scrn Ur Amphetamines Screen U Benzodiazepines Scrn Urine Cocaine Screen U Cannabinoids Screen Serum Alcohol Consultants: none Discharge Meds: Home Medications Medication Instructions Recorded Confirmed Type Gabapentin CAP(*) [Neurontin 300 300 mg PO TID #90 07/08/17 Rx CAP(*)] QUEtiapine XR TAB* [Seroquel Xr 200 mg PO BEDTIME #30 tab.xr 07/08/17 Rx TAB*] Vitamin THERAPEUTIC TAB* 1 tab PO DAILY #30 tab 07/08/17 Rx [Theragran TAB*] busPIRone TAB* [Buspar TAB *] 10 mg PO TID #90 07/08/17 Rx clonazePAM TAB(*) [Klonopin TAB(*)] 0.5 mg PO BID #60 tab MDD 1mg 07/08/17 Rx risperiDONE TAB* [Risperdal*] 2 mg PO BEDTIME #30 tab 07/08/17 Rx Follow-Up: Appt. for within the next 2 weeks scheduled by SW with provider. Clear for Discharge: Adequate Clinical Respons, Acceptable Safety Profile Discharge Planning - Discharge Planning Discharge Plan: Outpatient Follow Up Recommendations for Continuing Care: Medication Management, Substance Abuse Counseling Medications: Current Medications Acetaminophen (Tylenol Tab*) 650 mg PO Q4H PRN PRN Reason: for pain; or Temp >101 F Al Hydrox/Mg Hydrox/Simethicone (Maalox Plus*) 30 ml PO Q4H PRN PRN Reason: INDIGESTION Buspirone HCl (Buspar Tab*) 10 mg PO TID [facility] Last Admin: 07/08/17 08:18 Dose: 10 mg Clonazepam (Klonopin Tab(*)) 0.5 mg PO BID [facility] Last Admin: 07/08/17 08:17 Dose: 0.5 mg Gabapentin (Neurontin Cap(*)) 300 mg PO TID [facility] Last Admin: 07/08/17 08:17 Dose: 300 mg Multivitamins (Theragran Tab*) 1 tab PO DAILY [facility] Last Admin: 07/08/17 09:04 Dose: Not Given Nicotine (Nicotine Inhaler*) 10 mg INH Q2H PRN PRN Reason: CRAVING Last Admin: 07/08/17 08:18 Dose: 10 mg Quetiapine Fumarate (Seroquel Xr Tab*) 200 mg PO BEDTIME [facility] Last Admin: 07/07/17 20:09 Dose: 200 mg Risperidone (Risperdal*) 2 mg PO BEDTIME [facility] Last Admin: 07/07/17 20:11 Dose: Not Given Discharge Planning: Prescriptions provided for discharge [x] Yes [] No Follow up care details as per social work arrangements. Patient response to discharge plan: [] eager for discharge [x] agreeable with discharge plan [] ambivalent about discharge [] disagrees with discharge today
== END 2017-07-08 12:15 | disposition home or self-care (01) | DRG 750 ==
LOC: ED 09:32 → BSU 16:16
PROVIDERS: ADMIT Psychiatry & Neurology Psychiatry; ATTEND Psychiatry & Neurology Psychiatry
DX: F25.0 Schizoaffective disorder, bipolar type (principal); F12.10 Cannabis abuse, uncomplicated; F60.9 Personality disorder, unspecified; F14.10 Cocaine abuse, uncomplicated; Z81.8 Family history of other mental and behavioral disorders
CPT/HCPCS: 36415; 80053; 80061; 80307; 80320; 80329; 81003; 81015; 83036; 84443; 84702; 85025; 87086; 99222; 99238; A9270-GY; G0480

== ENCOUNTER 2017-12-01 10:36 | Emergency (ER) | payer OTHER ==
[2017-12-01] MEDS ORDERED: traMADol TAB* 50 MG PO ONE (12:16)
--- NOTE | 2017-12-01 13:05 | RAD ---
HISTORY: Fall, pain over left buttock COMPARISONS: None VIEWS: 5 , Frontal, lateral, coned-down lateral sacral, and bilateral oblique views of the lumbar spine. FINDINGS: The study is somewhat technically limited secondary to body habitus. ALIGNMENT: The alignment is normal. VERTEBRAL BODIES: The vertebral body heights are normal. The interpedicular distances are normal. There is mild anterolateral marginal osteophyte formation. Incidentally noted is a dysraphic defect of the posterior arch of L1. There are questionable bilateral pars defects at L5 JOINTS: The facet joints are normal. INTERVERTEBRAL DISCS: There is mild diffuse loss of intervertebral disc height. SOFT TISSUE: Unremarkable. OTHER: On the lateral projection, there is suggestion of a nondisplaced transverse fracture through the first coccygeal vertebral body. IMPRESSION: 1. PROBABLE NONDISPLACED TRANSVERSE FRACTURE THROUGH THE FIRST COCCYGEAL VERTEBRAL BODY. 2. QUESTIONABLE BILATERAL PARS DEFECTS AT L5. 3. MILD DEGENERATIVE DISC DISEASE
[2017-12-01 13:22] VITALS: BP 119/77
--- NOTE | 2017-12-01 13:24 | UC ---
Hip/Pelvis Pain - HPI Summary HPI Summary: 32 y/o with c/o falling in shower yesterday, + pain over tailbone, L buttock, no numbness, tingling, sharp pain better with weight off, worse with sitting on it, walking, or putting pressure on it. no bowel. bladder incontinence, has had diarrhea for several days, at fall did have small amount of incontinence but since has had no difficulties. no LOC, dizziness. denies spasms. - History Of Current Complaint Chief Complaint: UCBackPain Stated Complaint: TAIL BONE INJURY Time Seen by Provider: 12/01/17 12:01 Hx Obtained From: Patient Hx Last Menstrual Period: 11/02/17 ?: No Onset/Duration: Sudden Onset, Lasting Hours Timing: Constant Severity Initially: Moderate Severity Currently: Moderate Pain Intensity: 4 Pain Scale Used: 0-10 Numeric - Allergies/Home Medications Allergies/Adverse Reactions: Allergies Allergy/AdvReac Type Severity Reaction Status Date / Time strawberries Allergy anaph Uncoded 12/01/17 10:51 PMH/Surg Hx/FS Hx/Imm Hx Previously Healthy: Yes - + for MH - Surgical History Surgical History: Yes Surgery Procedure, Year, and Place: [facility]/APPY/RT OVARY AND RT [place] TUBE REMOVED/TUBAL LIGATION - Family History Known Family History: Positive: Diabetes, Other - CVA, liver dz, schizophrenia, anxiety, alcohol abuse - Social History Alcohol Use: None Alcohol Amount: none Substance Use Type: None, Other Substance Use Comment - Amount & Last Used: Last time 07/18/17 (cocaine), pt states she is not using currently Smoking Status (MU): Current Every Day Smoker Type: Cigarettes Amount Used/How Often: 1 PPD Length of Time of Smoking/Using Tobacco: 2 years Have You Smoked in the Last Year: Yes When Did the Patient Quit Smoking/Using Tobacco: Patient smoked cigarette within the last 30 days Household Exposure Type: Cigarettes - Immunization History Most Recent Influenza Vaccination: unknown Most Recent Tetanus Shot: unknown Most Recent Pneumonia Vaccination: none Review of Systems Musculoskeletal: Arthralgia, Decreased ROM, Myalgia Is Patient Immunocompromised?: No All Other Systems Reviewed And Are Negative: Yes Physical Exam Triage Information Reviewed: Yes Appearance: Well-Appearing, Well-Nourished, Pain Distress - mild Vital Signs: Initial Vital Signs Temp 98.1 F 12/01/17 10:47 Pulse 121 12/01/17 10:47 Resp 20 12/01/17 10:47 BP 77/56 12/01/17 10:47 Pulse Ox 97 12/01/17 10:47 BP rechecked, wnls at 128/86 Vital Signs Reviewed: Yes Eyes: Positive: Conjunctiva Clear ENT: Positive: Normal ENT inspection Abdomen Description: Positive: Nontender, No Organomegaly, Soft Musculoskeletal: Positive: Other: - paraspinal tenderness and TTP over L4, L5 region, and over coccyx. minimal tenderness over pelvis, no soft tissue tenderness, no bruising, edema noted. + rectal tone on examination. Neurological Exam: Normal Neurological: Positive: Other: - SITLT b/l LEs Psychological Exam: Normal Skin Exam: Normal Hip Injury Course/Dx - Course Course Of Treatment: x-ray- probab non-disp coccyx fracture, conservative treatment, pain meds given. f/u with PCP or ortho - Differential Dx/Diagnosis Differential Diagnosis/HQI/PQRI: Contusion, Infection, Osteomyelitis, Sprain, Strain Provider Diagnoses: fracture of coccyx, non-displaced Discharge - Sign-Out/Discharge Documenting (check all that apply): Discharge - Discharge Plan Condition: Good Disposition: HOME Prescriptions: HYDROcodone/ACETAMIN 5-325 MG* [Myrtle 5-325 TAB*] 1 tab PO Q4H PRN #15 tab MDD 6 PRN Reason: Pain Patient Education Materials: Coccyx Injury (ED) Forms: *Work Release Referrals: Efrain Jimenez MD [Primary Care Provider] - Lj Leger MD [Medical Doctor] - Additional Instructions: - Motrin 600mg every 6 hours for inflammation, pain - Myrtle 5/325 mg every 4-6 hours as needed for pain - Increase rest - Hot packs as needed for pain - work note given - sit on pillow or donut cushion for comfort. - REturn to ER with increased pain, decreased sensation, bowel or bladder incontinence. - Billing Disposition and Condition Condition: GOOD Disposition: HOME
[2017-12-01] MEDS ORDERED: HYDROcodone/ACETAMIN 5-325 MG* 1 TAB PO ONE (13:28)
== END 2017-12-01 13:36 | disposition home or self-care (01) ==
LOC: UCEAST 10:36
DX: S32.2XXA Fracture of coccyx, initial encounter for closed fracture (principal); W18.2XXA Fall in (into) shower or empty bathtub, initial encounter; Y93.E1 Activity, personal bathing and showering; Y92.002 Bathroom of unspecified non-institutional (private) residence as the place of occurrence of the external cause; F17.210 Nicotine dependence, cigarettes, uncomplicated
CPT/HCPCS: 72110; 99212; A9270-GY; G0463

== ENCOUNTER 2018-01-11 18:34 | Inpatient (IN) | payer OTHER ==
[2018-01-11] MEDS ORDERED: hydrOXYzine HCL TAB* 25 MG PO ONE (19:30)
[2018-01-11 19:49] LABS: ABS Basophils 0 10^3/ul (0-0.2); ABS Eosinophils 0.1 10^3/ul (0-0.6); ABS Lymphocytes 1.7 10^3/ul (1.0-4.8); ABS Monocytes 0.5 10^3/ul (0-0.8); ABS Neutrophils 4.2 10^3/ul (1.5-7.7); ABS Nucleated RBC 0 10^3/ul; Eosinophil % 1.4 % (0-6); Hematocrit 41 % (35-47); Hemoglobin 13.9 g/dl (12.0-16.0); Lymphocyte % 25.8 % (25-47); Mean Corpuscular HGB Conc 34 g/dl (31-36); Mean Corpuscular Hemoglobin 30 pg (27-31); Mean Corpuscular Volume 90 fL (80-97); Mean Platelet Volume 9.3 um3 (7.4-10.4); Nucleated Red Blood Cells % 0; Platelet Count 168 10^3/ul (150-450); Red Blood Count 4.58 10^6/ul (4.0-5.4); Red Cell Distribution Width 14 % (10.5-15); White Blood Count 6.5 10^3/ul (3.5-10.8)
[2018-01-11 20:07] LABS: EGFR Non-African American 75.9 (>60)
[2018-01-11] MEDS ORDERED: clonazePAM TAB(*) 1 MG PO ONE (20:22)
[2018-01-11 20:45] LABS: Urine Appearance Clear; Urine Blood Negative (Negative); Urine Color Yellow; Urine Ketones Trace (Negative); Urine Protein Negative (Negative); Urine Specific Gravity 1.013 (1.010-1.030); Urine Urobilinogen Negative (Negative)
[2018-01-12] MEDS ORDERED: Sertraline* 50 MG TAB PO ONE (02:53)
[2018-01-12] MEDS ORDERED: traZODone TAB* 100 MG PO ONE (02:53)
[2018-01-12] MEDS ORDERED: Gabapentin CAP(*) 300 MG PO ONE ×2 (02:54→09:00)
[2018-01-12] MEDS ORDERED: busPIRone TAB* 10 MG PO ONE (02:54)
--- NOTE | 2018-01-12 03:26 | ED ---
Mynor Arce Rebecca, scribed for Jarrod Han on 01/11/18 at 2014 . Psychiatric Complaint - HPI Summary HPI Summary: Pt is a 33 y/o F who presents to ED c/o worsening anxiety and paranoia. Sx have been present for about 1.5 weeks and have been aggravated by recent medication noncompliance - stopped her a.m. dose of Abilify. Reports feeling suicidal, anxious and paranoid with auditory hallucinations and that she has been scratching her skin. Denies any drug use. Has an appointment with her therapist in March. PMHx bipolar, depression, anxiety, PTSD, and borderline personality disorder. - History Of Current Complaint Chief Complaint: EDMentalHealth Time Seen by Provider: 01/11/18 19:47 Hx Obtained From: Patient Hx Last Menstrual Period: 11/02/17 Onset/Duration: Lasting Weeks - 1.5 weeks, Still Present Character: Anxious Aggravating Factor(s): Medication Non-compliance - Abilify a.m. Associated Signs And Symptoms: Positive: Hallucinating - Auditory Related History: Positive For: Prior Psychiatric Issues - Anxiety, depression, PTSD, borderline personality disorder, bipolar Has Suicidal: Reports: Thoughts - "feeling suicidal" - Allergies/Home Medications Allergies/Adverse Reactions: Allergies Allergy/AdvReac Type Severity Reaction Status Date / Time strawberries Allergy anaph Uncoded 12/01/17 10:51 Home Medications: Home Medications ARIPiprazole TAB* [Abilify TAB*] 5 mg PO QAM 01/11/18 [History Confirmed ] Gabapentin CAP(*) [Neurontin 300 CAP(*)] 300 mg PO QID 01/11/18 [History Confirmed 01/11/18] Sertraline* [Zoloft*] 50 mg PO QPM 01/11/18 [History Confirmed 01/11/18] busPIRone TAB* [Buspar TAB*] 10 mg PO TID 01/11/18 [History Confirmed 01/11/18] clonazePAM TAB(*) [KlonoPIN TAB(*)] 1 mg PO BID PRN 01/11/18 [History Confirmed 01/11/18] traZODone TAB* [Desyrel TAB*] 200 mg PO QPM 01/11/18 [History Confirmed 01/11/18 ] PMH/Surg Hx/FS Hx/Imm Hx Endocrine/Hematology History: Reports: Hx Unexplained Bleeding - reports uncontrollable bleeding one month ago and taking "orange" pill Denies: Hx Diabetes Cardiovascular History: Denies: Hx Congestive Heart Failure, Hx Deep Vein Thrombosis, Hx Embolism, Hx Hypotension, Hx Hypertension, Hx Pacemaker/ICD Respiratory History: Denies: Hx Asthma, Hx Chronic Bronchitis, Hx Pneumonia GI History: Reports: Hx Gall Bladder Disease - Gall bladder removed "couple of years ago", Other GI Disorders - dysphagia occasional Denies: Hx Crohn's Disease, Hx Gastroesophageal Reflux Disease, Hx Irritable Bowel, Hx Ulcer History: Denies: Hx Acute Renal Failure, Hx Dialysis, Hx Kidney Stones, Hx Renal Disease Musculoskeletal History: Reports: Other Musculoskeletal History - fracture in left knee Denies: Hx Arthritis, Hx Fibromyalgia, Hx Orthopedic Injury Sensory History: Denies: Hx Cataracts, Hx Contacts or Glasses, Hx Vision Problem, Hx Hearing Aid Opthamlomology History: Denies: Hx Cataracts, Hx Contacts or Glasses, Hx Vision Problem Neurological History: Reports: Hx Headaches Denies: Hx Migraine, Hx Seizures Psychiatric History: Reports: Hx Anxiety, Hx Depression, Hx Post Traumatic Stress Disorder, Hx Inpatient Treatment, Hx Community Mental Health Tx, Hx Bipolar Disorder, Hx Suicide Attempt, Hx Substance Abuse, Other Psychiatric Issues/Disorders - borderline personality disorder Denies: Hx Eating Disorder, Hx of Violent Episodes Against Others - Surgical History Surgery Procedure, Year, and Place: [facility]/APPY/RT OVARY AND RT [place] TUBE REMOVED/TUBAL LIGATION Infectious Disease History: No Infectious Disease History: Denies: Traveled Outside the [place] in Last 30 Days - Family History Known Family History: Positive: Diabetes, Other - CVA, liver dz, schizophrenia, anxiety, alcohol abuse - Social History Alcohol Use: None Alcohol Amount: none Hx Substance Use: Yes Substance Use Type: Reports: None, Other Substance Use Comment - Amount & Last Used: Last time 07/18/17 (cocaine), pt states she is not using currently Hx Tobacco Use: Yes Smoking Status (MU): Current Every Day Smoker Type: Cigarettes Amount Used/How Often: 1 PPD Length of Time of Smoking/Using Tobacco: 2 years Have You Smoked in the Last Year: Yes Review of Systems Negative: Fever Positive: Other - Scratching her skin Neurological: Other - Auditory hallucinations Positive: Anxious, Other - Paranoia, suicidal All Other Systems Reviewed And Are Negative: Yes Physical Exam - Summary Physical Exam Summary: Appearance: Well appearing, no pain distress Skin: warm, dry, reflects adequate perfusion Head/face: normal Eyes: EOMI, ÓSCAR ENT: normal Neck: supple, non-tender Respiratory: CTA, breath sounds present Cardiovascular: RRR, pulses symmetrical Musculoskeletal: normal, strength/ROM intact Neuro: normal, sensory motor intact, A&Ox Psych: Depressed affect Triage Information Reviewed: Yes Vital Signs On Initial Exam: Initial Vitals Temp Pulse Resp BP Pulse Ox 98.4 F 84 16 118/83 100 01/11/18 18:48 01/11/18 18:48 01/11/18 18:48 01/11/18 18:48 01/11/18 18:48 Vital Signs Reviewed: Yes Diagnostics - Vital Signs Vital Signs Temp Pulse Resp BP Pulse Ox 01/11/18 18:48 98.4 F 84 16 118/83 100 - Laboratory Lab Results: Lab Results 01/11/18 01/11/18 Range/Units 19:40 19:40 WBC 6.5 (3.5-10.8) 10^3/ul RBC 4.58 (4.0-5.4) 10^6/ul Hgb 13.9 (12.0-16.0) g/dl Hct 41 (35-47) % MCV 90 (80-97) fL MCH 30 (27-31) pg MCHC 34 (31-36) g/dl RDW 14 (10.5-15) % Plt Count 168 (150-450) 10^3/ul MPV 9.3 (7.4-10.4) um3 Neut % (Auto) 64.0 (38-83) % Lymph % (Auto) 25.8 (25-47) % [place] % (Auto) 8.1 H (0-7) % Eos % (Auto) 1.4 (0-6) % Baso % (Auto) 0.7 (0-2) % Absolute Neuts (auto) 4.2 (1.5-7.7) 10^3/ul Absolute Lymphs (auto) 1.7 (1.0-4.8) 10^3/ul Absolute Monos (auto) 0.5 (0-0.8) 10^3/ul Absolute Eos (auto) 0.1 (0-0.6) 10^3/ul Absolute Basos (auto) 0 (0-0.2) 10^3/ul Absolute Nucleated RBC 0 10^3/ul Nucleated RBC % 0 Sodium 137 L (139-145) mmol/L Potassium 3.7 (3.5-5.0) mmol/L Chloride 103 (101-111) mmol/L Carbon Dioxide 27 (22-32) mmol/L Anion Gap 7 (2-11) mmol/L BUN 8 (6-24) mg/dL Creatinine 0.87 (0.51-0.95) mg/dL Est GFR ( Amer) 97.7 (>60) Est GFR (Non-Af Amer) 75.9 (>60) BUN/Creatinine Ratio 9.2 (8-20) Glucose 114 H (70-100) mg/dL Calcium 9.2 (8.6-10.3) mg/dL Total Bilirubin 0.20 (0.2-1.0) mg/dL AST 14 (13-39) U/L ALT 13 (7-52) U/L Alkaline Phosphatase 57 (34-104) U/L Total Protein 7.3 (6.4-8.9) g/dL Albumin 4.2 (3.2-5.2) g/dL Globulin 3.1 (2-4) g/dL Albumin/Globulin Ratio 1.4 (1-3) TSH Pending Beta HCG, Quant Pending Salicylates Pending Acetaminophen Pending Serum Alcohol Pending Result Diagrams: 01/11/18 19:40 01/11/18 19:40 Lab Statement: Any lab studies that have been ordered have been reviewed, and results considered in the medical decision making process. Course/Dx - Course Assessment/Plan: Pt is a 33 y/o F who presents to ED c/o worsening anxiety, paranoia, "feeling suicidal" with auditory hallucinations and scratching at skin for about 1.5 weeks, aggravated by recent medication noncompliance - stopped her a.m. dose of Abilify. Denies any drug use. Has an appointment with her therapist in March. PMHx bipolar, depression, anxiety, PTSD, and borderline personality disorder. Blood work, toxicology and UA were done. Medically cleared for [facility] at 2046. In the ED course, pt recevied Klonopin and Atarax. Pt will be a MHU Hold until the morning. Conditions seems mostly due to a medication issue, she will be re-evaluated in the morning, likely to be discharged. Pt will be signed out to Dr. Darling, pending dispo. - Differential Dx/Clinical Impression Provider Diagnosis: Depression Discharge - Sign-Out/Discharge Documenting (check all that apply): Sign-Out Patient Signing out patient TO: Frandy Darling - Pending dispo - Discharge Plan Condition: Stable Referrals: Efrain Jimenez MD [Primary Care Provider] - The documentation as recorded by the Mynor candelaria Rebecca accurately reflects the service I personally performed and the decisions made by Guille wilkins Emmanuel.
[2018-01-12] MEDS ORDERED: clonazePAM TAB(*) 1 MG PO ONE (08:12)
--- NOTE | 2018-01-12 09:50 | PN ---
ED Flex Patient Progress Note Subjective: This is a 33 year-old F who is pending psychiatric reassessment secondary to ___ __poor compliance with medication /mood disorder . patient admits she stopped her Abilify a few weeks ago. Pt offers no complaints at this time other than she would like her morning dose of Klonopin and she reports she missed her nighttime dose. (Note: She was given a nighttime dose of Klonopin while here). Patient ate breakfast without difficulty. Objective: Vitals: Most recent vital signs documented below. General NAD, Alert and oriented x3. Patient sleeping comfortably in bed upon entrance to room Heart: rrr S1-S2 Lungs: CTA breathing easily Abdomen: Soft, nontender, positive bowel sounds Laboratory: Current laboratory results documented below. Assessment: Poor med compliance, mood disorder Plan: Pending psychiatric reassessment. Will follow up daily __while in ED___. Vital Signs Temp Pulse Resp BP Pulse Ox 98.7 F 77 16 105/59 100 01/12/18 08:37 01/12/18 08:37 01/12/18 08:37 01/12/18 08:37 01/12/18 08:37 Lab Results - Entire Visit 01/11/18 01/11/18 01/11/18 20:30 20:30 19:40 WBC 6.5 RBC 4.58 Hgb 13.9 Hct 41 MCV 90 MCH 30 MCHC 34 RDW 14 Plt Count 168 MPV 9.3 Neut % (Auto) 64.0 Lymph % (Auto) 25.8 [place] % (Auto) 8.1 H Eos % (Auto) 1.4 Baso % (Auto) 0.7 Absolute Neuts (auto) 4.2 Absolute Lymphs (auto) 1.7 Absolute Monos (auto) 0.5 Absolute Eos (auto) 0.1 Absolute Basos (auto) 0 Absolute Nucleated RBC 0 Nucleated RBC % 0 Sodium Potassium Chloride Carbon Dioxide Anion Gap BUN Creatinine Est GFR ( Amer) Est GFR (Non-Af Amer) BUN/Creatinine Ratio Glucose Calcium Total Bilirubin AST ALT Alkaline Phosphatase Total Protein Albumin Globulin Albumin/Globulin Ratio TSH Beta HCG, Quant Urine Color Yellow Urine Appearance Clear Urine pH 6.0 Ur Specific [place] 1.013 Urine Protein Negative Urine Ketones Trace A Urine Blood Negative Urine Nitrate Negative Urine Bilirubin Negative Urine Urobilinogen Negative Ur Leukocyte Esterase Negative Urine Glucose Negative Salicylates Urine Opiates Screen None detected Acetaminophen Ur Barbiturates Screen None detected Ur Phencyclidine Scrn None detected Ur Amphetamines Screen None detected U Benzodiazepines Scrn None detected Urine Cocaine Screen None detected U Cannabinoids Screen None detected Serum Alcohol 01/11/18 19:40 WBC RBC Hgb Hct MCV MCH MCHC RDW Plt Count MPV Neut % (Auto) Lymph % (Auto) [place] % (Auto) Eos % (Auto) Baso % (Auto) Absolute Neuts (auto) Absolute Lymphs (auto) Absolute Monos (auto) Absolute Eos (auto) Absolute Basos (auto) Absolute Nucleated RBC Nucleated RBC % Sodium 137 L Potassium 3.7 Chloride 103 Carbon Dioxide 27 Anion Gap 7 BUN 8 Creatinine 0.87 Est GFR ( Amer) 97.7 Est GFR (Non-Af Amer) 75.9 BUN/Creatinine Ratio 9.2 Glucose 114 H Calcium 9.2 Total Bilirubin 0.20 AST 14 ALT 13 Alkaline Phosphatase 57 Total Protein 7.3 Albumin 4.2 Globulin 3.1 Albumin/Globulin Ratio 1.4 TSH 1.96 Beta HCG, Quant < 0.60 Urine Color Urine Appearance Urine pH Ur Specific [place] Urine Protein Urine Ketones Urine Blood Urine Nitrate Urine Bilirubin Urine Urobilinogen Ur Leukocyte Esterase Urine Glucose Salicylates < 2.50 Urine Opiates Screen Acetaminophen < 15 Ur Barbiturates Screen Ur Phencyclidine Scrn Ur Amphetamines Screen U Benzodiazepines Scrn Urine Cocaine Screen U Cannabinoids Screen Serum Alcohol < 10
[2018-01-12] MEDS ORDERED: busPIRone TAB* 15 MG PO ONE (11:00)
--- NOTE | 2018-01-12 12:35 | ED ---
IAngel Stephanie, scribed for Frandy Darling MD on 01/12/18 at 1155 . Progress - Progress Note Progress Note: Assumed care in sign out from previous ER physician. Patient had been observed through the night receiving mental health evaluation. It was elected that she be admitted for further care. She has remained medically stable. - Consult/PCP Time Called: 18:34 Course/Dx - Diagnoses Provider Diagnoses: Major depressive disorder with psychotic features Discharge - Sign-Out/Discharge Documenting (check all that apply): Discharge/Admit/Transfer - discharge - Discharge Plan Condition: Stable Disposition: ADMITTED TO [facility] Referrals: Efrain Jimenez MD [Primary Care Provider] - - Billing Disposition and Condition Condition: STABLE Disposition: [facility] [place] The documentation as recorded by the Angel candelaria Stephanie accurately reflects the service I personally performed and the decisions made by Lisset wilkins Kirk, MD.
[2018-01-12] MEDS ORDERED: Acetaminophen TAB* 325 MG PO PRN (13:26)
[2018-01-12] MEDS ORDERED: Al Hydrox/Mg Hydrox/Simet LIQ* 30 ML UDC PO PRN (13:26)
[2018-01-12] MEDS ORDERED: Mouth Piece, Nicotine* 1 EACH CARTRIDGE INH PRN (13:29)
[2018-01-12] MEDS ORDERED: Nicotine GUM* 2 MG PO PRN (13:29)
[2018-01-12] MEDS: busPIRone TAB* 10 MG PO SCH ×2 (17:23→21:35)
[2018-01-12] MEDS: ARIPiprazole TAB* 5 MG PO SCH (17:24)
[2018-01-12] MEDS: Gabapentin CAP(*) 300 MG PO SCH ×2 (17:24→21:35)
[2018-01-12] MEDS ORDERED: traZODone TAB* 100 MG PO SCH (18:00)
[2018-01-12] MEDS ORDERED: Sertraline* 50 MG TAB PO SCH ×2 (18:00→21:00)
[2018-01-12] MEDS: Nicotine Inhaler* 10 MG AMP INH PRN (19:12)
[2018-01-12] MEDS: traZODone TAB* 100 MG PO SCH (21:36)
[2018-01-13] MEDS: busPIRone TAB* 10 MG PO SCH ×3 (08:24→20:09)
[2018-01-13] MEDS: ARIPiprazole TAB* 5 MG PO SCH (08:24)
[2018-01-13] MEDS: Gabapentin CAP(*) 300 MG PO SCH ×4 (08:25→20:10)
[2018-01-13] MEDS: Nicotine Inhaler* 10 MG AMP INH PRN (08:26)
[2018-01-13] MEDS: Citalopram TAB* 20 MG PO SCH (11:16)
[2018-01-13] MEDS: hydrOXYzine HCL TAB* 50 MG PO PRN ×3 (11:16→19:44)
--- NOTE | 2018-01-13 14:29 | HP ---
HISTORY AND PHYSICAL: DATE OF ADMISSION: 01/12/18 PROVIDER: Joyce Doe NP, in Psychiatry. SUPERVISING PHYSICIAN: Blake Ocasio MD.* (DICTATED BY JOYCE DOE NP ) JUSTIFICATION FOR ADMISSION: The patient is in need of 24-hour supervision and care secondary to suicidal ideation. CHIEF COMPLAINT: "I stopped taking my meds and things got worse; this has all been a buildup." HISTORY OF PRESENT ILLNESS: The patient is a 33-year-old female who is partnered and has a history of schizoaffective disorder, who arrives brought in by herself. She is on a voluntary status after having suicidal thoughts related to no known precipitating event other than feeling ignored by clinic providers. Sejal has had been a frequent visitor here; in 2016 having 7 visits to the behavioral services unit. She has not been seen yet in 2018 and in fact was last seen in July 2017. She started taking Abilify at her last visit here back in July. She stopped taking it about 2 weeks when she was feeling dizzy and fatigued in the morning upon getting up. She decided that because people at the clinic were not answering her phone calls regarding these symptoms, she would stop taking it entirely. She states with some insight that she guesses, it was not the best decision, but that is what she did because she felt like she was ignored. She is sleeping. Her interest is poor. Energy is low. She is a bit irritable and she has suicidal ideation. PAST PSYCHIATRIC HISTORY: As stated before, this is the eighth psychiatric admission for Sejal at the behavioral services unit since 2016. She had seen Dr. Franco Maharaj in the past. As an outpatient, she goes to [facility], sees Martha Clark, and goes to the [facility] program. She has had suicide attempts in the past after attempting to hang herself with a belt for example. She has in the past reported command auditory hallucinations. She appears to have had a traumatic background. She does have a history of using cocaine, alcohol, among other substances. She is interested in continuing to take Klonopin, which I am tapering her off of. FAMILY HISTORY: Mother has a diagnosis of schizophrenia. SUBSTANCE ABUSE: As already mentioned, we have nicotine, alcohol, and cocaine. She does go to and she stopped using those substances in early July 2017. SOCIAL HISTORY: She is living in an apartment with her boyfriend Omari. Omari moved in with her somewhat recently. She is in the process of getting a bachelor's degree. She is not employed. She is not in the . She does not have any legal problems pending. She is in the [facility] program. REVIEW OF SYSTEMS: The patient reports feeling fatigued and anxious. Denies shortness of breath, heat or cold intolerance, chest pain, or abdominal pain. Denies neurological symptoms. Denies fever or changes in weight. PHYSICAL EXAMINATION VITAL SIGNS: Temperature 98.0, pulse is 73, respiratory rate 20, O2 sat on room air is 90, blood pressure 108/60. For further exam data, please see emergency department records. DIAGNOSTIC STUDIES/LAB DATA: She has some slight irregularities that are not significant. Her toxicology screen is clear of all drugs that we test for. Hemoglobin A1c 6 months ago was 5.4, and also 6 months ago as on 07/07/17 triglycerides were 264, cholesterol 165, LDL cholesterol 64, HDL cholesterol 38.7. Of note is her TSH today is 1.96. She is not . MENTAL STATUS EXAMINATION: This is a moderately obese woman with dark hair that is piled on top of her head. She is wearing a [employer] T-shirt. Her grooming is adequate. She is sitting still and not fidgeting. She is calm and cooperative, although there is an irritable edge. Her speech is of normal rate , tone, and volume. Mood is apparently euthymic. Affect is constricted. Her thought processes are logical. Thought content free from delusions. She is not homicidal. She states she is still having suicidal thoughts. She is not having hallucinations. Her insight is fair. Her judgment is fair. She is alert and awake x3. She is of average intelligence. DIAGNOSES: Stafford I: Schizoaffective disorder, bipolar type. Stafford II: Cluster B traits. IMPRESSION: This is a 33-year-old woman who is savvy when comes to get in what she wants from the system. She is reasonably pleasant to deal with. She has had physical stressors such as dizziness and fatigue from taking her medications , so she stopped taking her medication. She did not wait for Outpatient to call her back. She is missing an outpatient appointment due to being an inpatient. PLAN: The patient is admitted to the adult behavioral health unit and placed on q. 15-minute checks for her own safety. Sejal is encouraged to participate in supportive milieu, individual, and group therapy. Medications will be restarted and re-evaluated. ESTIMATED LENGTH OF STAY: Three days. We will make med changes and titrate to efficacy. We are going to monitor for mood and thought content as well as side effects. Discharge planning will include outpatient providers. JOYCE DOE, NEVA [id number]/[facility] #: [id number] CHEYANNE
[2018-01-13] MEDS ORDERED: Lurasidone(*) 40 MG TAB PO SCH (17:00)
[2018-01-13] MEDS: traZODone TAB* 100 MG PO SCH (20:06)
[2018-01-13] MEDS ORDERED: clonazePAM TAB(*) 0.5 MG PO SCH (21:00)
[2018-01-14 08:02] VITALS: BP 109/66
[2018-01-14] MEDS: Gabapentin CAP(*) 300 MG PO SCH (08:41)
[2018-01-14] MEDS: Citalopram TAB* 20 MG PO SCH (08:41)
[2018-01-14] MEDS: busPIRone TAB* 10 MG PO SCH (08:41)
--- NOTE | 2018-01-14 16:26 | DS ---
DATE OF ADMISSION: 01/12/2018. DATE OF DISCHARGE: 01/14/2018. PROVIDER: Joyce Doe NP in Psychiatry. SUPERVISING PSYCHIATRIST: Dr. Blake Ocasio * (dictated by Joyce Doe NP ). DIAGNOSES: AXIS I: Schizoaffective disorder, bipolar type. AXIS II: Cluster B traits. CONDITION AT THE TIME OF DISCHARGE: Improved, psychiatrically cleared, stable. Sejal participated in groups and was social with peers. She did reasonably well here psychiatrically. She had many med changes and she tolerated those new meds well. She will return to [facility] program. MENTAL STATUS EXAM: At the time of discharge, Sejal is calm and cooperative and she makes good eye contact. She is alert and oriented times three. Her grooming is adequate. Her speech is normal. Her thought processes are logical. She is not psychotic, not delusional. She denies auditory and visual hallucinations. She denies suicidal and homicidal ideation. Insight and judgment are fair to good. She is willing to follow-up. DISCHARGE INSTRUCTIONS TO THE PATIENT: A. Medications: Many medications were changed. These eventually included Trazodone 200 mg at bedtime, Latuda 40 mg at 5 o'clock with food, Hydroxyzine 50 mg q.4 hours prn anxiety, Gabapentin 300 mg p.o. q.i.d., Celexa 20 mg p.o. daily (I wanted this to be Lexapro 10, but it was auto substituted), BuSpar 25 mg b.i.d., and a taper off of Klonopin so I did not prescribe her Klonopin 0.5 at bedtime. B. Diet: Regular. C. Activities: As tolerated. She is a smoker. She has been given a referral to the [place] [facility] at . There are no studies pending at the time of discharge. D. Follow-up care: Sejal has an appointment at [facility] on . E. Substance abuse follow-up: Sejal has been clean and sober since July , so substance abuse was no indicated. HOSPITAL COURSE - PART A: Reason for admission: The patient is a 33-year-old female who is partnered and has a history of schizoaffective disorder. She is on a voluntary status after having suicidal thoughts related to no known precipitating event other than feeling ignored by clinic providers. Sejal had been a frequent visitor here; in 2016 having seven visits to the Behavioral Services Unit. She has not been seen yet in 2018 and, in fact, was last seen in July 2017. She started taking Abilify at her last visit here back in July. She stopped taking it about two weeks ago when she was feeling dizzy and fatigued in the morning upon getting up. She decided that because people at the clinic were not answering her phone calls regarding these symptoms, she would stop taking it entirely. She states with some insight that she guesses it was not the best decision, but that is what she did because she felt like she was ignored. She is sleeping well. Her interest is poor. Energy is low. She is a bit irritable and she has suicidal ideation. HOSPITAL COURSE - PART B: Psychiatric treatment rendered: The patient was admitted to the Adult Behavioral Unit and placed on 15 minute checks for safety. The patient did well on the unit and did go to groups. She interacted with peers. She did tolerate med changes. Latuda replaced Abilify, dose of BuSpar was increased, Hydroxyzine was added, Lexapro was added, Zoloft was discontinued. As far as HA1C and lipids go, on the 11 of January her hemoglobin A1c was 5.0 and her lipid panel included triglycerides at 95, cholesterol at 165, LDL cholesterol at 105, HDL cholesterol 41.0. Her fiance, Jenaro, did visit her. No consults were entered. She is improved. She feels more confident on new medications. She is interested in trying to continue those and is self-motivated for discharge. JOYCE DOE, NEVA [id number]/[facility] #: [id number] [place]YANNE
== END 2018-01-14 11:53 | disposition home or self-care (01) | DRG 750 ==
LOC: ED 18:34 → BSU 01-12 16:35
PROVIDERS: ADMIT Psychiatry & Neurology Psychiatry; ATTEND Psychiatry & Neurology Psychiatry
DX: F25.0 Schizoaffective disorder, bipolar type (principal); R45.851 Suicidal ideations; Z68.41 Body mass index [BMI] 40.0-44.9, adult; F41.9 Anxiety disorder, unspecified; F60.3 Borderline personality disorder; F43.10 Post-traumatic stress disorder, unspecified; F17.210 Nicotine dependence, cigarettes, uncomplicated; E66.9 Obesity, unspecified; Z91.5 Personal history of self-harm; Z90.49 Acquired absence of other specified parts of digestive tract; Z82.3 Family history of stroke; Z83.3 Family history of diabetes mellitus; Z91.018 Allergy to other foods; Z91.14 Patient's other noncompliance with medication regimen; Z81.8 Family history of other mental and behavioral disorders; Z81.1 Family history of alcohol abuse and dependence
CPT/HCPCS: 36415; 80053; 80061; 80307; 80320; 80329; 81003; 83036; 84443; 84702; 85025; 99222; 99238; 99284; A9270-GY; G0480

== ENCOUNTER 2018-02-17 21:33 | Emergency (ER) | payer OTHER ==
[2018-02-17 21:40] VITALS: BP 118/64
[2018-02-17] MEDS ORDERED: Ibuprofen TAB* 600 MG PO ONE (22:17)
[2018-02-17] MEDS ORDERED: Cephalexin CAP* 500 MG PO ONE (22:17)
[2018-02-17] MEDS ORDERED: Tetan/Diph/Pertus SYR(Tdap)* 0.5 ML SYR(BOOSTRIX) use SYR IM ONE (22:19)
--- NOTE | 2018-02-17 22:20 | ED ---
Laceration/Wound HPI - HPI Summary HPI Summary: Complains of laceration to the top of her head when she stood up and hit her head on the corner of a cabinet. Denies LOC, N/V, vision change, YAÑEZ, EMS. Patient ambulatory. Bleeding controlled. Medical history is none. - History of Current Complaint Stated Complaint: HEAD INJURY Time Seen by Provider: 02/17/18 21:47 Hx Obtained From: Patient Hx Last Menstrual Period: 11/02/17 Onset/Duration: Sudden Onset Onset Severity: Moderate Current Severity: Moderate Pain Intensity: 7 Pain Scale Used: 0-10 Numeric Associated Signs & Symptoms: Negative - Additional Pertinent History Primary Care Physician: [id number] - Allergy/Home Medications Allergies/Adverse Reactions: Allergies Allergy/AdvReac Type Severity Reaction Status Date / Time garlic Allergy Anaphylatic Verified 02/17/18 21:40 Shock peanut Allergy Anaphylatic Verified 02/17/18 21:40 Shock strawberries Allergy Anaphylatic Uncoded 02/17/18 21:40 Shock PMH/Surg Hx/FS Hx/Imm Hx Endocrine/Hematology History: Denies: Hx Diabetes, Hx Thyroid Disease, Hx Unexplained Bleeding Cardiovascular History: Denies: Hx Congestive Heart Failure, Hx Deep Vein Thrombosis, Hx Embolism, Hx Hypotension, Hx Hypertension, Hx Pacemaker/ICD Respiratory History: Denies: Hx Asthma, Hx Chronic Bronchitis, Hx Pneumonia GI History: Reports: Hx Gall Bladder Disease - Gall bladder removed "couple of years ago", Other GI Disorders - dysphagia occasional Denies: Hx Crohn's Disease, Hx Gastroesophageal Reflux Disease, Hx Irritable Bowel, Hx Ulcer History: Reports: Other Problems/Disorders - UTI Denies: Hx Acute Renal Failure, Hx Dialysis, Hx Kidney Stones, Hx Renal Disease Musculoskeletal History: Reports: Other Musculoskeletal History - fracture in left knee, fracture of tailbone 2 weeks ago Denies: Hx Arthritis, Hx Fibromyalgia, Hx Orthopedic Injury Sensory History: Denies: Hx Cataracts, Hx Contacts or Glasses, Hx Vision Problem, Hx Hearing Aid Opthamlomology History: Denies: Hx Cataracts, Hx Contacts or Glasses, Hx Vision Problem Neurological History: Denies: Hx Headaches, Hx Migraine, Hx Seizures Psychiatric History: Reports: Hx Anxiety, Hx Depression, Hx Post Traumatic Stress Disorder, Hx Inpatient Treatment, Hx Community Mental Health Tx, Hx Bipolar Disorder, Hx Suicide Attempt, Hx Substance Abuse, Other Psychiatric Issues/Disorders - borderline personality disorder Denies: Hx Eating Disorder, Hx of Violent Episodes Against Others - Surgical History Surgery Procedure, Year, and Place: [facility]/APPY/RT OVARY AND RT FALLOPIAN TUBE REMOVED/TUBAL LIGATION/ tonsilectomy Infectious Disease History: No Infectious Disease History: Denies: Traveled Outside the [place] in Last 30 Days - Family History Known Family History: Positive: Diabetes, Other - CVA, liver dz, schizophrenia, anxiety, alcohol abuse - Social History Alcohol Use: None Alcohol Amount: none Hx Substance Use: Yes Substance Use Type: Reports: None Substance Use Comment - Amount & Last Used: denies use since August 2017 Hx Tobacco Use: Yes Smoking Status (MU): Current Every Day Smoker Type: Cigarettes Amount Used/How Often: 1/2 PPD Length of Time of Smoking/Using Tobacco: 2 years Have You Smoked in the Last Year: Yes Review of Systems Constitutional: Negative Eyes: Negative ENT: Negative Cardiovascular: Negative Respiratory: Negative Gastrointestinal: Negative Genitourinary: Negative Musculoskeletal: Negative Positive: Other Neurological: Negative Psychological: Normal All Other Systems Reviewed And Are Negative: Yes Physical Exam - Summary Physical Exam Summary: Small 1 cm laceration to the top of her head. Very superficial, no indication for suturing. No trauma to teeth, tongue, lips. Neuro exam normal. No ecchymosis, contusion, swelling, erythema, deformity noted to head or face. No pain with palpation of neck. Triage Information Reviewed: Yes Vital Signs On Initial Exam: Initial Vitals Temp Pulse Resp BP Pulse Ox 97.9 F 125 18 118/64 96 02/17/18 21:36 02/17/18 21:36 02/17/18 21:36 02/17/18 21:36 02/17/18 21:36 Vital Signs Reviewed: Yes Appearance: Positive: Well-Appearing Skin: Positive: Warm Head/Face: Positive: Normal Head/Face Inspection Eyes: Positive: Normal ENT: Positive: Normal ENT inspection Neck: Positive: Supple Respiratory/Lung Sounds: Positive: Clear to Auscultation Cardiovascular: Positive: Normal Abdomen Description: Positive: Nontender Musculoskeletal: Positive: Normal Neurological: Positive: Normal Psychiatric: Positive: Normal AVPU Assessment: Alert - [place] Coma Scale Best Eye Response: 4 - Spontaneous Best Motor Response: 6 - Obeys Commands Best Verbal Response: 5 - Oriented Coma Scale Total: 15 Diagnostics - Vital Signs Vital Signs Temp Pulse Resp BP Pulse Ox 02/17/18 21:36 97.9 F 125 18 118/64 96 - Laboratory Lab Statement: Any lab studies that have been ordered have been reviewed, and results considered in the medical decision making process. Laceration Repair Course/Dx - Course Course Of Treatment: Complains of laceration to the top of her head when she stood up and hit her head on the corner of a cabinet. Denies LOC, N/V, vision change, YAÑEZ, EMS. Patient ambulatory. Bleeding controlled. Medical history is none.Small 1 cm laceration to the top of her head. Very superficial, no indication for suturing. No trauma to teeth, tongue, lips. Neuro exam normal. No ecchymosis, contusion, swelling, erythema, deformity noted to head or face. No pain with palpation of neck. No indication for suturing. Tetanus shot given here in ED. Rx for Keflex. - Clinical Impression Provider Diagnoses: Laceration Discharge - Sign-Out/Discharge Documenting (check all that apply): Discharge/Admit/Transfer - Discharge Plan Condition: Stable Disposition: HOME Prescriptions: Cephalexin CAP* [Keflex CAP*] 500 mg PO TID 5 Days #15 cap Patient Education Materials: Laceration (ED) Referrals: Efrain Jimenez MD [Primary Care Provider] - Additional Instructions: Wash wound with warm running water and soap. Take antibiotics as directed. Return to the ED for any new or worsening symptoms - Billing Disposition and Condition Condition: STABLE Disposition: Home
== END 2018-02-17 22:34 | disposition home or self-care (01) ==
LOC: ED 21:33
DX: S01.01XA Laceration without foreign body of scalp, initial encounter (principal); W22.09XA Striking against other stationary object, initial encounter; Y93.9 Activity, unspecified; Y92.9 Unspecified place or not applicable; Z23 Encounter for immunization; Z87.440 Personal history of urinary (tract) infections; F41.9 Anxiety disorder, unspecified; F31.9 Bipolar disorder, unspecified; Z90.49 Acquired absence of other specified parts of digestive tract; Z90.721 Acquired absence of ovaries, unilateral; Z83.3 Family history of diabetes mellitus; Z83.79 Family history of other diseases of the digestive system; Z81.8 Family history of other mental and behavioral disorders; Z81.1 Family history of alcohol abuse and dependence; F17.210 Nicotine dependence, cigarettes, uncomplicated
CPT/HCPCS: 90471; 90715; 99282; A9270-GY

== ENCOUNTER 2018-05-10 19:33 | Emergency (ER) | payer OTHER ==
[2018-05-10] MEDS ORDERED: Metoclopramide IV* 5 MG/ML 2 ML VIAL IV SLOW PU ONE (20:20)
[2018-05-10] MEDS ORDERED: NS 0.9% 1000 ML* 1,000 ML IV ONE (20:20)
[2018-05-10] MEDS ORDERED: Diphenoxylat/Atrop 2.5-0.025M* 1 TAB PO ONE (20:21)
--- NOTE | 2018-05-10 20:45 | ED ---
Complex/Multi-Sys Presentation - HPI Summary HPI Summary: A 33 y/o female presents to ED c/o nausea and vomiting. Additionally c/o diarrhea. Currently, the patient is in no pain distress. In the ED room, the patient has a pulse of 85 BPM, O2 saturation of 97% and blood pressure of 115/ 67. As per triage, "Pt c/o nausea and vomiting since earlier today. States she is not able to keep anything down". According to the patient, she woke up today with several vomiting episodes. She also has had steady nausea all day coupled with diarrhea (liquid). She noted that she has never had nausea episodes before. She denies eating anything strange or new. LKMP was 04/26/2018. - History Of Current Complaint Chief Complaint: EDNauseaVomitDiarrh Time Seen by Provider: 05/10/18 20:07 Hx Obtained From: Patient Onset/Duration: Sudden Onset, Lasting Hours, Still Present Timing: Constant Severity Currently: None Location: Negative Aggravating Factor(s): NOTHING Alleviating Factor(s): NOTHING Associated Signs And Symptoms: Positive: Nausea, Vomiting, Diarrhea - Allergies/Home Medications Allergies/Adverse Reactions: Allergies Allergy/AdvReac Type Severity Reaction Status Date / Time garlic Allergy Anaphylatic Verified 05/10/18 19:38 Shock peanut Allergy Anaphylatic Verified 05/10/18 19:38 Shock strawberries Allergy Anaphylatic Uncoded 05/10/18 19:38 Shock Home Medications: Home Medications clonazePAM [Klonopin] 0.5 mg PO DAILY PRN 05/10/18 [History Confirmed 05/10/18] PMH/Surg Hx/FS Hx/Imm Hx Endocrine/Hematology History: Denies: Hx Diabetes, Hx Thyroid Disease, Hx Unexplained Bleeding Cardiovascular History: Denies: Hx Congestive Heart Failure, Hx Deep Vein Thrombosis, Hx Embolism, Hx Hypotension, Hx Hypertension, Hx Pacemaker/ICD Respiratory History: Denies: Hx Asthma, Hx Chronic Bronchitis, Hx Pneumonia GI History: Reports: Hx Gall Bladder Disease - Gall bladder removed "couple of years ago", Other GI Disorders - dysphagia occasional Denies: Hx Crohn's Disease, Hx Gastroesophageal Reflux Disease, Hx Irritable Bowel, Hx Ulcer History: Reports: Other Problems/Disorders - UTI Denies: Hx Acute Renal Failure, Hx Dialysis, Hx Kidney Stones, Hx Renal Disease Musculoskeletal History: Reports: Other Musculoskeletal History - fracture in left knee, fracture of tailbone 2 weeks ago Denies: Hx Arthritis, Hx Fibromyalgia, Hx Orthopedic Injury Sensory History: Denies: Hx Cataracts, Hx Contacts or Glasses, Hx Vision Problem, Hx Hearing Aid Opthamlomology History: Denies: Hx Cataracts, Hx Contacts or Glasses, Hx Vision Problem Neurological History: Denies: Hx Headaches, Hx Migraine, Hx Seizures Psychiatric History: Reports: Hx Anxiety, Hx Depression, Hx Post Traumatic Stress Disorder, Hx Inpatient Treatment, Hx Community Mental Health Tx, Hx Bipolar Disorder, Hx Suicide Attempt, Hx Substance Abuse, Other Psychiatric Issues/Disorders - borderline personality disorder Denies: Hx Eating Disorder, Hx of Violent Episodes Against Others - Surgical History Surgery Procedure, Year, and Place: [facility]/APPY/RT OVARY AND RT [place] TUBE REMOVED/TUBAL LIGATION/ tonsilectomy Infectious Disease History: No Infectious Disease History: Denies: Traveled Outside the [place] in Last 30 Days - Family History Known Family History: Positive: Diabetes, Other - CVA, liver dz, schizophrenia, anxiety, alcohol abuse - Social History Alcohol Use: None Alcohol Amount: none Hx Substance Use: Yes Substance Use Type: Reports: None Substance Use Comment - Amount & Last Used: denies use since August 2017 Hx Tobacco Use: Yes Smoking Status (MU): Current Every Day Smoker Type: Cigarettes Amount Used/How Often: 1/2 PPD Length of Time of Smoking/Using Tobacco: 2 years Have You Smoked in the Last Year: Yes Review of Systems Negative: Fever Positive: Vomiting, Diarrhea, Nausea All Other Systems Reviewed And Are Negative: Yes Physical Exam - Summary Physical Exam Summary: VITAL SIGNS: Reviewed. GENERAL: Patient is a morbidity obese female who is lying comfortable in the stretcher. Patient is not in any acute respiratory distress. HEAD AND FACE: No signs of trauma. No ecchymosis, hematomas or skull depressions. No sinus tenderness. EYES: PERRLA, EOMI x 2, No injected conjunctiva, no nystagmus. EARS: Hearing grossly intact. Ear canals and tympanic membranes are within normal limits. MOUTH: Oropharynx within normal limits. NECK: Supple, trachea is midline, no adenopathy, no JVD, no carotid bruit, no c- spine tenderness, neck with full ROM. CHEST: Symmetric, no tenderness at palpation LUNGS: Clear to auscultation bilaterally. No wheezing or crackles. CVS: Regular rate and rhythm, S1 and S2 present, no murmurs or gallops appreciated. ABDOMEN: Soft, non-tender. No signs of distention. No rebound no guarding, and no masses palpated. Bowel sounds are normal. EXTREMITIES: FROM in all major joints, no edema, no cyanosis or clubbing. NEURO: Alert and oriented x 3. No acute neurological deficits. Speech is normal and follows commands. SKIN: Dry and warm Triage Information Reviewed: Yes Vital Signs On Initial Exam: Initial Vitals Temp Pulse Resp BP Pulse Ox 97.8 F 67 16 113/48 98 05/10/18 19:35 05/10/18 19:35 05/10/18 19:35 05/10/18 19:35 05/10/18 19:35 Vital Signs Reviewed: Yes Diagnostics - Vital Signs Vital Signs Temp Pulse Resp BP Pulse Ox 05/10/18 19:35 97.8 F 67 16 113/48 98 - Laboratory Result Diagrams: 05/10/18 20:50 05/10/18 20:50 Lab Statement: Any lab studies that have been ordered have been reviewed, and results considered in the medical decision making process. Re-Evaluation - Re-Evaluation First Eval Re-Evaluation Time: 21:56 Change: Improved Comment: Patient is feeling better. Complex Multi-Symp Course/Dx Course Of Treatment: A 33 y/o female presents to ED c/o nausea and vomiting. Additionally c/o diarrhea. Currently, the patient is in no pain distress. In the ED room, the patient has a pulse of 85 BPM, O2 saturation of 97% and blood pressure of 115/67. No laboratory scans were done. Blood work was done. In the ED course, the patient recieved Reglan, Lomotil and IV fluids. During reevaluation, the patient indicated that she was feeling much better. Patient will be discharged with a diagnosis of gastroenteritis. Patient will be sent home with Reglan. Patient is to follow up with PCP in 1-2 days. Patient is agreeable with this plan. - Diagnoses Provider Diagnoses: Gastroenteritis Discharge - Sign-Out/Discharge Documenting (check all that apply): Patient Departure - DISCHARGE - Discharge Plan Condition: Stable Disposition: HOME Prescriptions: Metoclopramide TAB* [Reglan TAB*] 10 mg PO Q6H PRN #20 tab PRN Reason: Nausea/Vomiting Patient Education Materials: Gastroenteritis (ED), Acute Nausea and Vomiting ( ED) Referrals: Efrain Jimenez MD [Primary Care Provider] - 2 Days Additional Instructions: FOLLOW UP WITH PRIMARY CARE IN 1-2 DAYS. TAKE MEDICATION PRESCRIBED. RETURN TO ED FOR ANY NEW OR WORSENING SYMPTOMS. - Attestation Statements Document Initiated by Scribe: Yes Documenting Scribe: Juan Jose Parker Provider For Whom Scribe is Documenting (Include Credential): Isrrael Shawibcaity Attestation: Juan Jose Arce, scribed for Ramon Silva on 05/10/18 at 2204.
[2018-05-10 20:59] LABS: ABS Basophils 0 10^3/ul (0-0.2); ABS Eosinophils 0.1 10^3/ul (0-0.6); ABS Lymphocytes 1.4 10^3/ul (1.0-4.8); ABS Monocytes 0.8 10^3/ul (0-0.8); ABS Neutrophils 7.2 10^3/ul (1.5-7.7); ABS Nucleated RBC 0 10^3/ul; Eosinophil % 0.7 % (0-6); Hematocrit 38 % (35-47); Hemoglobin 12.6 g/dl (12.0-16.0); Lymphocyte % 14.5 % (25-47); Mean Corpuscular HGB Conc 33 g/dl (31-36); Mean Corpuscular Hemoglobin 29 pg (27-31); Mean Corpuscular Volume 88 fL (80-97); Mean Platelet Volume 9.9 um3 (7.4-10.4); Nucleated Red Blood Cells % 0; Platelet Count 175 10^3/ul (150-450); Red Blood Count 4.34 10^6/ul (4.00-5.40); Red Cell Distribution Width 15 % (10.5-15); White Blood Count 9.5 10^3/ul (3.5-10.8)
[2018-05-10 21:18] LABS: EGFR Non-African American 86.1 (>60)
[2018-05-10 22:19] VITALS: BP 100/55
== END 2018-05-10 22:18 | disposition home or self-care (01) ==
LOC: ED 19:33
DX: K52.9 Noninfective gastroenteritis and colitis, unspecified (principal); R11.2 Nausea with vomiting, unspecified; R19.7 Diarrhea, unspecified; F17.210 Nicotine dependence, cigarettes, uncomplicated
CPT/HCPCS: 36415; 80053; 82150; 83690; 83735; 84702; 85025; 86140; 96361; 96374; 99283; A9270-GY; J2765

== ENCOUNTER 2018-06-18 02:51 | Emergency (ER) | payer OTHER ==
[2018-06-18] MEDS ORDERED: ALPRAZolam TAB* 0.5 MG PO ONE (04:15)
[2018-06-18 04:43] LABS: ABS Basophils 0.1 10^3/ul (0-0.2); ABS Eosinophils 0.5 10^3/ul (0-0.6); ABS Lymphocytes 2.2 10^3/ul (1.0-4.8); ABS Nucleated RBC 0 10^3/ul; Eosinophil % 5.4 % (0-6); Hematocrit 37 % (35-47); Hemoglobin 12.8 g/dl (12.0-16.0); Lymphocyte % 25.4 % (25-47); Mean Corpuscular HGB Conc 34 g/dl (31-36); Mean Corpuscular Hemoglobin 30 pg (27-31); Mean Corpuscular Volume 88 fL (80-97); Mean Platelet Volume 9.6 um3 (7.4-10.4); Nucleated Red Blood Cells % 0.1; Platelet Count 139 10^3/ul (150-450); Red Blood Count 4.26 10^6/ul (4.00-5.40); Red Cell Distribution Width 15 % (10.5-15); White Blood Count 8.8 10^3/ul (3.5-10.8)
[2018-06-18 04:58] LABS: EGFR Non-African American 90.1 (>60)
--- NOTE | 2018-06-18 05:24 | ED ---
Psychiatric Complaint - HPI Summary HPI Summary: The pt is a 33 y/o female presenting to [facility] c/o of SI since yesterday night. She tried to hang herself using a belt after her of 10 years announced plans to leave her. The episode triggered her anxiety. She notes SI/HI with plans and increased depression and anxiety. - History Of Current Complaint Chief Complaint: EDMentalHealth Time Seen by Provider: 06/18/18 03:58 Hx Obtained From: Patient Hx Last Menstrual Period: 11/02/17 Onset/Duration: Sudden Onset, Still Present Timing: Constant Character: Depressed, Anxious Aggravating Factor(s): Recent Stress - Marital problems Related History: Positive For: Prior Psychiatric Issues Has Suicidal: Reports: Thoughts, With A Plan Has Homicidal: Reports: Thoughts, With A Plan - Allergies/Home Medications Allergies/Adverse Reactions: Allergies Allergy/AdvReac Type Severity Reaction Status Date / Time garlic Allergy Anaphylatic Verified 06/18/18 02:59 Shock peanut Allergy Anaphylatic Verified 06/18/18 02:59 Shock strawberries Allergy Anaphylatic Uncoded 06/18/18 02:59 Shock PMH/Surg Hx/FS Hx/Imm Hx Previously Healthy: No Endocrine/Hematology History: Denies: Hx Diabetes, Hx Thyroid Disease, Hx Unexplained Bleeding Cardiovascular History: Denies: Hx Congestive Heart Failure, Hx Deep Vein Thrombosis, Hx Embolism, Hx Hypotension, Hx Hypertension, Hx Pacemaker/ICD Respiratory History: Denies: Hx Asthma, Hx Chronic Bronchitis, Hx Pneumonia GI History: Reports: Hx Gall Bladder Disease - Gall bladder removed "couple of years ago", Other GI Disorders - dysphagia occasional Denies: Hx Crohn's Disease, Hx Gastroesophageal Reflux Disease, Hx Irritable Bowel, Hx Ulcer History: Reports: Other Problems/Disorders - UTI Denies: Hx Acute Renal Failure, Hx Dialysis, Hx Kidney Stones, Hx Renal Disease Musculoskeletal History: Reports: Other Musculoskeletal History - fracture in left knee, fracture of tailbone 2 weeks ago Denies: Hx Arthritis, Hx Fibromyalgia, Hx Orthopedic Injury Sensory History: Denies: Hx Cataracts, Hx Contacts or Glasses, Hx Vision Problem, Hx Hearing Aid Opthamlomology History: Denies: Hx Cataracts, Hx Contacts or Glasses, Hx Vision Problem Neurological History: Denies: Hx Headaches, Hx Migraine, Hx Seizures Psychiatric History: Reports: Hx Anxiety, Hx Depression, Hx Post Traumatic Stress Disorder, Hx Inpatient Treatment, Hx Community Mental Health Tx, Hx Bipolar Disorder, Hx Suicide Attempt, Hx Substance Abuse, Other Psychiatric Issues/Disorders - borderline personality disorder Denies: Hx Eating Disorder, Hx of Violent Episodes Against Others - Surgical History Surgery Procedure, Year, and Place: [facility]/APPY/RT OVARY AND RT [place] TUBE REMOVED/TUBAL LIGATION/ tonsilectomy Infectious Disease History: No Infectious Disease History: Denies: Traveled Outside the [place] in Last 30 Days - Family History Known Family History: Positive: Diabetes, Other - CVA, liver dz, schizophrenia, anxiety, alcohol abuse - Social History Occupation: Employed Full-time Lives: With Family Alcohol Use: None Alcohol Amount: none Hx Substance Use: Yes Substance Use Type: Reports: None Substance Use Comment - Amount & Last Used: denies use since August 2017 Hx Tobacco Use: Yes Smoking Status (MU): Current Every Day Smoker Type: Cigarettes Amount Used/How Often: 1/2 PPD Length of Time of Smoking/Using Tobacco: 2 years Have You Smoked in the Last Year: Yes Review of Systems Negative: Fever Positive: Anxious, Depressed, Other - Positive: SI/HI with plans All Other Systems Reviewed And Are Negative: Yes Physical Exam - Summary Physical Exam Summary: VITAL SIGNS: Reviewed. GENERAL: Patient is a well-developed and nourished female who is lying comfortable in the stretcher. Patient is not in any acute respiratory distress. HEAD AND FACE: No signs of trauma. No ecchymosis, hematomas or skull depressions. No sinus tenderness. EYES: PERRLA, EOMI x 2, No injected conjunctiva, no nystagmus. EARS: Hearing grossly intact. Ear canals and tympanic membranes are within normal limits. MOUTH: Oropharynx within normal limits. NECK: Supple, trachea is midline, no adenopathy, no JVD, no carotid bruit, no c- spine tenderness, neck with full ROM. CHEST: Symmetric, no tenderness at palpation LUNGS: Clear to auscultation bilaterally. No wheezing or crackles. CVS: Regular rate and rhythm, S1 and S2 present, no murmurs or gallops appreciated. ABDOMEN: Soft, non-tender. No signs of distention. No rebound no guarding, and no masses palpated. Bowel sounds are normal. EXTREMITIES: FROM in all major joints, no edema, no cyanosis or clubbing. NEURO: Alert and oriented x 3. No acute neurological deficits. Speech is normal and follows commands. SKIN: Dry and warm PSYCH: The pt has a depressed and anxious affect Triage Information Reviewed: Yes Vital Signs On Initial Exam: Initial Vitals Temp Pulse Resp BP Pulse Ox 97.6 F 124 18 114/75 96 06/18/18 02:54 06/18/18 02:54 06/18/18 02:54 06/18/18 02:54 06/18/18 02:54 Vital Signs Reviewed: Yes Diagnostics - Vital Signs Vital Signs Temp Pulse Resp BP Pulse Ox 06/18/18 04:36 20 06/18/18 02:54 97.6 F 124 18 114/75 96 - Laboratory Lab Results: Lab Results 06/18/18 06/18/18 Range/Units 04:30 04:30 WBC 8.8 (3.5-10.8) 10^3/ul RBC 4.26 (4.00-5.40) 10^6/ul Hgb 12.8 (12.0-16.0) g/dl Hct 37 (35-47) % MCV 88 (80-97) fL MCH 30 (27-31) pg MCHC 34 (31-36) g/dl RDW 15 (10.5-15) % Plt Count 139 L (150-450) 10^3/ul MPV 9.6 (7.4-10.4) um3 Neut % (Auto) 56.9 (38-83) % Lymph % (Auto) 25.4 (25-47) % Kaufman % (Auto) 11.7 H (0-7) % Eos % (Auto) 5.4 (0-6) % Baso % (Auto) 0.6 (0-2) % Absolute Neuts (auto) 5.0 (1.5-7.7) 10^3/ul Absolute Lymphs (auto) 2.2 (1.0-4.8) 10^3/ul Absolute Monos (auto) 1.0 H (0-0.8) 10^3/ul Absolute Eos (auto) 0.5 (0-0.6) 10^3/ul Absolute Basos (auto) 0.1 (0-0.2) 10^3/ul Absolute Nucleated RBC 0 10^3/ul Nucleated RBC % 0.1 Sodium 139 (135-145) mmol/L Potassium 4.2 (3.5-5.0) mmol/L Chloride 109 (101-111) mmol/L Carbon Dioxide 25 (22-32) mmol/L Anion Gap 5 (2-11) mmol/L BUN 17 (6-24) mg/dL Creatinine 0.75 (0.51-0.95) mg/dL Est GFR ( Amer) 109.1 (>60) Est GFR (Non-Af Amer) 90.1 (>60) BUN/Creatinine Ratio 22.7 H (8-20) Glucose 121 H (70-100) mg/dL Calcium 8.8 (8.6-10.3) mg/dL Total Bilirubin 0.20 (0.2-1.0) mg/dL AST 13 (13-39) U/L ALT 14 (7-52) U/L Alkaline Phosphatase 77 (34-104) U/L Total Protein 6.6 (6.4-8.9) g/dL Albumin 3.8 (3.2-5.2) g/dL Globulin 2.8 (2-4) g/dL Albumin/Globulin Ratio 1.4 (1-3) TSH 1.75 (0.34-5.60) mcIU/mL Beta HCG, Quant < 0.60 mIU/mL Salicylates < 2.50 (<30) mg/dL Acetaminophen < 15 mcg/mL Serum Alcohol < 10 (<10) mg/dL Result Diagrams: 06/18/18 04:30 06/18/18 04:30 Lab Statement: Any lab studies that have been ordered have been reviewed, and results considered in the medical decision making process. Course/Dx - Course Course Of Treatment: 06:550- The pt is cleared for a MHE. 07:00- [facility]. Discharge - Sign-Out/Discharge Documenting (check all that apply): Sign-Out Patient Signing out patient TO: Agusto Martinez - 07:00 - Discharge Plan Referrals: Efrain Jimenez MD [Primary Care Provider] - 2 Days - Attestation Statements Document Initiated by Scribe: Yes Documenting Scribe: Lizzy Ahuja Provider For Whom Scribe is Documenting (Include Credential): Dr. Shira Navarro MD Scribe Attestation: Lizzy Arce , scribed for Dr. Shira Navarro MD on 06/18/18 at 0704.
[2018-06-18 07:12] LABS: Urine Appearance Cloudy; Urine Blood Negative (Negative); Urine Color Yellow; Urine Ketones Negative (Negative); Urine Protein Negative (Negative); Urine Red Blood Cell Absent (Absent); Urine Specific Gravity 1.017 (1.010-1.030); Urine Urobilinogen Negative (Negative); Urine White Blood Cell Trace(0-5/hpf) (Absent)
[2018-06-18] MEDS ORDERED: Citalopram TAB* 20 MG PO ONE (08:40)
[2018-06-18] MEDS ORDERED: busPIRone TAB* 10 MG PO ONE (08:40)
[2018-06-18] MEDS ORDERED: Gabapentin CAP(*) 300 MG PO ONE (08:40)
--- NOTE | 2018-06-18 12:34 | ED ---
Progress - Progress Note Progress Note: This pt was signed out by Dr. Silva, pending disposition, awaiting MHE. Pt had a mental health evaluation and her case was reviewed by Dr. Ocasio, psychiatrist. Dr. Ocasio recommends admission for the pt but at this point there are no beds available at [facility]. Pt is pending transfer at this time. At 14:52 I discussed the case with Dr. Cohen, psychiatrist, from [facility]. Pt was accepted by Dr. Cohen for transfer to [facility] with diagnosis of depressive disorder NOS. Course/Dx - Diagnoses Provider Diagnoses: Depressive disorder Discharge - Sign-Out/Discharge Documenting (check all that apply): Patient Departure - Transfer to [facility], Receiving Sign-Out Receiving patient FROM: Ramon Silva - Discharge Plan Condition: Stable Disposition: PSYCHIATRIC FACILITY-OTHER Referrals: Efrain Jimenez MD [Primary Care Provider] - 2 Days - Attestation Statements Document Initiated by Scribe: Yes Documenting Scribe: Alaina Parkinson Provider For Whom Scribe is Documenting (Include Credential): Agusto Martinez MD Scribe Attestation: IAlaina, scribed for Agusto Martinez MD on 06/18/18 at 1607.
--- NOTE | 2018-06-18 13:24 | PN ---
ED Flex Patient Progress Note Date of Service: 06/18/18 Subjective: 33 y.o. white female with multiple prior admissions to [facility] secondary to SI arrives having attempted to hang herself following an argument with her boyfriend. She cannot contract for safety and is seeking psychiatric admission. Objective: young white female in scrubs; depressed and endorsing SI with plan to hang self Assessment: Major Depression Plan: The patient would benefit from admission but we have no available beds. Will seek transfer to outside facility. Vital Signs Temp Pulse Resp BP Pulse Ox 99.4 F 94 18 119/77 98 06/18/18 08:38 06/18/18 08:38 06/18/18 08:38 06/18/18 08:38 06/18/18 08:38 Lab Results - Entire Visit 06/18/18 06/18/18 06/18/18 06:55 06:55 04:30 WBC RBC Hgb Hct MCV MCH MCHC RDW Plt Count MPV Neut % (Auto) Lymph % (Auto) Slope % (Auto) Eos % (Auto) Baso % (Auto) Absolute Neuts (auto) Absolute Lymphs (auto) Absolute Monos (auto) Absolute Eos (auto) Absolute Basos (auto) Absolute Nucleated RBC Nucleated RBC % Sodium 139 Potassium 4.2 Chloride 109 Carbon Dioxide 25 Anion Gap 5 BUN 17 Creatinine 0.75 Est GFR ( Amer) 109.1 Est GFR (Non-Af Amer) 90.1 BUN/Creatinine Ratio 22.7 H Glucose 121 H Calcium 8.8 Total Bilirubin 0.20 AST 13 ALT 14 Alkaline Phosphatase 77 Total Protein 6.6 Albumin 3.8 Globulin 2.8 Albumin/Globulin Ratio 1.4 TSH 1.75 Beta HCG, Quant < 0.60 Urine Color Yellow Urine Appearance Cloudy Urine pH 7.0 [address] [facility] 1.017 Urine Protein Negative Urine Ketones Negative Urine Blood Negative Urine Nitrate Negative Urine Bilirubin Negative Urine Urobilinogen Negative Ur Leukocyte Esterase Trace A Urine WBC (Auto) Trace(0-5/hpf) Urine RBC (Auto) Absent Ur Squamous Epith Cells Present A Urine Bacteria Absent Urine Glucose Negative Salicylates < 2.50 Urine Opiates Screen None detected Acetaminophen < 15 Ur Barbiturates Screen None detected Ur Phencyclidine Scrn None detected Ur Amphetamines Screen None detected U Benzodiazepines Scrn None detected Urine Cocaine Screen Presumptive positive A U Cannabinoids Screen None detected Serum Alcohol < 10 06/18/18 04:30 WBC 8.8 RBC 4.26 Hgb 12.8 Hct 37 MCV 88 MCH 30 MCHC 34 RDW 15 Plt Count 139 L MPV 9.6 Neut % (Auto) 56.9 Lymph % (Auto) 25.4 Slope % (Auto) 11.7 H Eos % (Auto) 5.4 Baso % (Auto) 0.6 Absolute Neuts (auto) 5.0 Absolute Lymphs (auto) 2.2 Absolute Monos (auto) 1.0 H Absolute Eos (auto) 0.5 Absolute Basos (auto) 0.1 Absolute Nucleated RBC 0 Nucleated RBC % 0.1 Sodium Potassium Chloride Carbon Dioxide Anion Gap BUN Creatinine Est GFR ( Amer) Est GFR (Non-Af Amer) BUN/Creatinine Ratio Glucose Calcium Total Bilirubin AST ALT Alkaline Phosphatase Total Protein Albumin Globulin Albumin/Globulin Ratio TSH Beta HCG, Quant Urine Color Urine Appearance Urine pH Ur Specific [facility] Urine Protein Urine Ketones Urine Blood Urine Nitrate Urine Bilirubin Urine Urobilinogen Ur Leukocyte Esterase Urine WBC (Auto) Urine RBC (Auto) Ur Squamous Epith Cells Urine Bacteria Urine Glucose Salicylates Urine Opiates Screen Acetaminophen Ur Barbiturates Screen Ur Phencyclidine Scrn Ur Amphetamines Screen U Benzodiazepines Scrn Urine Cocaine Screen U Cannabinoids Screen Serum Alcohol
[2018-06-18] MEDS ORDERED: clonazePAM TAB(*) 1 MG PO ONE (16:06)
[2018-06-18 16:29] VITALS: BP 107/64
== END 2018-06-18 18:33 ==
LOC: ED 02:51
DX: F32.9 Major depressive disorder, single episode, unspecified (principal)
CPT/HCPCS: 36415; 80053; 80307; 80320; 80329; 81003; 81015; 84443; 84702; 85025; 87086; 93005; 99285; A9270-GY; G0480

== ENCOUNTER 2019-03-03 10:37 | Emergency (ER) | payer OTHER ==
[2019-03-03 10:46] VITALS: BP 116/84
--- NOTE | 2019-03-03 11:20 | UC ---
UC General HPI - HPI Summary HPI Summary: Patient state she was walking on her feet a lot a few days ago and noticed a pop in her right knee. Has been taking ibuprofen but it has not helped at all. She has chronic pain in left knee from injury 1-2 years ago. Denies any trauma. No falls. Having a hard time bearing weight. Meds: reviewed. No fever. - History of Current Complaint Chief Complaint: UCLowerExtremity Stated Complaint: R KNEE PAIN Time Seen by Provider: 03/03/19 10:48 Hx Last Menstrual Period: 01/28/19 Pain Intensity: 6 - Allergy/Home Medications Allergies/Adverse Reactions: Allergies Allergy/AdvReac Type Severity Reaction Status Date / Time garlic Allergy Severe Anaphylatic Verified 03/03/19 10:46 Shock peanut Allergy Severe Anaphylatic Verified 03/03/19 10:46 Shock strawberry Allergy Severe Anaphylatic Verified 03/03/19 10:46 Shock Home Medications: Home Medications Ibuprofen TAB* [Advil TAB*] 400 mg PO ONCE PRN 03/03/19 [History Confirmed 03/03] busPIRone TAB* [Buspar TAB *] 15 mg PO DAILY 03/03/19 [History Confirmed ] busPIRone TAB* [Buspar TAB*] 10 mg PO BID 03/03/19 [History Confirmed 03/03/19] PMH/Surg Hx/FS Hx/Imm Hx Previously Healthy: Yes - Surgical History Surgical History: Yes Surgery Procedure, Year, and Place: [facility]IO/APPY/RT OVARY AND RT [place] TUBE REMOVED/TUBAL LIGATION/ tonsillectomy - Family History Known Family History: Positive: Unknown - Level 5 caveat, Diabetes, Other - CVA , liver dz, schizophrenia, anxiety, alcohol abuse - Social History Alcohol Use: None Alcohol Amount: none Substance Use Type: None Substance Use Comment - Amount & Last Used: denies use since August 2017 Smoking Status (MU): Current Every Day Smoker Type: Cigarettes Amount Used/How Often: 1/2 PPD Length of Time of Smoking/Using Tobacco: 2 years Have You Smoked in the Last Year: Yes When Did the Patient Quit Smoking/Using Tobacco: pt currently uses Household Exposure Type: Cigarettes - Immunization History Most Recent Influenza Vaccination: none Most Recent Tetanus Shot: unknown Most Recent Pneumonia Vaccination: none Review of Systems All Other Systems Reviewed And Are Negative: Yes Physical Exam Triage Information Reviewed: Yes Appearance: Well-Appearing Vital Signs: Initial Vital Signs Temp 97.7 F 03/03/19 10:42 Pulse 84 03/03/19 10:42 Resp 16 03/03/19 10:42 BP 116/84 03/03/19 10:42 Pulse Ox 99 03/03/19 10:42 Vital Signs Reviewed: Yes Musculoskeletal: Positive: Other: - right lower ext - significant tenderness over medial knee with palpation. Resisting ROM due to pain. No erythema, warmth or edema Diagnostics - Radiology right knee xray Radiology Interpretation Completed By: Radiologist Summary of Radiographic Findings: Small joint effusion on right Course/Dx - Course Course Of Treatment: This is a 34 yr old with PMHx of polysubstance abuse who presents with right knee pain Assessment Right knee xray: small joing effusion Toradol 60 mg IM x 1 given HIstory of polysubstance abuse - going to avoid controlled substances Cross reactivity with muscle relaxer and her peanut allergy so will avoid this as well Declined crutches and requested using a cane Plan Start Naproxen 2x/day mg take with food Continue knee immobilizer and use cane as needed Rest, keep leg elevated and ice as needed You have apt with [facility] 03/07/19 at 2:[address] Miles Renee - Diagnoses Provider Diagnosis: Right knee pain Discharge - Sign-Out/Discharge Documenting (check all that apply): Patient Departure All imaging exams completed and their final reports reviewed: Yes - Discharge Plan Condition: Good Disposition: HOME Prescriptions: Naproxen [Naproxen 500 mg tab] 500 mg PO BID #28 tablet.dr Patient Education Materials: Knee Pain (ED) Referrals: Stephenie Alexander MD [Primary Care Provider] - Additional Instructions: Continue ibuprofen 800 mg every 6-8 hours as needed for pain - take with food Continue knee immobilizer Rest, keep leg elevated and ice as needed You have apt with [facility] 03/07/19 at 2:[address] Miles Renee - Billing Disposition and Condition Condition: GOOD Disposition: Home
[2019-03-03] MEDS ORDERED: Ketorolac INJ* 60 MG/2 ML VIAL IM ONE (11:21)
== END 2019-03-03 11:55 | disposition home or self-care (01) ==
LOC: UCEAST 10:37
DX: M25.561 Pain in right knee (principal); F17.210 Nicotine dependence, cigarettes, uncomplicated
CPT/HCPCS: 99213; G0463; J1885

== ENCOUNTER 2019-07-12 18:39 | Emergency (ER) | payer OTHER ==
--- NOTE | 2019-07-12 18:41 | ED ---
Laceration/Wound HPI - HPI Summary HPI Summary: 34 yo female presents with laceration. She tells me that she was using a knife to open a can and the knife slipped and punctured her left hand in between her thumb and index finger. She bandaged the area and called EMS. Unsure the date of her last tetanus. She is right handed - History of Current Complaint Stated Complaint: CUT TO LEFT HAND PER EMS Time Seen by Provider: 07/12/19 18:41 Hx Obtained From: Patient Hx Last Menstrual Period: 01/28/19 Onset/Duration: Sudden Onset Onset Severity: Moderate Current Severity: Mild Pain Intensity: 3 Pain Scale Used: 0-10 Numeric - Additional Pertinent History Primary Care Physician: [id number] - Allergy/Home Medications Allergies/Adverse Reactions: Allergies Allergy/AdvReac Type Severity Reaction Status Date / Time garlic Allergy Severe Anaphylatic Verified 07/12/19 18:41 Shock peanut Allergy Severe Anaphylatic Verified 07/12/19 18:41 Shock strawberry Allergy Severe Anaphylatic Verified 07/12/19 18:41 Shock Home Medications: Home Medications clonazePAM TAB(*) [KlonoPIN TAB(*)] 0.5 mg PO BID PRN 07/12/19 [History Confirmed 07/12/19] PMH/Surg Hx/FS Hx/Imm Hx Endocrine/Hematology History: Denies: Hx Diabetes, Hx Thyroid Disease, Hx Unexplained Bleeding Cardiovascular History: Denies: Hx Congestive Heart Failure, Hx Deep Vein Thrombosis, Hx Embolism, Hx Hypotension, Hx Hypertension, Hx Pacemaker/ICD Respiratory History: Denies: Hx Asthma, Hx Chronic Bronchitis, Hx Pneumonia GI History: Reports: Hx Gall Bladder Disease - Gall bladder removed "couple of years ago", Other GI Disorders - dysphagia occasional Denies: Hx Crohn's Disease, Hx Gastroesophageal Reflux Disease, Hx Irritable Bowel, Hx Ulcer History: Reports: Other Problems/Disorders - UTI Denies: Hx Acute Renal Failure, Hx Dialysis, Hx Kidney Stones, Hx Renal Disease Musculoskeletal History: Reports: Other Musculoskeletal History - fracture in left knee, fracture of tailbone 2 weeks ago Denies: Hx Arthritis, Hx Fibromyalgia, Hx Orthopedic Injury Sensory History: Denies: Hx Cataracts, Hx Contacts or Glasses, Hx Vision Problem, Hx Hearing Aid Opthamlomology History: Denies: Hx Cataracts, Hx Contacts or Glasses, Hx Vision Problem Neurological History: Denies: Hx Headaches, Hx Migraine, Hx Seizures Psychiatric History: Reports: Hx Anxiety, Hx Depression, Hx Post Traumatic Stress Disorder, Hx Inpatient Treatment, Hx Community Mental Health Tx, Hx Bipolar Disorder, Hx Suicide Attempt, Hx Substance Abuse, Other Psychiatric Issues/Disorders - borderline personality disorder Denies: Hx Eating Disorder, Hx of Violent Episodes Against Others - Surgical History Surgery Procedure, Year, and Place: [facility]/APPY/RT OVARY AND RT [facility] TUBE REMOVED/TUBAL LIGATION/ tonsillectomy - Family History Known Family History: Positive: Unknown - Level 5 caveat, Diabetes, Other - CVA , liver dz, schizophrenia, anxiety, alcohol abuse - Social History Alcohol Use: None Alcohol Amount: none Hx Substance Use: Yes Substance Use Type: Reports: None Substance Use Comment - Amount & Last Used: denies use since August 2017 Hx Tobacco Use: Yes Smoking Status (MU): Current Every Day Smoker Type: Cigarettes Amount Used/How Often: 1/2 PPD Length of Time of Smoking/Using Tobacco: 2 years Have You Smoked in the Last Year: Yes Review of Systems Constitutional: Negative Cardiovascular: Negative Respiratory: Negative Musculoskeletal: Negative Skin: Other - Left hand laceration Neurological: Negative Psychological: Normal All Other Systems Reviewed And Are Negative: No Physical Exam - Summary Physical Exam Summary: GENERAL: NAD. WDWN. No pain distress. SKIN: LEFT HAND: In the web spacing between the thumb and index finger there is a 7mm linear laceration with 2mm width. Opens when extending fingers. Clean appearing. No tendon involvement. CHEST: No accessory muscle use. Breathing comfortably and in no distress. CV: Pulses intact. Cap refill <2seconds MSK: FROM thumb and index finger without pain NEURO: Alert. PSYCH: Age appropriate behavior. Triage Information Reviewed: Yes Vital Signs On Initial Exam: Vital Signs: Temp Pulse Resp BP Pulse Ox 98.2 F 106 15 105/83 96 07/12/19 19:25 07/12/19 19:25 07/12/19 19:25 07/12/19 19:25 07/12/19 19:25 Vital Signs Reviewed: Yes Procedures - Sedation Patient Received Moderate/Deep Sedation with Procedure: No - Laceration/Wound Repair 1 Location: upper extremity Description: Linear Anesthesia: Local, 1.0% Irrigated w/ Saline (ccs): 100 Laceration/Wound Explored: clean Closure: Single Layer Suture Type: Nylon Number of Sutures: 3 Layer Closure?: No Laceration Repair Course/Dx - Course Course Of Treatment: The procedure was explained to the pt and all questions were answered. A time out was performed, witnessed, and signed. The PA student Pao performed the suturing. The area was irrigated with 100mL sterile saline. 2mL of 1% lidocaine without epi was administered and good anesthetization was achieved. In the usual sterile fashion, THREE 4-0 nylon interrupted sutures were placed. Homeostasis achieved. The wound was bandaged with telfa . Pt tolerated procedure well. tdap updated today - Clinical Impression Provider Diagnoses: Hand laceration Discharge ED - Sign-Out/Discharge Documenting (check all that apply): Patient Departure - Discharge Plan Condition: Stable Disposition: HOME Patient Education Materials: Care For Your Stitches (ED), Laceration (ED) Referrals: Stephenie Alexander MD [Primary Care Provider] - Additional Instructions: 1) Please keep the area bandage, clean, dry, and intact for the next 24- 48hours. Then change the bandage daily until sutures are removed. 2) If you develop a fever, colored or thick discharge, increased pain or swelling - please call your PCP or return for a wound check. 3) Please return in 10 days to have your sutures removed. - Billing Disposition and Condition Condition: STABLE Disposition: Home - Attestation Statements Provider Attestation: I was available for consultation for this patient. I did not evaluate the patient or participate in any medical decision making or disposition decisions unless I am specifically named in the chart as having consulted on the patient. If I have consulted on the patient, please see my own ED note on the patient encounter. Ar Kothari MD
[2019-07-12] MEDS ORDERED: Tetan/Diph/Pertus SYR(Tdap)* 0.5 ML SYR(BOOSTRIX) use SYR contains LATEX IM ONE (18:42)
[2019-07-12 18:44] VITALS: BP 105/83
== END 2019-07-12 19:25 | disposition home or self-care (01) ==
LOC: ED 18:39
DX: S61.412A Laceration without foreign body of left hand, initial encounter (principal); F41.9 Anxiety disorder, unspecified; F43.12 Post-traumatic stress disorder, chronic; F31.9 Bipolar disorder, unspecified; F17.210 Nicotine dependence, cigarettes, uncomplicated; Z91.5 Personal history of self-harm; W26.0XXA Contact with knife, initial encounter
CPT/HCPCS: 12001; 90471; 90715; 99281

== ENCOUNTER 2019-12-12 10:08 | Emergency (ER) | payer OTHER ==
[2019-12-12] MEDS ORDERED: hydrOXYzine HCL TAB* 50 MG PO ONE (10:24)
--- NOTE | 2019-12-12 10:25 | ED ---
Psychiatric Complaint - HPI Summary HPI Summary: 34 year old female with a significant psychiatric history presents to the emergency department today via 945 order with suicidal ideation. Pt states she does not want to be alive anymore due to increased stress in her life. Pt states she plans to hang herself or take pills in order to commit suicide. Pt states she is unable to see her therapist. Pt denies recent recreational drug use or alcohol use. Pt denies physical pain, homicidal ideation, SOB, chest pain , pain with urination, headache. Pt is anxious and tearful in the ED. - History Of Current Complaint Chief Complaint: EDMentalHealth Time Seen by Provider: 12/12/19 10:11 Hx Obtained From: Patient Hx Last Menstrual Period: 01/28/19 Onset/Duration: Gradual Onset Timing: Constant Severity Initially: Severe Severity Currently: Severe Character: Depressed, Anxious Aggravating Factor(s): Recent Stress Alleviating Factor(s): Counseling Associated Signs And Symptoms: Positive: Sleep Disturbance Related History: Positive For: Prior Psychiatric Issues Has Suicidal: Reports: Thoughts, With A Plan. Denies: Demonstrates Gesture Has Homicidal: Denies: Thoughts - Allergies/Home Medications Allergies/Adverse Reactions: Allergies Allergy/AdvReac Type Severity Reaction Status Date / Time garlic Allergy Severe Anaphylatic Verified 07/12/19 18:41 Shock peanut Allergy Severe Anaphylatic Verified 07/12/19 18:41 Shock strawberry Allergy Severe Anaphylatic Verified 07/12/19 18:41 Shock Home Medications: Home Medications Gabapentin CAP(*) [Neurontin 300 CAP(*)] 300 mg PO QID cap 01/14/18 [Rx Confirmed 12/12/19] traZODone TAB* [Desyrel TAB*] 150 mg PO BEDTIME 09/14/18 [History Confirmed ] busPIRone TAB* [Buspar TAB *] 15 mg PO DAILY 03/03/19 [History Confirmed ] clonazePAM TAB(*) [KlonoPIN TAB(*)] 0.5 mg PO BID PRN 07/12/19 [History Confirmed 12/12/19] PMH/Surg Hx/FS Hx/Imm Hx Endocrine/Hematology History: Denies: Hx Diabetes, Hx Thyroid Disease, Hx Unexplained Bleeding Cardiovascular History: Denies: Hx Congestive Heart Failure, Hx Deep Vein Thrombosis, Hx Embolism, Hx Hypotension, Hx Hypertension, Hx Pacemaker/ICD Respiratory History: Denies: Hx Asthma, Hx Chronic Bronchitis, Hx Pneumonia GI History: Reports: Hx Gall Bladder Disease - Gall bladder removed "couple of years ago", Other GI Disorders - dysphagia occasional Denies: Hx Crohn's Disease, Hx Gastroesophageal Reflux Disease, Hx Irritable Bowel, Hx Ulcer History: Reports: Other Problems/Disorders - UTI Denies: Hx Acute Renal Failure, Hx Dialysis, Hx Kidney Stones, Hx Renal Disease Musculoskeletal History: Reports: Other Musculoskeletal History - fracture in left knee, fracture of tailbone 2 weeks ago Denies: Hx Arthritis, Hx Fibromyalgia, Hx Orthopedic Injury Sensory History: Denies: Hx Cataracts, Hx Contacts or Glasses, Hx Vision Problem, Hx Hearing Aid Opthamlomology History: Denies: Hx Cataracts, Hx Contacts or Glasses, Hx Vision Problem Neurological History: Denies: Hx Headaches, Hx Migraine, Hx Seizures Psychiatric History: Reports: Hx Anxiety, Hx Depression, Hx Post Traumatic Stress Disorder, Hx Inpatient Treatment, Hx Community Mental Health Tx, Hx Bipolar Disorder, Hx Suicide Attempt, Hx Substance Abuse, Other Psychiatric Issues/Disorders - borderline personality disorder Denies: Hx Eating Disorder, Hx of Violent Episodes Against Others - Surgical History Surgery Procedure, Year, and Place: [facility]/APPY/RT OVARY AND RT F[place] TUBE REMOVED/TUBAL LIGATION/ tonsillectomy Infectious Disease History: No Infectious Disease History: Denies: Traveled Outside the [place] in Last 30 Days - Family History Known Family History: Positive: Unknown - Level 5 caveat, Diabetes, Other - CVA , liver dz, schizophrenia, anxiety, alcohol abuse - Social History Alcohol Use: None Alcohol Amount: none Hx Substance Use: Yes Substance Use Type: Reports: None Substance Use Comment - Amount & Last Used: denies use since August 2017 Hx Tobacco Use: Yes Smoking Status (MU): Current Every Day Smoker Type: Cigarettes Amount Used/How Often: 1/2 PPD Length of Time of Smoking/Using Tobacco: 2 years Have You Smoked in the Last Year: Yes Review of Systems Constitutional: Negative Eyes: Negative ENT: Negative Cardiovascular: Negative Respiratory: Negative Gastrointestinal: Negative Genitourinary: Negative Musculoskeletal: Negative Skin: Negative Neurological/Mental Status: Negative Positive: Anxious, Depressed All Other Systems Reviewed And Are Negative: Yes Physical Exam - Summary Physical Exam Summary: pt makes good eye contact and is tearful in conversation. Pt is extremely anxious. Triage Information Reviewed: Yes Vital Signs On Initial Exam: Initial Vitals Temp Pulse Resp BP Pulse Ox 98.2 F 136 20 140/106 95 12/12/19 10:11 12/12/19 10:11 12/12/19 10:11 12/12/19 10:11 12/12/19 10:11 Vital Signs Reviewed: Yes Appearance: Positive: Well-Appearing, No Pain Distress, Well-Nourished, Obese Skin: Positive: Warm, Skin Color Reflects Adequate Perfusion Eyes: Positive: EOMI, ÓSCAR ENT: Positive: Hearing grossly normal Respiratory/Lung Sounds: Positive: Clear to Auscultation, Breath Sounds Present Cardiovascular: Positive: RRR, S1, S2 Abdomen Description: Positive: Nontender, Soft Musculoskeletal: Positive: Strength/ROM Intact Neurological: Positive: Sensory/Motor Intact, Alert, Oriented to Person Place, Time, Normal Gait, Facial Symmetry, Speech Normal Psychiatric: Positive: Anxious, Depressed AVPU Assessment: Alert Procedures - Sedation Patient Received Moderate/Deep Sedation with Procedure: No Diagnostics - Vital Signs Vital Signs Temp Pulse Resp BP Pulse Ox 12/12/19 10:11 98.2 F 136 20 140/106 95 - Laboratory Result Diagrams: 12/12/19 10:28 12/12/19 10:28 Lab Statement: Any lab studies that have been ordered have been reviewed, and results considered in the medical decision making process. Course/Dx - Course Course Of Treatment: Pt evaluated in the ED for mental health evaluation with SI. Vitals noted, pt tachycardic likely due to anxiety. Pt asymptomatic for significant pulmanary or cardiac pathology. Pt given hydroxazine 50mg for anxiety. Pt placed in a safe room and under observation. Pt changed into scrubs and had labs drawn. Labs returned showing no leukocytosis, anemia, electrolyte disturbance. Urinalysis returned contaminated however the patient is asymptomatic for urinary pathology. Urine drug screen returned positive for cannabinoids, cocaine, benzodiazepines. Pt cleared for mental health evaluation and disposition. Dr. Ocasio, psychiatry found the patient is suitable for outpatient management. Patient discharged to [facility] facility in [facility] and brought there by private cab. Patient discharged to outpatient follow-up. - Differential Dx/Clinical Impression Differential Diagnosis/HQI/PQRI: Positive: Acute Psychosis, Anxiety, Depression , Suicidal Ideation Provider Diagnosis: Suicidal ideation Discharge ED - Sign-Out/Discharge Documenting (check all that apply): Patient Departure - Discharge Plan Condition: Stable Disposition: SUBSTANCE ABUSE REHAB Referrals: Stephenie Alexander MD [Primary Care Provider] - - Billing Disposition and Condition Condition: STABLE Disposition: Substance Abuse Rehab
[2019-12-12 10:41] LABS: ABS Eosinophils 0.3 10^3/ul (0-0.6); ABS Lymphocytes 1.8 10^3/ul (1.0-4.8); ABS Neutrophils 4.7 10^3/ul (1.5-7.7); Eosinophil % 3.3 %; Hematocrit 43 % (35-47); Hemoglobin 14.9 g/dL (12.0-16.0); Lymphocyte % 23.4 %; Mean Corpuscular HGB Conc 35 g/dL (31-36); Mean Corpuscular Hemoglobin 31 pg (27-31); Mean Corpuscular Volume 88 fL (80-97); Mean Platelet Volume 10.1 fL (7.4-10.4); Platelet Count 169 10^3/uL (150-450); Red Blood Count 4.88 10^6 /uL (3.70-4.87); Red Cell Distribution Width 14 % (10-15); White Blood Count 7.8 10^3/uL (3.5-10.8)
[2019-12-12 10:57] LABS: ALT 32 U/L (7-52); AST 30 U/L (13-39); Albumin 3.8 g/dL (3.2-5.2); Albumin/Globulin Ratio 1.1 (1-3); Alkaline Phosphatase 91 U/L (34-104); Anion Gap 7 mmol/L (2-11); BUN/Creatinine Ratio 12.9 (8-20); Blood Urea Nitrogen 11 mg/dL (6-24); CO2 Carbon Dioxide 23 mmol/L (22-32); Calcium 9.2 mg/dL (8.6-10.3); Chloride 107 mmol/L (101-111); EGFR African American 93.8 (>60); EGFR Non-African American 77.5 (>60); Globulin 3.4 g/dL (2-4); Glucose 107 mg/dL (70-100); Potassium 3.9 mmol/L (3.5-5.0); Sodium 137 mmol/L (135-145); Total Protein 7.2 g/dL (6.4-8.9)
[2019-12-12 11:18] LABS: Alcohol < 10 mg/dL (<10); Salicylate < 2.50 mg/dL (<30)
[2019-12-12 11:19] LABS: Acetaminophen < 15 mcg/mL
[2019-12-12 12:44] VITALS: BP 105/64
[2019-12-12 14:24] LABS: Urine Appearance Cloudy; Urine Bilirubin Negative (Negative); Urine Blood Negative (Negative); Urine Color Yellow; Urine Glucose Negative (Negative); Urine Ketones Negative (Negative); Urine Nitrite Negative (Negative); Urine Protein Negative (Negative); Urine Specific Gravity 1.021 (1.010-1.030); Urine Urobilinogen Negative (Negative)
[2019-12-12 14:29] LABS: Urine Bacteria 1+ (Absent); Urine Red Blood Cell 1+(3-5/hpf) (Absent); Urine Squamous Epithelial Cell Present (Absent); Urine White Blood Cell 1+(6-10/hpf) (Absent)
[2019-12-12 14:39] LABS: Urine Benzodiazepine Screen Presumptive Positive (None Detect); Urine Opiates Screen None Detected (None Detect)
== END 2019-12-12 14:42 ==
LOC: ED 10:08
DX: R45.851 Suicidal ideations (principal); F41.9 Anxiety disorder, unspecified; F32.9 Major depressive disorder, single episode, unspecified; F43.10 Post-traumatic stress disorder, unspecified; Z79.899 Other long term (current) drug therapy; F17.210 Nicotine dependence, cigarettes, uncomplicated
CPT/HCPCS: 36415; 80053; 80307; 80320; 80329; 81003; 81015; 84443; 85025; 87077; 87086; 87186; 99285; A9270-GY; G0480